=== PATIENT | male | born 1955 | race American Indian/Alaskan Native ===

== ENCOUNTER 2021-11-03 18:47 | Inpatient (IN) | payer SELFPAY ==
--- NOTE | 2021-11-03 19:20 | Emergency Department Report ---
HPI - General Chief Complaint: Dyspnea/Respdistress Time Seen by Provider: 11/03/21 18:51 - HPI HPI: Room 3 The patient is a 66-year-old male present with a chief complaint of shortness of breath. The patient states he has had shortness of breath and a cough for the past 2 days. Patient also complains of nasal congestion. EMS was called and found the patient hypoxic to 83% on room air. Patient was placed on CPAP and administered dexamethasone 10 mg IV and magnesium sulfate 2 g. The patient states he has not been vaccinated against COVID. Patient denies known sick contacts. Upon arrival to the ED the patient was switched from CPAP to BiPAP ED Past Medical Hx - Past Medical History Hx Congestive Heart Failure: Yes Hx COPD: Yes (No home O2) - Surgical History Past Surgical History?: No - Family History Family history: no significant - Social History Smoking Status: Unknown if ever smoked Substance Use Type: None ED Review of Systems ROS: Stated complaint: Other details as noted in HPI Constitutional: denies: fever Eyes: denies: eye pain ENT: denies: throat pain Respiratory: cough, shortness of breath Cardiovascular: denies: chest pain Endocrine: no symptoms reported Gastrointestinal: denies: abdominal pain Genitourinary: denies: dysuria Musculoskeletal: denies: back pain Neurological: denies: headache Physical Exam - Physical Exam Vital Signs: Vital Signs 11/03/21 18:58 Pulse Rate 114 H Respiratory 23 Rate Blood Pressure 140/116 [Left] O2 Sat by Pulse 99 Oximetry Physical Exam: GENERAL: The patient is well-developed well-nourished male lying on stretcher receiving BiPAP exhibiting slightly increased work of breathing. [] HEENT: Normocephalic. Atraumatic. Extraocular motions are intact. Patient has moist mucous membranes. NECK: Supple. Trachea midline CHEST/LUNGS: Diminished throughout. Faint occasional expiratory wheezing auscultated. Accessory muscle use HEART/CARDIOVASCULAR: Regular. There is no tachycardia. There is no gallop rub or murmur. ABDOMEN: Abdomen is soft, nontender. Patient has normal bowel sounds. There is no abdominal distention. SKIN: There is no rash. There is no edema. There is no diaphoresis. NEURO: The patient is awake, alert, and oriented. The patient is cooperative. The patient has no focal neurologic deficits. The patient has normal speech. GCS 15 MUSCULOSKELETAL: There is no evidence of acute injury. ED Course Vital Signs 11/03/21 18:58 Pulse Rate 114 H Respiratory 23 Rate Blood Pressure 140/116 [Left] O2 Sat by Pulse 99 Oximetry ED Medical Decision Making - Lab Data Result diagrams: 11/04/21 05:05 11/06/21 05:19 Laboratory Tests 11/03/21 11/03/21 11/03/21 19:13 19:13 19:13 WBC 8.2 RBC 5.11 H Hgb 13.5 Hct 43.7 MCV 85 MCH 26 L MCHC 31 L RDW 17.3 H Seg Neutrophils % Desktop Technician PT 14.9 INR 1.05 Sodium 140 Potassium 3.7 Chloride 100.4 Carbon Dioxide 25 Anion Gap 18 BUN 23 H Creatinine 1.3 Estimated GFR 56 BUN/Creatinine Ratio 18 Glucose 104 H Lactic Acid Calcium 8.2 L Total Creatine Kinase 65 CK-MB (CK-2) 1.2 CK-MB (CK-2) Rel Index 1.8 Troponin T < 0.010 NT-Pro-B Natriuret Pep 3110 H 11/03/21 19:13 WBC RBC Hgb Hct MCV MCH MCHC RDW Seg Neutrophils % PT INR Sodium Potassium Chloride Carbon Dioxide Anion Gap BUN Creatinine Estimated GFR BUN/Creatinine Ratio Glucose Lactic Acid 1.10 Calcium Total Creatine Kinase CK-MB (CK-2) CK-MB (CK-2) Rel Index Troponin T NT-Pro-B Natriuret Pep - Radiology Data Radiology results: report reviewed (Chest x-ray), image reviewed (Chest x-ray) interpreted by me: Chest [id number] infiltrates bilaterally. No pneumothorax [facility] [address] [place] [address] XRay Report Signed Patient: LIYA PIERCE MR#: [id number] : 1955 Acct:[id number] Age/Sex: 66 / M ADM Date: 11/03/21 Loc: ED Attending Dr: Ordering Physician: RAMYA REDDY MD Date of Service: 11/03/21 Procedure(s): XR chest 1V ap Accession Number(s): [id number] cc: RAMYA REDDY MD Fluoro Time In Minutes: CHEST 1 VIEW 11/03/2021 6:56 PM INDICATION / CLINICAL INFORMATION: Shortness of breath, hypoxia. COMPARISON: None available. FINDINGS: SUPPORT DEVICES: None. HEART / MEDIASTINUM: Stable mild cardiac enlargement. LUNGS / PLEURA: Increased opacity at the mid/lower zones. No pneumothorax. ADDITIONAL FINDINGS: No significant additional findings. IMPRESSION: Bilateral pneumonia. Signer Name: Thom Alfaro MD Signed: 11/03/2021 7:29 PM Workstation Name: [id number] Transcribed By: ES Dictated By: Thom Alfaro MD Electronically Authenticated By: Thom Alfaro MD Signed Date/Time: 11/03/211928 DD/ 27 TD/TT: Print Cancel - Differential Diagnosis COPD exacerbation, CHF exacerbation, COVID pneumonia Critical care attestation.: If time is entered above; I have spent that time in minutes in the direct care of this critically ill patient, excluding procedure time. ED Disposition Clinical Impression: Suspected COVID-19 virus infection, Bilateral pneumonia, Hypoxia Disposition: ADMITTED INPATIENT Is pt being admited?: Yes Does the pt Need Aspirin: No Condition: Fair Time of Disposition: 21:15 (Hospitalist called (Dr. Duncan))
--- NOTE | 2021-11-03 19:34 | XRay Report ---
CHEST 1 VIEW 11/03/2021 6:56 PM INDICATION / CLINICAL INFORMATION: Shortness of breath, hypoxia. COMPARISON: None available. FINDINGS: SUPPORT DEVICES: None. HEART / MEDIASTINUM: Stable mild cardiac enlargement. LUNGS / PLEURA: Increased opacity at the mid/lower zones. No pneumothorax. ADDITIONAL FINDINGS: No significant additional findings. IMPRESSION: Bilateral pneumonia. Signer Name: Thom Alfaro MD Signed: 11/03/2021 7:29 PM Workstation Name: [id number]
[2021-11-03 19:39] LABS: Mean Corpuscular HGB Conc 31 % (32-34); Mean Corpuscular Volume 85 fl (84-94); Red Blood Count 5.11 M/mm3 (3.65-5.03); Red Cell Distribution Width 17.3 % (13.2-15.2)
[2021-11-03 19:48] LABS: Hematocrit 43.7 % (35.5-45.6); Hemoglobin 13.5 gm/dl (11.8-15.2)
[2021-11-03 19:50] LABS: INR 1.05 (0.87-1.13)
[2021-11-03] MEDS ORDERED: IPRATROPIUM 0.02% NEBU 2.5 ML IH ONE (19:52)
[2021-11-03] MEDS ORDERED: LEVALBUTEROL 0.63 MG/3 ML NEBU IH ONE (19:52)
[2021-11-03 20:05] LABS: Creatine Kinase MB 1.2 ng/mL (0.0-4.0)
[2021-11-03 20:08] LABS: BUN/Creatinine Ratio 18; Blood Urea Nitrogen 23 mg/dL (9-20); Calcium 8.2 mg/dL (8.4-10.2); Hemolysis Index 0
[2021-11-03 20:36] LABS: Band Neutrophils # (Manual) 0.5 K/mm3; Basophils % (Manual) 0 % (0.0-1.8); Eosinophils % (Manual) 0 % (0.0-4.3); Total Cells Counted 100
[2021-11-03 20:38] LABS: Platelet Clumps Few
[2021-11-03 20:39] LABS: Large Platelets 1+
[2021-11-03 20:59] LABS: Platelet Count 140 K/mm3 (140-440)
[2021-11-03] MEDS ORDERED: dexAMETHasone 20 MG/5 ML VIAL IV ONE (21:05)
[2021-11-03] MEDS ORDERED: ACETAMINOPHEN 325 MG TAB PO PRN (22:44)
[2021-11-03] MEDS ORDERED: ONDANSETRON 4 MG/2 ML INJ IV PRN (22:44)
[2021-11-03] MEDS ORDERED: MAGNESIUM HYDROXIDE (MOM) ORAL LIQD UDC PO PRN (22:44)
[2021-11-03] MEDS ORDERED: MORPHINE 4 MG/1 ML INJ IV PRN (22:44)
--- NOTE | 2021-11-03 22:58 | History and Physical Report ---
History of Present Illness Date of examination: 11/03/21 Date of admission: 11/03/2021 Chief complaint: 11/03/2021 History of present illness: 36-year-old male with known history of CHF and COPD presenting to the emergency room today via EMS complaining of cough and shortness of breath which has been ongoing for about 2 days. Patient also indicates that he has been having some nasal congestion. He denies any fever or chills, denies any chest pain, denies any headache or dizziness and no diaphoresis. Upon arrival of EMS patient was found to be hypoxic with oxygen saturation of about 83% on room air he was subsequently placed on CPAP. He was given IV dexamethasone 10 mg and magnesium sulfate 2 g prior to arrival. Patient admits that he has not been vaccinated against COVID-19. He denies any sick contacts and no recent travel. Upon arrival in the emergency room patient was switched from CPAP to BiPAP. Work-up in the emergency room today, labs were significant for elevated BNP of 3110. Chest x-ray shows bilateral pneumonia. Past History Past Medical History: COPD, heart failure Past Surgical History: No surgical history Social history: no significant social history Family history: no significant family history Medications and Allergies Allergies Allergy/AdvReac Type Severity Reaction Status Date / Time No Known Allergies Allergy Verified 11/03/21 18:59 Active Meds: Active Medications Acetaminophen (Acetaminophen 325 Mg Tab) 650 mg PO Q4H PRN PRN Reason: Pain MILD(1-3)/Fever >100.5/SMYTH Dexamethasone (Dexamethasone 4 Mg/Ml Vial) 6 mg IV Q24H JENNY Heparin Sodium (Porcine) (Heparin 5,000 Unit/1 Ml Vial) 5,000 unit SUB-Q Q8HR JENNY Ceftriaxone Sodium (Rocephin/Ns 2 Gm/100 Ml) 2 gm in 100 mls @ 200 mls/hr IV Q24H JENNY; Protocol Azithromycin (Zithromax/Ns) 500 mg in 250 mls @ 250 mls/hr IV Q24H JENNY; Protocol Magnesium Hydroxide (Magnesium Hydroxide (Mom) Oral Liqd Udc) 30 ml PO Q4H PRN PRN Reason: Constipation Morphine Sulfate (Morphine 2 Mg/1 Ml Inj) 2 mg IV Q4H PRN PRN Reason: Pain, Moderate (4-6) Morphine Sulfate (Morphine 4 Mg/1 Ml Inj) 4 mg IV Q4H PRN PRN Reason: Pain , Severe (7-10) Ondansetron HCl (Ondansetron 4 Mg/2 Ml Inj) 4 mg IV Q8H PRN PRN Reason: Nausea And Vomiting Sodium Chloride (Sodium Chloride 0.9% 10 Ml Flush Syringe) 10 ml IV BID JENNY Sodium Chloride (Sodium Chloride 0.9% 10 Ml Flush Syringe) 10 ml IV PRN PRN PRN Reason: LINE FLUSH Review of Systems Constitutional: no fever, no chills Ears, nose, mouth and throat: no nasal congestion, no sore throat Cardiovascular: no chest pain, no palpitations Respiratory: cough, shortness of breath Gastrointestinal: no abdominal pain, no nausea, no vomiting, no diarrhea Genitourinary Male: no dysuria, no hematuria, no flank pain, no nocturia Musculoskeletal: no neck pain, no low back pain Integumentary: no rash, no pruritis Neurological: no headaches, no confusion Psychiatric: no anxiety, no depression Endocrine: no polyphagia, no polydipsia, no polyuria, no nocturia Exam - Constitutional Vitals: Temp Pulse Resp BP Pulse Ox 104 H 22 140/116 98 11/03/21 20:44 11/03/21 20:44 11/03/21 19:12 11/03/21 20:29 General appearance: Present: no acute distress, well-nourished - EENT Eyes: Present: PERRL, EOM intact. Absent: scleral icterus ENT: hearing intact, clear oral mucosa, dentition normal - Neck Neck: Present: supple, normal ROM - Respiratory Respiratory effort: normal Respiratory: bilateral: diminished, wheezing (Few scattered wheezes) - Cardiovascular Rhythm: regular Heart Sounds: Present: S1 & S2. Absent: gallop, systolic murmur, diastolic murmur, rub, click - Extremities Extremities: no ischemia, pulses intact, pulses symmetrical, No edema, normal temperature, normal color, Full ROM Peripheral Pulses: within normal limits - Abdominal General gastrointestinal: Present: soft, non-tender, non-distended, normal bowel sounds. Absent: mass - Integumentary Integumentary: Present: clear, warm, dry. Absent: rash - Musculoskeletal Musculoskeletal: strength equal bilaterally - Psychiatric Psychiatric: appropriate mood/affect, intact judgment & insight, memory intact, cooperative - Neurologic Neurologic: CNII-XII intact, no focal deficits, moves all extremities HEART Score - HEART Score Troponin: Troponin T < 0.010 ng/mL (0.00-0.029) 11/03/21 19:13 Results - Labs CBC & Chem 7: 11/03/21 19:13 11/03/21 19:13 Labs: Abnormal lab results 11/03/21 11/03/21 Range/Units 19:13 19:13 RBC 5.11 H (3.65-5.03) M/mm3 MCH 26 L (28-32) pg MCHC 31 L (32-34) % RDW 17.3 H (13.2-15.2) % Seg Neuts % (Manual) 92.0 H (40.0-70.0) % Lymphocytes % (Manual) 1.0 L (13.4-35.0) % Lymphocytes # (Manual) 0.1 L (1.2-5.4) K/mm3 BUN 23 H (9-20) mg/dL Glucose 104 H (75-100) mg/dL Calcium 8.2 L (8.4-10.2) mg/dL NT-Pro-B Natriuret Pep 3110 H (0-900) pg/mL Assessment and Plan - Patient Problems (1) Bilateral pneumonia Current Visit: No Status: Inactive Plan to address problem: Patient placed on empiric IV antibiotics. Will await culture results. We will also test patient for COVID-19. (2) History of COPD Current Visit: No Status: Acute Plan to address problem: Patient will be placed on inhalers as needed. (3) Hypoxia Current Visit: No Status: Inactive Plan to address problem: Possibly secondary to the underlying pneumonia versus COPD. Will keep oxygen saturation greater equal to 92%. Consult placed to pulmonology for evaluation. (4) Suspected COVID-19 virus infection Current Visit: No Status: Inactive Plan to address problem: Will await COVID-19 testing. [address] we will place on isolation precautions. Consult will be placed to infectious disease for evaluation. (5) DVT prophylaxis Current Visit: No Status: Acute Plan to address problem: Patient placed on subcutaneous heparin. (6) Full code status Current Visit: No Status: Acute Plan to address problem: Patient is full code.
[2021-11-03] MEDS: cefTRIAXone/NS 2 GM/100 ML 2 GM/100 ML BAG IV SCH (23:00)
[2021-11-03] MEDS: AZITHROMYCIN/NS 500 MG/250 ML 500 MG/250 ML BAG IV SCH (23:00)
[2021-11-04 05:59] LABS: BUN/Creatinine Ratio 20; Blood Urea Nitrogen 26 mg/dL (9-20); Calcium 8.6 mg/dL (8.4-10.2); Hemolysis Index 6
[2021-11-04] MEDS: HEPARIN 5,000 UNIT/1 ML VIAL SUB-Q SCH ×3 (06:00→22:07)
[2021-11-04 07:43] LABS: Mean Corpuscular HGB Conc 31 % (32-34); Mean Corpuscular Volume 86 fl (84-94); Red Blood Count 5.42 M/mm3 (3.65-5.03); Red Cell Distribution Width 17.3 % (13.2-15.2)
[2021-11-04 07:45] LABS: Hematocrit 46.6 % (35.5-45.6); Hemoglobin 14.5 gm/dl (11.8-15.2); Platelet Count 138 K/mm3 (140-440)
[2021-11-04 08:53] LABS: Band Neutrophils # (Manual) 0.1 K/mm3; Basophils % (Manual) 0 % (0.0-1.8); Eosinophils % (Manual) 0 % (0.0-4.3); Large Platelets Few; Monocytes % (Manual) 0 % (0.0-7.3); Myelocytes # (Manual) 0.1 K/mm3; Platelet Estimate Consistent w Auto; Total Cells Counted 100
[2021-11-04] MEDS ORDERED: dexAMETHasone 4 MG/ML VIAL IV SCH (10:00)
[2021-11-04] MEDS: cefTRIAXone/NS 2 GM/100 ML 2 GM/100 ML BAG IV SCH (10:42)
[2021-11-04] MEDS: AZITHROMYCIN/NS 500 MG/250 ML 500 MG/250 ML BAG IV SCH (11:00)
--- NOTE | 2021-11-04 14:13 | Progress Note ---
Subjective Date of service: 11/04/21 Interval history: 36-year-old male with known history of CHF and COPD presenting to the emergency room today via EMS complaining of cough and shortness of breath which has been ongoing for about 2 days. Patient also indicates that he has been having some nasal congestion. He denies any fever or chills, denies any chest pain, denies any headache or dizziness and no diaphoresis. Upon arrival of EMS patient was found to be hypoxic with oxygen saturation of about 83% on room air he was subsequently placed on CPAP. He was given IV dexamethasone 10 mg and magnesium sulfate 2 g prior to arrival. Patient admits that he has not been vaccinated against COVID-19. He denies any sick contacts and no recent travel. Upon arrival in the emergency room patient was switched from CPAP to BiPAP. Work-up in the emergency room today, labs were significant for elevated BNP of 3110. Chest x-ray shows bilateral pneumonia. 11/04 patient is awake and alert, complains of dry mouth and wants to eat. He is on BiPAP at 60% FiO2. Lab results reviewed. Covid test is pending Patient complains of shortness of breath but denies any chest pain. Denies fever or chills. Denies nausea or abdominal pain Assessment and plan Acute hypoxic respiratory failure Patient is on BiPAP with 65% FiO2 We will order ABG Pulmonary consulted/evaluation pending Bilateral pneumonia Chest x-ray reviewed Covid test ordered-pending Patient is unvaccinated Inflammatory markers reviewed ID consulted evaluation pending/ Continue IV antibiotics History of COPD Pulmonary consulted Continue neb treatments for now Objective - Constitutional Vitals: Vital Signs - 12hr 11/04/21 11/04/21 11/04/21 03:58 04:04 05:00 Temperature 98 F Pulse Rate 101 H 115 H 96 H Respiratory 28 H 38 H 26 H Rate Blood Pressure Blood Pressure 124/88 122/86 [Left] O2 Sat by Pulse 100 96 100 Oximetry 11/04/21 11/04/21 11/04/21 06:30 07:56 08:28 Temperature Pulse Rate 94 H 113 H 93 H Respiratory 26 H 29 H 29 H Rate Blood Pressure 124/100 Blood Pressure 120/84 [Left] O2 Sat by Pulse 100 100 100 Oximetry 11/04/21 11/04/21 09:01 10:55 Temperature Pulse Rate 101 H Respiratory 23 17 Rate Blood Pressure 109/89 Blood Pressure [Left] O2 Sat by Pulse 100 97 Oximetry General appearance: Present: no acute distress - EENT Eyes: PERRL ENT: hearing intact - Neck Neck: supple, normal ROM - Respiratory Respiratory: bilateral: diminished - Cardiovascular Rhythm: regular Heart Sounds: Present: S1 & S2 Extremities: No edema - Gastrointestinal General gastrointestinal: Present: soft, non-tender Rectal Exam: deferred - Genitourinary Male genitourinary: deferred - Integumentary Integumentary: clear - Neurologic Neurologic: no focal deficits, moves all extremities - Psychiatric Psychiatric: appropriate mood/affect - Labs CBC & Chem 7: 11/04/21 05:05 11/04/21 05:05 Labs: Abnormal lab results 11/03/21 11/03/21 11/04/21 Range/Units 19:13 19:13 05:05 RBC 5.11 H 5.42 H (3.65-5.03) M/mm3 Hct 46.6 H (35.5-45.6) % MCH 26 L 27 L (28-32) pg MCHC 31 L 31 L (32-34) % RDW 17.3 H 17.3 H (13.2-15.2) % Plt Count 138 L (140-440) K/mm3 Seg Neuts % (Manual) 92.0 H 86.0 H (40.0-70.0) % Lymphocytes % (Manual) 1.0 L 12.0 L (13.4-35.0) % Lymphocytes # (Manual) 0.1 L 1.0 L (1.2-5.4) K/mm3 D-Dimer (0-234) ng/mlDDU Sodium (137-145) mmol/L Chloride (98-107) mmol/L BUN 23 H (9-20) mg/dL Glucose 104 H (75-100) mg/dL Calcium 8.2 L (8.4-10.2) mg/dL Ferritin (30.0-300.0) ng/mL Lactate Dehydrogenase (91-180) units/L C-Reactive Protein (0.00-1.30) mg/dL NT-Pro-B Natriuret Pep 3110 H (0-900) pg/mL 11/04/21 11/04/21 11/04/21 Range/Units 05:05 08:22 08:22 RBC (3.65-5.03) M/mm3 Hct (35.5-45.6) % MCH (28-32) pg MCHC (32-34) % RDW (13.2-15.2) % Plt Count (140-440) K/mm3 Seg Neuts % (Manual) (40.0-70.0) % Lymphocytes % (Manual) (13.4-35.0) % Lymphocytes # (Manual) (1.2-5.4) K/mm3 D-Dimer 411.43 H (0-234) ng/mlDDU Sodium 136 L (137-145) mmol/L Chloride 96.3 L (98-107) mmol/L BUN 26 H (9-20) mg/dL Glucose 248 H (75-100) mg/dL Calcium (8.4-10.2) mg/dL Ferritin 348.1 H (30.0-300.0) ng/mL Lactate Dehydrogenase (91-180) units/L C-Reactive Protein (0.00-1.30) mg/dL NT-Pro-B Natriuret Pep (0-900) pg/mL 11/04/21 Range/Units 08:22 RBC (3.65-5.03) M/mm3 Hct (35.5-45.6) % MCH (28-32) pg MCHC (32-34) % RDW (13.2-15.2) % Plt Count (140-440) K/mm3 Seg Neuts % (Manual) (40.0-70.0) % Lymphocytes % (Manual) (13.4-35.0) % Lymphocytes # (Manual) (1.2-5.4) K/mm3 D-Dimer (0-234) ng/mlDDU Sodium (137-145) mmol/L Chloride (98-107) mmol/L BUN (9-20) mg/dL Glucose (75-100) mg/dL Calcium (8.4-10.2) mg/dL Ferritin (30.0-300.0) ng/mL Lactate Dehydrogenase 364 H (91-180) units/L C-Reactive Protein 10.00 H (0.00-1.30) mg/dL NT-Pro-B Natriuret Pep (0-900) pg/mL HEART Score - HEART Score Troponin: Troponin T < 0.010 ng/mL (0.00-0.029) 11/03/21 19:13
[2021-11-04] MEDS ORDERED: FUROSEMIDE 20 MG/2 ML INJ IV ONE (15:06)
[2021-11-04] MEDS ORDERED: ALBUTEROL 8.5 GM MDI INHALATION IH PRN (15:07)
--- NOTE | 2021-11-04 15:12 | Consultation ---
History of Present Illness Consult date: 11/04/21 Requesting physician: BASSAM REHMAN Reason for consult: COPD, hypoxemia History of present illness: 66 y/o male per chart with prior history of CHF and COPD admitted with acute hypoxic respiratory failure, concern for COVID and likely CHF exacerbation with combined COPD exacerbation. Past History Past Medical History: COPD, heart failure Past Surgical History: No surgical history Social history: no significant social history Family history: no significant family history Medications and Allergies Allergies Allergy/AdvReac Type Severity Reaction Status Date / Time No Known Allergies Allergy Verified 11/03/21 18:59 Active Meds: Active Medications Acetaminophen (Acetaminophen 325 Mg Tab) 650 mg PO Q4H PRN PRN Reason: Pain MILD(1-3)/Fever >100.5/SMYTH Albuterol (Albuterol 8.5 Gm Mdi Inhalation) 2 puff IH Q4HRT PRN PRN Reason: Shortness Of Breath Azithromycin (Azithromycin 250 Mg Tab) 500 mg PO QDAY JENNY; Protocol Furosemide (Furosemide 20 Mg/2 Ml Inj) 20 mg IV ONCE ONE Stop: 11/04/21 15:07 Heparin Sodium (Porcine) (Heparin 5,000 Unit/1 Ml Vial) 5,000 unit SUB-Q Q8HR JENNY Last Admin: 11/04/21 06:00 Dose: 5,000 unit Ceftriaxone Sodium (Rocephin/Ns 2 Gm/100 Ml) 2 gm in 100 mls @ 200 mls/hr IV Q24HR JENNY; Protocol Last Admin: 11/04/21 10:42 Dose: 200 mls/hr Magnesium Hydroxide (Magnesium Hydroxide (Mom) Oral Liqd Udc) 30 ml PO Q4H PRN PRN Reason: Constipation Methylprednisolone Sodium Succinate (Methylprednisolone Sod Succinate 40 Mg/1 Ml Inj) 40 mg IV Q8HR JENNY Morphine Sulfate (Morphine 2 Mg/1 Ml Inj) 2 mg IV Q4H PRN PRN Reason: Pain, Moderate (4-6) Morphine Sulfate (Morphine 4 Mg/1 Ml Inj) 4 mg IV Q4H PRN PRN Reason: Pain , Severe (7-10) Last Admin: 11/04/21 03:00 Dose: 4 mg Ondansetron HCl (Ondansetron 4 Mg/2 Ml Inj) 4 mg IV Q8H PRN PRN Reason: Nausea And Vomiting Last Admin: 11/04/21 03:00 Dose: 4 mg Sodium Chloride (Sodium Chloride 0.9% 10 Ml Flush Syringe) 10 ml IV BID JENNY Last Admin: 11/04/21 10:43 Dose: 10 ml Sodium Chloride (Sodium Chloride 0.9% 10 Ml Flush Syringe) 10 ml IV PRN PRN PRN Reason: LINE FLUSH Review of Systems All systems: negative Physical Examination Vital signs: Vital Signs Pulse Resp BP Pulse Ox 114 H 23 140/116 99 11/03/21 18:58 11/03/21 18:58 11/03/21 18:58 11/03/21 18:58 Results - Laboratory Findings CBC and BMP: 11/04/21 05:05 11/04/21 05:05 PT/INR, D-dimer PT 14.9 Sec. (12.2-14.9) 11/03/21 19:13 INR 1.05 (0.87-1.13) 11/03/21 19:13 D-Dimer 411.43 ng/mlDDU (0-234) H 11/04/21 08:22 Abnormal lab findings: Abnormal Labs 11/03/21 11/03/21 11/04/21 19:13 19:13 05:05 RBC 5.11 H 5.42 H Hct 46.6 H MCH 26 L 27 L MCHC 31 L 31 L RDW 17.3 H 17.3 H Plt Count 138 L Seg Neuts % (Manual) 92.0 H 86.0 H Lymphocytes % (Manual) 1.0 L 12.0 L Lymphocytes # (Manual) 0.1 L 1.0 L D-Dimer Sodium Chloride BUN 23 H Glucose 104 H Calcium 8.2 L Ferritin Lactate Dehydrogenase C-Reactive Protein NT-Pro-B Natriuret Pep 3110 H 11/04/21 11/04/21 11/04/21 05:05 08:22 08:22 RBC Hct MCH MCHC RDW Plt Count Seg Neuts % (Manual) Lymphocytes % (Manual) Lymphocytes # (Manual) D-Dimer 411.43 H Sodium 136 L Chloride 96.3 L BUN 26 H Glucose 248 H Calcium Ferritin 348.1 H Lactate Dehydrogenase C-Reactive Protein NT-Pro-B Natriuret Pep 11/04/21 08:22 RBC Hct MCH MCHC RDW Plt Count Seg Neuts % (Manual) Lymphocytes % (Manual) Lymphocytes # (Manual) D-Dimer Sodium Chloride BUN Glucose Calcium Ferritin Lactate Dehydrogenase 364 H C-Reactive Protein 10.00 H NT-Pro-B Natriuret Pep - Diagnostic Findings Chest x-ray: image reviewed (Cardiomegaly) Assessment and Plan 66 y/o male with acute respiratory failure with elevated BNP and known CHF with COPD, also concern for COVID given current pandemic and patient is not vaccinated against the virus 1. Lasix 20mg IV x1 2. Suggest obtaining 2D echo 3. Changed dex to solumedro 40q8 4. Added albuterol MDI 2puffs every 4-6 hours as needed 5. Hold on nebulizer therapy until COVID test results 6. Agree with COVID screening 7. Guarded prognosis. WEan Bipap for sats >88% and or patient comfort
--- NOTE | 2021-11-04 15:36 | Consultation ---
History of Present Illness - Reason for Consult Consult date: 11/04/21 COVID PUI Requesting physician: BASSAM REHMAN - History of Present Illness The patient is a 66-year-old male with COPD, CHF admitted with cough and shortness of breath. Hypoxic on admission was placed on BiPAP. Unvaccinated against COVID-19. Review of Systems: reviewed in the chart, unable to obtain, minimize risk of transmission Past History Past Medical History: COPD, heart failure Past Surgical History: No surgical history Social history: no significant social history Family history: no significant family history Medications and Allergies Allergies Allergy/AdvReac Type Severity Reaction Status Date / Time No Known Allergies Allergy Verified 11/03/21 18:59 Active Meds: Active Medications Acetaminophen (Acetaminophen 325 Mg Tab) 650 mg PO Q4H PRN PRN Reason: Pain MILD(1-3)/Fever >100.5/SMYTH Albuterol (Albuterol 8.5 Gm Mdi Inhalation) 2 puff IH Q4HRT PRN PRN Reason: Shortness Of Breath Azithromycin (Azithromycin 250 Mg Tab) 500 mg PO QDAY JENNY; Protocol Heparin Sodium (Porcine) (Heparin 5,000 Unit/1 Ml Vial) 5,000 unit SUB-Q Q8HR JENNY Last Admin: 11/04/21 06:00 Dose: 5,000 unit Ceftriaxone Sodium (Rocephin/Ns 2 Gm/100 Ml) 2 gm in 100 mls @ 200 mls/hr IV Q24HR JENNY; Protocol Last Admin: 11/04/21 10:42 Dose: 200 mls/hr Magnesium Hydroxide (Magnesium Hydroxide (Mom) Oral Liqd Udc) 30 ml PO Q4H PRN PRN Reason: Constipation Methylprednisolone Sodium Succinate (Methylprednisolone Sod Succinate 40 Mg/1 Ml Inj) 40 mg IV Q8HR JENNY Morphine Sulfate (Morphine 2 Mg/1 Ml Inj) 2 mg IV Q4H PRN PRN Reason: Pain, Moderate (4-6) Morphine Sulfate (Morphine 4 Mg/1 Ml Inj) 4 mg IV Q4H PRN PRN Reason: Pain , Severe (7-10) Last Admin: 11/04/21 03:00 Dose: 4 mg Ondansetron HCl (Ondansetron 4 Mg/2 Ml Inj) 4 mg IV Q8H PRN PRN Reason: Nausea And Vomiting Last Admin: 11/04/21 03:00 Dose: 4 mg Sodium Chloride (Sodium Chloride 0.9% 10 Ml Flush Syringe) 10 ml IV BID JENNY Last Admin: 11/04/21 10:43 Dose: 10 ml Sodium Chloride (Sodium Chloride 0.9% 10 Ml Flush Syringe) 10 ml IV PRN PRN PRN Reason: LINE FLUSH Physical Examination - Physical Exam Narrative exam: Physical Exam (reviewed in chart to minimize risk of transmission) Constitutional: deferred Head, Ears, Nose: deferred Eyes: deferred Neck: deferred Oral: deferred Cardiovascular: deferred Respiratory: deferred GI: deferred Musculoskeletal: deferred Skin: deferred Hem/Lymphatic: deferred Psych: deferred Neurological: deferred - Constitutional Vitals: Vital Signs Temp Pulse Resp BP Pulse Ox 98 F 110 H 12 118/79 95 11/04/21 05:00 11/04/21 11:01 11/04/21 13:01 11/04/21 14:00 11/04/21 15:30 Temperature -Last 24 Hours Temperature 98 F Results - Labs CBC & Chem 7: 11/04/21 05:05 11/04/21 05:05 Labs: Abnormal lab results 11/03/21 11/03/21 11/04/21 Range/Units 19:13 19:13 05:05 RBC 5.11 H 5.42 H (3.65-5.03) M/mm3 Hct 46.6 H (35.5-45.6) % MCH 26 L 27 L (28-32) pg MCHC 31 L 31 L (32-34) % RDW 17.3 H 17.3 H (13.2-15.2) % Plt Count 138 L (140-440) K/mm3 Seg Neuts % (Manual) 92.0 H 86.0 H (40.0-70.0) % Lymphocytes % (Manual) 1.0 L 12.0 L (13.4-35.0) % Lymphocytes # (Manual) 0.1 L 1.0 L (1.2-5.4) K/mm3 D-Dimer (0-234) ng/mlDDU Sodium (137-145) mmol/L Chloride (98-107) mmol/L BUN 23 H (9-20) mg/dL Glucose 104 H (75-100) mg/dL Calcium 8.2 L (8.4-10.2) mg/dL Ferritin (30.0-300.0) ng/mL Lactate Dehydrogenase (91-180) units/L C-Reactive Protein (0.00-1.30) mg/dL NT-Pro-B Natriuret Pep 3110 H (0-900) pg/mL 11/04/21 11/04/21 11/04/21 Range/Units 05:05 08:22 08:22 RBC (3.65-5.03) M/mm3 Hct (35.5-45.6) % MCH (28-32) pg MCHC (32-34) % RDW (13.2-15.2) % Plt Count (140-440) K/mm3 Seg Neuts % (Manual) (40.0-70.0) % Lymphocytes % (Manual) (13.4-35.0) % Lymphocytes # (Manual) (1.2-5.4) K/mm3 D-Dimer 411.43 H (0-234) ng/mlDDU Sodium 136 L (137-145) mmol/L Chloride 96.3 L (98-107) mmol/L BUN 26 H (9-20) mg/dL Glucose 248 H (75-100) mg/dL Calcium (8.4-10.2) mg/dL Ferritin 348.1 H (30.0-300.0) ng/mL Lactate Dehydrogenase (91-180) units/L C-Reactive Protein (0.00-1.30) mg/dL NT-Pro-B Natriuret Pep (0-900) pg/mL 11/04/21 Range/Units 08:22 RBC (3.65-5.03) M/mm3 Hct (35.5-45.6) % MCH (28-32) pg MCHC (32-34) % RDW (13.2-15.2) % Plt Count (140-440) K/mm3 Seg Neuts % (Manual) (40.0-70.0) % Lymphocytes % (Manual) (13.4-35.0) % Lymphocytes # (Manual) (1.2-5.4) K/mm3 D-Dimer (0-234) ng/mlDDU Sodium (137-145) mmol/L Chloride (98-107) mmol/L BUN (9-20) mg/dL Glucose (75-100) mg/dL Calcium (8.4-10.2) mg/dL Ferritin (30.0-300.0) ng/mL Lactate Dehydrogenase 364 H (91-180) units/L C-Reactive Protein 10.00 H (0.00-1.30) mg/dL NT-Pro-B Natriuret Pep (0-900) pg/mL - Imaging and Cardiology Chest x-ray: report reviewed Assessment and Plan Cultures: SARS CoV2 PCR: Pending 11/03/2021 blood culture: In process A/P: 66/M with: #Bilateral pneumonia: COVID-19 PUI. CRP 10, procalcitonin 0.44, LDH 364, ferritin 348, D-dimer 411. Chest x-ray showed bilateral pneumonia. #Acute hypoxic respiratory failure: Required BiPAP, now on 4 L nasal cannula. #CHF #COPD #Mild thrombocytopenia Recs: -already on steroids -f/u COVID PCR, IV remdesivir x 5 days added for now, if COVID is negative, discontinue -if requiring HFNC >30 L/min, CRP >7.5, candidate for Actemra (depending on availability) -prophylactic anticoagulation based on d-dimer per hospital protocol -Procalcitonin mildly elevated, complete 5 days of empiric antibiotics Daniela Ventura MD, FACPSTANLEY [facility] O: [phone] F: [phone]
[2021-11-04 16:38] LABS: ABG Base Excess 2.4 mmol/L (-2.0-3.0); ABG HCO3 28.5 mmol/L (20.0-26.0); ABG Methemoglobin 0.5 % (0.0-1.5); ABG Oxygen Saturation 95.1 % (95.0-99.0); ABG PCO2 50.4 mm Hg; ABG PH 7.371 pH Units (7.350-7.450); ABG PO2 76.5 mm Hg (80.0-90.0)
[2021-11-04] MEDS: methylPREDNISolone Sod Succinate 40 MG/1 ML INJ IV SCH (22:07)
[2021-11-05] MEDS: methylPREDNISolone Sod Succinate 40 MG/1 ML INJ IV SCH ×2 (05:39→14:30)
[2021-11-05] MEDS: HEPARIN 5,000 UNIT/1 ML VIAL SUB-Q SCH ×2 (05:39→14:00)
[2021-11-05 08:25] LABS: Alanine Aminotransferase 18 units/L (7-56); Albumin 3.3 g/dL (3.9-5); BUN/Creatinine Ratio 32; Blood Urea Nitrogen 38 mg/dL (9-20); Calcium 8.8 mg/dL (8.4-10.2); Hemolysis Index 20
--- NOTE | 2021-11-05 09:08 | Progress Note ---
Assessment and Plan 66 y/o male with acute respiratory failure with elevated BNP and known CHF with COPD, also concern for COVID given current pandemic and patient is not vaccinated against the virus 11/05/21: Suggest another dose of IV lasix today. Would change to oral steroids and taper as follows: Prednisone 60 daily for 4 days, 40 daily for 4 days, 20 daily for 4 days then stop. Resume home COPD regimen at discharge. Consider ambulatory pulse ox today, and if patient does not require oxygen, consider discharge. Patient needs to quarantine. 1. Lasix 20mg IV x1 2. Suggest obtaining 2D echo 3. Changed dex to solumedro 40q8 4. Added albuterol MDI 2puffs every 4-6 hours as needed 5. Hold on nebulizer therapy until COVID test results 6. Agree with COVID screening 7. Guarded prognosis. WEan Bipap for sats >88% and or patient comfort Subjective Date of service: 11/05/21 Interval history: Weaned to room air. Patient is COVID positive. got lasix yesterday but I/O not accurate. Per charting patient refusing steroids. Objective Vital Signs - 12hr 11/04/21 11/04/21 11/04/21 21:38 22:01 22:29 Pulse Rate 94 H 111 H Respiratory 15 18 Rate Blood Pressure 132/92 132/92 Blood Pressure [Left] O2 Sat by Pulse 95 96 96 Oximetry 11/05/21 11/05/21 11/05/21 00:00 00:01 01:01 Pulse Rate 98 H Respiratory 16 Rate Blood Pressure 127/89 Blood Pressure 127/89 [Left] O2 Sat by Pulse 98 100 95 Oximetry 11/05/21 11/05/21 11/05/21 02:01 03:01 04:01 Pulse Rate Respiratory Rate Blood Pressure 114/71 114/71 120/100 Blood Pressure [Left] O2 Sat by Pulse 90 96 93 Oximetry 11/05/21 11/05/21 05:01 06:01 Pulse Rate 99 H Respiratory 24 Rate Blood Pressure 120/100 122/101 Blood Pressure [Left] O2 Sat by Pulse 98 92 Oximetry CBC and BMP: 11/04/21 05:05 11/05/21 07:24 ABG, PT/INR, D-dimer: ABG ABG pH 7.371 pH Units (7.350-7.450) 11/04/21 16:24 ABG pCO2 50.4 mm Hg 11/04/21 16:24 ABG pO2 76.5 mm Hg (80.0-90.0) L 11/04/21 16:24 ABG O2 Saturation 95.1 % (95.0-99.0) 11/04/21 16:24 PT/INR, D-dimer PT 14.9 Sec. (12.2-14.9) 11/03/21 19:13 INR 1.05 (0.87-1.13) 11/03/21 19:13 D-Dimer 496.67 ng/mlDDU (0-234) H 11/05/21 07:24 Abnormal lab findings: Abnormal Labs 11/03/21 11/03/21 11/04/21 19:13 19:13 05:05 RBC 5.11 H 5.42 H Hct 46.6 H MCH 26 L 27 L MCHC 31 L 31 L RDW 17.3 H 17.3 H Plt Count 138 L Seg Neuts % (Manual) 92.0 H 86.0 H Lymphocytes % (Manual) 1.0 L 12.0 L Lymphocytes # (Manual) 0.1 L 1.0 L D-Dimer ABG pO2 ABG HCO3 ABG Hemoglobin Oxyhemoglobin Sodium Chloride BUN 23 H Glucose 104 H Calcium 8.2 L Ferritin Lactate Dehydrogenase C-Reactive Protein NT-Pro-B Natriuret Pep 3110 H Albumin Coronavirus (PCR) 11/04/21 11/04/21 11/04/21 05:05 08:22 08:22 RBC Hct MCH MCHC RDW Plt Count Seg Neuts % (Manual) Lymphocytes % (Manual) Lymphocytes # (Manual) D-Dimer 411.43 H ABG pO2 ABG HCO3 ABG Hemoglobin Oxyhemoglobin Sodium 136 L Chloride 96.3 L BUN 26 H Glucose 248 H Calcium Ferritin 348.1 H Lactate Dehydrogenase C-Reactive Protein NT-Pro-B Natriuret Pep Albumin Coronavirus (PCR) 11/04/21 11/04/21 11/04/21 08:22 10:00 16:24 RBC Hct MCH MCHC RDW Plt Count Seg Neuts % (Manual) Lymphocytes % (Manual) Lymphocytes # (Manual) D-Dimer ABG pO2 76.5 L ABG HCO3 28.5 H ABG Hemoglobin 13.6 L Oxyhemoglobin 93.5 L Sodium Chloride BUN Glucose Calcium Ferritin Lactate Dehydrogenase 364 H C-Reactive Protein 10.00 H NT-Pro-B Natriuret Pep Albumin Coronavirus (PCR) Positive A 11/05/21 11/05/21 07:24 07:24 RBC Hct MCH MCHC RDW Plt Count Seg Neuts % (Manual) Lymphocytes % (Manual) Lymphocytes # (Manual) D-Dimer 496.67 H ABG pO2 ABG HCO3 ABG Hemoglobin Oxyhemoglobin Sodium Chloride 97.9 L BUN 38 H Glucose 141 H Calcium Ferritin Lactate Dehydrogenase 380 H C-Reactive Protein 5.40 H NT-Pro-B Natriuret Pep Albumin 3.3 L Coronavirus (PCR)
[2021-11-05] MEDS ORDERED: AZITHROMYCIN 250 MG TAB PO SCH (10:00)
--- NOTE | 2021-11-05 10:06 | Electrocardiograph Report ---
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
[2021-11-05] MEDS: cefTRIAXone/NS 2 GM/100 ML 2 GM/100 ML BAG IV SCH (10:15)
--- NOTE | 2021-11-05 15:15 | Progress Note ---
Assessment and Plan Cultures: SARS CoV2 PCR: positive 11/03/2021 blood culture: no growth A/P: 66/M with: #Bilateral pneumonia secondary to COVID-19: CRP 10, procalcitonin 0.44, LDH 364, ferritin 348, D-dimer 411. Chest x-ray showed bilateral pneumonia. #Acute hypoxic respiratory failure: Required BiPAP, now on 2 L nasal cannula. #CHF #COPD #Mild thrombocytopenia Recs: -already on steroids, per pulmonary -IV remdesivir x 5 days -prophylactic anticoagulation based on d-dimer per hospital protocol -Procalcitonin mildly elevated, complete 5 days of empiric antibiotics, if discharged, do Ceftin 500 mg BID + PO Azithromycin 500 mg daily to complete the course Daniela Ventura MD, FACP, [facility] O: [phone] F: [phone] Subjective Date of service: 11/05/21 Interval history: No fever. Weaned to 2 L nasal cannula. Procalcitonin 0.44 Objective - Exam Narrative Exam: Physical Exam (reviewed in chart to minimize risk of transmission) Constitutional: deferred Head, Ears, Nose: deferred Eyes: deferred Neck: deferred Oral: deferred Cardiovascular: deferred Respiratory: deferred GI: deferred Musculoskeletal: deferred Skin: deferred Hem/Lymphatic: deferred Psych: deferred Neurological: deferred - Constitutional Vitals: Vital Signs Temp Pulse Resp BP Pulse Ox 97.4 F L 99 H 24 122/101 92 11/04/21 19:45 11/05/21 05:01 11/05/21 05:01 11/05/21 06:01 11/05/21 06:01 Temperature -Last 24 Hours Temperature 97.4 F - Labs CBC & Chem 7: 11/04/21 05:05 11/05/21 07:24 Labs: Abnormal lab results 11/04/21 11/04/21 11/05/21 Range/Units 10:00 16:24 07:24 D-Dimer 496.67 H (0-234) ng/mlDDU ABG pO2 76.5 L (80.0-90.0) mm Hg ABG HCO3 28.5 H (20.0-26.0) mmol/L ABG Hemoglobin 13.6 L (14.0-18.0) gm/dl Oxyhemoglobin 93.5 L (95.0-99.0) % Chloride (98-107) mmol/L BUN (9-20) mg/dL Glucose (75-100) mg/dL Lactate Dehydrogenase (91-180) units/L C-Reactive Protein (0.00-1.30) mg/dL Albumin (3.9-5) g/dL Coronavirus (PCR) Positive A (Negative) 11/05/21 Range/Units 07:24 D-Dimer (0-234) ng/mlDDU ABG pO2 (80.0-90.0) mm Hg ABG HCO3 (20.0-26.0) mmol/L ABG Hemoglobin (14.0-18.0) gm/dl Oxyhemoglobin (95.0-99.0) % Chloride 97.9 L (98-107) mmol/L BUN 38 H (9-20) mg/dL Glucose 141 H (75-100) mg/dL Lactate Dehydrogenase 380 H (91-180) units/L C-Reactive Protein 5.40 H (0.00-1.30) mg/dL Albumin 3.3 L (3.9-5) g/dL Coronavirus (PCR) (Negative)
[2021-11-05] MEDS ORDERED: REMDESIVIR 200 MG in SODIUM CHLORIDE 0.9% 250ML 250 ML IV ONE (17:00)
[2021-11-05 17:21] LABS: Alanine Aminotransferase 17 units/L (7-56); Albumin 3.2 g/dL (3.9-5); BUN/Creatinine Ratio 34; Blood Urea Nitrogen 41 mg/dL (9-20); Calcium 8.4 mg/dL (8.4-10.2); Hemolysis Index 3
[2021-11-05] MEDS ORDERED: SODIUM CHLORIDE 0.9% 50 ML IVPB IV ONE (17:30)
--- NOTE | 2021-11-05 18:35 | Progress Note ---
Assessment and Plan Assessment and plan: #Acute hypoxic respiratory failure #COVID-19 pneumonia Patient was transitioned off of BiPAP to 4 L nasal cannula. Continue to wean as tolerated. Pulmonology consulted; appreciate recs Infectious disease consulted; appreciate recs Continue steroids x10 days and remdesivir x5. Continue contact and droplet precautions. Encourage patient to prone at night. Continue to monitor #History of COPD Pulmonology consulted; appreciate recs Continue DuoNebs and albuterol nebs #Advanced care planning -Disease education conducted, care plan discussed, diagnoses discussed, prognosis discussed, and patient acknowledges understanding with care plan -Time: +30 min Disposition Plan: Continue medical management Total Time Spent with Patient (Minutes): 45 minutes History Interval history: No acute events overnight. Hospitalist Physical - Constitutional Vitals: Temp Pulse Resp BP Pulse Ox 97.4 F L 99 H 24 122/101 97 11/04/21 19:45 11/05/21 05:01 11/05/21 05:01 11/05/21 06:01 11/05/21 10:00 General appearance: Present: no acute distress, well-nourished - EENT Eyes: Present: PERRL, EOM intact ENT: hearing intact, clear oral mucosa - Neck Neck: Present: supple, normal ROM - Respiratory Respiratory effort: normal Respiratory: bilateral: diminished (On 4 L nasal cannula) - Cardiovascular Rhythm: regular Heart Sounds: Present: S1 & S2 - Extremities Extremities: no ischemia, pulses intact, pulses symmetrical, No edema, normal temperature, normal color, Full ROM Peripheral Pulses: within normal limits - Abdominal General gastrointestinal: soft, non-tender, non-distended, normal bowel sounds - Integumentary Integumentary: Present: clear, warm, dry - Psychiatric Psychiatric: appropriate mood/affect, cooperative - Neurologic Neurologic: CNII-XII intact - Allied Health Allied health notes reviewed: nursing HEART Score - HEART Score Troponin: Troponin T < 0.010 ng/mL (0.00-0.029) 11/03/21 19:13 Results - Labs CBC & Chem 7: 11/04/21 05:05 11/05/21 16:51 Labs: Laboratory Last Values WBC 8.5 K/mm3 (4.5-11.0) 11/04/21 05:05 RBC 5.42 M/mm3 (3.65-5.03) H 11/04/21 05:05 Hgb 14.5 gm/dl (11.8-15.2) 11/04/21 05:05 Hct 46.6 % (35.5-45.6) H 11/04/21 05:05 MCV 86 fl (84-94) 11/04/21 05:05 MCH 27 pg (28-32) L 11/04/21 05:05 MCHC 31 % (32-34) L 11/04/21 05:05 RDW 17.3 % (13.2-15.2) H 11/04/21 05:05 Plt Count 138 K/mm3 (140-440) L 11/04/21 05:05 Add Manual Diff Complete 11/04/21 05:05 Total Counted 100 11/04/21 05:05 Seg Neutrophils % Axle Bearing Polisher 11/04/21 05:05 Seg Neuts % (Manual) 86.0 % (40.0-70.0) H 11/04/21 05:05 Band Neutrophils % 1.0 % 11/04/21 05:05 Lymphocytes % (Manual) 12.0 % (13.4-35.0) L 11/04/21 05:05 Reactive Lymphs % (Man) 0 % 11/04/21 05:05 Monocytes % (Manual) 0 % (0.0-7.3) 11/04/21 05:05 Eosinophils % (Manual) 0 % (0.0-4.3) 11/04/21 05:05 Basophils % (Manual) 0 % (0.0-1.8) 11/04/21 05:05 Metamyelocytes % 0 % 11/04/21 05:05 Myelocytes % 1.0 % 11/04/21 05:05 Promyelocytes % 0 % 11/04/21 05:05 Blast Cells % 0 % 11/04/21 05:05 Nucleated RBC % Not Reportable 11/04/21 05:05 Seg Neutrophils # Man 7.3 K/mm3 (1.8-7.7) 11/04/21 05:05 Band Neutrophils # 0.1 K/mm3 11/04/21 05:05 Lymphocytes # (Manual) 1.0 K/mm3 (1.2-5.4) L 11/04/21 05:05 Abs React Lymphs (Man) 0.0 K/mm3 11/04/21 05:05 Monocytes # (Manual) 0.0 K/mm3 (0.0-0.8) 11/04/21 05:05 Eosinophils # (Manual) 0.0 K/mm3 (0.0-0.4) 11/04/21 05:05 Basophils # (Manual) 0.0 K/mm3 (0.0-0.1) 11/04/21 05:05 Metamyelocytes # 0.0 K/mm3 11/04/21 05:05 Myelocytes # 0.1 K/mm3 11/04/21 05:05 Promyelocytes # 0.0 K/mm3 11/04/21 05:05 Blast Cells # 0.0 K/mm3 11/04/21 05:05 WBC Morphology Not Reportable 11/04/21 05:05 Hypersegmented Neuts Not Reportable 11/04/21 05:05 Hyposegmented Neuts Not Reportable 11/04/21 05:05 Hypogranular Neuts Not Reportable 11/04/21 05:05 Smudge Cells Not Reportable 11/04/21 05:05 Toxic Granulation Not Reportable 11/04/21 05:05 Toxic Vacuolation Not Reportable 11/04/21 05:05 Dohle Bodies Not Reportable 11/04/21 05:05 Pelger-Huet Anomaly Not Reportable 11/04/21 05:05 Kristina Rods Not Reportable 11/04/21 05:05 Platelet Estimate Consistent w auto 11/04/21 05:05 Clumped Platelets Not Reportable 11/04/21 05:05 Plt Clumps, EDTA Not Reportable 11/04/21 05:05 Large Platelets Few 11/04/21 05:05 Giant Platelets Not Reportable 11/04/21 05:05 Platelet Satelliting Not Reportable 11/04/21 05:05 Plt Morphology Comment Not Reportable 11/04/21 05:05 RBC Morphology Not Reportable 11/04/21 05:05 Dimorphic RBCs Not Reportable 11/04/21 05:05 Polychromasia Not Reportable 11/04/21 05:05 Hypochromasia Not Reportable 11/04/21 05:05 Poikilocytosis Not Reportable 11/04/21 05:05 Anisocytosis Not Reportable 11/04/21 05:05 Microcytosis Not Reportable 11/04/21 05:05 Macrocytosis Not Reportable 11/04/21 05:05 Spherocytes Not Reportable 11/04/21 05:05 Pappenheimer Bodies Not Reportable 11/04/21 05:05 Sickle Cells Not Reportable 11/04/21 05:05 Target Cells Not Reportable 11/04/21 05:05 Tear Drop Cells Not Reportable 11/04/21 05:05 Ovalocytes Not Reportable 11/04/21 05:05 Helmet Cells Not Reportable 11/04/21 05:05 Erickson-Freeman Bodies Not Reportable 11/04/21 05:05 [place] Rings Not Reportable 11/04/21 05:05 [place] Cells Not Reportable 11/04/21 05:05 Bite Cells Not Reportable 11/04/21 05:05 Crenated Cell Not Reportable 11/04/21 05:05 Elliptocytes Not Reportable 11/04/21 05:05 Acanthocytes (Spur) Not Reportable 11/04/21 05:05 Rouleaux Not Reportable 11/04/21 05:05 Hemoglobin C Crystals Not Reportable 11/04/21 05:05 Schistocytes Not Reportable 11/04/21 05:05 Malaria parasites Not Reportable 11/04/21 05:05 Fili Bodies Not Reportable 11/04/21 05:05 Hem Pathologist Commnt No 11/04/21 05:05 PT 14.9 Sec. (12.2-14.9) 11/03/21 19:13 INR 1.05 (0.87-1.13) 11/03/21 19:13 D-Dimer 496.67 ng/mlDDU (0-234) H 11/05/21 07:24 ABG pH 7.371 pH Units (7.350-7.450) 11/04/21 16:24 ABG pCO2 50.4 mm Hg 11/04/21 16:24 ABG pO2 76.5 mm Hg (80.0-90.0) L 11/04/21 16:24 ABG HCO3 28.5 mmol/L (20.0-26.0) H 11/04/21 16:24 ABG O2 Saturation 95.1 % (95.0-99.0) 11/04/21 16:24 ABG O2 Content 17.9 (0.0-44) 11/04/21 16:24 ABG Base Excess 2.4 mmol/L (-2.0-3.0) 11/04/21 16:24 ABG Hemoglobin 13.6 gm/dl (14.0-18.0) L 11/04/21 16:24 ABG Carboxyhemoglobin 1.1 % (0.0-5.0) 11/04/21 16:24 ABG Methemoglobin 0.5 % (0.0-1.5) 11/04/21 16:24 Oxyhemoglobin 93.5 % (95.0-99.0) L 11/04/21 16:24 FiO2 36 % 11/04/21 16:24 Sodium 136 mmol/L (137-145) L 11/05/21 16:51 Potassium 3.9 mmol/L (3.6-5.0) 11/05/21 16:51 Chloride 97.2 mmol/L (98-107) L 11/05/21 16:51 Carbon Dioxide 25 mmol/L (22-30) 11/05/21 16:51 Anion Gap 18 mmol/L 11/05/21 16:51 BUN 41 mg/dL (9-20) H 11/05/21 16:51 Creatinine 1.2 mg/dL (0.8-1.3) 11/05/21 16:51 Estimated GFR > 60 ml/min 11/05/21 16:51 BUN/Creatinine Ratio 34 % 11/05/21 16:51 Glucose 157 mg/dL (75-100) H 11/05/21 16:51 Lactic Acid 1.10 mmol/L (0.7-2.0) 11/03/21 19:13 Calcium 8.4 mg/dL (8.4-10.2) 11/05/21 16:51 Ferritin 348.1 ng/mL (30.0-300.0) H 11/04/21 08:22 Total Bilirubin 0.30 mg/dL (0.1-1.2) 11/05/21 16:51 AST 26 units/L (5-40) 11/05/21 16:51 ALT 17 units/L (7-56) 11/05/21 16:51 Alkaline Phosphatase 98 units/L (35-129) 11/05/21 16:51 Lactate Dehydrogenase 380 units/L (91-180) H 11/05/21 07:24 Total Creatine Kinase 65 units/L (55-170) 11/03/21 19:13 CK-MB (CK-2) 1.2 ng/mL (0.0-4.0) 11/03/21 19:13 CK-MB (CK-2) Rel Index 1.8 (0-4) 11/03/21 19:13 Troponin T < 0.010 ng/mL (0.00-0.029) 11/03/21 19:13 C-Reactive Protein 5.40 mg/dL (0.00-1.30) H 11/05/21 07:24 NT-Pro-B Natriuret Pep 3110 pg/mL (0-900) H 11/03/21 19:13 Total Protein 7.8 g/dL (6.3-8.2) 11/05/21 16:51 Albumin 3.2 g/dL (3.9-5) L 11/05/21 16:51 Albumin/Globulin Ratio 0.7 % 11/05/21 16:51 Procalcitonin 0.44 ng/mL (<0.15) 11/04/21 08:22 Coronavirus (PCR) Positive (Negative) A 11/04/21 10:00 Microbiology: Microbiology 11/03/21 19:13 Peripheral/Venous Blood Culture - Preliminary NO GROWTH AFTER 24 HOURS 11/03/21 19:19 Peripheral/Venous Blood Culture - Preliminary NO GROWTH AFTER 24 HOURS Active Medications - Current Medications Current Medications: Generic Name Dose Route Start Last Admin Trade Name Rohanq PRN Reason Stop Dose Admin Acetaminophen 650 mg 11/03/21 22:44 Acetaminophen 325 Mg Tab PO Q4H PRN Pain MILD(1-3)/Fever >100.5/SMYHT Albuterol 2 puff 11/04/21 15:07 Albuterol 8.5 Gm Mdi Inhalation IH Q4HRT PRN Shortness Of Breath Azithromycin 500 mg 11/05/21 10:00 11/05/21 10:15 Azithromycin 250 Mg Tab PO 11/07/21 10:01 500 mg QDAY JENNY Administration Protocol Heparin Sodium (Porcine) 5,000 unit 11/04/21 06:00 11/05/21 14:00 Heparin 5,000 Unit/1 Ml Vial SUB-Q Not Given Q8HR [facility] Ceftriaxone Sodium 2 gm in 100 mls @ 200 mls/hr 11/03/21 23:00 11/05/21 10:15 Rocephin/Ns 2 Gm/100 Ml IV 11/07/21 10:29 200 mls/hr Q24HR JENNY Administration Protocol REMDESIVIR 100 mg/ Sodium 250 mls @ 500 mls/hr 11/06/21 21:00 Chloride IV 11/09/21 21:29 Q24HR@2100 [facility] Magnesium Hydroxide 30 ml 11/03/21 22:44 11/05/21 04:44 Magnesium Hydroxide (Mom) Oral Liqd Udc PO 30 ml Q4H PRN Administration Constipation Methylprednisolone Sodium Succinate 40 mg 11/04/21 22:00 11/05/21 14:30 Methylprednisolone Sod Succinate 40 Mg/1 Ml Inj IV 40 mg Q8HR JENNY Administration Morphine Sulfate 2 mg 11/03/21 22:44 Morphine 2 Mg/1 Ml Inj IV Q4H PRN Pain, Moderate (4-6) Morphine Sulfate 4 mg 11/03/21 22:44 11/04/21 03:00 Morphine 4 Mg/1 Ml Inj IV 4 mg Q4H PRN Administration Pain , Severe (7-10) Ondansetron HCl 4 mg 11/03/21 22:44 11/04/21 03:00 Ondansetron 4 Mg/2 Ml Inj IV 4 mg Q8H PRN Administration Nausea And Vomiting Sodium Chloride 10 ml 11/04/21 10:00 11/05/21 10:00 Sodium Chloride 0.9% 10 Ml Flush Syringe IV 10 ml BID JENNY Administration Sodium Chloride 10 ml 11/03/21 22:44 Sodium Chloride 0.9% 10 Ml Flush Syringe IV PRN PRN LINE FLUSH Sodium Chloride 50 ml 11/06/21 21:30 Sodium Chloride 0.9% 50 Ml Ivpb IV 11/09/21 21:31 [id number]@2130 [facility]
[2021-11-06 06:35] LABS: Alanine Aminotransferase 21 units/L (7-56); Albumin 3.5 g/dL (3.9-5); BUN/Creatinine Ratio 31; Blood Urea Nitrogen 40 mg/dL (9-20); Calcium 9.1 mg/dL (8.4-10.2); Hemolysis Index 6
[2021-11-06] MEDS: HEPARIN 5,000 UNIT/1 ML VIAL SUB-Q SCH ×4 (09:10→22:28)
[2021-11-06] MEDS: methylPREDNISolone Sod Succinate 40 MG/1 ML INJ IV SCH ×4 (09:11→22:28)
--- NOTE | 2021-11-06 14:36 | Progress Note ---
Assessment and Plan Cultures: SARS CoV2 PCR: positive 11/03/2021 blood culture: no growth A/P: 66/M with: #Bilateral pneumonia secondary to COVID-19: CRP 10, procalcitonin 0.44, LDH 364, ferritin 348, D-dimer 411. Chest x-ray showed bilateral pneumonia. #Acute hypoxic respiratory failure: Required BiPAP, now on 2-3 L nasal cannula. #CHF #COPD #Mild thrombocytopenia Recs: -continue on steroids, per pulmonary -continue IV remdesivir x 5 days if he remains inpatient -prophylactic anticoagulation based on d-dimer per hospital protocol -completed 3 days of ceftriaxone Daniela Ventura MD, FACP, [facility] ([facility]) O: [phone] F: [phone] Subjective Date of service: 11/06/21 Interval history: Afebrile. Remains on oxygen by nasal cannula. Objective - Exam Narrative Exam: Physical Exam (reviewed in chart to minimize risk of transmission) Constitutional: deferred Head, Ears, Nose: deferred Eyes: deferred Neck: deferred Oral: deferred Cardiovascular: deferred Respiratory: deferred GI: deferred Musculoskeletal: deferred Skin: deferred Hem/Lymphatic: deferred Psych: deferred Neurological: deferred - Constitutional Vitals: Vital Signs Temp Pulse Resp BP Pulse Ox 97.4 F L 110 H 41 H 123/96 100 11/04/21 19:45 11/06/21 09:09 11/06/21 09:09 11/06/21 09:09 11/06/21 09:09 - Labs CBC & Chem 7: 11/04/21 05:05 11/06/21 05:19 Labs: Abnormal lab results 11/05/21 11/06/21 Range/Units 16:51 05:19 Sodium 136 L (137-145) mmol/L Chloride 97.2 L (98-107) mmol/L BUN 41 H 40 H (9-20) mg/dL Glucose 157 H 101 H (75-100) mg/dL Total Protein 8.3 H (6.3-8.2) g/dL Albumin 3.2 L 3.5 L (3.9-5) g/dL
--- NOTE | 2021-11-06 15:35 | Progress Note ---
Assessment and Plan Assessment and plan: #Acute hypoxic respiratory failureresolved #COVID-19 pneumonia Patient was weaned to room air. Continue to wean as tolerated. Pulmonology consulted; appreciate recs Infectious disease consulted; appreciate recs Continue steroids x10 days and remdesivir x5. Continue contact and droplet precautions. Encourage patient to prone at night. Continue to monitor #History of COPD Pulmonology consulted; appreciate recs Continue DuoNebs and albuterol nebs #Advanced care planning -Disease education conducted, care plan discussed, diagnoses discussed, prognosis discussed, and patient acknowledges understanding with care plan -Time: +30 min Disposition Plan: Continue medical management Total Time Spent with Patient (Minutes): 45 minutes History Interval history: No acute events over night. The patient denies fevers, chills, nausea, vomiting, abdominal pain, chest pain/pressure, shortness of breath, urinary symptoms, wea kness, or confusion. Hospitalist Physical - Constitutional Vitals: Temp Pulse Resp BP Pulse Ox 97.4 F L 110 H 41 H 123/96 100 11/04/21 19:45 11/06/21 09:09 11/06/21 09:09 11/06/21 09:09 11/06/21 09:09 General appearance: Present: no acute distress, well-nourished - EENT Eyes: Present: PERRL, EOM intact ENT: hearing intact, clear oral mucosa, poor dentition - Neck Neck: Present: supple, normal ROM - Respiratory Respiratory effort: normal Respiratory: bilateral: diminished - Cardiovascular Rhythm: regular Heart Sounds: Present: S1 & S2 - Extremities Extremities: no ischemia, pulses intact, pulses symmetrical, No edema, normal temperature, normal color, Full ROM Peripheral Pulses: within normal limits - Abdominal General gastrointestinal: soft, non-tender, non-distended, normal bowel sounds - Integumentary Integumentary: Present: clear, warm, dry - Psychiatric Psychiatric: appropriate mood/affect, cooperative - Neurologic Neurologic: CNII-XII intact, moves all extremities - Allied Health Allied health notes reviewed: nursing HEART Score - HEART Score Troponin: Troponin T < 0.010 ng/mL (0.00-0.029) 11/03/21 19:13 Results - Labs CBC & Chem 7: 11/04/21 05:05 11/06/21 05:19 Labs: Laboratory Last Values WBC 8.5 K/mm3 (4.5-11.0) 11/04/21 05:05 RBC 5.42 M/mm3 (3.65-5.03) H 11/04/21 05:05 Hgb 14.5 gm/dl (11.8-15.2) 11/04/21 05:05 Hct 46.6 % (35.5-45.6) H 11/04/21 05:05 MCV 86 fl (84-94) 11/04/21 05:05 MCH 27 pg (28-32) L 11/04/21 05:05 MCHC 31 % (32-34) L 11/04/21 05:05 RDW 17.3 % (13.2-15.2) H 11/04/21 05:05 Plt Count 138 K/mm3 (140-440) L 11/04/21 05:05 Add Manual Diff Complete 11/04/21 05:05 Total Counted 100 11/04/21 05:05 Seg Neutrophils % Scrum Coach 11/04/21 05:05 Seg Neuts % (Manual) 86.0 % (40.0-70.0) H 11/04/21 05:05 Band Neutrophils % 1.0 % 11/04/21 05:05 Lymphocytes % (Manual) 12.0 % (13.4-35.0) L 11/04/21 05:05 Reactive Lymphs % (Man) 0 % 11/04/21 05:05 Monocytes % (Manual) 0 % (0.0-7.3) 11/04/21 05:05 Eosinophils % (Manual) 0 % (0.0-4.3) 11/04/21 05:05 Basophils % (Manual) 0 % (0.0-1.8) 11/04/21 05:05 Metamyelocytes % 0 % 11/04/21 05:05 Myelocytes % 1.0 % 11/04/21 05:05 Promyelocytes % 0 % 11/04/21 05:05 Blast Cells % 0 % 11/04/21 05:05 Nucleated RBC % Not Reportable 11/04/21 05:05 Seg Neutrophils # Man 7.3 K/mm3 (1.8-7.7) 11/04/21 05:05 Band Neutrophils # 0.1 K/mm3 11/04/21 05:05 Lymphocytes # (Manual) 1.0 K/mm3 (1.2-5.4) L 11/04/21 05:05 Abs React Lymphs (Man) 0.0 K/mm3 11/04/21 05:05 Monocytes # (Manual) 0.0 K/mm3 (0.0-0.8) 11/04/21 05:05 Eosinophils # (Manual) 0.0 K/mm3 (0.0-0.4) 11/04/21 05:05 Basophils # (Manual) 0.0 K/mm3 (0.0-0.1) 11/04/21 05:05 Metamyelocytes # 0.0 K/mm3 11/04/21 05:05 Myelocytes # 0.1 K/mm3 11/04/21 05:05 Promyelocytes # 0.0 K/mm3 11/04/21 05:05 Blast Cells # 0.0 K/mm3 11/04/21 05:05 WBC Morphology Not Reportable 11/04/21 05:05 Hypersegmented Neuts Not Reportable 11/04/21 05:05 Hyposegmented Neuts Not Reportable 11/04/21 05:05 Hypogranular Neuts Not Reportable 11/04/21 05:05 Smudge Cells Not Reportable 11/04/21 05:05 Toxic Granulation Not Reportable 11/04/21 05:05 Toxic Vacuolation Not Reportable 11/04/21 05:05 Dohle Bodies Not Reportable 11/04/21 05:05 Pelger-Huet Anomaly Not Reportable 11/04/21 05:05 Kristina Rods Not Reportable 11/04/21 05:05 Platelet Estimate Consistent w auto 11/04/21 05:05 Clumped Platelets Not Reportable 11/04/21 05:05 Plt Clumps, EDTA Not Reportable 11/04/21 05:05 Large Platelets Few 11/04/21 05:05 Giant Platelets Not Reportable 11/04/21 05:05 Platelet Satelliting Not Reportable 11/04/21 05:05 Plt Morphology Comment Not Reportable 11/04/21 05:05 RBC Morphology Not Reportable 11/04/21 05:05 Dimorphic RBCs Not Reportable 11/04/21 05:05 Polychromasia Not Reportable 11/04/21 05:05 Hypochromasia Not Reportable 11/04/21 05:05 Poikilocytosis Not Reportable 11/04/21 05:05 Anisocytosis Not Reportable 11/04/21 05:05 Microcytosis Not Reportable 11/04/21 05:05 Macrocytosis Not Reportable 11/04/21 05:05 Spherocytes Not Reportable 11/04/21 05:05 Pappenheimer Bodies Not Reportable 11/04/21 05:05 Sickle Cells Not Reportable 11/04/21 05:05 Target Cells Not Reportable 11/04/21 05:05 Tear Drop Cells Not Reportable 11/04/21 05:05 Ovalocytes Not Reportable 11/04/21 05:05 Helmet Cells Not Reportable 11/04/21 05:05 Erickson-Brashear Bodies Not Reportable 11/04/21 05:05 [place] Rings Not Reportable 11/04/21 05:05 [place] Cells Not Reportable 11/04/21 05:05 Bite Cells Not Reportable 11/04/21 05:05 Crenated Cell Not Reportable 11/04/21 05:05 Elliptocytes Not Reportable 11/04/21 05:05 Acanthocytes (Spur) Not Reportable 11/04/21 05:05 Rouleaux Not Reportable 11/04/21 05:05 Hemoglobin C Crystals Not Reportable 11/04/21 05:05 Schistocytes Not Reportable 11/04/21 05:05 Malaria parasites Not Reportable 11/04/21 05:05 Fili Bodies Not Reportable 11/04/21 05:05 Hem Pathologist Commnt No 11/04/21 05:05 PT 14.9 Sec. (12.2-14.9) 11/03/21 19:13 INR 1.05 (0.87-1.13) 11/03/21 19:13 D-Dimer 496.67 ng/mlDDU (0-234) H 11/05/21 07:24 ABG pH 7.371 pH Units (7.350-7.450) 11/04/21 16:24 ABG pCO2 50.4 mm Hg 11/04/21 16:24 ABG pO2 76.5 mm Hg (80.0-90.0) L 11/04/21 16:24 ABG HCO3 28.5 mmol/L (20.0-26.0) H 11/04/21 16:24 ABG O2 Saturation 95.1 % (95.0-99.0) 11/04/21 16:24 ABG O2 Content 17.9 (0.0-44) 11/04/21 16:24 ABG Base Excess 2.4 mmol/L (-2.0-3.0) 11/04/21 16:24 ABG Hemoglobin 13.6 gm/dl (14.0-18.0) L 11/04/21 16:24 ABG Carboxyhemoglobin 1.1 % (0.0-5.0) 11/04/21 16:24 ABG Methemoglobin 0.5 % (0.0-1.5) 11/04/21 16:24 Oxyhemoglobin 93.5 % (95.0-99.0) L 11/04/21 16:24 FiO2 36 % 11/04/21 16:24 Sodium 141 mmol/L (137-145) 11/06/21 05:19 Potassium 4.3 mmol/L (3.6-5.0) 11/06/21 05:19 Chloride 99.9 mmol/L (98-107) 11/06/21 05:19 Carbon Dioxide 27 mmol/L (22-30) 11/06/21 05:19 Anion Gap 18 mmol/L 11/06/21 05:19 BUN 40 mg/dL (9-20) H 11/06/21 05:19 Creatinine 1.3 mg/dL (0.8-1.3) 11/06/21 05:19 Estimated GFR > 60 ml/min 11/06/21 05:19 BUN/Creatinine Ratio 31 % 11/06/21 05:19 Glucose 101 mg/dL (75-100) H 11/06/21 05:19 Lactic Acid 1.10 mmol/L (0.7-2.0) 11/03/21 19:13 Calcium 9.1 mg/dL (8.4-10.2) 11/06/21 05:19 Ferritin 348.1 ng/mL (30.0-300.0) H 11/04/21 08:22 Total Bilirubin 0.50 mg/dL (0.1-1.2) 11/06/21 05:19 AST 28 units/L (5-40) 11/06/21 05:19 ALT 21 units/L (7-56) 11/06/21 05:19 Alkaline Phosphatase 104 units/L (35-129) 11/06/21 05:19 Lactate Dehydrogenase 380 units/L (91-180) H 11/05/21 07:24 Total Creatine Kinase 65 units/L (55-170) 11/03/21 19:13 CK-MB (CK-2) 1.2 ng/mL (0.0-4.0) 11/03/21 19:13 CK-MB (CK-2) Rel Index 1.8 (0-4) 11/03/21 19:13 Troponin T < 0.010 ng/mL (0.00-0.029) 11/03/21 19:13 C-Reactive Protein 5.40 mg/dL (0.00-1.30) H 11/05/21 07:24 NT-Pro-B Natriuret Pep 3110 pg/mL (0-900) H 11/03/21 19:13 Total Protein 8.3 g/dL (6.3-8.2) H 11/06/21 05:19 Albumin 3.5 g/dL (3.9-5) L 11/06/21 05:19 Albumin/Globulin Ratio 0.7 % 11/06/21 05:19 Procalcitonin 0.44 ng/mL (<0.15) 11/04/21 08:22 Coronavirus (PCR) Positive (Negative) A 11/04/21 10:00 Microbiology: Microbiology 11/03/21 19:13 Peripheral/Venous Blood Culture - Preliminary NO GROWTH AFTER 48 HOURS 11/03/21 19:19 Peripheral/Venous Blood Culture - Preliminary NO GROWTH AFTER 48 HOURS Active Medications - Current Medications Current Medications: Generic Name Dose Route Start Last Admin Trade Name Freq PRN Reason Stop Dose Admin Acetaminophen 650 mg 11/03/21 22:44 Acetaminophen 325 Mg Tab PO Q4H PRN Pain MILD(1-3)/Fever >100.5/SMYTH Albuterol 2 puff 11/04/21 15:07 Albuterol 8.5 Gm Mdi Inhalation IH Q4HRT PRN Shortness Of Breath Heparin Sodium (Porcine) 5,000 unit 11/04/21 06:00 11/06/21 09:10 Heparin 5,000 Unit/1 Ml Vial SUB-Q 5,000 unit Q8HR JENNY Administration REMDESIVIR 100 mg/ Sodium 250 mls @ 500 mls/hr 11/06/21 21:00 Chloride IV 11/09/21 21:29 Q24HR@2100 JENNY Magnesium Hydroxide 30 ml 11/03/21 22:44 11/05/21 04:44 Magnesium Hydroxide (Mom) Oral Liqd Udc PO 30 ml Q4H PRN Administration Constipation Methylprednisolone Sodium Succinate 40 mg 11/04/21 22:00 11/06/21 09:11 Methylprednisolone Sod Succinate 40 Mg/1 Ml Inj IV 40 mg Q8HR JENNY Administration Morphine Sulfate 2 mg 11/03/21 22:44 Morphine 2 Mg/1 Ml Inj IV Q4H PRN Pain, Moderate (4-6) Morphine Sulfate 4 mg 11/03/21 22:44 11/04/21 03:00 Morphine 4 Mg/1 Ml Inj IV 4 mg Q4H PRN Administration Pain , Severe (7-10) Ondansetron HCl 4 mg 11/03/21 22:44 11/04/21 03:00 Ondansetron 4 Mg/2 Ml Inj IV 4 mg Q8H PRN Administration Nausea And Vomiting Sodium Chloride 10 ml 11/04/21 10:00 11/05/21 10:00 Sodium Chloride 0.9% 10 Ml Flush Syringe IV 10 ml BID JENNY Administration Sodium Chloride 10 ml 11/03/21 22:44 Sodium Chloride 0.9% 10 Ml Flush Syringe IV PRN PRN LINE FLUSH Sodium Chloride 50 ml 11/06/21 21:30 Sodium Chloride 0.9% 50 Ml Ivpb IV 11/09/21 21:31 Q24HR@2130 [facility]
[2021-11-06] MEDS: REMDESIVIR 100 MG in SODIUM CHLORIDE 0.9% 250ML 250 ML IV SCH (22:27)
[2021-11-06] MEDS: SODIUM CHLORIDE 0.9% 50 ML IVPB IV SCH (22:28)
[2021-11-06] MEDS: MORPHINE 2 MG/1 ML INJ IV PRN (22:35)
[2021-11-07] MEDS: MORPHINE 2 MG/1 ML INJ IV PRN (04:49)
[2021-11-07] MEDS: HEPARIN 5,000 UNIT/1 ML VIAL SUB-Q SCH ×3 (05:10→22:59)
[2021-11-07] MEDS: methylPREDNISolone Sod Succinate 40 MG/1 ML INJ IV SCH ×3 (05:10→23:00)
[2021-11-07 06:35] LABS: Alanine Aminotransferase 19 units/L (7-56); Albumin 3.2 g/dL (3.9-5); BUN/Creatinine Ratio 35; Blood Urea Nitrogen 38 mg/dL (9-20); Calcium 8.9 mg/dL (8.4-10.2); Hemolysis Index 0
[2021-11-07] MEDS: NIFEdipine XL 30 MG TAB PO SCH (11:27)
--- NOTE | 2021-11-07 12:26 | Discharge Summary ---
Providers - Providers Date of Admission: 11/03/21 22:46 Date of discharge: 11/07/21 Attending physician: MIRA METZGER MD 11/03/21 22:44 Consult to Physician [CONS] Routine Comment: Consulting Provider: KARIR RAHMAN Physician Instructions: Reason For Exam: Covid -19 pneumonia,Hypoxia 11/03/21 22:51 Consult to Physician [CONS] Routine Comment: Consulting Provider: SANAZ CLARK Physician Instructions: Reason For Exam: Covid-19 pneumonia, hypoxia Primary care physician: PREPARATION OPERATOR Hospitalization Reason for admission: Acute hypoxic respiratory failure Condition: Fair Pertinent studies: Reviewed. Procedures: None. Hospital course: The patient is a 66-year-old male with past medical history of congestive heart failure, COPD, homelessness, and elevated blood pressure who presented with complaints of cough and worsening shortness of breath for approximately 2 days that was found to be secondary to COVID-19 pneumonia complicated by acute hypoxic respiratory failure. The patient was initiated on steroids and remd esivir per COVID-19 protocol. The patient was successfully weaned off of supplemental oxygen onto room air. The patient maintains oxygen saturations greater than 95% on ambulation. The patient will be discharged with continued steroid treatment per COVID-19 protocol to complete a total 10-day course. The patient will also be discharged on nifedipine 30 mg daily in the setting of presumed chronic untreated hypertension. The patient expresses understanding. The patient will require continued isolation/quarantine until 11/13/2021. Patient is medically cleared for discharge. Disposition: 01 HOME / SELF CARE / HOMELESS Final Discharge Diagnosis (Prints w/discharge instructions): Acute hypoxic respiratory failure, COVID-19 pneumonia, COPD, homelessness, elevated blood pressure Time spent for discharge: 45 min Core Measure Documentation - Palliative Care Palliative Care/ Comfort Measures: Not Applicable - Core Measures Any of the following diagnoses?: none Exam - Constitutional Vitals: Temp Pulse Resp BP Pulse Ox 98.1 F 52 L 18 132/103 97 11/07/21 04:24 11/07/21 04:24 11/07/21 04:24 11/07/21 04:24 11/07/21 10:00 General appearance: Present: no acute distress, disheveled - EENT Eyes: Present: PERRL, EOM intact ENT: hearing intact, clear oral mucosa, edentulous - Neck Neck: Present: supple, normal ROM - Respiratory Respiratory effort: normal Respiratory: bilateral: diminished - Cardiovascular Rhythm: regular Heart Sounds: Present: S1 & S2 - Extremities Extremities: no ischemia, pulses intact, pulses symmetrical, No edema, normal temperature, normal color, Full ROM Peripheral Pulses: within normal limits - Abdominal General gastrointestinal: Present: soft, non-tender, non-distended, normal bowel sounds Male genitourinary: Present: deferred - Rectal Rectal Exam: deferred - Integumentary Integumentary: Present: clear, warm, dry - Musculoskeletal Musculoskeletal: strength equal bilaterally - Psychiatric Psychiatric: appropriate mood/affect, cooperative - Neurologic Neurologic: CNII-XII intact, moves all extremities - Allied Health Allied health notes reviewed: nursing Plan Activity: advance as tolerated Diet: low salt Additional Instructions: The patient is a 66-year-old male with past medical history of congestive heart failure, COPD, homelessness, and elevated blood pressure who presented with complaints of cough and worsening shortness of breath for approximately 2 days that was found to be secondary to COVID-19 pneumonia complicated by acute hypoxic respiratory failure. The patient was initiated on steroids and remdesivir per COVID-19 protocol. The patient was successfully weaned off of supplemental oxygen onto room air. The patient maintains oxygen saturations greater than 95% on ambulation. The patient will be discharged with continued steroid treatment per COVID-19 protocol to complete a total 10-day course. The patient will also be discharged on nifedipine 30 mg daily in the setting of presumed chronic untreated hypertension. The patient expresses understanding. The patient will require continued isolation/quarantine until 11/13/2021. Patient is medically cleared for discharge. Care Plan Goals: Patient is medically cleared for discharge. Assessment: The patient is a 66-year-old male with past medical history of congestive heart failure, COPD, homelessness, and elevated blood pressure who presented with complaints of cough and worsening shortness of breath for approximately 2 days that was found to be secondary to COVID-19 pneumonia complicated by acute hypoxic respiratory failure. The patient was initiated on steroids and remdesivir per COVID-19 protocol. The patient was successfully weaned off of supplemental oxygen onto room air. The patient maintains oxygen saturations greater than 95% on ambulation. The patient will be discharged with continued steroid treatment per COVID-19 protocol to complete a total 10-day course. The patient will also be discharged on nifedipine 30 mg daily in the setting of pr esumed chronic untreated hypertension. The patient expresses understanding. The patient will require continued isolation/quarantine until 11/13/2021. Patient is medically cleared for discharge. Follow up with: PRIMARY CARE, [Primary Care Provider] - 7 Days Prescriptions: NIFEdipine XL [Procardia Xl] 30 mg PO QDAY #30 tablet
--- NOTE | 2021-11-07 13:41 | Progress Note ---
Assessment and Plan Cultures: SARS CoV2 PCR: positive 11/03/2021 blood culture: no growth A/P: 66/M with: #Bilateral pneumonia secondary to COVID-19: CRP 10, procalcitonin 0.44, LDH 364, ferritin 348, D-dimer 411. Chest x-ray showed bilateral pneumonia. #Acute hypoxic respiratory failure: improved. #CHF #COPD #Mild thrombocytopenia Recs: -Cleared 6-minute walk test, weaned off oxygen. Complete remainder of steroids. Okay for discharge from ID standpoint. Will sign off. Daniela Ventura MD, FACP, [facility] O: [phone] F: [phone] Subjective Date of service: 11/07/21 Interval history: No fever. Clear 6-minute walk test, weaned off oxygen. Objective - Exam Narrative Exam: Physical Exam (reviewed in chart to minimize risk of transmission) Constitutional: deferred Head, Ears, Nose: deferred Eyes: deferred Neck: deferred Oral: deferred Cardiovascular: deferred Respiratory: deferred GI: deferred Musculoskeletal: deferred Skin: deferred Hem/Lymphatic: deferred Psych: deferred Neurological: deferred - Constitutional Vitals: Vital Signs Temp Pulse Resp BP Pulse Ox 98.1 F 52 L 18 132/103 98 11/07/21 04:24 11/07/21 04:24 11/07/21 04:24 11/07/21 04:24 11/07/21 13:13 Temperature -Last 24 Hours Temperature 98.1 F Temperature 98.2 F - Labs CBC & Chem 7: 11/04/21 05:05 11/07/21 05:35 Labs: Abnormal lab results 11/07/21 Range/Units 05:35 Sodium 136 L (137-145) mmol/L BUN 38 H (9-20) mg/dL Glucose 206 H (75-100) mg/dL Albumin 3.2 L (3.9-5) g/dL
[2021-11-07] MEDS: SODIUM CHLORIDE 0.9% 50 ML IVPB IV SCH (22:59)
[2021-11-07] MEDS: REMDESIVIR 100 MG in SODIUM CHLORIDE 0.9% 250ML 250 ML IV SCH (22:59)
[2021-11-08] MEDS: HEPARIN 5,000 UNIT/1 ML VIAL SUB-Q SCH (05:24)
[2021-11-08] MEDS: methylPREDNISolone Sod Succinate 40 MG/1 ML INJ IV SCH (05:25)
[2021-11-08 07:04] LABS: Alanine Aminotransferase 18 units/L (7-56); Albumin 3.2 g/dL (3.9-5); BUN/Creatinine Ratio 35; Blood Urea Nitrogen 35 mg/dL (9-20); Calcium 8.9 mg/dL (8.4-10.2); Hemolysis Index 4
[2021-11-08] MEDS: NIFEdipine XL 30 MG TAB PO SCH (11:50)
[2021-11-08 14:19] VITALS: BP 129/102
== END 2021-11-08 13:40 | disposition home or self-care (01) | DRG 177 ==
LOC: ED 18:47 → 3A 22:46
PROVIDERS: ADMIT Internal Medicine Geriatric Medicine; ATTEND Student in an Organized Health Care Education/Training Program
PROC: 5A09357 Assistance with Respiratory Ventilation, Less than 24 Consecutive Hours, Continuous Positive Airway Pressure (ICD-10-PCS; 2021-11-03)
PROC: 4A033R1 Measurement of Arterial Saturation, Peripheral, Percutaneous Approach (ICD-10-PCS; principal; 2021-11-04)
PROC: XW033E5 Introduction of Remdesivir Anti-infective into Peripheral Vein, Percutaneous Approach, New Technology Group 5 (ICD-10-PCS; 2021-11-05)
DX: U07.1 COVID-19 (principal); J12.82 Pneumonia due to coronavirus disease 2019; J96.01 Acute respiratory failure with hypoxia; J44.0 Chronic obstructive pulmonary disease with (acute) lower respiratory infection; I50.9 Heart failure, unspecified; D69.6 Thrombocytopenia, unspecified; Z59.00 Homelessness unspecified
CPT/HCPCS: 36415; 36600; 71045; 80048; 80053; 82140; 82550; 82553; 82728; 82803; 83615; 83880; 84145; 84484; 85007; 85025; 85379; 85610; 86140; 87040; 93005; 94644; 94660; 94760; G0378; J0456; J0696; J1100; J1644; J1940; J2270; J2405; J2920; J7050; U0003

== ENCOUNTER 2021-11-11 08:09 | Inpatient (IN) | payer SELFPAY ==
[2021-11-11] MEDS ORDERED: dilTIAZem 25 MG/5 ML INJ IV ONE ×3 (08:30→12:45)
[2021-11-11] MEDS ORDERED: SODIUM CHLORIDE 0.9% 500 ML 500 ML IV ONE (08:30)
--- NOTE | 2021-11-11 08:36 | Emergency Department Report ---
ED General Adult HPI - General Chief complaint: Altered Mental Status Stated complaint: I do not know why I am here Time Seen by Provider: 11/11/21 08:29 Source: patient, EMS ( EMS documentation not available at time of chart dictation ), RN notes reviewed, old records reviewed Mode of arrival: Stretcher Limitations: Altered Mental Status - History of Present Illness Initial comments: The patient was evaluated in the emergency department for symptoms described in the history of present illness. He/she was evaluated in the context of the global COVID-19 pandemic, which necessitated consideration that the patient might be at risk for infection with the virus that causes COVID-19. Institutional protocols and algorithms that pertain to the evaluation of patients at risk for COVID-19 are in a state of rapid change based on information released by regulatory bodies including the CDC and federal and state organizations. These policies and algorithms were followed during the patient's care in the emergency department. Please note that these policies, procedures and recommendations changed on a rapid basis. The patient is a 66-year-old gentleman. His past medical history includes congestive heart failure, unknown ejection fraction, COPD, homelessness, and elevated blood pressure. Patient recently admitted to this hospital for COVID-19, and discharged to [facility]. Patient brought to the hospital today by EMS. History obtained from nurse, who obtained collateral information from EMS, as some information from the patient. The patient states "I do not know where I am, I do not know how I got to [place]." The patient states he had chest pain 4 days ago. He states he is not having pain now. The patient does not know where he is. 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 He is not homicidal or suicidal. He reports that he was walking on the street, and elected to call 911. Nursing team informs me that the patient was in a [facility] hotel and then left. Apparently, this patient was in A. fib with RVR. The patient does not believe he hit his head. The patient denies headache, neck pain, abdominal pain, homicidality and suicidality. Patient is confused and a poor historian. He has difficulty describing the qualitative nature of his symptoms, exacerbating factors relieving factors or aggravating factors. He does deny hematemesis and bright red blood per rectum. It is unknown for how long he has been in A. fib with RVR -: unknown Location: chest - Related Data Previous Rx's Medication Instructions Recorded Last Taken Type NIFEdipine XL [Procardia Xl] 30 mg PO QDAY #30 tablet 11/07/21 Unknown Rx dexAMETHasone [Dexamethasone] 4 mg PO DAILY #10 tab 11/07/21 Unknown Rx Allergies Allergy/AdvReac Type Severity Reaction Status Date / Time No Known Allergies Allergy Verified 11/03/21 18:59 ED Review of Systems ROS: Stated complaint: afib/rvr Other details as noted in HPI Comment: Unobtainable due to pts medical conditions Constitutional: malaise, weakness Respiratory: denies: cough Cardiovascular: chest pain, palpitations Gastrointestinal: denies: abdominal pain, hematemesis, melena, hematochezia Neurological: confusion Psychiatric: denies: homicidal thoughts, suicidal thoughts ED Past Medical Hx - Past Medical History Hx Congestive Heart Failure: Yes Hx COPD: Yes (No home O2) - Social History Smoking Status: Unknown if ever smoked Substance Use Type: None - Medications Home Medications: Home Medications Medication Instructions Recorded Confirmed Last Taken Type NIFEdipine XL [Procardia Xl] 30 mg PO QDAY #30 tablet 11/07/21 Unknown Rx dexAMETHasone [Dexamethasone] 4 mg PO DAILY #10 tab 11/07/21 Unknown Rx ED Physical Exam - General Limitations: Altered Mental Status General appearance: anxious - Head Head exam: Present: atraumatic, normocephalic - Eye Eye exam: Present: normal appearance, EOMI. Absent: nystagmus - ENT ENT exam: Present: normal exam, normal orophraynx, mucous membranes moist, normal external ear exam - Neck Neck exam: Present: normal inspection, full ROM. Absent: tenderness, meningismus - Respiratory Respiratory exam: Present: decreased breath sounds. Absent: respiratory distress, wheezes, rales, rhonchi, stridor - Cardiovascular Cardiovascular Exam: Present: tachycardia, irregular rhythm, normal heart sounds, JVD. Absent: systolic murmur, diastolic murmur, rubs, gallop - GI/Abdominal GI/Abdominal exam: Present: soft. Absent: distended, tenderness, guarding, rebound, rigid, pulsatile mass - Rectal Rectal exam: Present: deferred - Extremities Exam Extremities exam: Present: full ROM, pedal edema (1+ edema noted in the bilateral lower extremity), other (2+ pulses noted in the bilateral upper and lower extremities. There is no palpable cord. negative Homans sign. Muscular compartments are soft. The pelvis is stable.). Absent: normal inspection (Chronic venous stasis changes noted in the bilateral lower extremities), calf tenderness - Back Exam Back exam: Present: normal inspection. Absent: tenderness, CVA tenderness (R), CVA tenderness (L), paraspinal tenderness, vertebral tenderness - Neurological Exam Neurological exam: Present: altered, other (No facial droop. Tongue midline. Extraocular movements intact bilaterally. Facial sensation intact to light touch in V1, V2, V3 distribution bilaterally. 5 and a 5 strength in 4 extremities. Sensation intact to light touch in 4 extremities.) - Psychiatric Psychiatric exam: Absent: homicidal ideation, suicidal ideation - Skin Skin exam: Present: warm ED Course Vital Signs 11/11/21 11/11/21 11/11/21 08:31 08:46 09:14 Temperature Pulse Rate 149 H 144 H 140 H Respiratory 29 H 25 H Rate Blood Pressure 150/91 150/91 O2 Sat by Pulse 93 Oximetry 11/11/21 11/11/21 11/11/21 09:16 09:30 09:46 Temperature Pulse Rate 152 H 136 H 126 H Respiratory 26 H 25 H 19 Rate Blood Pressure 150/91 91/72 125/101 O2 Sat by Pulse 83 L 93 Oximetry 11/11/21 11/11/21 11/11/21 10:00 10:16 10:30 Temperature Pulse Rate 116 H 131 H 133 H Respiratory 21 29 H 27 H Rate Blood Pressure 125/101 125/101 130/79 O2 Sat by Pulse 95 Oximetry 11/11/21 10:43 Temperature 98.7 F Pulse Rate Respiratory Rate Blood Pressure O2 Sat by Pulse Oximetry - Reevaluation(s) Reevaluation #1: 11/11/21 08:47 Differential diagnosis, including but not limited to: Atrial fibrillation with rapid ventricular response, thyroid derangement, electrolyte derangement, pneumonia, urinary tract infection, intracranial lesion, toxic encephalopathy, metabolic encephalopathy, homelessness, chronic disorganization Assessment and plan: 66-year-old gentleman, who is pleasant, and alert to name, but does not know the year, or location, or the president, presenting with encephalopathy, chest pain and A. fib with RVR. Patient recently tested positive for COVID at this hospital. Place patient on isolation. Obtain CT scan of the brain, x-ray the chest, and appropriate laboratory studies. Initiate diltiazem therapy. Reassess after initial data points. Admit this patient to the medical service once initial diagnostics have resulted. 11/11/21 10:39 Patient still tachycardic. Additional diltiazem ordered. Urinalysis pending. Elevated lactic acid is likely a type II lactic acidosis. Patient has no nuchal rigidity and no meningeal signs. Admitted to the medical service under the care of Dr. Rebecca Grullon If additional diltiazem does not improve patient's rate, he will be started on a drip, and he will be up triaged to the ICU, we will obtain appropriate critical care consultation 11/11/21 10:44 Heart rate improved, 104 to 110 bpm. Patient resting comfortably. Oral diltiazem is ordered - EJ/Peripheral Line Arm L Time Out Performed: Yes Indications: multiple IV sites needed Skin Cleansed in Sterile Fashion: Yes Size: 20 Dressing Placed: Tegaderm Patient Tolerated Procedure: well ED Medical Decision Making - Lab Data Result diagrams: 11/11/21 09:13 11/11/21 09:13 Lab Results 11/11/21 Range/Units 09:13 WBC 12.5 H (4.5-11.0) K/mm3 RBC 5.11 H (3.65-5.03) M/mm3 Hgb 13.5 (11.8-15.2) gm/dl Hct 43.7 (35.5-45.6) % MCV 86 (84-94) fl MCH 26 L (28-32) pg MCHC 31 L (32-34) % RDW 18.0 H (13.2-15.2) % Plt Count 262 (140-440) K/mm3 Lymph % (Auto) 7.4 L (13.4-35.0) % [place] % (Auto) 6.1 (0.0-7.3) % Eos % (Auto) 0.1 (0.0-4.3) % Baso % (Auto) 0.1 (0.0-1.8) % Lymph # (Auto) 0.9 L (1.2-5.4) K/mm3 [place] # (Auto) 0.8 (0.0-0.8) K/mm3 Eos # (Auto) 0.0 (0.0-0.4) K/mm3 Baso # (Auto) 0.0 (0.0-0.1) K/mm3 Seg Neutrophils % 86.3 H (40.0-70.0) % Seg Neutrophils # 10.8 H (1.8-7.7) K/mm3 Lab Results 11/11/21 11/11/21 11/11/21 Range/Units 09:13 09:13 09:13 WBC 12.5 H (4.5-11.0) K/mm3 RBC 5.11 H (3.65-5.03) M/mm3 Hgb 13.5 (11.8-15.2) gm/dl Hct 43.7 (35.5-45.6) % MCV 86 (84-94) fl MCH 26 L (28-32) pg MCHC 31 L (32-34) % RDW 18.0 H (13.2-15.2) % Plt Count 262 (140-440) K/mm3 Lymph % (Auto) 7.4 L (13.4-35.0) % [place] % (Auto) 6.1 (0.0-7.3) % Eos % (Auto) 0.1 (0.0-4.3) % Baso % (Auto) 0.1 (0.0-1.8) % Lymph # (Auto) 0.9 L (1.2-5.4) K/mm3 [place] # (Auto) 0.8 (0.0-0.8) K/mm3 Eos # (Auto) 0.0 (0.0-0.4) K/mm3 Baso # (Auto) 0.0 (0.0-0.1) K/mm3 Seg Neutrophils % 86.3 H (40.0-70.0) % Seg Neutrophils # 10.8 H (1.8-7.7) K/mm3 PT 17.3 H (12.2-14.9) Sec. INR 1.28 H (0.87-1.13) APTT 32.6 (24.2-36.6) Sec. Sodium 139 (137-145) mmol/L Potassium 4.8 D (3.6-5.0) mmol/L Chloride 104.1 (98-107) mmol/L Carbon Dioxide 20 L (22-30) mmol/L Anion Gap 20 mmol/L BUN 46 H (9-20) mg/dL Creatinine 1.5 H (0.8-1.3) mg/dL Estimated GFR 57 ml/min BUN/Creatinine Ratio 31 % Glucose 116 H (75-100) mg/dL Lactic Acid (0.7-2.0) mmol/L Calcium 9.8 (8.4-10.2) mg/dL Magnesium (1.7-2.3) mg/dL Total Bilirubin 2.30 H (0.1-1.2) mg/dL AST 31 (5-40) units/L ALT 47 (7-56) units/L Alkaline Phosphatase 129 (35-129) units/L Ammonia (25-60) umol/L Total Creatine Kinase 85 (55-170) units/L Troponin T 0.013 (0.00-0.029) ng/mL Total Protein 8.4 H (6.3-8.2) g/dL Albumin 3.6 L (3.9-5) g/dL Albumin/Globulin Ratio 0.8 % Salicylates (2.8-20.0) mg/dL Plasma/Serum Alcohol (0-0.07) % 11/11/21 11/11/21 11/11/21 Range/Units 09:13 09:13 09:13 WBC (4.5-11.0) K/mm3 RBC (3.65-5.03) M/mm3 Hgb (11.8-15.2) gm/dl Hct (35.5-45.6) % MCV (84-94) fl MCH (28-32) pg MCHC (32-34) % RDW (13.2-15.2) % Plt Count (140-440) K/mm3 Lymph % (Auto) (13.4-35.0) % [place] % (Auto) (0.0-7.3) % Eos % (Auto) (0.0-4.3) % Baso % (Auto) (0.0-1.8) % Lymph # (Auto) (1.2-5.4) K/mm3 [place] # (Auto) (0.0-0.8) K/mm3 Eos # (Auto) (0.0-0.4) K/mm3 Baso # (Auto) (0.0-0.1) K/mm3 Seg Neutrophils % (40.0-70.0) % Seg Neutrophils # (1.8-7.7) K/mm3 PT (12.2-14.9) Sec. INR (0.87-1.13) APTT (24.2-36.6) Sec. Sodium (137-145) mmol/L Potassium (3.6-5.0) mmol/L Chloride (98-107) mmol/L Carbon Dioxide (22-30) mmol/L Anion Gap mmol/L BUN (9-20) mg/dL Creatinine (0.8-1.3) mg/dL Estimated GFR ml/min BUN/Creatinine Ratio % Glucose (75-100) mg/dL Lactic Acid 2.70 H* (0.7-2.0) mmol/L Calcium (8.4-10.2) mg/dL Magnesium (1.7-2.3) mg/dL Total Bilirubin (0.1-1.2) mg/dL AST (5-40) units/L ALT (7-56) units/L Alkaline Phosphatase (35-129) units/L Ammonia 14.0 L (25-60) umol/L Total Creatine Kinase (55-170) units/L Troponin T (0.00-0.029) ng/mL Total Protein (6.3-8.2) g/dL Albumin (3.9-5) g/dL Albumin/Globulin Ratio % Salicylates < 0.3 L (2.8-20.0) mg/dL Plasma/Serum Alcohol (0-0.07) % 11/11/21 11/11/21 Range/Units 09:13 09:13 WBC (4.5-11.0) K/mm3 RBC (3.65-5.03) M/mm3 Hgb (11.8-15.2) gm/dl Hct (35.5-45.6) % MCV (84-94) fl MCH (28-32) pg MCHC (32-34) % RDW (13.2-15.2) % Plt Count (140-440) K/mm3 Lymph % (Auto) (13.4-35.0) % [place] % (Auto) (0.0-7.3) % Eos % (Auto) (0.0-4.3) % Baso % (Auto) (0.0-1.8) % Lymph # (Auto) (1.2-5.4) K/mm3 [place] # (Auto) (0.0-0.8) K/mm3 Eos # (Auto) (0.0-0.4) K/mm3 Baso # (Auto) (0.0-0.1) K/mm3 Seg Neutrophils % (40.0-70.0) % Seg Neutrophils # (1.8-7.7) K/mm3 PT (12.2-14.9) Sec. INR (0.87-1.13) APTT (24.2-36.6) Sec. Sodium (137-145) mmol/L Potassium (3.6-5.0) mmol/L Chloride (98-107) mmol/L Carbon Dioxide (22-30) mmol/L Anion Gap mmol/L BUN (9-20) mg/dL Creatinine (0.8-1.3) mg/dL Estimated GFR ml/min BUN/Creatinine Ratio % Glucose (75-100) mg/dL Lactic Acid (0.7-2.0) mmol/L Calcium (8.4-10.2) mg/dL Magnesium 2.50 H (1.7-2.3) mg/dL Total Bilirubin (0.1-1.2) mg/dL AST (5-40) units/L ALT (7-56) units/L Alkaline Phosphatase (35-129) units/L Ammonia (25-60) umol/L Total Creatine Kinase (55-170) units/L Troponin T (0.00-0.029) ng/mL Total Protein (6.3-8.2) g/dL Albumin (3.9-5) g/dL Albumin/Globulin Ratio % Salicylates (2.8-20.0) mg/dL Plasma/Serum Alcohol < 0.01 (0-0.07) % Vital Signs 11/11/21 11/11/21 11/11/21 08:31 08:46 09:14 Temperature Pulse Rate 149 H 144 H 140 H Respiratory 29 H 25 H Rate Blood Pressure 150/91 150/91 O2 Sat by Pulse 93 Oximetry 11/11/21 11/11/21 11/11/21 09:16 09:30 09:46 Temperature Pulse Rate 152 H 136 H 126 H Respiratory 26 H 25 H 19 Rate Blood Pressure 150/91 91/72 125/101 O2 Sat by Pulse 83 L 93 Oximetry 11/11/21 11/11/21 11/11/21 10:00 10:16 10:30 Temperature Pulse Rate 116 H 131 H 133 H Respiratory 21 29 H 27 H Rate Blood Pressure 125/101 125/101 130/79 O2 Sat by Pulse 95 Oximetry 11/11/21 10:43 Temperature 98.7 F Pulse Rate Respiratory Rate Blood Pressure O2 Sat by Pulse Oximetry - EKG Data -: EKG Interpreted by Ca Rate: tachycardia - EKG Data 11/11/21 08:46 The EKG is interpreted at 08: 27 Atrial fibrillation, rate 139 bpm. Rightward axis deviation, QTC 505 ms. High left ventricular voltage. Abnormal EKG, poor R wave progression. This is an abnormal EKG. This is not a STEMI - Radiology Data Radiology results: pending, report reviewed, image reviewed NONENHANCED CT SCAN OF THE HEAD: INDICATION / CLINICAL INFORMATION: 66 years Male; Altered Mental Status. TECHNIQUE: Routine CT head without contrast. All CT scans at this location are performed using CT dose reduction for ALARA by means of automated exposure control. COMPARISON: None. FINDINGS: BRAIN / INTRACRANIAL CONTENTS: No acute hemorrhage, mass effect, midline shift, hydrocephalus, or acute, large territorial infarct. No chronic infarct or focal atrophy. Normal brain volume and ventricular/sulcal size for age. Low- attenuation periventricular and deep hemispheric white matter due to chronic small vessel disease CRANIOCERVICAL JUNCTION: No significant abnormality. ORBITS: No significant abnormality of visualized orbits. SINUSES / MASTOIDS: No significant abnormality of the visualized paranasal sinuses or mastoid air cells. ADDITIONAL FINDINGS: Bony remodeling of left zygomatic arch from old trauma IMPRESSION: No focal parenchymal lesion Signer Name: Vera Miramontes MD Signed: 11/11/2021 8:32 AM Workstation Name: [id number] CHEST 1 VIEW 11/11/2021 8:21 AM INDICATION / CLINICAL INFORMATION: Altered Mental Status. COMPARISON: 11/03/2021 FINDINGS: SUPPORT DEVICES: None. HEART / MEDIASTINUM: Cardiomegaly LUNGS / PLEURA: Increased interstitial prominence w ithin the lungs persist. No significant interval change. Pulmonary vascularity may be slightly improved No pneumothorax. ADDITIONAL FINDINGS: No significant additional findings. IMPRESSION: Mild increased interstitial prominence within the lungs, left slightly greater than right. Signer Name: Rex Duvall MD Signed: 11/11/2021 8:33 AM Workstation Name: [id number] Critical Care Time: Yes Critical care time in (mins) excluding proc time.: 35 Critical care attestation.: If time is entered above; I have spent that time in minutes in the direct care of this critically ill patient, excluding procedure time. ED Disposition Clinical Impression: Acute encephalopathy, Atrial fibrillation with RVR, History of COVID-19 Disposition: 09 ADMITTED INPATIENT Is pt being admited?: Yes Does the pt Need Aspirin: No Condition: Fair Referrals: PRIMARY CARE, [Primary Care Provider] - 3-5 Days
--- NOTE | 2021-11-11 09:37 | Cat Scan Report ---
NONENHANCED CT SCAN OF THE HEAD: INDICATION / CLINICAL INFORMATION: 66 years Male; Altered Mental Status. TECHNIQUE: Routine CT head without contrast. All CT scans at this location are performed using CT dos e reduction for ALARA by means of automated exposure control. COMPARISON: None. FINDINGS: BRAIN / INTRACRANIAL CONTENTS: No acute hemorrhage, mass effect, midline shift, hydrocephalus, or acu te, large territorial infarct. No chronic infarct or focal atrophy. Normal brain volume and ventricul ar/sulcal size for age. Low-attenuation periventricular and deep hemispheric white matter due to disc pad knockout worker cris small vessel disease CRANIOCERVICAL JUNCTION: No significant abnormality. ORBITS: No significant abnormality of visualized orbits. SINUSES / MASTOIDS: No significant abnormality of the visualized paranasal sinuses or mastoid air jefe ls. ADDITIONAL FINDINGS: Bony remodeling of left zygomatic arch from old trauma IMPRESSION: No focal parenchymal lesion Signer Name: Vera Miramontes MD Signed: 11/11/2021 9:32 AM Workstation Name: [id number]
--- NOTE | 2021-11-11 09:38 | XRay Report ---
CHEST 1 VIEW 11/11/2021 8:21 AM INDICATION / CLINICAL INFORMATION: Altered Mental Status. COMPARISON: 11/03/2021 FINDINGS: SUPPORT DEVICES: None. HEART / MEDIASTINUM: Cardiomegaly LUNGS / PLEURA: Increased interstitial prominence within the lungs persist. No significant interval c hange. Pulmonary vascularity may be slightly improved No pneumothorax. ADDITIONAL FINDINGS: No significant additional findings. IMPRESSION: Mild increased interstitial prominence within the lungs, left slightly greater than right. Signer Name: Rex Duvall MD Signed: 11/11/2021 9:33 AM Workstation Name: [id number]
[2021-11-11 10:04] LABS: Basophils % (Auto) 0.1 % (0.0-1.8); Eosinophils % (Auto) 0.1 % (0.0-4.3); Lymphocytes # (Auto) 0.9 K/mm3 (1.2-5.4); Lymphocytes % (Auto) 7.4 % (13.4-35.0); Mean Corpuscular HGB Conc 31 % (32-34); Mean Corpuscular Volume 86 fl (84-94); Monocytes # (Auto) 0.8 K/mm3 (0.0-0.8); Monocytes % (Auto) 6.1 % (0.0-7.3); Platelet Count 262 K/mm3 (140-440); Red Blood Count 5.11 M/mm3 (3.65-5.03)
[2021-11-11 10:05] LABS: Hematocrit 43.7 % (35.5-45.6); Hemoglobin 13.5 gm/dl (11.8-15.2)
[2021-11-11 10:15] LABS: INR 1.28 (0.87-1.13); Partial Thromboplastin Time 32.6 Sec. (24.2-36.6)
[2021-11-11 10:31] LABS: Albumin 3.6 g/dL (3.9-5); Calcium 9.8 mg/dL (8.4-10.2)
[2021-11-11] MEDS ORDERED: ENOXAPARIN 100 MG/1 ML INJ SUB-Q STA (10:39)
[2021-11-11] MEDS ORDERED: dilTIAZem 60 MG TAB PO NR (11:00)
[2021-11-11] MEDS ORDERED: FUROSEMIDE 40 MG/4 ML INJ IV ONE (12:39)
--- NOTE | 2021-11-11 13:10 | History and Physical Report ---
History of Present Illness Date of examination: 11/11/21 Date of admission: 11/11/2021 Chief complaint: Altered level of consciousness/A. fib with rapid ventricular rate History of present illness: 66-year-old -Citizen Of [place] male patient with significant past medical history of congestive heart failure, COPD, hypertension recent,PositiveCOVID-19 status was brought to the emergency room by EMS with altered level of consciousness. Initial evaluation is consistent with A. fib with rapid ventricular rate. Lactic acidosis, leukocytosis probably secondary to recent steroid use Patient denies any chest pain or shortness of breath Denies nausea vomiting or abdominal pain Chest x-ray mild increased interstitial prominence within the lung, left slightly greater than right CT head , no acute abnormality noted Past History Past Medical History: hypertension, other (Recent COVID infection) Past Surgical History: No surgical history Social history: denies: smoking, alcohol abuse, prescription drug abuse Family history: no significant family history Medications and Allergies Allergies Allergy/AdvReac Type Severity Reaction Status Date / Time No Known Allergies Allergy Verified 11/03/21 18:59 Home Medications Medication Instructions Recorded Confirmed Last Taken Type NIFEdipine XL [Procardia Xl] 30 mg PO QDAY #30 tablet 11/07/21 Unknown Rx dexAMETHasone [Dexamethasone] 4 mg PO DAILY #10 tab 11/07/21 Unknown Rx Review of Systems Constitutional: no weight loss, no weight gain Ears, nose, mouth and throat: no nasal congestion, no nasal discharge Cardiovascular: palpitations, no chest pain, no orthopnea Respiratory: no cough, no shortness of breath Gastrointestinal: no abdominal pain, no nausea, no vomiting Genitourinary Male: no dysuria Musculoskeletal: no myalgias, no arthritis Integumentary: no rash, no lesions Neurological: weakness Psychiatric: no anxiety, no depression Endocrine: no cold intolerance, no heat intolerance Hematologic/Lymphatic: no easy bruising, no easy bleeding Allergic/Immunologic: no urticaria, no allergic rhinitis Exam - Constitutional Vitals: Temp Pulse Resp BP Pulse Ox 98.7 F 120 H 16 120/93 100 11/11/21 10:43 11/11/21 13:10 11/11/21 13:00 11/11/21 13:10 11/11/21 13:00 General appearance: Present: no acute distress, well-nourished - EENT Eyes: Present: PERRL, EOM intact - Neck Neck: Present: supple, normal ROM - Respiratory Respiratory effort: normal Respiratory: bilateral: diminished, negative: rales, rhonchi, wheezing - Cardiovascular Rhythm: regular Heart Sounds: Present: S1 & S2 - Extremities Extremities: no ischemia, No edema - Abdominal General gastrointestinal: Present: soft, non-tender, non-distended, normal bowel sounds - Integumentary Integumentary: Present: clear, warm - Musculoskeletal Musculoskeletal: strength equal bilaterally, generalized weakness - Psychiatric Psychiatric: other - Neurologic Neurologic: moves all extremities HEART Score - HEART Score Troponin: Troponin T 0.013 ng/mL (0.00-0.029) 11/11/21 09:13 Results - Labs CBC & Chem 7: 11/11/21 09:13 11/11/21 09:13 Labs: Abnormal lab results 11/11/21 11/11/21 11/11/21 Range/Units 09:13 09:13 09:13 WBC 12.5 H (4.5-11.0) K/mm3 RBC 5.11 H (3.65-5.03) M/mm3 MCH 26 L (28-32) pg MCHC 31 L (32-34) % RDW 18.0 H (13.2-15.2) % Lymph % (Auto) 7.4 L (13.4-35.0) % Lymph # (Auto) 0.9 L (1.2-5.4) K/mm3 Seg Neutrophils % 86.3 H (40.0-70.0) % Seg Neutrophils # 10.8 H (1.8-7.7) K/mm3 PT 17.3 H (12.2-14.9) Sec. INR 1.28 H (0.87-1.13) Carbon Dioxide 20 L (22-30) mmol/L BUN 46 H (9-20) mg/dL Creatinine 1.5 H (0.8-1.3) mg/dL Glucose 116 H (75-100) mg/dL Lactic Acid (0.7-2.0) mmol/L Magnesium (1.7-2.3) mg/dL Total Bilirubin 2.30 H (0.1-1.2) mg/dL Ammonia (25-60) umol/L Total Protein 8.4 H (6.3-8.2) g/dL Albumin 3.6 L (3.9-5) g/dL Salicylates (2.8-20.0) mg/dL Acetaminophen (10.0-30.0) ug/mL 11/11/21 11/11/21 11/11/21 Range/Units 09:13 09:13 09:13 WBC (4.5-11.0) K/mm3 RBC (3.65-5.03) M/mm3 MCH (28-32) pg MCHC (32-34) % RDW (13.2-15.2) % Lymph % (Auto) (13.4-35.0) % Lymph # (Auto) (1.2-5.4) K/mm3 Seg Neutrophils % (40.0-70.0) % Seg Neutrophils # (1.8-7.7) K/mm3 PT (12.2-14.9) Sec. INR (0.87-1.13) Carbon Dioxide (22-30) mmol/L BUN (9-20) mg/dL Creatinine (0.8-1.3) mg/dL Glucose (75-100) mg/dL Lactic Acid 2.70 H* (0.7-2.0) mmol/L Magnesium (1.7-2.3) mg/dL Total Bilirubin (0.1-1.2) mg/dL Ammonia 14.0 L (25-60) umol/L Total Protein (6.3-8.2) g/dL Albumin (3.9-5) g/dL Salicylates < 0.3 L (2.8-20.0) mg/dL Acetaminophen (10.0-30.0) ug/mL 11/11/21 11/11/21 11/11/21 Range/Units 09:13 09:13 10:34 WBC (4.5-11.0) K/mm3 RBC (3.65-5.03) M/mm3 MCH (28-32) pg MCHC (32-34) % RDW (13.2-15.2) % Lymph % (Auto) (13.4-35.0) % Lymph # (Auto) (1.2-5.4) K/mm3 Seg Neutrophils % (40.0-70.0) % Seg Neutrophils # (1.8-7.7) K/mm3 PT (12.2-14.9) Sec. INR (0.87-1.13) Carbon Dioxide (22-30) mmol/L BUN (9-20) mg/dL Creatinine (0.8-1.3) mg/dL Glucose (75-100) mg/dL Lactic Acid 2.80 H* (0.7-2.0) mmol/L Magnesium 2.50 H (1.7-2.3) mg/dL Total Bilirubin (0.1-1.2) mg/dL Ammonia (25-60) umol/L Total Protein (6.3-8.2) g/dL Albumin (3.9-5) g/dL Salicylates (2.8-20.0) mg/dL Acetaminophen 5.0 L (10.0-30.0) ug/mL Assessment and Plan -- Altered level of consciousness / acute metabolic encephalopathy; present on admission Intermittent confusion Recent COVID-19, possible psych disorder Haldol for agitation CT head negative for acute abnormality --A. fib with rapid ventricular rate; Patient received IV Cardizem no response Start Cardizem drip per protocol Lovenox full dose, transition to Eliquis when stable --Leukocytosis; Probably secondary to steroids, recent COVID-19 infection Evaluate for sepsis --Lactic acidosis; trend lactic acid Leukocytosis, empiric Rocephin Cultures --Acute kidney injury; Vasomotor nephropathy, gentle hydration monitor renal function, avoid nephrotoxins Renal dosing of medications --Dehydration; gentle hydration --Recent COVID-19 infection; Continue low-dose dexamethasone for total 10 days -- DVT prophylaxis; Patient is on full dose anticoagulation with Lovenox -- Full CODE STATUS Psych consult Restrain patient for safety We will closely monitor the patient and adjust management as needed Plan of care reviewed with the patient and her nurse
[2021-11-11] MEDS ORDERED: ACETAMINOPHEN 325 MG TAB PO PRN (16:00)
[2021-11-11] MEDS ORDERED: MORPHINE 2 MG/1 ML INJ IV PRN (16:00)
[2021-11-11 16:09] LABS: Bacteria,Urine 1+ /HPF (Negative); Bilirubin,Urine NEG (Negative); Blood,Urine NEG (Negative); Color,Urine Amber (Yellow); Hyaline Casts,Urine 2 /LPF; Mucus,Urine FEW /HPF; RBC,Urine < 1.0 /HPF (0.0-6.0)
[2021-11-11] MEDS ORDERED: dilTIAZem 30 MG TAB PO SCH (18:00)
[2021-11-11] MEDS: HALOPERIDOL LACTATE 5 MG/1 ML INJ IM PRN (18:48)
[2021-11-11] MEDS: dilTIAZem/D5W 100 MG/100 ML BAG IV SCH (20:00)
--- NOTE | 2021-11-11 21:13 | Emergency Department Report ---
HPI - General Chief Complaint: Chest Pain Time Seen by Provider: 11/11/21 08:29 - HPI HPI: Brief Cardiology Note (11/11/21 at 7pm) Patient admitted with COVID-19 infection and noted to have AF on RVR on presentation (rates 140s). Telemetry was reviewed, and heart rates are currently reasonably controlled on IV diltiazem (rates in 100s). Would continue IV diltiazem and titrate as needed. Full consult note to follow tomorrow. Please call answering service to speak to on-call doctor if any issues arise. ED Past Medical Hx - Medications Home Medications: Home Medications Medication Instructions Recorded Confirmed Last Taken Type NIFEdipine XL [Procardia Xl] 30 mg PO QDAY #30 tablet 11/07/21 Unknown Rx dexAMETHasone [Dexamethasone] 4 mg PO DAILY #10 tab 11/07/21 Unknown Rx Physical Exam - Physical Exam Vital Signs: Vital Signs 11/11/21 11/11/21 11/11/21 08:31 08:46 09:14 Temperature Pulse Rate 149 H 144 H 140 H Respiratory 29 H 25 H Rate Blood Pressure 150/91 150/91 Blood Pressure [Left] O2 Sat by Pulse 93 Oximetry 11/11/21 11/11/21 11/11/21 09:16 09:30 09:46 Temperature Pulse Rate 152 H 136 H 126 H Respiratory 26 H 25 H 19 Rate Blood Pressure 150/91 91/72 125/101 Blood Pressure [Left] O2 Sat by Pulse 83 L 93 Oximetry 11/11/21 11/11/21 11/11/21 10:00 10:16 10:30 Temperature Pulse Rate 116 H 131 H 133 H Respiratory 21 29 H 27 H Rate Blood Pressure 125/101 125/101 130/79 Blood Pressure [Left] O2 Sat by Pulse 95 Oximetry 11/11/21 11/11/21 11/11/21 10:43 10:46 11:00 Temperature 98.7 F Pulse Rate 111 H 89 Respiratory 21 13 Rate Blood Pressure 130/79 124/75 Blood Pressure [Left] O2 Sat by Pulse 82 L Oximetry 11/11/21 11/11/21 11/11/21 11:16 11:30 11:46 Temperature Pulse Rate 115 H 108 H 119 H Respiratory 21 20 16 Rate Blood Pressure 124/75 126/80 126/80 Blood Pressure [Left] O2 Sat by Pulse 95 93 Oximetry 11/11/21 11/11/21 11/11/21 11:55 12:00 12:16 Temperature Pulse Rate 66 125 H 125 H Respiratory 22 28 H 14 Rate Blood Pressure 138/119 138/119 Blood Pressure 126/80 [Left] O2 Sat by Pulse 100 97 Oximetry 11/11/21 11/11/21 11/11/21 12:30 12:46 13:00 Temperature Pulse Rate 120 H 105 H 121 H Respiratory 27 H 21 21 Rate Blood Pressure 138/115 138/115 120/93 Blood Pressure 113/73 [Left] O2 Sat by Pulse 93 95 Oximetry 11/11/21 11/11/21 11/11/21 13:10 13:16 13:42 Temperature Pulse Rate 120 H 128 H 118 H Respiratory 29 H 31 H Rate Blood Pressure 120/93 120/93 120/93 Blood Pressure [Left] O2 Sat by Pulse 65 L Oximetry 11/11/21 11/11/21 11/11/21 13:46 14:00 14:16 Temperature Pulse Rate 113 H 118 H 104 H Respiratory 20 33 H 16 Rate Blood Pressure 142/90 90/71 90/71 Blood Pressure [Left] O2 Sat by Pulse 100 92 Oximetry 11/11/21 11/11/21 11/11/21 14:30 14:45 15:00 Temperature Pulse Rate 114 H Respiratory 18 Rate Blood Pressure 125/94 125/94 114/93 Blood Pressure [Left] O2 Sat by Pulse 87 93 95 Oximetry 11/11/21 11/11/21 15:22 15:30 Temperature Pulse Rate 121 H Respiratory 29 H Rate Blood Pressure 114/93 110/94 Blood Pressure [Left] O2 Sat by Pulse 96 Oximetry ED Course Vital Signs 11/11/21 11/11/21 11/11/21 08:31 08:46 09:14 Temperature Pulse Rate 149 H 144 H 140 H Respiratory 29 H 25 H Rate Blood Pressure 150/91 150/91 Blood Pressure [Left] O2 Sat by Pulse 93 Oximetry 11/11/21 11/11/21 11/11/21 09:16 09:30 09:46 Temperature Pulse Rate 152 H 136 H 126 H Respiratory 26 H 25 H 19 Rate Blood Pressure 150/91 91/72 125/101 Blood Pressure [Left] O2 Sat by Pulse 83 L 93 Oximetry 11/11/21 11/11/21 11/11/21 10:00 10:16 10:30 Temperature Pulse Rate 116 H 131 H 133 H Respiratory 21 29 H 27 H Rate Blood Pressure 125/101 125/101 130/79 Blood Pressure [Left] O2 Sat by Pulse 95 Oximetry 11/11/21 11/11/21 11/11/21 10:43 10:46 11:00 Temperature 98.7 F Pulse Rate 111 H 89 Respiratory 21 13 Rate Blood Pressure 130/79 124/75 Blood Pressure [Left] O2 Sat by Pulse 82 L Oximetry 11/11/21 11/11/21 11/11/21 11:16 11:30 11:46 Temperature Pulse Rate 115 H 108 H 119 H Respiratory 21 20 16 Rate Blood Pressure 124/75 126/80 126/80 Blood Pressure [Left] O2 Sat by Pulse 95 93 Oximetry 11/11/21 11/11/21 11/11/21 11:55 12:00 12:16 Temperature Pulse Rate 66 125 H 125 H Respiratory 22 28 H 14 Rate Blood Pressure 138/119 138/119 Blood Pressure 126/80 [Left] O2 Sat by Pulse 100 97 Oximetry 11/11/21 11/11/21 11/11/21 12:30 12:46 13:00 Temperature Pulse Rate 120 H 105 H 121 H Respiratory 27 H 21 21 Rate Blood Pressure 138/115 138/115 120/93 Blood Pressure 113/73 [Left] O2 Sat by Pulse 93 95 Oximetry 11/11/21 11/11/21 11/11/21 13:10 13:16 13:42 Temperature Pulse Rate 120 H 128 H 118 H Respiratory 29 H 31 H Rate Blood Pressure 120/93 120/93 120/93 Blood Pressure [Left] O2 Sat by Pulse 65 L Oximetry 11/11/21 11/11/21 11/11/21 13:46 14:00 14:16 Temperature Pulse Rate 113 H 118 H 104 H Respiratory 20 33 H 16 Rate Blood Pressure 142/90 90/71 90/71 Blood Pressure [Left] O2 Sat by Pulse 100 92 Oximetry 11/11/21 11/11/21 11/11/21 14:30 14:45 15:00 Temperature Pulse Rate 114 H Respiratory 18 Rate Blood Pressure 125/94 125/94 114/93 Blood Pressure [Left] O2 Sat by Pulse 87 93 95 Oximetry 11/11/21 11/11/21 15:22 15:30 Temperature Pulse Rate 121 H Respiratory 29 H Rate Blood Pressure 114/93 110/94 Blood Pressure [Left] O2 Sat by Pulse 96 Oximetry ED Medical Decision Making - Lab Data Result diagrams: 11/11/21 09:13 11/11/21 09:13 ED Disposition Disposition: 30 STILL A PATIENT
[2021-11-11] MEDS ORDERED: LORazepam 2 MG/ML VIAL IV ONE (21:15)
[2021-11-11] MEDS ORDERED: LORazepam 2 MG/ML VIAL ONE (21:16)
[2021-11-11] MEDS: ENOXAPARIN 100 MG/1 ML INJ SUB-Q SCH (22:03)
[2021-11-12] MEDS ORDERED: MORPHINE 2 MG/1 ML INJ IV PRN (01:58)
[2021-11-12] MEDS ORDERED: ACETAMINOPHEN 325 MG TAB PO PRN (01:58)
[2021-11-12] MEDS: HALOPERIDOL LACTATE 5 MG/1 ML INJ IM PRN ×2 (02:57→08:57)
[2021-11-12] MEDS: dilTIAZem/D5W 100 MG/100 ML BAG IV SCH (08:39)
--- NOTE | 2021-11-12 08:53 | Progress Note ---
Assessment and Plan Assessment and plan: History of present illness: 66-year-old -Citizen Of [place] male patient with significant past medical history of congestive heart failure, COPD, hypertension recent,PositiveCOVID-19 status was brought to the emergency room by EMS with altered level of consciousness. Initial evaluation is consistent with A. fib with rapid ventricular rate. Lactic acidosis, leukocytosis probably secondary to recent steroid use Patient denies any chest pain or shortness of breath Denies nausea vomiting or abdominal pain Chest x-ray mild increased interstitial prominence within the lung, left slightly greater than right CT head , no acute abnormality noted Hospital Course: 11/12/2021: Placed on amiodorone and Lovenox by cardiology. Agree with cardiology that patient will likely not be amenable to anticoagulation if he is not in a supervised facility. Psychiatry recommendations noted. Once patient is off diltiazem drip can be downgraded to medical floor. Assessment and Plan: #Altered level of consciousness /acute metabolic encephalopathy; - present on admission - Intermittent confusion - Recent COVID-19, possible psych disorder - Haldol prn for agitation - CT head negative for acute abnormality Psychiatry consulted #A. fib with rapid ventricular rate; - Patient received IV Cardizem no response - Start Cardizem drip per protocol, wean as HR tolerates - amiodorone started - Lovenox full dose, transition to Eliquis when stable Cardiology following #Leukocytosis; - Probably secondary to steroids, recent COVID-19 infection - Evaluate for sepsis #Lactic acidosis; trend lactic acid - Leukocytosis, empiric Rocephin - Cultures #Acute kidney injury; - Vasomotor nephropathy, gentle hydration - monitor renal function, avoid nephrotoxins - Renal dosing of medications #Dehydration; gentle hydration #Recent COVID-19 infection; Continue low-dose dexamethasone for total 10 days #DVT prophylaxis; Patient is on full dose anticoagulation with Lovenox #Advance care planning Disease education conducted, care plan discussed, diagnoses discussed, prognosis discussed, patient is full code, patient acknowledges understanding and agree with care plan, +30 minutes. -- Full CODE STATUS Psych consult Restrain patient for safety We will closely monitor the patient and adjust management as needed Plan of care reviewed with the patient and her nurse The high probability of a clinically significant, sudden or life threatening deterioration of the [multi] system(s) required my full and direct attention, intervention and personal management. The aggregate critical care time was [60] minutes. This time is in addition to time spent performing reported procedures but includes the following: [x] Data Review and interpretation [x] Patient assessment and monitoring of vital signs [x] Documentation [x] Medication orders and management History Interval history: Confused on my encounter. in restraints, still remains aggitated. Hospitalist Physical - Physical exam Narrative exam: General appearance: Present: no acute distress, well-nourished - EENT Eyes: Present: PERRL, EOM intact - Neck Neck: Present: supple, normal ROM - Respiratory Respiratory effort: normal Respiratory: bilateral: diminished, negative: rales, rhonchi, wheezing - Cardiovascular Rhythm: regular Heart Sounds: Present: S1 & S2 - Extremities Extremities: no ischemia, No edema - Abdominal General gastrointestinal: Present: soft, non-tender, non-distended, normal bowel sounds - Integumentary Integumentary: Present: clear, warm - Musculoskeletal Musculoskeletal: strength equal bilaterally, generalized weakness - Psychiatric Psychiatric: other - Neurologic Neurologic: moves all extremities - Constitutional Vitals: Temp Pulse Resp BP Pulse Ox 98.7 F 102 H 28 H 89/66 71 L 11/11/21 10:43 11/12/21 00:16 11/12/21 00:16 11/12/21 01:24 11/12/21 01:24 General appearance: Present: no acute distress, well-nourished HEART Score - HEART Score Troponin: Troponin T 0.013 ng/mL (0.00-0.029) 11/11/21 09:13 Results - Labs CBC & Chem 7: 11/11/21 09:13 11/11/21 09:13 Labs: Laboratory Last Values WBC 12.5 K/mm3 (4.5-11.0) H 11/11/21 09:13 RBC 5.11 M/mm3 (3.65-5.03) H 11/11/21 09:13 Hgb 13.5 gm/dl (11.8-15.2) 11/11/21 09:13 Hct 43.7 % (35.5-45.6) 11/11/21 09:13 MCV 86 fl (84-94) 11/11/21 09:13 MCH 26 pg (28-32) L 11/11/21 09:13 MCHC 31 % (32-34) L 11/11/21 09:13 RDW 18.0 % (13.2-15.2) H 11/11/21 09:13 Plt Count 262 K/mm3 (140-440) 11/11/21 09:13 Lymph % (Auto) 7.4 % (13.4-35.0) L 11/11/21 09:13 Wise % (Auto) 6.1 % (0.0-7.3) 11/11/21 09:13 Eos % (Auto) 0.1 % (0.0-4.3) 11/11/21 09:13 Baso % (Auto) 0.1 % (0.0-1.8) 11/11/21 09:13 Lymph # (Auto) 0.9 K/mm3 (1.2-5.4) L 11/11/21 09:13 Wise # (Auto) 0.8 K/mm3 (0.0-0.8) 11/11/21 09:13 Eos # (Auto) 0.0 K/mm3 (0.0-0.4) 11/11/21 09:13 Baso # (Auto) 0.0 K/mm3 (0.0-0.1) 11/11/21 09:13 Seg Neutrophils % 86.3 % (40.0-70.0) H 11/11/21 09:13 Seg Neutrophils # 10.8 K/mm3 (1.8-7.7) H 11/11/21 09:13 PT 17.3 Sec. (12.2-14.9) H 11/11/21 09:13 INR 1.28 (0.87-1.13) H 11/11/21 09:13 APTT 32.6 Sec. (24.2-36.6) 11/11/21 09:13 Sodium 139 mmol/L (137-145) 11/11/21 09:13 Potassium 4.8 mmol/L (3.6-5.0) D 11/11/21 09:13 Chloride 104.1 mmol/L (98-107) 11/11/21 09:13 Carbon Dioxide 20 mmol/L (22-30) L 11/11/21 09:13 Anion Gap 20 mmol/L 11/11/21 09:13 BUN 46 mg/dL (9-20) H 11/11/21 09:13 Creatinine 1.5 mg/dL (0.8-1.3) H 11/11/21 09:13 Estimated GFR 57 ml/min 11/11/21 09:13 BUN/Creatinine Ratio 31 % 11/11/21 09:13 Glucose 116 mg/dL (75-100) H 11/11/21 09:13 POC Glucose 125 mg/dL (70-105) H 11/11/21 22:24 Lactic Acid 4.20 mmol/L (0.7-2.0) H* 11/12/21 02:18 Calcium 9.8 mg/dL (8.4-10.2) 11/11/21 09:13 Magnesium 2.50 mg/dL (1.7-2.3) H 11/11/21 09:13 Total Bilirubin 2.30 mg/dL (0.1-1.2) H 11/11/21 09:13 AST 31 units/L (5-40) 11/11/21 09:13 ALT 47 units/L (7-56) 11/11/21 09:13 Alkaline Phosphatase 129 units/L (35-129) 11/11/21 09:13 Ammonia 14.0 umol/L (25-60) L 11/11/21 09:13 Total Creatine Kinase 85 units/L (55-170) 11/11/21 09:13 Troponin T 0.013 ng/mL (0.00-0.029) 11/11/21 09:13 Total Protein 8.4 g/dL (6.3-8.2) H 11/11/21 09:13 Albumin 3.6 g/dL (3.9-5) L 11/11/21 09:13 Albumin/Globulin Ratio 0.8 % 11/11/21 09:13 TSH 2.120 mlU/mL (0.270-4.200) 11/11/21 09:13 Urine Color Giulia (Yellow) 11/11/21 Unknown Urine Turbidity Cloudy (Clear) 11/11/21 Unknown Urine pH 5.0 (5.0-7.0) 11/11/21 Unknown Ur Specific [place] 1.018 (1.003-1.030) 11/11/21 Unknown Urine Protein 100 mg/dl mg/dL (Negative) 11/11/21 Unknown Urine Glucose (UA) Neg mg/dL (Negative) 11/11/21 Unknown Urine Ketones Neg mg/dL (Negative) 11/11/21 Unknown Urine Blood Neg (Negative) 11/11/21 Unknown Urine Nitrite Neg (Negative) 11/11/21 Unknown Urine Bilirubin Neg (Negative) 11/11/21 Unknown Urine Urobilinogen 2.0 mg/dL (<2.0) 11/11/21 Unknown Ur Leukocyte Esterase Neg (Negative) 11/11/21 Unknown Urine WBC (Auto) 2.0 /HPF (0.0-6.0) 11/11/21 Unknown Urine RBC (Auto) < 1.0 /HPF (0.0-6.0) 11/11/21 Unknown U Epithel Cells (Auto) < 1.0 /HPF (0-13.0) 11/11/21 Unknown Urine Bacteria (Auto) 1+ /HPF (Negative) 11/11/21 Unknown Hyaline Casts 2 /LPF 11/11/21 Unknown Urine Mucus Few /HPF 11/11/21 Unknown Salicylates < 0.3 mg/dL (2.8-20.0) L 11/11/21 09:13 Acetaminophen 5.0 ug/mL (10.0-30.0) L 11/11/21 09:13 Plasma/Serum Alcohol < 0.01 % (0-0.07) 11/11/21 09:13 Microbiology: Microbiology 11/11/21 09:13 Peripheral/Venous Blood Culture - Preliminary Culture in Progress 11/11/21 09:13 Peripheral/Venous Blood Culture - Preliminary Culture in Progress Active Medications - Current Medications Current Medications: Generic Name Dose Route Start Last Admin Trade Name Freq PRN Reason Stop Dose Admin Acetaminophen 650 mg 11/12/21 01:58 Acetaminophen 325 Mg Tab PO Q6H PRN Pain MILD(1-3)/Fever >100.5/SMYTH Enoxaparin Sodium 90 mg 11/11/21 22:00 11/11/21 22:03 Enoxaparin 100 Mg/1 Ml Inj 1 mg/kg (90 mg) 90 mg SUB-Q Administration Q12HR JENNY Protocol Haloperidol Lactate 2 mg 11/11/21 18:41 11/12/21 02:57 Haloperidol Lactate 5 Mg/1 Ml Inj IM 2 mg Q6H PRN Administration Agitation Diltiazem HCl 100 mg in 100 mls @ 5 mls/hr 11/11/21 16:00 11/12/21 08:39 Cardizem/D5w 100mg/100ml IV 15 mg/hr TITR JENNY 15 mls/hr Administration Protocol 5 MG/HR Morphine Sulfate 2 mg 11/12/21 01:58 Morphine 2 Mg/1 Ml Inj IV Q4H PRN Pain, Moderate (4-6) Morphine Sulfate 4 mg 11/12/21 01:58 Morphine 4 Mg/1 Ml Inj IV Q4H PRN Pain , Severe (7-10) Pantoprazole Sodium 40 mg 11/12/21 07:30 Pantoprazole 40 Mg Tab PO QDAC JENNY
[2021-11-12] MEDS: PANTOPRAZOLE 40 MG TAB PO SCH (09:37)
[2021-11-12] MEDS: ENOXAPARIN 100 MG/1 ML INJ SUB-Q SCH ×2 (10:45→22:56)
--- NOTE | 2021-11-12 11:37 | Consultation ---
History of Present Illness Consult date: 11/12/21 Consult reason: atrial fibrillation History of present illness: The patient is a 66-year-old man with a history of COPD, was hospitalized here a week ago with acute COVID-pneumonia. Following that he was discharged to a "[facility] hotel", on the premise of his current social status of homelessness. He returns to the hospital now with complaints of shortness of breath and palpitations. In the emergency room, he was found with rapid atrial fibrillation, started on intravenous diltiazem. He currently is seen in the emergency room awaiting bed placement, remains in atrial fibrillation on Cardizem drip at 15 mg/h. The patient has no chest pain, and unable to provide any pertinent prior cardiac history. He currently appears confused and is on four-point restraint. His toxicology screen appears negative, but the nurse attending to him informs me that he has an unspecified psychiatric history. His atrial fibrillation appears to be new. A week ago while hospitalized here, his EKG was sinus rhythm with occasional ectopy and evidence of left ventricle hypertrophy with repositioning abnormalities of LVH. With regards to any prior cardiac history, his previous records state that he has "CHF", which is not clearly documented with specific details of any prior cardiac work-up. However, his current chest x-ray does show a moderate severity cardiomegaly, with clear lungs and no evidence of decompensated heart failure. On comparison, the cardiomegaly is not new, was present on his ECG from a week ago. Past History Past Medical History: COPD, heart failure, hypertension, other (Recent COVID infection) Past Surgical History: No surgical history Social history: denies: smoking, alcohol abuse, prescription drug abuse Family history: no significant family history Medications and Allergies Allergies Allergy/AdvReac Type Severity Reaction Status Date / Time No Known Allergies Allergy Verified 11/03/21 18:59 Home Medications Medication Instructions Recorded Confirmed Last Taken Type NIFEdipine XL [Procardia Xl] 30 mg PO QDAY #30 tablet 11/07/21 Unknown Rx dexAMETHasone [Dexamethasone] 4 mg PO DAILY #10 tab 11/07/21 Unknown Rx Active Meds: Active Medications Acetaminophen (Acetaminophen 325 Mg Tab) 650 mg PO Q6H PRN PRN Reason: Pain MILD(1-3)/Fever >100.5/SMYTH Enoxaparin Sodium (Enoxaparin 100 Mg/1 Ml Inj) 90 mg 1 mg/kg (90 mg) SUB-Q Q12HR [facility]; Protocol Last Admin: 11/11/21 22:03 Dose: 90 mg Haloperidol Lactate (Haloperidol Lactate 5 Mg/1 Ml Inj) 2 mg IM Q6H PRN PRN Reason: Agitation Last Admin: 11/12/21 08:57 Dose: 2 mg Diltiazem HCl (Cardizem/D5w 100mg/100ml) 100 mg in 100 mls @ 5 mls/hr IV TITR [facility]; Protocol Last Titration: 11/12/21 09:37 Dose: 15 mg/hr, 15 mls/hr Morphine Sulfate (Morphine 2 Mg/1 Ml Inj) 2 mg IV Q4H PRN PRN Reason: Pain, Moderate (4-6) Morphine Sulfate (Morphine 4 Mg/1 Ml Inj) 4 mg IV Q4H PRN PRN Reason: Pain , Severe (7-10) Pantoprazole Sodium (Pantoprazole 40 Mg Tab) 40 mg PO QDAC [facility] Last Admin: 11/12/21 09:37 Dose: Not Given Review of Systems ROS unobtainable: due to mental status Physical Examination Vital Signs Pulse 149 H 11/11/21 08:31 General appearance: no acute distress, other (Patient is confused, on four-point restraints) HEENT: Positive: PERRL Neck: Positive: neck supple Cardiac: Positive: irregularly irregular Lungs: Positive: Decreased Breath Sounds Neuro: Positive: Grossly Intact Abdomen: Positive: Soft Male genitourinary: Positive: deferred Skin: Positive: Clear Extremities: Absent: edema Results 11/11/21 09:13 11/11/21 09:13 EKG interpretations - Telemetry EKG Rhythm: Atrial Fibrillation (With rapid ventricular rate, left ventricle hypertrophy and repolarization abnormalities of LVH) Assessment and Plan - Patient Problems (1) Atrial fibrillation with RVR Current Visit: Yes Status: Acute Plan to address problem: Patient with COPD and recent COVID infection, presents with palpitations and new onset rapid atrial fibrillation. An ECG from a week ago was sinus rhythm. No well-documented prior cardiac history, but his chest x-ray shows a moderate severity cardiomegaly, which was also present on his prior chest x-ray a few week ago. In addition to rate control strategy of atrial fibrillation using diltiazem and possibly amiodarone, we will place the patient on subcutaneous heparin, and order an echocardiogram for left ventricular function assessment. Further evaluation and management will depend on clinical course. Due to his mental status issues and his homelessness, he will not likely be a candidate for optimal atrial fibrillation therapy including long-term oral anticoagulation unless he is eventually placed in a supervised clinical setting.
[2021-11-12] MEDS ORDERED: AMIODARONE 150 MG in DEXTROSE 5% IN WATER 97 ML IV SCH (12:00)
--- NOTE | 2021-11-12 12:50 | Event Note ---
Date: 11/12/21 Attempted to evaluate the patient today. He is lying in bed. He appears sedated. He responds when I call his eyes but immediately drifts back to sleep. He is in 4 point restraints. According to documentation the patient has been agitated and pulling things out. Will treat and continue to follow this patient. Agree with Haldol q6h Start Lorazepam 1mg q4h prn agitation Disposition: Do not recommend acute psychiatric inpatient treatment at this time Will follow for med management Case staffed with Dr. Melgar
[2021-11-12] MEDS ORDERED: LORazepam 2 MG/ML VIAL IM PRN (13:30)
[2021-11-12] MEDS: METOPROLOL TARTRATE 50 MG TAB PO SCH ×2 (13:45→22:57)
--- NOTE | 2021-11-12 15:44 | Event Note ---
Date: 11/11/21 Brief Cardiology Note (11/11/21 at 7pm) Patient admitted with COVID-19 infection and noted to have AF on RVR on presentation (rates 140s). Telemetry was reviewed, and heart rates are currently reasonably controlled on IV diltiazem (rates in 100s). Would continue IV diltiazem and titrate as needed. Full consult note to follow tomorrow. Please call answering service to speak to on-call doctor if any issues arise.
[2021-11-12] MEDS: AMIODARONE 360 MG in DEXTROSE 5% IN WATER 192.8 ML IV SCH ×2 (16:12→22:20)
[2021-11-13 06:11] LABS: Hematocrit 42.9 % (35.5-45.6); Hemoglobin 13.4 gm/dl (11.8-15.2); Mean Corpuscular HGB Conc 31 % (32-34); Mean Corpuscular Volume 85 fl (84-94); Platelet Count 237 K/mm3 (140-440); Red Blood Count 5.06 M/mm3 (3.65-5.03); Red Cell Distribution Width 17.8 % (13.2-15.2)
[2021-11-13 06:33] LABS: Albumin 3.5 g/dL (3.9-5); Calcium 8.9 mg/dL (8.4-10.2)
[2021-11-13 06:55] LABS: Basophils % (Manual) 0 % (0.0-1.8); Eosinophils % (Manual) 0 % (0.0-4.3); Total Cells Counted 100
[2021-11-13 06:56] LABS: Anisocytosis 1+; Macrocytosis Few
[2021-11-13 06:57] LABS: Platelet Estimate Consistent w Auto; Poikilocytosis Few
[2021-11-13] MEDS: PANTOPRAZOLE 40 MG TAB PO SCH (07:35)
--- NOTE | 2021-11-13 08:58 | Progress Note ---
Subjective - Reason for Consult Consult date: 11/13/21 Reason for consult: med management - Chief Complaint Chief complaint: The patient was seen today. He is intubated and in 4 point restraints. He arouses minimally but drifts back to sleep. Nursing staff documents that the patient has been restless, getting out of bed with no regard to safety. Will adjust med. REVIEW OF SYSTEMS Intubated MENTAL STATUS EXAMINATION Unable to assess Assessment (1) Delirium Current Visit: Yes Status: Acute Treatment Plan Adjust lorazepam 2mg IM q6h prn agitation Medical: Per primary Disposition: Do not recommend acute psychiatric inpatient treatment at this time. It appears that the patient's agitation was due to underlying acute medical conditions. Will follow for med management. Thanks Case staffed with Dr. Melgar Mental Status Exam - Vital signs Last Vital Signs Temp 97.2 F L 11/13/21 08:24 Pulse 84 11/13/21 06:46 Resp 24 11/13/21 06:46 BP 121/95 11/13/21 06:46 Pulse Ox 99 11/13/21 06:46
[2021-11-13] MEDS ORDERED: LORazepam 2 MG/ML VIAL IV PRN (09:17)
--- NOTE | 2021-11-13 10:16 | Progress Note ---
Assessment and Plan - Patient Problems (1) Atrial fibrillation with RVR Current Visit: Yes Plan to address problem: Patient with COPD and recent COVID infection, presented with palpitations and new onset rapid atrial fibrillation. An ECG from a week ago was sinus rhythm. No well-documented prior cardiac history, but his chest x-ray showed a moderate severity cardiomegaly, which was also present on his prior chest x-ray a few week ago. He has reverted to a stable sinus rhythm after intravenous amiodarone. We will continue atrial fibrillation suppression therapy with amiodarone and metoprolol. Due to his mental status issues and his homelessness, he will not likely be a candidate for optimal atrial fibrillation therapy including long-term oral anticoagulation unless he is eventually placed in a supervised clinical setting. Currently on subcutaneous enoxaparin while hospitalized. Subjective Date of service: 11/13/21 Interval history: The patient is still in the emergency room, awaiting bed placement. He remains mildly confused. On gas well pumper, he has returned to a stable sinus rhythm after we gave him intravenous amiodarone. Objective Vital Signs Temp Pulse Resp BP BP Pulse Ox 11/13/21 08:24 97.2 F L 11/13/21 06:46 84 24 121/95 99 11/13/21 06:30 79 22 121/95 95 11/13/21 06:16 76 26 H 115/88 94 11/13/21 06:00 74 14 115/88 94 11/13/21 05:46 69 25 H 120/92 95 11/13/21 05:30 74 23 120/92 96 11/13/21 05:16 65 20 113/87 94 11/13/21 05:00 94.2 F L 65 16 113/87 94 11/13/21 04:46 67 14 113/85 94 11/13/21 04:30 68 15 113/85 92 11/13/21 04:16 70 15 123/96 92 11/13/21 03:46 124/93 91 11/13/21 03:30 133/88 11/13/21 03:16 133/88 91 11/13/21 03:00 133/88 93 11/13/21 02:46 73 13 124/96 93 11/13/21 02:30 76 35 H 124/96 93 11/13/21 02:16 72 24 115/89 93 11/13/21 02:00 71 24 115/89 93 11/13/21 01:30 70 19 116/94 92 11/13/21 01:00 92.7 F L 68 21 119/93 92 11/13/21 00:46 68 22 122/96 92 11/13/21 00:32 71 12 122/96 11/12/21 23:15 125/101 94 11/12/21 23:00 72 21 125/101 97 11/12/21 22:57 71 120/92 11/12/21 22:46 128/97 92 11/12/21 22:30 128/97 90 11/12/21 22:00 75 20 128/97 93 11/12/21 21:46 75 25 H 140/101 93 11/12/21 21:30 21 140/101 91 11/12/21 21:16 37 H 136/86 90 11/12/21 21:00 23 136/86 93 11/12/21 20:46 77 15 141/97 93 11/12/21 20:30 72 22 141/97 92 11/12/21 20:16 80 18 131/92 92 11/12/21 20:00 73 14 131/92 92 11/12/21 19:46 74 19 132/94 91 11/12/21 19:30 94.4 F L 75 24 132/94 131/99 90 11/12/21 19:20 131/99 94 11/12/21 18:08 83 19 103/85 11/12/21 18:00 77 19 110/83 11/12/21 17:00 91 H 21 119/82 11/12/21 15:14 127/88 11/12/21 14:00 112 H 22 120/95 11/12/21 13:00 103 H 17 146/79 11/12/21 12:46 107 H 18 146/79 11/12/21 12:30 117 H 28 H 141/96 11/12/21 12:16 107 H 16 128/92 11/12/21 12:00 100 H 14 149/98 11/12/21 11:46 114 H 21 128/85 11/12/21 11:30 100 H 22 128/85 11/12/21 11:16 102 H 30 H 119/86 11/12/21 11:00 110 H 25 H 118/88 01/18/22 10:46 104 H 12 103/78 11/12/21 10:30 110 H 45 H 124/85 97 - Physical Examination General: No Apparent Distress, Cachectic, Other (Confused, with rambling speech) HEENT: Positive: PERRL Neck: Positive: neck supple Cardiac: Positive: Reg Rate and Rhythm Lungs: Positive: Decreased Breath Sounds Neuro: Positive: Grossly Intact Abdomen: Positive: Soft Skin: Positive: Clear Extremities: Absent: edema - Labs and Meds Cardiac Enzymes 11/13/21 Range/Units 05:36 AST 42 H (5-40) units/L CBC 11/13/21 Range/Units 05:36 WBC 11.5 H (4.5-11.0) K/mm3 RBC 5.06 H (3.65-5.03) M/mm3 Hgb 13.4 (11.8-15.2) gm/dl Hct 42.9 (35.5-45.6) % Plt Count 237 (140-440) K/mm3 Comprehensive Metabolic Panel 11/13/21 Range/Units 05:36 Sodium 140 (137-145) mmol/L Potassium 5.2 H (3.6-5.0) mmol/L Chloride 104.8 (98-107) mmol/L Carbon Dioxide 16 L (22-30) mmol/L BUN 83 H (9-20) mg/dL Creatinine 2.6 H D (0.8-1.3) mg/dL Glucose 97 (75-100) mg/dL Calcium 8.9 (8.4-10.2) mg/dL AST 42 H (5-40) units/L ALT 55 (7-56) units/L Alkaline Phosphatase 126 (35-129) units/L Total Protein 7.6 (6.3-8.2) g/dL Albumin 3.5 L (3.9-5) g/dL
[2021-11-13] MEDS: AMIODARONE 360 MG in DEXTROSE 5% IN WATER 192.8 ML IV SCH (10:22)
[2021-11-13] MEDS: ENOXAPARIN 100 MG/1 ML INJ SUB-Q SCH (11:03)
[2021-11-13] MEDS: METOPROLOL TARTRATE 50 MG TAB PO SCH (11:05)
[2021-11-13] MEDS ORDERED: AMIODARONE 200 MG TAB PO SCH (15:00)
[2021-11-13] MEDS ORDERED: ISOSORB DINIT/HYDRALAZINE 20-37.5MG TAB PO SCH (15:00)
--- NOTE | 2021-11-13 15:32 | Progress Note ---
Assessment and Plan Assessment and plan: History of present illness: 66-year-old -[place]ong[place] male patient with significant past medical history of congestive heart failure, COPD, hypertension recent,PositiveCOVID-19 status was brought to the emergency room by EMS with altered level of consciousness. Initial evaluation is consistent with A. fib with rapid ventricular rate. Lactic acidosis, leukocytosis probably secondary to recent steroid use Patient denies any chest pain or shortness of breath Denies nausea vomiting or abdominal pain Chest x-ray mild increased interstitial prominence within the lung, left slightly greater than right CT head , no acute abnormality noted Hospital Course: 11/12/2021: Placed on amiodorone and Lovenox by cardiology. Agree with cardiology that patient will likely not be amenable to anticoagulation if he is not in a supervised facility. Psychiatry recommendations noted. Once patient is off diltiazem drip can be downgraded to medical floor. 11/13/2021: Patient remains altered on my exam. Barely opening eyes upon sternal rub however he is protecting his airway. Consulted neurology for evaluation Worsening renal function, nephrology consulted. Cardiology noted DCMP on echo, will initiated guideline directed therapy. Off of amiodorone gtt, now on po amiodorone and metoprolol however doubt his ability to swallow given mental status. Sedative d/c and ST consulted. If patient able to tolerate po, will downgrade to tele bed. Assessment and Plan: #Altered level of consciousness /acute metabolic encephalopathy; - present on admission - Intermittent confusion now worsening. Possibly metabolic in a patient with u nderlying dementia. - Recent COVID-19, possible psych disorder - dc sedative (haldol, ativan) would like patient to wake up to properly assess mental status. - CT head negative for acute abnormality - MR brain ordered Psychiatry consulted Neurology consulted #A. fib with rapid ventricular rate; - Patient received IV Cardizem no response - Start Cardizem drip per protocol, wean as HR tolerates - amiodorone started - Lovenox full dose, transition to Eliquis when stable Cardiology following #Dilated cardiomyopathy -Noted by echocardiogram obtained by cardiology Guideline directed medical therapy #Leukocytosis; - Probably secondary to steroids, recent COVID-19 infection - Evaluate for sepsis #Lactic acidosis; trend lactic acid - Leukocytosis, empiric Rocephin - Cultures #Acute kidney injury; - Vasomotor nephropathy, gentle hydration - monitor renal function, avoid nephrotoxins - Renal dosing of medications - consult placed to nephrology due to worsening renal fx. #Dehydration; gentle hydration IV fluids #Recent COVID-19 infection; Continue low-dose dexamethasone for total 10 days #DVT prophylaxis; Patient is on full dose anticoagulation with Lovenox #Advance care planning Disease education conducted, care plan discussed, diagnoses discussed, prognosis discussed, patient is full code, patient acknowledges understanding and agree with care plan, +30 minutes. -- Full CODE STATUS Psych consult Restrain patient for safety We will closely monitor the patient and adjust management as needed Plan of care reviewed with the patient and her nurse The high probability of a clinically significant, sudden or life threatening deterioration of the [multi] system(s) required my full and direct attention, intervention and personal management. The aggregate critical care time was [60] minutes. This time is in addition to time spent performing reported procedures but includes the following: [x] Data Review and interpretation [x] Patient assessment and monitoring of vital signs [x] Documentation [x] Medication orders and management History Interval history: Altered on exam, HR better controlled on amiodorone. Hospitalist Physical - Physical exam Narrative exam: General appearance: Present: no acute distress, well-nourished - EENT Eyes: Present: PERRL, EOM intact - Neck Neck: Present: supple, normal ROM - Respiratory Respiratory effort: normal Respiratory: bilateral: diminished, negative: rales, rhonchi, wheezing - Cardiovascular Rhythm: regular Heart Sounds: Present: S1 & S2 - Extremities Extremities: no ischemia, No edema - Abdominal General gastrointestinal: Present: soft, non-tender, non-distended, normal bowel sounds - Integumentary Integumentary: Present: clear, warm - Musculoskeletal Musculoskeletal: strength equal bilaterally, generalized weakness - Psychiatric Psychiatric: other - Neurologic Neurologic: moves all extremities - Constitutional Vitals: Temp Pulse Resp BP Pulse Ox 97.2 F L 94 H 33 H 116/96 96 11/13/21 08:24 11/13/21 14:46 11/13/21 14:46 11/13/21 14:46 11/13/21 14:46 General appearance: Present: no acute distress, well-nourished HEART Score - HEART Score Troponin: Troponin T 0.013 ng/mL (0.00-0.029) 11/11/21 09:13 Results - Labs CBC & Chem 7: 11/13/21 05:36 11/13/21 05:36 Labs: Laboratory Last Values WBC 11.5 K/mm3 (4.5-11.0) H 11/13/21 05:36 RBC 5.06 M/mm3 (3.65-5.03) H 11/13/21 05:36 Hgb 13.4 gm/dl (11.8-15.2) 11/13/21 05:36 Hct 42.9 % (35.5-45.6) 11/13/21 05:36 MCV 85 fl (84-94) 11/13/21 05:36 MCH 26 pg (28-32) L 11/13/21 05:36 MCHC 31 % (32-34) L 11/13/21 05:36 RDW 17.8 % (13.2-15.2) H 11/13/21 05:36 Plt Count 237 K/mm3 (140-440) 11/13/21 05:36 Lymph % (Auto) 7.4 % (13.4-35.0) L 11/11/21 09:13 [place] % (Auto) 6.1 % (0.0-7.3) 11/11/21 09:13 Eos % (Auto) 0.1 % (0.0-4.3) 11/11/21 09:13 Baso % (Auto) 0.1 % (0.0-1.8) 11/11/21 09:13 Lymph # (Auto) 0.9 K/mm3 (1.2-5.4) L 11/11/21 09:13 [place] # (Auto) 0.8 K/mm3 (0.0-0.8) 11/11/21 09:13 Eos # (Auto) 0.0 K/mm3 (0.0-0.4) 11/11/21 09:13 Baso # (Auto) 0.0 K/mm3 (0.0-0.1) 11/11/21 09:13 Add Manual Diff Complete 11/13/21 05:36 Total Counted 100 11/13/21 05:36 Seg Neutrophils % 86.3 % (40.0-70.0) H 11/11/21 09:13 Seg Neuts % (Manual) 88.0 % (40.0-70.0) H 11/13/21 05:36 Band Neutrophils % 0 % 11/13/21 05:36 Lymphocytes % (Manual) 9.0 % (13.4-35.0) L 11/13/21 05:36 Reactive Lymphs % (Man) 0 % 11/13/21 05:36 Monocytes % (Manual) 3.0 % (0.0-7.3) 11/13/21 05:36 Eosinophils % (Manual) 0 % (0.0-4.3) 11/13/21 05:36 Basophils % (Manual) 0 % (0.0-1.8) 11/13/21 05:36 Metamyelocytes % 0 % 11/13/21 05:36 Myelocytes % 0 % 11/13/21 05:36 Promyelocytes % 0 % 11/13/21 05:36 Blast Cells % 0 % 11/13/21 05:36 Nucleated RBC % Not Reportable 11/13/21 05:36 Seg Neutrophils # 10.8 K/mm3 (1.8-7.7) H 11/11/21 09:13 Seg Neutrophils # Man 10.1 K/mm3 (1.8-7.7) H 11/13/21 05:36 Band Neutrophils # 0.0 K/mm3 11/13/21 05:36 Lymphocytes # (Manual) 1.0 K/mm3 (1.2-5.4) L 11/13/21 05:36 Abs React Lymphs (Man) 0.0 K/mm3 11/13/21 05:36 Monocytes # (Manual) 0.3 K/mm3 (0.0-0.8) 11/13/21 05:36 Eosinophils # (Manual) 0.0 K/mm3 (0.0-0.4) 11/13/21 05:36 Basophils # (Manual) 0.0 K/mm3 (0.0-0.1) 11/13/21 05:36 Metamyelocytes # 0.0 K/mm3 11/13/21 05:36 Myelocytes # 0.0 K/mm3 11/13/21 05:36 Promyelocytes # 0.0 K/mm3 11/13/21 05:36 Blast Cells # 0.0 K/mm3 11/13/21 05:36 WBC Morphology Not Reportable 11/13/21 05:36 Hypersegmented Neuts Not Reportable 11/13/21 05:36 Hyposegmented Neuts Not Reportable 11/13/21 05:36 Hypogranular Neuts Not Reportable 11/13/21 05:36 Smudge Cells Not Reportable 11/13/21 05:36 Toxic Granulation Not Reportable 11/13/21 05:36 Toxic Vacuolation Not Reportable 11/13/21 05:36 Dohle Bodies Not Reportable 11/13/21 05:36 Pelger-Huet Anomaly Not Reportable 11/13/21 05:36 Kristina Rods Not Reportable 11/13/21 05:36 Platelet Estimate Consistent w auto 11/13/21 05:36 Clumped Platelets Not Reportable 11/13/21 05:36 Plt Clumps, EDTA Not Reportable 11/13/21 05:36 Large Platelets Not Reportable 11/13/21 05:36 Giant Platelets Not Reportable 11/13/21 05:36 Platelet Satelliting Not Reportable 11/13/21 05:36 Plt Morphology Comment Not Reportable 11/13/21 05:36 RBC Morphology Not Reportable 11/13/21 05:36 Dimorphic RBCs Not Reportable 11/13/21 05:36 Polychromasia Not Reportable 11/13/21 05:36 Hypochromasia Not Reportable 11/13/21 05:36 Poikilocytosis Few 11/13/21 05:36 Anisocytosis 1+ 11/13/21 05:36 Microcytosis Not Reportable 11/13/21 05:36 Macrocytosis Few 11/13/21 05:36 Spherocytes Not Reportable 11/13/21 05:36 Pappenheimer Bodies Not Reportable 11/13/21 05:36 Sickle Cells Not Reportable 11/13/21 05:36 Target Cells Not Reportable 11/13/21 05:36 Tear Drop Cells Not Reportable 11/13/21 05:36 Ovalocytes Not Reportable 11/13/21 05:36 Helmet Cells Not Reportable 11/13/21 05:36 [place] Bodies Not Reportable 11/13/21 05:36 [place] Rings Not Reportable 11/13/21 05:36 Mohan Cells Not Reportable 11/13/21 05:36 Bite Cells Not Reportable 11/13/21 05:36 Crenated Cell Not Reportable 11/13/21 05:36 Elliptocytes Not Reportable 11/13/21 05:36 Acanthocytes (Spur) Not Reportable 11/13/21 05:36 Rouleaux Not Reportable 11/13/21 05:36 Hemoglobin C Crystals Not Reportable 11/13/21 05:36 Schistocytes Not Reportable 11/13/21 05:36 Malaria parasites Not Reportable 11/13/21 05:36 Fili Bodies Not Reportable 11/13/21 05:36 Hem Pathologist Commnt No 11/13/21 05:36 PT 17.3 Sec. (12.2-14.9) H 11/11/21 09:13 INR 1.28 (0.87-1.13) H 11/11/21 09:13 APTT 32.6 Sec. (24.2-36.6) 11/11/21 09:13 Sodium 140 mmol/L (137-145) 11/13/21 05:36 Potassium 5.2 mmol/L (3.6-5.0) H 11/13/21 05:36 Chloride 104.8 mmol/L (98-107) 11/13/21 05:36 Carbon Dioxide 16 mmol/L (22-30) L 11/13/21 05:36 Anion Gap 24 mmol/L 11/13/21 05:36 BUN 83 mg/dL (9-20) H 11/13/21 05:36 Creatinine 2.6 mg/dL (0.8-1.3) H D 11/13/21 05:36 Estimated GFR 30 ml/min 11/13/21 05:36 BUN/Creatinine Ratio 32 % 11/13/21 05:36 Glucose 97 mg/dL (75-100) 11/13/21 05:36 POC Glucose 93 mg/dL (70-105) 11/13/21 07:56 Lactic Acid 4.20 mmol/L (0.7-2.0) H* 11/12/21 02:18 Calcium 8.9 mg/dL (8.4-10.2) 11/13/21 05:36 Magnesium 2.50 mg/dL (1.7-2.3) H 11/11/21 09:13 Total Bilirubin 2.30 mg/dL (0.1-1.2) H 11/13/21 05:36 AST 42 units/L (5-40) H 11/13/21 05:36 ALT 55 units/L (7-56) 11/13/21 05:36 Alkaline Phosphatase 126 units/L (35-129) 11/13/21 05:36 Ammonia 14.0 umol/L (25-60) L 11/11/21 09:13 Total Creatine Kinase 85 units/L (55-170) 11/11/21 09:13 Troponin T 0.013 ng/mL (0.00-0.029) 11/11/21 09:13 Total Protein 7.6 g/dL (6.3-8.2) 11/13/21 05:36 Albumin 3.5 g/dL (3.9-5) L 11/13/21 05:36 Albumin/Globulin Ratio 0.9 % 11/13/21 05:36 TSH 3.100 mlU/mL (0.270-4.200) 11/12/21 13:56 Urine Color Giulia (Yellow) 11/11/21 Unknown Urine Turbidity Cloudy (Clear) 11/11/21 Unknown Urine pH 5.0 (5.0-7.0) 11/11/21 Unknown Ur Specific [place] 1.018 (1.003-1.030) 11/11/21 Unknown Urine Protein 100 mg/dl mg/dL (Negative) 11/11/21 Unknown Urine Glucose (UA) Neg mg/dL (Negative) 11/11/21 Unknown Urine Ketones Neg mg/dL (Negative) 11/11/21 Unknown Urine Blood Neg (Negative) 11/11/21 Unknown Urine Nitrite Neg (Negative) 11/11/21 Unknown Urine Bilirubin Neg (Negative) 11/11/21 Unknown Urine Urobilinogen 2.0 mg/dL (<2.0) 11/11/21 Unknown Ur Leukocyte Esterase Neg (Negative) 11/11/21 Unknown Urine WBC (Auto) 2.0 /HPF (0.0-6.0) 11/11/21 Unknown Urine RBC (Auto) < 1.0 /HPF (0.0-6.0) 11/11/21 Unknown U Epithel Cells (Auto) < 1.0 /HPF (0-13.0) 11/11/21 Unknown Urine Bacteria (Auto) 1+ /HPF (Negative) 11/11/21 Unknown Hyaline Casts 2 /LPF 11/11/21 Unknown Urine Mucus Few /HPF 11/11/21 Unknown Salicylates < 0.3 mg/dL (2.8-20.0) L 11/11/21 09:13 Acetaminophen 5.0 ug/mL (10.0-30.0) L 11/11/21 09:13 Plasma/Serum Alcohol < 0.01 % (0-0.07) 11/11/21 09:13 Microbiology: Microbiology 11/11/21 Unknown Urine,Clean Catch Urine Culture - Final NO GROWTH AFTER 48 HOURS 11/11/21 09:13 Peripheral/Venous Blood Culture - Preliminary NO GROWTH AFTER 48 HOURS 11/11/21 09:13 Peripheral/Venous Blood Culture - Preliminary NO GROWTH AFTER 48 HOURS Active Medications - Current Medications Current Medications: Generic Name Dose Route Start Last Admin Trade Name Freq PRN Reason Stop Dose Admin Acetaminophen 650 mg 11/12/21 01:58 Acetaminophen 325 Mg Tab PO Q6H PRN Pain MILD(1-3)/Fever >100.5/SMYTH Amiodarone HCl 200 mg 11/13/21 15:00 Amiodarone 200 Mg Tab PO QDAY [facility] Enoxaparin Sodium 90 mg 11/14/21 10:00 Enoxaparin 100 Mg/1 Ml Inj 1 mg/kg (90 mg) SUB-Q Q24HR [facility] Protocol Haloperidol Lactate 2 mg 11/11/21 18:41 11/12/21 08:57 Haloperidol Lactate 5 Mg/1 Ml Inj IM 2 mg Q6H PRN Administration Agitation Sodium Chloride 1,000 mls @ 75 mls/hr 11/13/21 09:00 Nacl 0.9% 1000 Ml IV DIRECT [facility] Isosorbide Dinitrate/Hydralazine 1 each 11/13/21 15:00 Isosorb Dinit/Hydralazine 20-37.5mg Tab PO Q8HR JENNY Lorazepam 2 mg 11/13/21 09:17 11/13/21 11:06 Lorazepam 2 Mg/Ml Vial IV 2 mg Q6H PRN Administration Agitation Metoprolol Tartrate 50 mg 11/12/21 12:00 11/13/21 11:05 Metoprolol Tartrate 50 Mg Tab PO 50 mg BID JENNY Administration Morphine Sulfate 2 mg 11/12/21 01:58 Morphine 2 Mg/1 Ml Inj IV Q4H PRN Pain, Moderate (4-6) Morphine Sulfate 4 mg 11/12/21 01:58 Morphine 4 Mg/1 Ml Inj IV Q4H PRN Pain , Severe (7-10) Pantoprazole Sodium 40 mg 11/12/21 07:30 11/13/21 07:35 Pantoprazole 40 Mg Tab PO Not Given QDAC JENNY
[2021-11-13] MEDS ORDERED: LORazepam 2 MG/ML VIAL ONE (17:13)
--- NOTE | 2021-11-13 18:20 | Consultation ---
History of Present Illness - Reason for Consult Consult date: 11/13/21 acute renal failure - History of Present Illness History obtained from medical records due to mental status 66-year-old -English male patient with significant past medical history of congestive heart failure, COPD, hypertension recent,PositiveCOVID-19 status was brought to the emergency room by EMS with altered level of consciousness. Initial evaluation is consistent with A. fib with rapid ventricular rate. La ctic acidosis, leukocytosis probably secondary to recent steroid use Patient denies any chest pain or shortness of breath Denies nausea vomiting or abdominal pain Chest x-ray mild increased interstitial prominence within the lung, left slightly greater than right CT head , no acute abnormality noted Past History Past Medical History: COPD, heart failure, hypertension, other (Recent COVID infection) Past Surgical History: No surgical history Social history: denies: smoking, alcohol abuse, prescription drug abuse Family history: no significant family history Medications and Allergies Allergies Allergy/AdvReac Type Severity Reaction Status Date / Time No Known Allergies Allergy Verified 11/03/21 18:59 Home Medications Medication Instructions Recorded Confirmed Last Taken Type NIFEdipine XL [Procardia Xl] 30 mg PO QDAY #30 tablet 11/07/21 Unknown Rx dexAMETHasone [Dexamethasone] 4 mg PO DAILY #10 tab 11/07/21 Unknown Rx Active Meds: Active Medications Acetaminophen (Acetaminophen 325 Mg Tab) 650 mg PO Q6H PRN PRN Reason: Pain MILD(1-3)/Fever >100.5/SMYTH Enoxaparin Sodium (Enoxaparin 100 Mg/1 Ml Inj) 90 mg 1 mg/kg (90 mg) SUB-Q Q24HR JENNY; Protocol Sodium Chloride (Nacl 0.9% 1000 Ml) 1,000 mls @ 75 mls/hr IV DIRECT JENNY Metoprolol Tartrate (Metoprolol Tartrate 5 Mg/5 Ml Inj) 5 mg IV Q6HR JENNY Morphine Sulfate (Morphine 2 Mg/1 Ml Inj) 2 mg IV Q4H PRN PRN Reason: Pain, Moderate (4-6) Morphine Sulfate (Morphine 4 Mg/1 Ml Inj) 4 mg IV Q4H PRN PRN Reason: Pain , Severe (7-10) Pantoprazole Sodium (Pantoprazole 40 Mg Tab) 40 mg PO QDAC JENNY Last Admin: 11/13/21 07:35 Dose: Not Given Review of Systems ROS unobtainable: due to mental status Exam - Vital Signs Vital signs: Vital Signs Pulse 149 H 11/11/21 08:31 - General Appearance General appearance: well-developed, well-nourished EENT: ATNC Respiratory: Clear to Ascultation Heart: regular, S1S2 Gastrointestinal: Present: normal. Absent: tenderness, distended Psychiatric: other (somnolent) Results - Lab Results 11/13/21 05:36 11/13/21 05:36 Most recent lab results Calcium 8.9 mg/dL (8.4-10.2) 11/13/21 05:36 Magnesium 2.50 mg/dL (1.7-2.3) H 11/11/21 09:13 Assessment and Plan Impression: * Acute kidney injury secondary to prerenal azotemia due to hypoperfusion due to afib w/ RVR, hypotension * Atrial fibrillation with RVR * Acute encephalopathy * Cardiomyopathy - LVEF 10% * Recent COVID 19 infection * Anemia * Metabolic acidosis Plan: * No acute need for renal replacement therapy * Rate control per cardiology * Will obtain urine studies and serologic work up * Obtain renal ultrasound * Dose medications for renal function * Avoid potential nephrotoxins * AM labs
[2021-11-13] MEDS: METOPROLOL TARTRATE 5 MG/5 ML INJ IV SCH (18:56)
[2021-11-13] MEDS: LORazepam 2 MG/ML VIAL IV PRN (23:07)
[2021-11-14] MEDS: METOPROLOL TARTRATE 5 MG/5 ML INJ IV SCH ×4 (01:41→17:26)
[2021-11-14] MEDS: SODIUM CHLORIDE 0.9% 1000 ML 1,000 ML IV SCH ×2 (01:41→12:31)
[2021-11-14 06:02] LABS: Bilirubin,Urine NEG (Negative); Blood,Urine NEG (Negative); Color,Urine Yellow (Yellow); Mucus,Urine FEW /HPF
[2021-11-14 06:20] LABS: Creatinine,Urine < 4.2 mg/dL (0.1-20.0)
--- NOTE | 2021-11-14 08:12 | Progress Note ---
Assessment and Plan Impression: * Acute kidney injury secondary to prerenal azotemia due to hypoperfusion due to afib w/ RVR, hypotension * Atrial fibrillation with RVR * Acute encephalopathy * Cardiomyopathy - LVEF 10% * Recent COVID 19 infection * Anemia * Metabolic acidosis Plan: * AM labs are pending * Urine studies noted - UA w/ ketones and Quynh 10 - suggestive of volume depletion * Will await AM labs - cautious IVF in light of LVEF 10% * No acute need for renal replacement therapy * Rate control per cardiology * Await serologic work up * Await results of renal ultrasound * Dose medications for renal function * Avoid potential nephrotoxins * AM labs Subjective Date of service: 11/14/21 Interval history: No acute events overnight. Objective - Vital Signs Vital signs: Vital Signs - 12hr 11/13/21 11/13/21 11/13/21 20:15 20:31 20:45 Temperature Pulse Rate 90 84 90 Respiratory 26 H 19 22 Rate Blood Pressure 136/100 125/99 125/99 Blood Pressure [Left] O2 Sat by Pulse 98 Oximetry 11/13/21 11/13/21 11/13/21 21:01 22:00 23:01 Temperature Pulse Rate 96 H 96 H 83 Respiratory 39 H 26 H 18 Rate Blood Pressure 128/101 135/105 123/98 Blood Pressure [Left] O2 Sat by Pulse 98 100 98 Oximetry 11/13/21 11/13/21 11/14/21 23:25 23:30 00:01 Temperature 98.0 F Pulse Rate 86 94 H 93 H Respiratory 20 18 19 Rate Blood Pressure 123/98 130/96 Blood Pressure 123/98 [Left] O2 Sat by Pulse 98 97 98 Oximetry 11/14/21 11/14/21 11/14/21 00:31 00:41 00:51 Temperature Pulse Rate 88 88 93 H Respiratory 28 H 18 23 Rate Blood Pressure 127/106 127/106 127/106 Blood Pressure [Left] O2 Sat by Pulse 98 98 96 Oximetry 11/14/21 11/14/21 11/14/21 01:01 01:29 02:05 Temperature 97.7 F Pulse Rate 94 H 82 82 Respiratory 23 20 Rate Blood Pressure 136/112 135/94 Blood Pressure [Left] O2 Sat by Pulse 96 98 Oximetry 11/14/21 11/14/21 11/14/21 02:09 06:04 06:27 Temperature 97.6 F Pulse Rate 60 88 Respiratory 22 20 Rate Blood Pressure 140/68 Blood Pressure [Left] O2 Sat by Pulse 98 100 Oximetry - General Appearance General appearance: well-developed, well-nourished EENT: ATNC Respiratory: Present: Decreased Breath Sounds Cardiology: irregular Gastrointestinal: normal, no tenderness, no distended Integumentary: warm and dry Psychiatric: agitated - Lab 11/13/21 05:36 11/14/21 06:34 Most recent lab results Calcium 8.9 mg/dL (8.4-10.2) 11/13/21 05:36 Magnesium 2.50 mg/dL (1.7-2.3) H 11/11/21 09:13 Urine Creatinine < 4.2 mg/dL (0.1-20.0) 11/14/21 05:15 Urine Sodium 10 mmol/L 11/14/21 05:15 Medications & Allergies - Medications Allergies/Adverse Reactions: Allergies No Known Allergies Allergy (Verified 11/03/21 18:59) Home Medications: Home Medications Medication Instructions Recorded Confirmed Last Taken Type NIFEdipine XL [Procardia Xl] 30 mg PO QDAY #30 tablet 11/07/21 11/14/21 Unknown Rx dexAMETHasone [Dexamethasone] 4 mg PO DAILY #10 tab 11/07/21 11/14/21 Unknown Rx Active Medications: Generic Name Dose Route Start Last Admin Trade Name Freq PRN Reason Stop Dose Admin Acetaminophen 650 mg 11/12/21 01:58 Acetaminophen 325 Mg Tab PO Q6H PRN Pain MILD(1-3)/Fever >100.5/SMYTH Enoxaparin Sodium 90 mg 11/14/21 10:00 Enoxaparin 100 Mg/1 Ml Inj 1 mg/kg (90 mg) SUB-Q Q24HR [facility] Protocol Sodium Chloride 1,000 mls @ 75 mls/hr 11/13/21 09:00 11/14/21 01:41 Nacl 0.9% 1000 Ml IV 75 mls/hr DIRECT [facility]ENNY Administration Lorazepam 2 mg 11/13/21 20:23 11/13/21 23:07 Lorazepam 2 Mg/Ml Vial IV 2 mg Q4H PRN Administration Agitation Metoprolol Tartrate 5 mg 11/13/21 18:00 11/14/21 06:27 Metoprolol Tartrate 5 Mg/5 Ml Inj IV Not Given Q6HR JENNY Morphine Sulfate 2 mg 11/12/21 01:58 Morphine 2 Mg/1 Ml Inj IV Q4H PRN Pain, Moderate (4-6) Morphine Sulfate 4 mg 11/12/21 01:58 Morphine 4 Mg/1 Ml Inj IV Q4H PRN Pain , Severe (7-10) Pantoprazole Sodium 40 mg 11/12/21 07:30 11/13/21 07:35 Pantoprazole 40 Mg Tab PO Not Given QDAC JENNY
[2021-11-14 08:37] LABS: Calcium 9.1 mg/dL (8.4-10.2)
--- NOTE | 2021-11-14 08:55 | Consultation ---
History of Present Illness Consult date: 11/14/21 Reason for Consult: Altered mentation,COVID-19 History of present illness: Altered level of consciousness/A. fib with rapid ventricular rate History of present illness: 66-year-old -[place] male patient with significant past medical history of congestive heart failure, COPD, hypertension recent Positive COVID-19 status was brought to the emergency room by EMS with altered level of consciousness. Initial evaluation is consistent with A. fib with rapid ventricular rate New onset Lactic acidosis, leukocytosis probably secondary to recent steroid use Patient denies any chest pain or shortness of breath Denies nausea vomiting or abdominal pain Chest x-ray mild increased interstitial prominence within the lung, left slightly greater than right CT head , no acute abnormality noted pt. is today stars not follow command is on SQ heparine MRI brain is pending as well as EEG -Echo showed EF#10% lactic acid #4.2 BUN/Cr#83/2.6 Past History Past Medical History: hypertension, other (Recent COVID infection) new onset AF, cardiomyopathy Past Surgical History: No surgical history Social history: denies: smoking, alcohol abuse, prescription drug abuse Family history: no significant family history Medications and Allergies Allergies Allergy/AdvReac Type Severity Reaction Status Date / Time No Known Allergies Allergy Verified 11/03/21 18:59 Home Medications Medication Instructions Recorded Confirmed Last Taken Type NIFEdipine XL [Procardia Xl] 30 mg PO QDAY #30 tablet 11/07/21 Unknown Rx dexAMETHasone [Dexamethasone] 4 mg PO DAILY #10 tab 11/07/21 Unknown Rx Review of Systems Constitutional: no weight loss, no weight gain Ears, nose, mouth and throat: no nasal congestion, no nasal discharge Cardiovascular: palpitations, no chest pain, no orthopnea Respiratory: no cough, no shortness of breath Gastrointestinal: no abdominal pain, no nausea, no vomiting Genitourinary Male: no dysuria Musculoskeletal: no myalgias, no arthritis Integumentary: no rash, no lesions Neurological: weakness Psychiatric: no anxiety, no depression Endocrine: no cold intolerance, no heat intolerance Hematologic/Lymphatic: no easy bruising, no easy bleeding Allergic/Immunologic: no urticaria, no allergic rhinitis Past History Past Medical History: COPD, heart failure, hypertension, other (Recent COVID infection) Past Surgical History: No surgical history Social history: denies: smoking, alcohol abuse, prescription drug abuse Family history: no significant family history Medications and Allergies Allergies Allergy/AdvReac Type Severity Reaction Status Date / Time No Known Allergies Allergy Verified 11/03/21 18:59 Home Medications Medication Instructions Recorded Confirmed Last Taken Type NIFEdipine XL [Procardia Xl] 30 mg PO QDAY #30 tablet 11/07/21 11/14/21 Unknown Rx dexAMETHasone [Dexamethasone] 4 mg PO DAILY #10 tab 11/07/21 11/14/21 Unknown Rx Active Meds: Active Medications Acetaminophen (Acetaminophen 325 Mg Tab) 650 mg PO Q6H PRN PRN Reason: Pain MILD(1-3)/Fever >100.5/SMYTH Enoxaparin Sodium (Enoxaparin 100 Mg/1 Ml Inj) 90 mg 1 mg/kg (90 mg) SUB-Q Q24HR JENNY; Protocol Sodium Chloride (Nacl 0.9% 1000 Ml) 1,000 mls @ 75 mls/hr IV DIRECT JENNY Last Admin: 11/14/21 01:41 Dose: 75 mls/hr Lorazepam (Lorazepam 2 Mg/Ml Vial) 2 mg IV Q4H PRN PRN Reason: Agitation Last Admin: 11/13/21 23:07 Dose: 2 mg Metoprolol Tartrate (Metoprolol Tartrate 5 Mg/5 Ml Inj) 5 mg IV Q6HR JENNY Last Admin: 11/14/21 06:27 Dose: Not Given Morphine Sulfate (Morphine 2 Mg/1 Ml Inj) 2 mg IV Q4H PRN PRN Reason: Pain, Moderate (4-6) Morphine Sulfate (Morphine 4 Mg/1 Ml Inj) 4 mg IV Q4H PRN PRN Reason: Pain , Severe (7-10) Pantoprazole Sodium (Pantoprazole 40 Mg Tab) 40 mg PO QDAC JENNY Last Admin: 11/13/21 07:35 Dose: Not Given Physical Examination - Vital Signs Vital Signs: Vital Signs Pulse 149 H 11/11/21 08:31 - Constitutional General appearance: comfortable - EENT EENT: Present: PERRL, mucous membranes moist - Respiratory Respiratory: Present: lungs clear, rhonchi - Cardiovascular Cardiovascular: Present: other (AF) Extremities: Present: no peripheral edema bilatateraly, no clubbing, cyanosis - Gastrointestinal Gastrointestinal: Present: normoactive bowel sounds - Integumentary Integumentary: Present: normal - Neurologic Cranial nerve examination: PERRL, EOMI, intact Speech examination: other (not follow command , stars) Detailed motor examination: other (no movment to stimuli ,planter is down going ) Results - Laboratory Findings CBC and BMP: 11/13/21 05:36 11/14/21 06:34 Abnormal Lab Findings: Abnormal Labs 11/11/21 11/11/21 11/11/21 09:13 09:13 09:13 WBC 12.5 H RBC 5.11 H MCH 26 L MCHC 31 L RDW 18.0 H Lymph % (Auto) 7.4 L Lymph # (Auto) 0.9 L Seg Neutrophils % 86.3 H Seg Neuts % (Manual) Lymphocytes % (Manual) Seg Neutrophils # 10.8 H Seg Neutrophils # Man Lymphocytes # (Manual) PT 17.3 H INR 1.28 H Sodium Potassium Chloride Carbon Dioxide 20 L BUN 46 H Creatinine 1.5 H Glucose 116 H POC Glucose Lactic Acid Magnesium Total Bilirubin 2.30 H AST Ammonia Total Protein 8.4 H Albumin 3.6 L Salicylates Acetaminophen 11/11/21 11/11/21 11/11/21 09:13 09:13 09:13 WBC RBC MCH MCHC RDW Lymph % (Auto) Lymph # (Auto) Seg Neutrophils % Seg Neuts % (Manual) Lymphocytes % (Manual) Seg Neutrophils # Seg Neutrophils # Man Lymphocytes # (Manual) PT INR Sodium Potassium Chloride Carbon Dioxide BUN Creatinine Glucose POC Glucose Lactic Acid 2.70 H* Magnesium Total Bilirubin AST Ammonia 14.0 L Total Protein Albumin Salicylates < 0.3 L Acetaminophen 11/11/21 11/11/21 11/11/21 09:13 09:13 10:34 WBC RBC MCH MCHC RDW Lymph % (Auto) Lymph # (Auto) Seg Neutrophils % Seg Neuts % (Manual) Lymphocytes % (Manual) Seg Neutrophils # Seg Neutrophils # Man Lymphocytes # (Manual) PT INR Sodium Potassium Chloride Carbon Dioxide BUN Creatinine Glucose POC Glucose Lactic Acid 2.80 H* Magnesium 2.50 H Total Bilirubin AST Ammonia Total Protein Albumin Salicylates Acetaminophen 5.0 L 11/11/21 11/11/21 11/12/21 16:21 22:24 02:18 WBC RBC MCH MCHC RDW Lymph % (Auto) Lymph # (Auto) Seg Neutrophils % Seg Neuts % (Manual) Lymphocytes % (Manual) Seg Neutrophils # Seg Neutrophils # Man Lymphocytes # (Manual) PT INR Sodium Potassium Chloride Carbon Dioxide BUN Creatinine Glucose POC Glucose 125 H Lactic Acid 3.10 H* 4.20 H* Magnesium Total Bilirubin AST Ammonia Total Protein Albumin Salicylates Acetaminophen 11/13/21 11/13/21 11/14/21 05:36 05:36 06:34 WBC 11.5 H RBC 5.06 H MCH 26 L MCHC 31 L RDW 17.8 H Lymph % (Auto) Lymph # (Auto) Seg Neutrophils % Seg Neuts % (Manual) 88.0 H Lymphocytes % (Manual) 9.0 L Seg Neutrophils # Seg Neutrophils # Man 10.1 H Lymphocytes # (Manual) 1.0 L PT INR Sodium 148 H D Potassium 5.2 H Chloride 113.5 H Carbon Dioxide 16 L 17 L BUN 83 H 73 H Creatinine 2.6 H D 2.0 H Glucose 71 L POC Glucose Lactic Acid Magnesium Total Bilirubin 2.30 H AST 42 H Ammonia Total Protein Albumin 3.5 L Salicylates Acetaminophen Assessment and Plan Assessment and Plan: #Acute encephalopathy -hx of recent COVID-19 -New onset AF with Echo showed EF#10% -Ct brain is unremarkable -Pt. is staring with no response to stimuli -Suggest MRI brain r/o embolic events -EEG -Neuro check Q 4 hours #New onset AF with rapid ventricular rate - Patient received IV Cardizem no response - Start Cardizem drip per protocol, wean as HR tolerates - amiodorone started - Lovenox full dose, transition to Eliquis when stable Cardiology following #Dilated cardiomyopathy -Noted by echocardiogram obtained by cardiology 11-11 -EF#10% no thrombus is noted Guideline directed medical therapy #Leukocytosis; - Probably secondary to steroids, recent COVID-19 infection - Evaluate for sepsis #Lactic acidosis; trend lactic acid - Leukocytosis, empiric Rocephin - Cultures #Acute kidney injury; - Vasomotor nephropathy, gentle hydration - monitor renal function, avoid nephrotoxins - Renal dosing of medications - consult placed to nephrology due to worsening renal fx. #Dehydration; gentle hydration IV fluids #Recent COVID-19 infection; Continue low-dose dexamethasone for total 10 days #DVT prophylaxis; Patient is on full dose anticoagulation with Lovenox #Advance care planning Disease education conducted, care plan discussed, diagnoses discussed, prognosis discussed, patient is full code Plan 1- MRI brain 2- EEG 3- Neuro check q 4 hours X 24 hours 4- Psychiatry evaluation 5- Seizure precaution will follow
[2021-11-14] MEDS ORDERED: ENOXAPARIN 100 MG/1 ML INJ SUB-Q SCH (10:00)
--- NOTE | 2021-11-14 10:02 | Progress Note ---
Assessment and Plan - Patient Problems (1) Atrial fibrillation with RVR Current Visit: Yes Plan to address problem: Patient with COPD and recent COVID infection, presented with palpitations and new onset rapid atrial fibrillation. An ECG from a week ago was sinus rhythm. He has reverted to a stable sinus rhythm after intravenous amiodarone. We will continue atrial fibrillation suppression therapy with amiodarone and metoprolol. Due to difficulty with optimal p.o. intake, the patient is currently on intravenous metoprolol for paroxysmal atrial fibrillation. Due to his mental status issues and his homelessness, he may not be a candidate for optimal atrial fibrillation therapy including long-term oral anticoagulation unless he is eventually placed in a supervised clinical setting. Currently on subcutaneous enoxaparin while hospitalized. (2) Dilated cardiomyopathy Current Visit: Yes Status: Acute Plan to address problem: The patient's echocardiogram shows a severe, four-chamber dilated ca rdiomyopathy, left ventricular ejection fraction less than 15 to 20%. There moderate to severe regurgitant lesions of both mitral and tricuspid valves. The chronicity of his cardiomyopathy is unknown at this time, I have previously reported that on his most recent admission prior to this there was a similar cardiomegaly that was present on his chest x-ray. Patient is currently unable to take pills due to his mental confusion, once his confusion clears or he has an oral route for medications and feeding, we will switch to oral guideline directed medical therapy as tolerated. Subjective Date of service: 11/14/21 Interval history: Patient is comfortable, no acute distress, on site monitor there is a sinus rhythm with occasional PACs. Objective Vital Signs Temp Pulse Resp BP BP Pulse Ox 11/14/21 06:27 88 11/14/21 06:04 97.6 F 60 20 140/68 100 11/14/21 02:09 22 98 11/14/21 02:05 82 11/14/21 01:29 97.7 F 82 20 135/94 98 11/14/21 01:01 94 H 23 136/112 96 11/14/21 00:51 93 H 23 127/106 96 11/14/21 00:41 88 18 127/106 98 11/14/21 00:31 88 28 H 127/106 98 11/14/21 00:01 93 H 19 130/96 98 11/13/21 23:30 98.0 F 94 H 18 123/98 97 11/13/21 23:25 86 20 123/98 98 11/13/21 23:01 83 18 123/98 98 11/13/21 22:00 96 H 26 H 135/105 100 11/13/21 21:01 96 H 39 H 128/101 98 11/13/21 20:45 90 22 125/99 11/13/21 20:31 84 19 125/99 98 11/13/21 20:15 90 26 H 136/100 11/13/21 20:07 80 11/13/21 20:01 94 H 24 136/100 88 11/13/21 19:45 97 H 39 H 128/98 95 11/13/21 19:31 82 32 H 128/98 95 11/13/21 19:15 97 H 26 H 123/94 92 11/13/21 19:01 82 27 H 123/94 99 11/13/21 18:45 93 H 22 121/98 100 11/13/21 18:31 83 22 121/98 99 11/13/21 18:15 95 H 18 123/96 97 11/13/21 18:01 87 25 H 123/96 98 11/13/21 17:45 86 25 H 121/100 11/13/21 17:31 84 37 H 121/100 94 11/13/21 17:15 104 H 46 H 115/94 95 11/13/21 17:01 91 H 21 115/94 90 11/13/21 16:45 90 23 116/97 11/13/21 16:30 85 20 122/94 11/13/21 16:16 83 22 127/95 11/13/21 16:00 88 25 H 127/95 100 11/13/21 15:46 106 H 41 H 116/97 94 11/13/21 15:30 87 17 116/97 11/13/21 15:16 96 H 35 H 124/100 11/13/21 15:00 96 H 36 H 124/100 11/13/21 14:46 94 H 33 H 116/96 96 11/13/21 14:30 96 H 28 H 116/96 96 11/13/21 14:16 96 H 25 H 115/93 98 11/13/21 13:16 92 H 28 H 109/87 99 11/13/21 13:00 89 25 H 109/87 99 11/13/21 12:46 90 30 H 115/91 99 11/13/21 12:30 82 23 115/91 98 11/13/21 12:16 77 22 118/91 11/13/21 12:00 92 H 45 H 118/91 95 11/13/21 11:46 83 16 110/91 94 11/13/21 11:30 91 H 29 H 110/91 96 11/13/21 11:16 81 16 122/98 95 11/13/21 11:00 89 37 H 122/98 94 11/13/21 10:46 133/106 92 11/13/21 10:30 95 H 23 133/106 95 11/13/21 10:16 92 H 22 117/93 87 11/13/21 10:00 88 38 H 117/93 94 - Physical Examination General: No Apparent Distress, Cachectic, Other (Confused, with rambling speech) HEENT: Positive: PERRL Neck: Positive: neck supple Cardiac: Positive: Reg Rate and Rhythm Lungs: Positive: Decreased Breath Sounds Neuro: Positive: Grossly Intact Abdomen: Positive: Soft Skin: Positive: Clear Extremities: Absent: edema - Labs and Meds Comprehensive Metabolic Panel 11/14/21 Range/Units 06:34 Sodium 148 H D (137-145) mmol/L Potassium 4.6 (3.6-5.0) mmol/L Chloride 113.5 H (98-107) mmol/L Carbon Dioxide 17 L (22-30) mmol/L BUN 73 H (9-20) mg/dL Creatinine 2.0 H (0.8-1.3) mg/dL Glucose 71 L (75-100) mg/dL Calcium 9.1 (8.4-10.2) mg/dL
[2021-11-14] MEDS: PANTOPRAZOLE 40 MG TAB PO SCH (12:12)
--- NOTE | 2021-11-14 12:16 | Progress Note ---
Subjective - Reason for Consult Consult date: 11/14/21 Reason for consult: delirium - Chief Complaint Chief complaint: The patient was seen today. He is in restraints. He is confused. The patient is awake, but does not respond to engage in evaluation REVIEW OF SYSTEMS Intubated MENTAL STATUS EXAMINATION Unable to assess Assessment (1) Delirium Current Visit: Yes Status: Acute Treatment Plan Adjust lorazepam 2mg IM q6h prn agitation Medical: Per primary Disposition: Do not recommend acute psychiatric inpatient treatment at this time. It appears that the patient's agitation was due to underlying acute medical conditions. Will follow for med management. Thanks Case staffed with Dr. Melgar Mental Status Exam - Vital signs Last Vital Signs Temp 98.2 F 11/14/21 12:11 Pulse 68 11/14/21 12:12 Resp 20 11/14/21 06:04 BP 125/100 11/14/21 12:11 Pulse Ox 100 11/14/21 12:11
[2021-11-14] MEDS: LORazepam 2 MG/ML VIAL IV PRN ×2 (12:30→21:34)
--- NOTE | 2021-11-14 15:01 | Progress Note ---
Assessment and Plan 66-year-old -I[place] male patient with significant past medical history of CHFrEF 15%, COPD, hypertension recent, Positive COVID-19 who is recently discharged after being treated for COVID19 was brought to the emergency room by EMS with altered level of consciousness. Initial evaluation is consistent with A. fib with rapid ventricular rate, Lactic acidosis, leukocytosis probably secondary to recent steroid use. Chest x-ray mild increased interstitial prominence within the lung, left slightly greater than right, CT head , no acute abnormality noted. Assessment and Plan: #Altered level of consciousness /acute metabolic encephalopathy/acute delirium - present on admission - Intermittent confusion now worsening. Possibly metabolic in a patient with underlying dementia. - Recent COVID-19, possible psych disorder - CT head negative for acute abnormality - MR brain ordered Psychiatry consulted Neurology consulted #A. fib with rapid ventricular rate; - Patient received IV Cardizem no response - S/p Cardizem drip per protocol, now on po meds - Lovenox full dose, transition to Eliquis when stable Cardiology following #Dilated cardiomyopathy -Noted by echocardiogram obtained by cardiology Guideline directed medical therapy #Leukocytosis; - Probably secondary to steroids, recent COVID-19 infection - Evaluate for sepsis #Lactic acidosis; trend lactic acid - Leukocytosis, empiric Rocephin - Cultures #Acute kidney injury; - Vasomotor nephropathy, gentle hydration - monitor renal function, avoid nephrotoxins - Renal dosing of medications - consult placed to nephrology due to worsening renal fx. #Dehydration; gentle hydration IV fluids #Recent COVID-19 infection; Continue low-dose dexamethasone for total 10 days #DVT prophylaxis; Patient is on full dose anticoagulation with Lovenox #Advance care planning Disease education conducted, care plan discussed, diagnoses discussed, prognosis discussed, patient is full code, patient acknowledges understanding and agree with care plan, +30 minutes. -- Full CODE STATUS We will closely monitor the patient and adjust management as needed Plan of care reviewed with the patient and her nurse Hospital Course: 11/12/2021: Placed on amiodorone and Lovenox by cardiology. Agree with cardiology that patient will likely not be amenable to anticoagulation if he is not in a supervised facility. Psychiatry recommendations noted. Once patient is off diltiazem drip can be downgraded to medical floor. 11/13/2021: Patient remains altered on my exam. Barely opening eyes upon sternal rub however he is protecting his airway. Consulted neurology for evaluation Worsening renal function, nephrology consulted. Cardiology noted DCMP on echo, will initiated guideline directed therapy. Off of amiodorone gtt, now on po amiodorone and metoprolol however doubt his ability to swallow given mental status. Sedative d/c and ST consulted. If patient able to tolerate po, will downgrade to tele bed. 11/14/20: Resumed care, patient restrained, very confused, follow renal function, p on 2-4 n/c O2. Subjective Date of service: 11/14/21 Interval history: Patient seen and examined. Medical records and medication list reviewed. No acute event overnight noted by the RN. Patient remains in restraints, very agitated and confused. Patient is tolerating diet. Discussed plan of care at bedside with patient,s RN. Objective - Exam Narrative Exam: General appearance: Present: no acute distress, well-nourished, restrained - EENT Eyes: Present: PERRL, EOM intact - Neck Neck: Present: supple, normal ROM - Respiratory Respiratory effort: normal Respiratory: bilateral: diminished, negative: rales, rhonchi, wheezing - Cardiovascular Rhythm: regular Heart Sounds: Present: S1 & S2 - Extremities Extremities: no ischemia, No edema - Abdominal General gastrointestinal: Present: soft, non-tender, non-distended, normal bowel sounds - Integumentary Integumentary: Present: clear, warm - Musculoskeletal Musculoskeletal: strength equal bilaterally, generalized weakness - Psychiatric Psychiatric:agitated and confused - Neurologic Neurologic: moves all extremities - Constitutional Vitals: Vital Signs - 12hr 11/14/21 11/14/21 11/14/21 06:04 06:27 12:11 Temperature 97.6 F 98.2 F Pulse Rate 60 88 68 Respiratory 20 Rate Blood Pressure 140/68 Blood Pressure 125/100 [Left] O2 Sat by Pulse 100 100 Oximetry 11/14/21 12:12 Temperature Pulse Rate 68 Respiratory Rate Blood Pressure Blood Pressure [Left] O2 Sat by Pulse Oximetry - Labs CBC & Chem 7: 11/13/21 05:36 11/18/21 07:03 Labs: Abnormal lab results 11/14/21 Range/Units 06:34 Sodium 148 H D (137-145) mmol/L Chloride 113.5 H (98-107) mmol/L Carbon Dioxide 17 L (22-30) mmol/L BUN 73 H (9-20) mg/dL Creatinine 2.0 H (0.8-1.3) mg/dL Glucose 71 L (75-100) mg/dL HEART Score - HEART Score Troponin: Troponin T 0.013 ng/mL (0.00-0.029) 11/11/21 09:13
--- NOTE | 2021-11-14 16:46 | Ultrasound Report ---
ULTRASOUND RENAL INDICATION / CLINICAL INFORMATION: CHRISTIANO. COMPARISON: None available. FINDINGS: RIGHT KIDNEY: Length = 11.4 cm. - Echogenicity: Normal. - Cortical Thickness: Normal. - Hydronephrosis: None. - Cyst / Mass: None. - Stones: None seen. LEFT KIDNEY: Length = 12.3 cm. - Echogenicity: Normal. - Cortical Thickness: Normal. - Hydronephrosis: None. - Cyst / Mass: None. - Stones: None seen. URINARY BLADDER: Distended. No significant abnormality. FREE FLUID: None. ADDITIONAL FINDINGS: None. IMPRESSION: 1. No significant sonographic abnormality. Scribed by: Lillian Velazco RDMS, RVT Scribed: 11/14/2021 3:24 PM I have reviewed the images, agree with this report, and edited this report as needed. Signer Name: Thom Alfaro MD Signed: 11/14/2021 4:42 PM Workstation Name: [id number]
[2021-11-15] MEDS: METOPROLOL TARTRATE 5 MG/5 ML INJ IV SCH ×4 (00:32→18:00)
[2021-11-15] MEDS: SODIUM CHLORIDE 0.9% 1000 ML 1,000 ML IV SCH (01:13)
--- NOTE | 2021-11-15 07:31 | Progress Note ---
Assessment and Plan Impression: * Acute kidney injury secondary to prerenal azotemia due to hypoperfusion due to afib w/ RVR, hypotension --UA w/ ketones and Quynh 10 - suggestive of volume depletion --Renal ultrasound: right 11.4cm, left 12.3cm; no hydro * Atrial fibrillation with RVR * Acute encephalopathy * Cardiomyopathy - LVEF 10% * Recent COVID 19 infection * Anemia * Metabolic acidosis Plan: * AM labs are peniding at time of visit. * Change IVF to D5W; reduce rate to 60ml/hour * No acute need for renal replacement therapy * Rate control per cardiology * Await pending serologic work up * Dose medications for renal function * Avoid potential nephrotoxins Subjective Date of service: 11/15/21 Interval history: No acute events overnight. Objective - Vital Signs Vital signs: Vital Signs - 12hr 11/14/21 11/14/21 11/15/21 22:00 22:27 00:28 Temperature 97.8 F Pulse Rate 51 L 52 L Respiratory 18 Rate Blood Pressure 128/96 Blood Pressure [Left] O2 Sat by Pulse 98 100 100 Oximetry 11/15/21 11/15/21 11/15/21 00:31 00:32 04:27 Temperature 97.8 F Pulse Rate 64 64 42 L Respiratory 18 Rate Blood Pressure 125/93 133/100 Blood Pressure 125/93 [Left] O2 Sat by Pulse 89 Oximetry - General Appearance General appearance: well-developed, well-nourished EENT: ATNC Respiratory: Present: Clear to Ascultation Cardiology: regular, S1S2 Gastrointestinal: normal, no tenderness, no distended Integumentary: warm and dry - Lab 11/13/21 05:36 11/15/21 06:37 Most recent lab results Calcium 9.1 mg/dL (8.4-10.2) 11/14/21 06:34 Magnesium 2.50 mg/dL (1.7-2.3) H 11/11/21 09:13 Urine Creatinine < 4.2 mg/dL (0.1-20.0) 11/14/21 05:15 Urine Sodium 10 mmol/L 11/14/21 05:15 Medications & Allergies - Medications Allergies/Adverse Reactions: Allergies No Known Allergies Allergy (Verified 11/03/21 18:59) Home Medications: Home Medications Medication Instructions Recorded Confirmed Last Taken Type NIFEdipine XL [Procardia Xl] 30 mg PO QDAY #30 tablet 11/07/21 11/14/21 Unknown Rx dexAMETHasone [Dexamethasone] 4 mg PO DAILY #10 tab 11/07/21 11/14/21 Unknown Rx Active Medications: Generic Name Dose Route Start Last Admin Trade Name Freq PRN Reason Stop Dose Admin Acetaminophen 650 mg 11/12/21 01:58 Acetaminophen 325 Mg Tab PO Q6H PRN Pain MILD(1-3)/Fever >100.5/SMYTH Enoxaparin Sodium 90 mg 11/14/21 10:00 11/14/21 12:13 Enoxaparin 100 Mg/1 Ml Inj 1 mg/kg (90 mg) 90 mg SUB-Q Administration Q24HR JENNY Protocol Sodium Chloride 1,000 mls @ 75 mls/hr 11/13/21 09:00 11/15/21 01:13 Nacl 0.9% 1000 Ml IV 75 mls/hr DIRECT JENNY Administration Lorazepam 2 mg 11/13/21 20:23 11/14/21 21:34 Lorazepam 2 Mg/Ml Vial IV 2 mg Q4H PRN Administration Agitation Metoprolol Tartrate 5 mg 11/13/21 18:00 11/15/21 07:11 Metoprolol Tartrate 5 Mg/5 Ml Inj IV Not Given Q6HR JENNY Morphine Sulfate 2 mg 11/12/21 01:58 Morphine 2 Mg/1 Ml Inj IV Q4H PRN Pain, Moderate (4-6) Morphine Sulfate 4 mg 11/12/21 01:58 Morphine 4 Mg/1 Ml Inj IV Q4H PRN Pain , Severe (7-10) Pantoprazole Sodium 40 mg 11/12/21 07:30 11/14/21 12:12 Pantoprazole 40 Mg Tab PO Not Given QDAC JENNY
[2021-11-15] MEDS ORDERED: DEXTROSE 5% IN WATER 1,000 ML IV SCH (08:00)
[2021-11-15] MEDS: PANTOPRAZOLE 40 MG TAB PO SCH (09:45)
[2021-11-15] MEDS: ENOXAPARIN 100 MG/1 ML INJ SUB-Q SCH ×2 (09:45→22:00)
--- NOTE | 2021-11-15 11:22 | Progress Note ---
Assessment and Plan Assessment and Plan: #Acute encephalopathy -hx of recent COVID-19 -New onset AF with Echo showed EF#10% -Ct brain is unremarkable -Pt. is more interactive today , agitated move all limbs -Suggest MRI brain r/o embolic events--pending -EEG-- pending -Neuro check Q 4 hours #New onset AF with rapid ventricular rate - Patient received IV Cardizem no response - Start Cardizem drip per protocol, wean as HR tolerates - amiodorone started - Lovenox full dose, transition to Eliquis when stable Cardiology following #Dilated cardiomyopathy -Noted by echocardiogram obtained by cardiology 11-11 -EF#10% no thrombus is noted Guideline directed medical therapy #Leukocytosis; - Probably secondary to steroids, recent COVID-19 infection - Evaluate for sepsis #Lactic acidosis; trend lactic acid - Leukocytosis, empiric Rocephin - Cultures #Acute kidney injury; - Vasomotor nephropathy, gentle hydration - monitor renal function, avoid nephrotoxins - Renal dosing of medications - consult placed to nephrology due to worsening renal fx. #Dehydration; gentle hydration IV fluids #Recent COVID-19 infection; Continue low-dose dexamethasone for total 10 days #DVT prophylaxis; Patient is on full dose anticoagulation with Lovenox #Advance care planning Disease education conducted, care plan discussed, diagnoses discussed, prognosis discussed, patient is full code Plan 1- MRI brain 2- EEG 3- Neuro check 4- Psychiatry evaluation 5- Seizure precaution will follow as needed when study are done Subjective Date of service: 11/15/21 Principal diagnosis: encephalopathy,AF,COVID-19 Interval history: he is more alert today no clear weakness but slightly agitated move all limbs he is restraint MRI brain is pending as well as EEG Objective - Vital Sign Vital Signs - 12hr 11/15/21 11/15/21 11/15/21 00:28 00:31 00:32 Temperature Pulse Rate 52 L 64 64 Respiratory Rate Blood Pressure 125/93 Blood Pressure 125/93 [Left] O2 Sat by Pulse 100 Oximetry 11/15/21 04:27 Temperature 97.8 F Pulse Rate 42 L Respiratory 18 Rate Blood Pressure 133/100 Blood Pressure [Left] O2 Sat by Pulse 89 Oximetry - General Apperance Constitutional: uncomfortable, other (agitated restrained.) - EENT EENT: PERRL, mucous membranes moist - Respiratory Respiratory: lungs clear, rhonchi - Cardiovascular Cardiovascular: other (irregular ) Extremities: no peripheral edema bilat, no clubbing, cyanosis - Gastrointestinal Gastrointestinal: normoactive bowel sounds - Integumentary Integumentary: normal - Neurologic Cranial nerve examination: PERRL, EOMI, intact Speech examination: other (intreact when wants to , no clear aphasia, difficult to asssess mental status ) Detailed motor examination: grossly full strength in - Laboratory Findings CBC and BMP: 11/13/21 05:36 11/15/21 06:37 Abnormal Lab Findings: Abnormal Labs 11/11/21 11/11/21 11/11/21 09:13 09:13 09:13 WBC 12.5 H RBC 5.11 H MCH 26 L MCHC 31 L RDW 18.0 H Lymph % (Auto) 7.4 L Lymph # (Auto) 0.9 L Seg Neutrophils % 86.3 H Seg Neuts % (Manual) Lymphocytes % (Manual) Seg Neutrophils # 10.8 H Seg Neutrophils # Man Lymphocytes # (Manual) PT 17.3 H INR 1.28 H Sodium Potassium Chloride Carbon Dioxide 20 L BUN 46 H Creatinine 1.5 H Glucose 116 H POC Glucose Lactic Acid Magnesium Total Bilirubin 2.30 H AST Ammonia Total Protein 8.4 H Albumin 3.6 L Salicylates Acetaminophen Coronavirus (PCR) 11/11/21 11/11/21 11/11/21 09:13 09:13 09:13 WBC RBC MCH MCHC RDW Lymph % (Auto) Lymph # (Auto) Seg Neutrophils % Seg Neuts % (Manual) Lymphocytes % (Manual) Seg Neutrophils # Seg Neutrophils # Man Lymphocytes # (Manual) PT INR Sodium Potassium Chloride Carbon Dioxide BUN Creatinine Glucose POC Glucose Lactic Acid 2.70 H* Magnesium Total Bilirubin AST Ammonia 14.0 L Total Protein Albumin Salicylates < 0.3 L Acetaminophen Coronavirus (PCR) 11/11/21 11/11/21 11/11/21 09:13 09:13 10:34 WBC RBC MCH MCHC RDW Lymph % (Auto) Lymph # (Auto) Seg Neutrophils % Seg Neuts % (Manual) Lymphocytes % (Manual) Seg Neutrophils # Seg Neutrophils # Man Lymphocytes # (Manual) PT INR Sodium Potassium Chloride Carbon Dioxide BUN Creatinine Glucose POC Glucose Lactic Acid 2.80 H* Magnesium 2.50 H Total Bilirubin AST Ammonia Total Protein Albumin Salicylates Acetaminophen 5.0 L Coronavirus (PCR) 11/11/21 11/11/21 11/12/21 16:21 22:24 02:18 WBC RBC MCH MCHC RDW Lymph % (Auto) Lymph # (Auto) Seg Neutrophils % Seg Neuts % (Manual) Lymphocytes % (Manual) Seg Neutrophils # Seg Neutrophils # Man Lymphocytes # (Manual) PT INR Sodium Potassium Chloride Carbon Dioxide BUN Creatinine Glucose POC Glucose 125 H Lactic Acid 3.10 H* 4.20 H* Magnesium Total Bilirubin AST Ammonia Total Protein Albumin Salicylates Acetaminophen Coronavirus (PCR) 11/13/21 11/13/21 11/14/21 05:36 05:36 06:34 WBC 11.5 H RBC 5.06 H MCH 26 L MCHC 31 L RDW 17.8 H Lymph % (Auto) Lymph # (Auto) Seg Neutrophils % Seg Neuts % (Manual) 88.0 H Lymphocytes % (Manual) 9.0 L Seg Neutrophils # Seg Neutrophils # Man 10.1 H Lymphocytes # (Manual) 1.0 L PT INR Sodium 148 H D Potassium 5.2 H Chloride 113.5 H Carbon Dioxide 16 L 17 L BUN 83 H 73 H Creatinine 2.6 H D 2.0 H Glucose 71 L POC Glucose Lactic Acid Magnesium Total Bilirubin 2.30 H AST 42 H Ammonia Total Protein Albumin 3.5 L Salicylates Acetaminophen Coronavirus (PCR) 11/14/21 11/15/21 08:40 06:37 WBC RBC MCH MCHC RDW Lymph % (Auto) Lymph # (Auto) Seg Neutrophils % Seg Neuts % (Manual) Lymphocytes % (Manual) Seg Neutrophils # Seg Neutrophils # Man Lymphocytes # (Manual) PT INR Sodium 148 H Potassium Chloride 116.0 H Carbon Dioxide 21 L BUN 51 H Creatinine 1.7 H Glucose 64 L POC Glucose Lactic Acid Magnesium Total Bilirubin AST Ammonia Total Protein Albumin Salicylates Acetaminophen Coronavirus (PCR) Positive A
--- NOTE | 2021-11-15 12:22 | Progress Note ---
Assessment and Plan - Patient Problems (1) Atrial fibrillation with RVR Current Visit: Yes Plan to address problem: Patient with COPD and recent COVID infection, presented with palpitations and new onset rapid atrial fibrillation. An ECG from a week ago was sinus rhythm. He has reverted to a stable sinus rhythm after intravenous amiodarone. We will continue atrial fibrillation suppression therapy with amiodarone and metoprolol. Due to difficulty with optimal p.o. intake, the patient is currently on intravenous metoprolol for paroxysmal atrial fibrillation. Due to his mental status issues and his homelessness, he may not be a candidate for optimal atrial fibrillation therapy including long-term oral anticoagulation unless he is eventually placed in a supervised clinical setting. Currently on subcutaneous enoxaparin while hospitalized. (2) Dilated cardiomyopathy Current Visit: Yes Status: Acute Plan to address problem: The patient's echocardiogram shows a severe, four-chamber dilated ca rdiomyopathy, left ventricular ejection fraction less than 15 to 20%. There moderate to severe regurgitant lesions of both mitral and tricuspid valves. The chronicity of his cardiomyopathy is unknown at this time, I have previously reported that on his most recent admission prior to this there was a similar cardiomegaly that was present on his chest x-ray. Patient is currently unable to take pills due to his mental confusion, once his confusion clears or he has an oral route for medications and feeding, we will switch to oral guideline directed medical therapy as tolerated. Subjective Principal diagnosis: encephalopathy,AF,COVID-19 Interval history: Patient is comfortable, no acute distress, on csr retail there is a sinus rhythm with occasional PACs. Objective Vital Signs Temp Pulse Resp BP BP Pulse Ox 11/15/21 04:27 97.8 F 42 L 18 133/100 89 11/15/21 00:32 64 125/93 11/15/21 00:31 64 125/93 11/15/21 00:28 52 L 100 11/14/21 22:27 97.8 F 51 L 18 128/96 100 11/14/21 22:00 98 11/14/21 17:37 16 131/93 11/14/21 17:26 106 H - Physical Examination General: No Apparent Distress, Cachectic, Other (Confused, with rambling speech) HEENT: Positive: PERRL Neck: Positive: neck supple Cardiac: Positive: Reg Rate and Rhythm Lungs: Positive: Decreased Breath Sounds Neuro: Positive: Grossly Intact Abdomen: Positive: Soft Skin: Positive: Clear Extremities: Absent: edema - Labs and Meds Comprehensive Metabolic Panel 11/15/21 Range/Units 06:37 Sodium 148 H (137-145) mmol/L Potassium 4.7 (3.6-5.0) mmol/L Chloride 116.0 H (98-107) mmol/L Carbon Dioxide 21 L (22-30) mmol/L BUN 51 H (9-20) mg/dL Creatinine 1.7 H (0.8-1.3) mg/dL Glucose 64 L (75-100) mg/dL Calcium 9.0 (8.4-10.2) mg/dL
--- NOTE | 2021-11-15 15:59 | Progress Note ---
Assessment and Plan 66-year-old -[place] male patient with significant past medical history of CHFrEF 15%, COPD, hypertension recent, Positive COVID-19 who is recently discharged after being treated for COVID19 was brought to the emergency room by EMS with altered level of consciousness. Initial evaluation is consistent with A. fib with rapid ventricular rate, Lactic acidosis, leukocytosis probably secondary to recent steroid use. Chest x-ray mild increased interstitial prominence within the lung, left slightly greater than right, CT head , no acute abnormality noted. Assessment and Plan: #Altered level of consciousness /acute metabolic encephalopathy/acute delirium - present on admission - Intermittent confusion now worsening. Possibly metabolic in a patient with underlying dementia. - Recent COVID-19, possible psych disorder - CT head negative for acute abnormality - MR brain ordered Psychiatry consulted Neurology consulted #A. fib with rapid ventricular rate; - Patient received IV Cardizem no response - S/p Cardizem drip per protocol, now on po meds - Lovenox full dose, transition to Eliquis when stable Cardiology following #Dilated cardiomyopathy -Noted by echocardiogram obtained by cardiology Guideline directed medical therapy # Acute hypoxic respiratory failure, likely from underlying h/o COVID pna and CHF -Patient on 2-4L n/c O2 #Leukocytosis; - Probably secondary to steroids, recent COVID-19 infection - Evaluate for sepsis #Lactic acidosis; trend lactic acid - Leukocytosis, empiric Rocephin - Cultures #Acute kidney injury; - Vasomotor nephropathy, gentle hydration - monitor renal function, avoid nephrotoxins - Renal dosing of medications - consult placed to nephrology due to worsening renal fx. #Dehydration with hypernatremia; gentle hydration IV fluids #Recent COVID-19 infection; Continue low-dose dexamethasone for total 10 days #DVT prophylaxis; Patient is on full dose anticoagulation with Lovenox #Advance care planning Disease education conducted, care plan discussed, diagnoses discussed, prognosis discussed, patient is full code, patient acknowledges understanding and agree with care plan, +30 minutes. -- Full CODE STATUS We will closely monitor the patient and adjust management as needed Plan of care reviewed with the patient and her nurse Hospital Course: 11/12/2021: Placed on amiodorone and Lovenox by cardiology. Agree with cardiology that patient will likely not be amenable to anticoagulation if he is not in a supervised facility. Psychiatry recommendations noted. Once patient is off diltiazem drip can be downgraded to medical floor. 11/13/2021: Patient remains altered on my exam. Barely opening eyes upon sternal rub however he is protecting his airway. Consulted neurology for evaluation Worsening renal function, nephrology consulted. Cardiology noted DCMP on echo, will initiated guideline directed therapy. Off of amiodorone gtt, now on po amiodorone and metoprolol however doubt his ability to swallow given mental status. Sedative d/c and ST consulted. If patient able to tolerate po, will downgrade to tele bed. 11/14/21: Resumed care, patient restrained, very confused, follow renal function, p on 2-4 n/c O2. 11/15/21: remains agitated, confused. monitor Na and Cr level. patient recorded as homeless, cont iv fluid, wean off o2. cont supportive care, psych following. MRI/EEG pending Subjective Date of service: 11/15/21 Principal diagnosis: encephalopathy,AF,COVID-19 Interval history: Patient seen and examined. Medical records and medication list reviewed. No acute event overnight noted by the RN. Patient remains in restraints, very agitated and confused. Patient is tolerating diet. Discussed plan of care at bedside with patient,s RN. Objective - Exam Narrative Exam: General appearance: Present: no acute distress, well-nourished, restrained - EENT Eyes: Present: PERRL, EOM intact - Neck Neck: Present: supple, normal ROM - Respiratory Respiratory effort: normal Respiratory: bilateral: diminished, negative: rales, rhonchi, wheezing - Cardiovascular Rhythm: regular Heart Sounds: Present: S1 & S2 - Extremities Extremities: no ischemia, No edema - Abdominal General gastrointestinal: Present: soft, non-tender, non-distended, normal bowel sounds - Integumentary Integumentary: Present: clear, warm - Musculoskeletal Musculoskeletal: strength equal bilaterally, generalized weakness - Psychiatric Psychiatric:agitated and confused - Neurologic Neurologic: moves all extremities - Constitutional Vitals: Vital Signs - 12hr 11/15/21 04:27 Temperature 97.8 F Pulse Rate 42 L Respiratory 18 Rate Blood Pressure 133/100 O2 Sat by Pulse 89 Oximetry - Labs CBC & Chem 7: 11/13/21 05:36 11/18/21 07:03 Labs: Abnormal lab results 11/14/21 11/15/21 Range/Units 08:40 06:37 Sodium 148 H (137-145) mmol/L Chloride 116.0 H (98-107) mmol/L Carbon Dioxide 21 L (22-30) mmol/L BUN 51 H (9-20) mg/dL Creatinine 1.7 H (0.8-1.3) mg/dL Glucose 64 L (75-100) mg/dL Coronavirus (PCR) Positive A (Negative) HEART Score - HEART Score Troponin: Troponin T 0.013 ng/mL (0.00-0.029) 11/11/21 09:13
[2021-11-15] MEDS: LORazepam 2 MG/ML VIAL IV PRN (21:35)
[2021-11-16] MEDS: METOPROLOL TARTRATE 5 MG/5 ML INJ IV SCH ×4 (01:32→18:00)
[2021-11-16 07:44] LABS: Calcium 8.9 mg/dL (8.4-10.2)
[2021-11-16] MEDS: LORazepam 2 MG/ML VIAL IV PRN ×2 (09:50→13:48)
[2021-11-16] MEDS: PANTOPRAZOLE 40 MG TAB PO SCH (09:54)
[2021-11-16] MEDS: ENOXAPARIN 100 MG/1 ML INJ SUB-Q SCH ×2 (09:54→22:20)
--- NOTE | 2021-11-16 10:57 | Progress Note ---
Assessment and Plan - Patient Problems (1) Dilated cardiomyopathy Current Visit: Yes Status: Acute (2) History of COPD Current Visit: No Status: Acute Subjective Date of service: 11/16/21 Principal diagnosis: encephalopathy,AF,COVID-19 Interval history: SLEEPING Objective Vital Signs Temp Pulse Resp BP BP Pulse Ox 11/16/21 01:31 52 L 135/104 100 11/15/21 22:00 95 11/15/21 21:55 97.6 F 52 L 20 146/103 96 11/15/21 16:14 97.7 F 46 L 19 84/66 91 - Physical Examination General: No Apparent Distress, Cachectic, Other (Confused, with rambling speech) HEENT: Positive: PERRL Neck: Positive: neck supple Cardiac: Positive: Reg Rate and Rhythm Lungs: Positive: clear to auscultation Neuro: Positive: Grossly Intact Abdomen: Positive: Soft Skin: Positive: Clear Extremities: Absent: edema - Labs and Meds Comprehensive Metabolic Panel 11/16/21 Range/Units 06:16 Sodium 154 H (137-145) mmol/L Potassium 5.0 (3.6-5.0) mmol/L Chloride 119.7 H (98-107) mmol/L Carbon Dioxide 21 L (22-30) mmol/L BUN 44 H (9-20) mg/dL Creatinine 1.7 H (0.8-1.3) mg/dL Glucose 75 (75-100) mg/dL Calcium 8.9 (8.4-10.2) mg/dL
--- NOTE | 2021-11-16 12:06 | Progress Note ---
Assessment and Plan Impression: * Acute kidney injury secondary to prerenal azotemia due to hypoperfusion due to afib w/ RVR, hypotension --UA w/ ketones and Quynh 10 - suggestive of volume depletion --Renal ultrasound: right 11.4cm, left 12.3cm; no hydro * Atrial fibrillation with RVR * Acute encephalopathy * Cardiomyopathy - LVEF 10% * Recent COVID 19 infection * Anemia * Metabolic acidosis Plan: * Patient with worsening hypernatremia; slight increase in SCr * Continue D5W - increase rate to 100ml/hour * No acute need for renal replacement therapy * Rate control per cardiology * Await pending serologic work up * Dose medications for renal function * Avoid potential nephrotoxins Subjective Date of service: 11/16/21 Principal diagnosis: encephalopathy,AF,COVID-19 Interval history: No acute events overnight. Chart,vitals,labs reviewed Objective - Vital Signs Vital signs: Vital Signs - 12hr 11/16/21 01:31 Pulse Rate 52 L Blood Pressure 135/104 [Left] O2 Sat by Pulse 100 Oximetry - General Appearance General appearance: well-developed, well-nourished EENT: ATNC Respiratory: Present: Decreased Breath Sounds Cardiology: irregular Gastrointestinal: normal, no tenderness, no distended Musculoskeletal: other (no edema) - Lab 11/13/21 05:36 11/16/21 06:16 Most recent lab results Calcium 8.9 mg/dL (8.4-10.2) 11/16/21 06:16 Magnesium 2.50 mg/dL (1.7-2.3) H 11/11/21 09:13 Urine Creatinine < 4.2 mg/dL (0.1-20.0) 11/14/21 05:15 Urine Sodium 10 mmol/L 11/14/21 05:15 Medications & Allergies - Medications Allergies/Adverse Reactions: Allergies No Known Allergies Allergy (Verified 11/03/21 18:59) Home Medications: Home Medications Medication Instructions Recorded Confirmed Last Taken Type NIFEdipine XL [Procardia Xl] 30 mg PO QDAY #30 tablet 11/07/21 11/14/21 Unknown Rx dexAMETHasone [Dexamethasone] 4 mg PO DAILY #10 tab 11/07/21 11/14/21 Unknown Rx Active Medications: Generic Name Dose Route Start Last Admin Trade Name Freq PRN Reason Stop Dose Admin Acetaminophen 650 mg 11/12/21 01:58 Acetaminophen 325 Mg Tab PO Q6H PRN Pain MILD(1-3)/Fever >100.5/SMYTH Enoxaparin Sodium 90 mg 11/15/21 10:00 11/16/21 09:54 Enoxaparin 100 Mg/1 Ml Inj 1 mg/kg (90 mg) 90 mg SUB-Q Administration Q12HR JENNY Protocol Dextrose 1,000 mls @ 60 mls/hr 11/15/21 08:00 11/16/21 06:12 D5w IV 60 mls/hr DIRECT JENNY Administration Lorazepam 2 mg 11/13/21 20:23 11/16/21 09:50 Lorazepam 2 Mg/Ml Vial IV 2 mg Q4H PRN Administration Agitation Metoprolol Tartrate 5 mg 11/13/21 18:00 11/16/21 07:27 Metoprolol Tartrate 5 Mg/5 Ml Inj IV Not Given Q6HR JENNY Morphine Sulfate 2 mg 11/12/21 01:58 Morphine 2 Mg/1 Ml Inj IV Q4H PRN Pain, Moderate (4-6) Morphine Sulfate 4 mg 11/12/21 01:58 Morphine 4 Mg/1 Ml Inj IV Q4H PRN Pain , Severe (7-10) Pantoprazole Sodium 40 mg 11/12/21 07:30 11/16/21 09:54 Pantoprazole 40 Mg Tab PO 40 mg QDAC JENNY Administration
--- NOTE | 2021-11-16 13:09 | Progress Note ---
Subjective - Reason for Consult Consult date: 11/16/21 Reason for consult: mental health evaluation - Chief Complaint Chief complaint: The patient was seen today. He is confused and not engaging in evaluation REVIEW OF SYSTEMS MENTAL STATUS EXAMINATION Unable to assess Assessment (1) Delirium Current Visit: Yes Status: Acute Treatment Plan Adjust lorazepam 2mg IM q6h prn agitation Medical: Per primary Disposition: Do not recommend acute psychiatric inpatient treatment at this time. It appears that the patient's agitation was due to underlying acute medical conditions. Will follow for med management. Thanks Case staffed with Dr. Melgar Mental Status Exam - Vital signs Last Vital Signs Temp 97.6 F 11/15/21 21:55 Pulse 52 L 11/16/21 01:31 Resp 20 11/15/21 21:55 BP 135/104 11/16/21 01:31 Pulse Ox 100 11/16/21 01:31
--- NOTE | 2021-11-16 13:24 | Progress Note ---
Assessment and Plan 66-year-old -[place]ian male patient with significant past medical history of CHFrEF 15%, COPD, hypertension recent, Positive COVID-19 who is recently discharged after being treated for COVID19 was brought to the emergency room by EMS with altered level of consciousness. Initial evaluation is consistent with A. fib with rapid ventricular rate, Lactic acidosis, leukocytosis probably secondary to recent steroid use. Chest x-ray mild increased interstitial prominence within the lung, left slightly greater than right, CT head , no acute abnormality noted. Assessment and Plan: #Altered level of consciousness /acute metabolic encephalopathy/acute delirium - present on admission - Intermittent confusion now worsening. Possibly metabolic in a patient with underlying dementia. - Recent COVID-19, possible psych disorder - CT head negative for acute abnormality - MR brain ordered Psychiatry consulted Neurology consulted #A. fib with rapid ventricular rate; - Patient received IV Cardizem no response - S/p Cardizem drip per protocol, now on po meds - Lovenox full dose, transition to Eliquis when stable Cardiology following #Dilated cardiomyopathy -Noted by echocardiogram obtained by cardiology Guideline directed medical therapy # Acute hypoxic respiratory failure, likely from underlying h/o COVID pna and CHF -Patient on 2-4L n/c O2 #Leukocytosis; - Probably secondary to steroids, recent COVID-19 infection - Evaluate for sepsis #Lactic acidosis; trend lactic acid - Leukocytosis, empiric Rocephin - Cultures #Acute kidney injury; - Vasomotor nephropathy, gentle hydration - monitor renal function, avoid nephrotoxins - Renal dosing of medications - consult placed to nephrology due to worsening renal fx. #Dehydration with hypernatremia; gentle hydration IV fluids #Recent COVID-19 infection; Continue low-dose dexamethasone for total 10 days #DVT prophylaxis; Patient is on full dose anticoagulation with Lovenox #Advance care planning Disease education conducted, care plan discussed, diagnoses discussed, prognosis discussed, patient is full code, patient acknowledges understanding and agree with care plan, +30 minutes. -- Full CODE STATUS We will closely monitor the patient and adjust management as needed Plan of care reviewed with the patient and her nurse Hospital Course: 11/12/2021: Placed on amiodorone and Lovenox by cardiology. Agree with cardiology that patient will likely not be amenable to anticoagulation if he is not in a supervised facility. Psychiatry recommendations noted. Once patient is off diltiazem drip can be downgraded to medical floor. 11/13/2021: Patient remains altered on my exam. Barely opening eyes upon sternal rub however he is protecting his airway. Consulted neurology for evaluation Worsening renal function, nephrology consulted. Cardiology noted DCMP on echo, will initiated guideline directed therapy. Off of amiodorone gtt, now on po amiodorone and metoprolol however doubt his ability to swallow given mental status. Sedative d/c and ST consulted. If patient able to tolerate po, will downgrade to tele bed. 11/14/21: Resumed care, patient restrained, very confused, follow renal function, p on 2-4 n/c O2. 11/15/21: remains agitated, confused. monitor Na and Cr level. patient recorded as homeless, cont iv fluid, wean off o2. cont supportive care, psych following. MRI/EEG pending 11/16/21: cont to follow BMP -Na Cr remains elevated, pt confused, MRI/EEG pending. supportive care Subjective Date of service: 11/16/21 Principal diagnosis: encephalopathy,AF,COVID-19 Interval history: Patient seen and examined. Medical records and medication list reviewed. No acute event overnight noted by the RN. Patient remains in restraints, very agitated and confused. Patient is tolerating diet. Discussed plan of care at bedside with patient,s RN. Objective - Exam Narrative Exam: General appearance: Present: no acute distress, well-nourished, restrained - EENT Eyes: Present: PERRL, EOM intact - Neck Neck: Present: supple, normal ROM - Respiratory Respiratory effort: normal Respiratory: bilateral: diminished, negative: rales, rhonchi, wheezing - Cardiovascular Rhythm: regular Heart Sounds: Present: S1 & S2 - Extremities Extremities: no ischemia, No edema - Abdominal General gastrointestinal: Present: soft, non-tender, non-distended, normal bowel sounds - Integumentary Integumentary: Present: clear, warm - Musculoskeletal Musculoskeletal: strength equal bilaterally, generalized weakness - Psychiatric Psychiatric:agitated and confused - Neurologic Neurologic: moves all extremities - Constitutional Vitals: Vital Signs - 12hr 11/16/21 01:31 Pulse Rate 52 L Blood Pressure 135/104 [Left] O2 Sat by Pulse 100 Oximetry - Labs CBC & Chem 7: 11/13/21 05:36 11/18/21 07:03 Labs: Abnormal lab results 11/16/21 Range/Units 06:16 Sodium 154 H (137-145) mmol/L Chloride 119.7 H (98-107) mmol/L Carbon Dioxide 21 L (22-30) mmol/L BUN 44 H (9-20) mg/dL Creatinine 1.7 H (0.8-1.3) mg/dL HEART Score - HEART Score Troponin: Troponin T 0.013 ng/mL (0.00-0.029) 11/11/21 09:13
[2021-11-16] MEDS: QUEtiapine 25 MG TAB PO SCH ×2 (17:17→22:20)
[2021-11-17] MEDS: METOPROLOL TARTRATE 5 MG/5 ML INJ IV SCH ×4 (00:36→22:07)
[2021-11-17 08:41] LABS: Calcium 9.6 mg/dL (8.4-10.2)
[2021-11-17] MEDS: ENOXAPARIN 100 MG/1 ML INJ SUB-Q SCH ×2 (10:11→22:09)
[2021-11-17] MEDS: LORazepam 2 MG/ML VIAL IV PRN ×2 (10:12→15:51)
[2021-11-17] MEDS: PANTOPRAZOLE 40 MG TAB PO SCH (10:12)
[2021-11-17] MEDS: QUEtiapine 25 MG TAB PO SCH ×2 (10:12→22:09)
--- NOTE | 2021-11-17 14:32 | Progress Note ---
Assessment and Plan 66-year-old -[place] male patient with significant past medical history of CHFrEF 15%, COPD, hypertension recent, Positive COVID-19 who is recently discharged after being treated for COVID19 was brought to the emergency room by EMS with altered level of consciousness. Initial evaluation is consistent with A. fib with rapid ventricular rate, Lactic acidosis, leukocytosis probably secondary to recent steroid use. Chest x-ray mild increased interstitial prominence within the lung, left slightly greater than right, CT head , no acute abnormality noted. Assessment and Plan: #Altered level of consciousness /acute metabolic encephalopathy/acute delirium - present on admission - Intermittent confusion now worsening. Possibly metabolic in a patient with underlying dementia. - Recent COVID-19, possible psych disorder - CT head negative for acute abnormality - MR brain ordered Psychiatry consulted Neurology consulted #A. fib with rapid ventricular rate; - Patient received IV Cardizem no response - S/p Cardizem drip per protocol, now on iv metoprolol - Lovenox full dose, transition to Eliquis when stable Cardiology following #Dilated cardiomyopathy -Noted by echocardiogram obtained by cardiology Guideline directed medical therapy # Acute hypoxic respiratory failure, likely from underlying h/o COVID pna and CHF -Patient on 2-4L n/c O2 #Leukocytosis; - Probably secondary to steroids, recent COVID-19 infection - Evaluate for sepsis #Lactic acidosis; trend lactic acid - Leukocytosis, empiric Rocephin - Cultures #Acute kidney injury; - Vasomotor nephropathy, gentle hydration - monitor renal function, avoid nephrotoxins - Renal dosing of medications - consult placed to nephrology due to worsening renal fx. #Dehydration with hypernatremia; gentle hydration IV fluids #Recent COVID-19 infection; Continue low-dose dexamethasone for total 10 days #DVT prophylaxis; Patient is on full dose anticoagulation with Lovenox #Advance care planning Disease education conducted, care plan discussed, diagnoses discussed, prognosis discussed, patient is full code, patient acknowledges understanding and agree with care plan, +30 minutes. -- Full CODE STATUS We will closely monitor the patient and adjust management as needed Plan of care reviewed with the patient and her nurse Hospital Course: 11/12/2021: Placed on amiodorone and Lovenox by cardiology. Agree with cardiology that patient will likely not be amenable to anticoagulation if he is not in a supervised facility. Psychiatry recommendations noted. Once patient is off diltiazem drip can be downgraded to medical floor. 11/13/2021: Patient remains altered on my exam. Barely opening eyes upon sternal rub however he is protecting his airway. Consulted neurology for evaluation Worsening renal function, nephrology consulted. Cardiology noted DCMP on echo, will initiated guideline directed therapy. Off of amiodorone gtt, now on po amiodorone and metoprolol however doubt his ability to swallow given mental status. Sedative d/c and ST consulted. If patient able to tolerate po, will downgrade to tele bed. 11/14/21: Resumed care, patient restrained, very confused, follow renal function, p on 2-4 n/c O2. 11/15/21: remains agitated, confused. monitor Na and Cr level. patient recorded as homeless, cont iv fluid, wean off o2. cont supportive care, psych following. MRI/EEG pending 11/16/21: cont to follow BMP -Na Cr remains elevated, pt confused, MRI/EEG pending. supportive care , clinically unchanged, Cr, Na still elevated, cont iv fluid, follow psych and renal recommendation. cont supportive care Subjective Date of service: 11/17/21 Principal diagnosis: encephalopathy,AF,COVID-19 Interval history: Patient seen and examined. Medical records and medication list reviewed. No acute event overnight noted by the RN. Patient remains in restraints, very agitated and confused. Patient is tolerating diet. Discussed plan of care at bedside with patient,s RN. Objective - Exam Narrative Exam: General appearance: Present: no acute distress, well-nourished, restrained - EENT Eyes: Present: PERRL, EOM intact - Neck Neck: Present: supple, normal ROM - Respiratory Respiratory effort: normal Respiratory: bilateral: diminished, negative: rales, rhonchi, wheezing - Cardiovascular Rhythm: regular Heart Sounds: Present: S1 & S2 - Extremities Extremities: no ischemia, No edema - Abdominal General gastrointestinal: Present: soft, non-tender, non-distended, normal bowel sounds - Integumentary Integumentary: Present: clear, warm - Musculoskeletal Musculoskeletal: strength equal bilaterally, generalized weakness - Psychiatric Psychiatric:agitated and confused - Neurologic Neurologic: moves all extremities - Constitutional Vitals: Vital Signs - 12hr 11/17/21 11/17/21 11/17/21 06:33 11:24 12:47 Temperature 98.2 F 97.8 F Pulse Rate 42 L 69 69 Respiratory 22 18 Rate Blood Pressure 150/107 131/111 131/111 O2 Sat by Pulse 86 90 Oximetry - Labs CBC & Chem 7: 11/13/21 05:36 11/18/21 07:03 Labs: Abnormal lab results 11/17/21 Range/Units 07:27 Sodium 147 H (137-145) mmol/L Chloride 115.4 H (98-107) mmol/L Carbon Dioxide 20 L (22-30) mmol/L BUN 41 H (9-20) mg/dL Creatinine 1.7 H (0.8-1.3) mg/dL HEART Score - HEART Score Troponin: Troponin T 0.013 ng/mL (0.00-0.029) 11/11/21 09:13
--- NOTE | 2021-11-17 14:47 | Progress Note ---
Assessment and Plan Impression: * Acute kidney injury secondary to prerenal azotemia due to hypoperfusion due to afib w/ RVR, hypotension --UA w/ ketones and Quynh 10 - suggestive of volume depletion --Renal ultrasound: right 11.4cm, left 12.3cm; no hydro * Atrial fibrillation with RVR * Acute encephalopathy * Cardiomyopathy - LVEF 10% * Recent COVID 19 infection * Anemia * Metabolic acidosis Plan: * Hypernatremia improved 154->147, SCr is stable * Continue IVF - D5W 100ml/hour * No acute need for renal replacement therapy * Rate control per cardiology * Await pending serologic work up * Dose medications for renal function * Avoid potential nephrotoxins Subjective Date of service: 11/17/21 Principal diagnosis: encephalopathy,AF,COVID-19 Interval history: Chart,vitals,labs reviewed Objective - Exam Narrative Exam: In effort to reduce transmission of COVID 19 in setting of pandemic, physical exam deferred. - Vital Signs Vital signs: Vital Signs - 12hr 11/17/21 11/17/21 11/17/21 06:33 11:24 12:47 Temperature 98.2 F 97.8 F Pulse Rate 42 L 69 69 Respiratory 22 18 Rate Blood Pressure 150/107 131/111 131/111 O2 Sat by Pulse 86 90 Oximetry - Lab 11/13/21 05:36 11/17/21 07:27 Most recent lab results Calcium 9.6 mg/dL (8.4-10.2) 11/17/21 07:27 Magnesium 2.50 mg/dL (1.7-2.3) H 11/11/21 09:13 Urine Creatinine < 4.2 mg/dL (0.1-20.0) 11/14/21 05:15 Urine Sodium 10 mmol/L 11/14/21 05:15 Medications & Allergies - Medications Allergies/Adverse Reactions: Allergies No Known Allergies Allergy (Verified 11/03/21 18:59) Home Medications: Home Medications Medication Instructions Recorded Confirmed Last Taken Type NIFEdipine XL [Procardia Xl] 30 mg PO QDAY #30 tablet 11/07/21 11/14/21 Unknown Rx dexAMETHasone [Dexamethasone] 4 mg PO DAILY #10 tab 11/07/21 11/14/21 Unknown Rx Active Medications: Generic Name Dose Route Start Last Admin Trade Name Freq PRN Reason Stop Dose Admin Acetaminophen 650 mg 11/12/21 01:58 Acetaminophen 325 Mg Tab PO Q6H PRN Pain MILD(1-3)/Fever >100.5/SMYTH Enoxaparin Sodium 90 mg 11/15/21 10:00 11/17/21 10:11 Enoxaparin 100 Mg/1 Ml Inj 1 mg/kg (90 mg) 90 mg SUB-Q Administration Q12HR JENNY Protocol Dextrose 1,000 mls @ 100 mls/hr 11/16/21 13:00 D5w IV DIRECT JENNY Lorazepam 2 mg 11/13/21 20:23 11/17/21 10:12 Lorazepam 2 Mg/Ml Vial IV 2 mg Q4H PRN Administration Agitation Metoprolol Tartrate 5 mg 11/13/21 18:00 11/17/21 12:47 Metoprolol Tartrate 5 Mg/5 Ml Inj IV Not Given Q6HR JENNY Morphine Sulfate 2 mg 11/12/21 01:58 Morphine 2 Mg/1 Ml Inj IV Q4H PRN Pain, Moderate (4-6) Morphine Sulfate 4 mg 11/12/21 01:58 Morphine 4 Mg/1 Ml Inj IV Q4H PRN Pain , Severe (7-10) Pantoprazole Sodium 40 mg 11/12/21 07:30 11/17/21 10:12 Pantoprazole 40 Mg Tab PO 40 mg QDAC JENNY Administration Quetiapine Fumarate 25 mg 11/16/21 15:00 11/17/21 10:12 Quetiapine 25 Mg Tab PO 25 mg BID JENNY Administration
[2021-11-17] MEDS: DEXTROSE 5% IN WATER 1,000 ML IV SCH (15:51)
--- NOTE | 2021-11-17 16:01 | Progress Note ---
Assessment and Plan - Patient Problems (1) Dilated cardiomyopathy Current Visit: Yes Status: Acute (2) History of COPD Current Visit: No Status: Acute Subjective Date of service: 11/17/21 Principal diagnosis: encephalopathy,AF,COVID-19 Interval history: SLEEPING Objective Vital Signs Temp Pulse Resp BP BP Pulse Ox 11/17/21 12:47 69 131/111 11/17/21 11:24 97.8 F 69 18 131/111 90 11/17/21 06:33 98.2 F 42 L 22 150/107 86 11/16/21 23:08 97.9 F 47 L 20 136/111 94 11/16/21 22:00 96 11/16/21 18:00 66 11/16/21 17:25 115 H 16 115/83 - Physical Examination General: No Apparent Distress, Cachectic, Other (AGITATED,,CONFUSED) HEENT: Positive: PERRL Neck: Positive: neck supple Cardiac: Positive: Irregularly Regular Lungs: Positive: clear to auscultation Neuro: Positive: Grossly Intact Abdomen: Positive: Soft Skin: Positive: Clear Extremities: Absent: edema - Labs and Meds Comprehensive Metabolic Panel 11/17/21 Range/Units 07:27 Sodium 147 H (137-145) mmol/L Potassium 4.8 (3.6-5.0) mmol/L Chloride 115.4 H (98-107) mmol/L Carbon Dioxide 20 L (22-30) mmol/L BUN 41 H (9-20) mg/dL Creatinine 1.7 H (0.8-1.3) mg/dL Glucose 75 (75-100) mg/dL Calcium 9.6 (8.4-10.2) mg/dL
--- NOTE | 2021-11-17 20:28 | Electrocardiograph Report ---
[facility] Test Date: 2021-11-11 Test Time: 08:27:28 Pat Name: LIYA PIERCE Department: Room: A368 Gender: M [employer]: HILDA : 1955 Requested By: LIYA CHURCHILL Order Number: [id number] Reading MD: Vijay Newman Measurements Intervals [place] Rate: 139 P: AL: QRS: 120 QRSD: 89 T: -64 QT: 330 QTc: 505 Interpretive Statements Atrial fibrillation Anterolateral infarct, age indeterminate Prolonged QT interval LEFT VENTRICULAR HYPERTROPHY WITH REPOLARIZARTION ABNORMALITY Compared to ECG 11/04/2021 21:25:00 Sinus rhythm no longer present Left ventricular hypertrophy no longer present Early repolarization no longer present Myocardial infarct finding still present Electronically Signed On 11-17-2021 20:27:59 EST by Vijay Newman
[2021-11-17 20:49] LABS: Albumin 3.1 g/dL (3.8-4.8); Gamma Globulin 2.1 g/dL (0.8-1.7)
[2021-11-17 21:59] LABS: Myeloperoxidase Antibody <1.0 AI (<1.0)
[2021-11-18] MEDS: METOPROLOL TARTRATE 5 MG/5 ML INJ IV SCH ×4 (00:17→18:17)
[2021-11-18] MEDS: LORazepam 2 MG/ML VIAL IV PRN ×4 (02:18→20:25)
[2021-11-18] MEDS: DEXTROSE 5% IN WATER 1,000 ML IV SCH ×2 (04:27→13:35)
[2021-11-18] MEDS: PANTOPRAZOLE 40 MG TAB PO SCH (07:30)
[2021-11-18 07:52] LABS: Calcium 9.1 mg/dL (8.4-10.2)
[2021-11-18] MEDS: QUEtiapine 25 MG TAB PO SCH (09:39)
[2021-11-18] MEDS: ENOXAPARIN 100 MG/1 ML INJ SUB-Q SCH ×2 (09:50→21:59)
--- NOTE | 2021-11-18 12:40 | Progress Note ---
Assessment and Plan - Patient Problems (1) Atrial fibrillation with RVR Current Visit: Yes Plan to address problem: Patient with COPD and recent COVID infection, presented with palpitations and new onset rapid atrial fibrillation. An ECG from a week ago was sinus rhythm. He has reverted to a stable sinus rhythm after intravenous amiodarone. We will continue atrial fibrillation suppression therapy with amiodarone and metoprolol. Due to difficulty with optimal p.o. intake, the patient is currently on intravenous metoprolol for paroxysmal atrial fibrillation. Due to his mental status issues and his homelessness, he may not be a candidate for optimal atrial fibrillation therapy including long-term oral anticoagulation unless he is eventually placed in a supervised clinical setting. Currently on subcutaneous enoxaparin while hospitalized. (2) Dilated cardiomyopathy Current Visit: Yes Status: Acute Plan to address problem: The patient's echocardiogram shows a severe, four-chamber dilated ca rdiomyopathy, left ventricular ejection fraction less than 15 to 20%. There moderate to severe regurgitant lesions of both mitral and tricuspid valves. The chronicity of his cardiomyopathy is unknown at this time, I have previously reported that on his most recent admission prior to this there was a similar cardiomegaly that was present on his chest x-ray. Patient is currently unable to take pills due to his mental confusion, once his confusion clears or he has an oral route for medications and feeding, we will switch to oral guideline directed medical therapy as tolerated. Subjective Date of service: 11/18/21 Principal diagnosis: encephalopathy,AF,COVID-19 Interval history: Patient is comfortable, no acute distress. On telemetry monitoring he has a stable sinus rhythm 88. Objective Vital Signs Temp Pulse Pulse Resp BP Pulse Ox 11/18/21 06:31 108 H 132/105 11/18/21 00:17 65 11/17/21 22:07 60 11/17/21 22:00 60 95 11/17/21 21:57 97.5 F L 60 20 148/106 52 L 11/17/21 16:34 97.6 F 35 L 18 143/100 100 11/17/21 12:47 69 131/111 - Physical Examination General: No Apparent Distress, Cachectic, Other (AGITATED,,CONFUSED) HEENT: Positive: PERRL Neck: Positive: neck supple Cardiac: Positive: Reg Rate and Rhythm Lungs: Positive: Decreased Breath Sounds Neuro: Positive: Grossly Intact Abdomen: Positive: Soft Skin: Positive: Clear Extremities: Absent: edema - Labs and Meds Comprehensive Metabolic Panel 11/14/21 11/18/21 Range/Units 06:34 07:03 Sodium 148 H (137-145) mmol/L Potassium 4.5 (3.6-5.0) mmol/L Chloride 115.6 H (98-107) mmol/L Carbon Dioxide 19 L (22-30) mmol/L BUN 39 H (9-20) mg/dL Creatinine 1.7 H (0.8-1.3) mg/dL Glucose 168 H (75-100) mg/dL Calcium 9.1 (8.4-10.2) mg/dL Albumin 3.1 L (3.8-4.8) g/dL
--- NOTE | 2021-11-18 13:43 | Progress Note ---
Assessment and Plan Impression: * Acute kidney injury secondary to prerenal azotemia due to hypoperfusion due to afib w/ RVR, hypotension --UA w/ ketones and Quynh 10 - suggestive of volume depletion --Renal ultrasound: right 11.4cm, left 12.3cm; no hydro * Atrial fibrillation with RVR * Acute encephalopathy * Cardiomyopathy - LVEF 10% * Recent COVID 19 infection * Anemia * Metabolic acidosis Plan: * Hypernatremia improved 154->147->148, SCr is stable at 1.7 * Continue IVF - D5W 100ml/hour for now * No acute need for renal replacement therapy * Rate control per cardiology * Await pending serologic work up- ANCA negative * Dose medications for renal function * Avoid potential nephrotoxins Subjective Date of service: 11/18/21 Principal diagnosis: encephalopathy,AF,COVID-19 Interval history: Chart,vitals,labs reviewed Objective - Exam Narrative Exam: In effort to reduce transmission of COVID 19 in setting of pandemic, physical exam deferred. - Vital Signs Vital signs: Vital Signs - 12hr 11/18/21 11/18/21 11/18/21 06:31 13:22 13:24 Temperature 97.7 F 98 F Pulse Rate 108 H 66 95 H Respiratory 20 22 Rate Blood Pressure 132/105 Blood Pressure 142/101 [Left] O2 Sat by Pulse 97 Oximetry 11/18/21 13:29 Temperature 98 F Pulse Rate 95 H Respiratory 22 Rate Blood Pressure Blood Pressure 142/101 [Left] O2 Sat by Pulse Oximetry - Lab 11/13/21 05:36 11/18/21 07:03 Most recent lab results Calcium 9.1 mg/dL (8.4-10.2) 11/18/21 07:03 Magnesium 2.50 mg/dL (1.7-2.3) H 11/11/21 09:13 Urine Creatinine < 4.2 mg/dL (0.1-20.0) 11/14/21 05:15 Urine Sodium 10 mmol/L 11/14/21 05:15 Medications & Allergies - Medications Allergies/Adverse Reactions: Allergies No Known Allergies Allergy (Verified 11/03/21 18:59) Home Medications: Home Medications Medication Instructions Recorded Confirmed Last Taken Type NIFEdipine XL [Procardia Xl] 30 mg PO QDAY #30 tablet 11/07/21 11/14/21 Unknown Rx dexAMETHasone [Dexamethasone] 4 mg PO DAILY #10 tab 11/07/21 11/14/21 Unknown Rx Active Medications: Generic Name Dose Route Start Last Admin Trade Name Freq PRN Reason Stop Dose Admin Acetaminophen 650 mg 11/12/21 01:58 Acetaminophen 325 Mg Tab PO Q6H PRN Pain MILD(1-3)/Fever >100.5/SMYTH Enoxaparin Sodium 90 mg 11/15/21 10:00 11/18/21 09:50 Enoxaparin 100 Mg/1 Ml Inj 1 mg/kg (90 mg) 90 mg SUB-Q Administration Q12HR JENNY Protocol Dextrose 1,000 mls @ 100 mls/hr 11/16/21 13:00 11/18/21 13:35 D5w IV 100 mls/hr DIRECT JENNY Administration Lorazepam 2 mg 11/13/21 20:23 11/18/21 09:52 Lorazepam 2 Mg/Ml Vial IV 2 mg Q4H PRN Administration Agitation Metoprolol Tartrate 5 mg 11/13/21 18:00 11/18/21 12:00 Metoprolol Tartrate 5 Mg/5 Ml Inj IV 5 mg Q6HR JENNY Administration Morphine Sulfate 2 mg 11/12/21 01:58 Morphine 2 Mg/1 Ml Inj IV Q4H PRN Pain, Moderate (4-6) Morphine Sulfate 4 mg 11/12/21 01:58 Morphine 4 Mg/1 Ml Inj IV Q4H PRN Pain , Severe (7-10) Pantoprazole Sodium 40 mg 11/12/21 07:30 11/18/21 07:30 Pantoprazole 40 Mg Tab PO 40 mg QDAC JENNY Administration Quetiapine Fumarate 25 mg 11/16/21 15:00 11/18/21 09:39 Quetiapine 25 Mg Tab PO 25 mg BID JENNY Administration
--- NOTE | 2021-11-18 14:07 | Progress Note ---
Assessment and Plan Assessment and Plan: #Acute encephalopathy -hx of recent COVID-19 -New onset AF with Echo showed EF#10% -Ct brain is unremarkable -Pt. is more lathergic today , agitated move all limbs -Suggest MRI brain r/o embolic events--pending -EEG-- pending -Neuro check -stop seroquel -On SQ heparine #New onset AF with rapid ventricular rate - Lovenox full dose, not candidate for Eliquis now Cardiology following #Dilated cardiomyopathy -Noted by echocardiogram obtained by cardiology 11-11 -EF#10% no thrombus is noted Guideline directed medical therapy #Leukocytosis; - Probably secondary to steroids, recent COVID-19 infection - Evaluate for sepsis #Lactic acidosis; trend lactic acid - Leukocytosis, empiric Rocephin - Cultures #Acute kidney injury; - Vasomotor nephropathy, gentle hydration - monitor renal function, avoid nephrotoxins - Renal dosing of medications - consult placed to nephrology due to worsening renal fx. #Dehydration; gentle hydration IV fluids #Recent COVID-19 infection; Continue low-dose dexamethasone for total 10 days #DVT prophylaxis; Patient is on full dose anticoagulation with Lovenox #Advance care planning Disease education conducted, care plan discussed, diagnoses discussed, prognosis discussed, patient is full code Plan 1- MRI brain 2- EEG 3- Neuro check 4- hold seroquel 5- Seizure precaution prognosis is quarded to poor. Subjective Date of service: 11/18/21 Principal diagnosis: encephalopathy,AF,COVID-19 Interval history: he is more lathergic not open eyes not follow command no movment to sternal rub EEG is not done MRI not done Not on sq heparine ? on seroquel 25 mg bid Objective - Vital Sign Vital Signs - 12hr 11/18/21 11/18/21 11/18/21 06:31 13:22 13:24 Temperature 97.7 F 98 F Pulse Rate 108 H 66 95 H Respiratory 20 22 Rate Blood Pressure 132/105 Blood Pressure 142/101 [Left] O2 Sat by Pulse 97 Oximetry 11/18/21 13:29 Temperature 98 F Pulse Rate 95 H Respiratory 22 Rate Blood Pressure Blood Pressure 142/101 [Left] O2 Sat by Pulse Oximetry - General Apperance Constitutional: comfortable - EENT EENT: PERRL, mucous membranes moist - Respiratory Respiratory: lungs clear, rales, rhonchi - Cardiovascular Cardiovascular: regular rate, normal S1, normal S2 Extremities: no peripheral edema bilat, no clubbing, cyanosis - Gastrointestinal Gastrointestinal: normoactive bowel sounds - Integumentary Integumentary: normal - Neurologic Cranial nerve examination: PERRL, EOMI, intact Speech examination: other (mumble at time) Detailed motor examination: other (no focal weakness no movment is noted today due to lathergy) - Laboratory Findings CBC and BMP: 11/13/21 05:36 11/18/21 07:03 Abnormal Lab Findings: Abnormal Labs 11/11/21 11/11/21 11/11/21 09:13 09:13 09:13 WBC 12.5 H RBC 5.11 H MCH 26 L MCHC 31 L RDW 18.0 H Lymph % (Auto) 7.4 L Lymph # (Auto) 0.9 L Seg Neutrophils % 86.3 H Seg Neuts % (Manual) Lymphocytes % (Manual) Seg Neutrophils # 10.8 H Seg Neutrophils # Man Lymphocytes # (Manual) PT 17.3 H INR 1.28 H Sodium Potassium Chloride Carbon Dioxide 20 L BUN 46 H Creatinine 1.5 H Glucose 116 H POC Glucose Lactic Acid Magnesium Total Bilirubin 2.30 H AST Ammonia Total Protein 8.4 H Albumin 3.6 L Dvzli-7-Hjhwijutc Gamma Globulins PEP Interpretation Salicylates Acetaminophen Coronavirus (PCR) 11/11/21 11/11/21 11/11/21 09:13 09:13 09:13 WBC RBC MCH MCHC RDW Lymph % (Auto) Lymph # (Auto) Seg Neutrophils % Seg Neuts % (Manual) Lymphocytes % (Manual) Seg Neutrophils # Seg Neutrophils # Man Lymphocytes # (Manual) PT INR Sodium Potassium Chloride Carbon Dioxide BUN Creatinine Glucose POC Glucose Lactic Acid 2.70 H* Magnesium Total Bilirubin AST Ammonia 14.0 L Total Protein Albumin Rllzs-4-Ljcfgoiqm Gamma Globulins PEP Interpretation Salicylates < 0.3 L Acetaminophen Coronavirus (PCR) 11/11/21 11/11/21 11/11/21 09:13 09:13 10:34 WBC RBC MCH MCHC RDW Lymph % (Auto) Lymph # (Auto) Seg Neutrophils % Seg Neuts % (Manual) Lymphocytes % (Manual) Seg Neutrophils # Seg Neutrophils # Man Lymphocytes # (Manual) PT INR Sodium Potassium Chloride Carbon Dioxide BUN Creatinine Glucose POC Glucose Lactic Acid 2.80 H* Magnesium 2.50 H Total Bilirubin AST Ammonia Total Protein Albumin Cfryx-2-Bxklhjxlr Gamma Globulins PEP Interpretation Salicylates Acetaminophen 5.0 L Coronavirus (PCR) 11/11/21 11/11/21 11/12/21 16:21 22:24 02:18 WBC RBC MCH MCHC RDW Lymph % (Auto) Lymph # (Auto) Seg Neutrophils % Seg Neuts % (Manual) Lymphocytes % (Manual) Seg Neutrophils # Seg Neutrophils # Man Lymphocytes # (Manual) PT INR Sodium Potassium Chloride Carbon Dioxide BUN Creatinine Glucose POC Glucose 125 H Lactic Acid 3.10 H* 4.20 H* Magnesium Total Bilirubin AST Ammonia Total Protein Albumin Gpgff-9-Mrsjqatus Gamma Globulins PEP Interpretation Salicylates Acetaminophen Coronavirus (PCR) 11/13/21 11/13/21 11/14/21 05:36 05:36 06:34 WBC 11.5 H RBC 5.06 H MCH 26 L MCHC 31 L RDW 17.8 H Lymph % (Auto) Lymph # (Auto) Seg Neutrophils % Seg Neuts % (Manual) 88.0 H Lymphocytes % (Manual) 9.0 L Seg Neutrophils # Seg Neutrophils # Man 10.1 H Lymphocytes # (Manual) 1.0 L PT INR Sodium Potassium 5.2 H Chloride Carbon Dioxide 16 L BUN 83 H Creatinine 2.6 H D Glucose POC Glucose Lactic Acid Magnesium Total Bilirubin 2.30 H AST 42 H Ammonia Total Protein Albumin 3.5 L 3.1 L Dwvyy-3-Kritacomw 0.4 H Gamma Globulins 2.1 H PEP Interpretation see below H Salicylates Acetaminophen Coronavirus (PCR) 11/14/21 11/14/21 11/15/21 06:34 08:40 06:37 WBC RBC MCH MCHC RDW Lymph % (Auto) Lymph # (Auto) Seg Neutrophils % Seg Neuts % (Manual) Lymphocytes % (Manual) Seg Neutrophils # Seg Neutrophils # Man Lymphocytes # (Manual) PT INR Sodium 148 H D 148 H Potassium Chloride 113.5 H 116.0 H Carbon Dioxide 17 L 21 L BUN 73 H 51 H Creatinine 2.0 H 1.7 H Glucose 71 L 64 L POC Glucose Lactic Acid Magnesium Total Bilirubin AST Ammonia Total Protein Albumin Uxzzy-5-Ttxrvqssu Gamma Globulins PEP Interpretation Salicylates Acetaminophen Coronavirus (PCR) Positive A 11/16/21 11/17/21 11/18/21 06:16 07:27 07:03 WBC RBC MCH MCHC RDW Lymph % (Auto) Lymph # (Auto) Seg Neutrophils % Seg Neuts % (Manual) Lymphocytes % (Manual) Seg Neutrophils # Seg Neutrophils # Man Lymphocytes # (Manual) PT INR Sodium 154 H 147 H 148 H Potassium Chloride 119.7 H 115.4 H 115.6 H Carbon Dioxide 21 L 20 L 19 L BUN 44 H 41 H 39 H Creatinine 1.7 H 1.7 H 1.7 H Glucose 168 H POC Glucose Lactic Acid Magnesium Total Bilirubin AST Ammonia Total Protein Albumin Zxnrg-5-Altbpojwa Gamma Globulins PEP Interpretation Salicylates Acetaminophen Coronavirus (PCR)
--- NOTE | 2021-11-18 15:19 | Progress Note ---
Subjective - Reason for Consult Consult date: 11/18/21 Reason for consult: Psychosis/agitation - Chief Complaint Chief complaint: The patient was seen today. He is alert, with flat affect. The patient stares at the provider and renders no response to questions asked. REVIEW OF SYSTEMS MENTAL STATUS EXAMINATION Unable to assess Assessment (1) Delirium Current Visit: Yes Status: Acute Treatment Plan Continue lorazepam 2mg IM q6h prn agitation Medical: Per primary Disposition: Do not recommend acute psychiatric inpatient treatment at this time. It appears that the patient's agitation was due to underlying acute medical conditions. Will follow for med management. Thanks Case staffed with Dr. Melgar Mental Status Exam - Vital signs Last Vital Signs Temp 98 F 11/18/21 13:29 Pulse 95 H 11/18/21 13:29 Resp 22 11/18/21 13:29 BP 142/101 11/18/21 13:29 Pulse Ox 97 11/18/21 13:22
--- NOTE | 2021-11-18 15:53 | Progress Note ---
Assessment and Plan 66-year-old -[place] male patient with significant past medical history of CHFrEF 15%, COPD, hypertension recent, Positive COVID-19 who is recently discharged after being treated for COVID19 was brought to the emergency room by EMS with altered level of consciousness. Initial evaluation is consistent with A. fib with rapid ventricular rate, Lactic acidosis, leukocytosis probably secondary to recent steroid use. Chest x-ray mild increased interstitial prominence within the lung, left slightly greater than right, CT head , no acute abnormality noted. Assessment and Plan: #Altered level of consciousness /acute metabolic encephalopathy/acute delirium - present on admission - Intermittent confusion now worsening. Possibly metabolic in a patient with underlying dementia. - Recent COVID-19, possible psych disorder - CT head negative for acute abnormality - MR brain ordered Psychiatry consulted Neurology consulted #A. fib with rapid ventricular rate; - Patient received IV Cardizem no response - S/p Cardizem drip per protocol, now on iv metoprolol - Lovenox full dose, transition to Eliquis when stable Cardiology following #Dilated cardiomyopathy -Noted by echocardiogram obtained by cardiology Guideline directed medical therapy # Acute hypoxic respiratory failure, likely from underlying h/o COVID pna and CHF -Patient on 2-4L n/c O2 #Leukocytosis; - Probably secondary to steroids, recent COVID-19 infection - Evaluate for sepsis #Lactic acidosis; trend lactic acid - Leukocytosis, empiric Rocephin - Cultures #Acute kidney injury; - Vasomotor nephropathy, gentle hydration - monitor renal function, avoid nephrotoxins - Renal dosing of medications - consult placed to nephrology due to worsening renal fx. #Dehydration with hypernatremia; gentle hydration IV fluids #Recent COVID-19 infection; Continue low-dose dexamethasone for total 10 days #DVT prophylaxis; Patient is on full dose anticoagulation with Lovenox #Advance care planning Disease education conducted, care plan discussed, diagnoses discussed, prognosis discussed, patient is full code, patient acknowledges understanding and agree with care plan, +30 minutes. -- Full CODE STATUS We will closely monitor the patient and adjust management as needed Plan of care reviewed with the patient and her nurse Hospital Course: 11/12/2021: Placed on amiodorone and Lovenox by cardiology. Agree with cardiology that patient will likely not be amenable to anticoagulation if he is not in a supervised facility. Psychiatry recommendations noted. Once patient is off diltiazem drip can be downgraded to medical floor. 11/13/2021: Patient remains altered on my exam. Barely opening eyes upon sternal rub however he is protecting his airway. Consulted neurology for evaluation Worsening renal function, nephrology consulted. Cardiology noted DCMP on echo, will initiated guideline directed therapy. Off of amiodorone gtt, now on po amiodorone and metoprolol however doubt his ability to swallow given mental status. Sedative d/c and ST consulted. If patient able to tolerate po, will downgrade to tele bed. 11/14/21: Resumed care, patient restrained, very confused, follow renal function, p on 2-4 n/c O2. 11/15/21: remains agitated, confused. monitor Na and Cr level. patient recorded as homeless, cont iv fluid, wean off o2. cont supportive care, psych following. MRI/EEG pending 11/16/21: cont to follow BMP -Na Cr remains elevated, pt confused, MRI/EEG pending. supportive care , clinically unchanged, Cr, Na still elevated, cont iv fluid, follow psych and renal recommendation. cont supportive care 11/18/21: remains agitated and confused requiring restraint. cont iv meds and change to oral route when clinically improves. follow BMP, MRI brain /EEG pending Subjective Date of service: 11/18/21 Principal diagnosis: encephalopathy,AF,COVID-19 Interval history: Patient seen and examined. Medical records and medication list reviewed. No acute event overnight noted by the RN. Patient remains in restraints, very agitated and confused. Patient is tolerating diet. Discussed plan of care at bedside with patient,s RN. Objective - Exam Narrative Exam: General appearance: Present: no acute distress, well-nourished, restrained - EENT Eyes: Present: PERRL, EOM intact - Neck Neck: Present: supple, normal ROM - Respiratory Respiratory effort: normal Respiratory: bilateral: diminished, negative: rales, rhonchi, wheezing - Cardiovascular Rhythm: regular Heart Sounds: Present: S1 & S2 - Extremities Extremities: no ischemia, No edema - Abdominal General gastrointestinal: Present: soft, non-tender, non-distended, normal bowel sounds - Integumentary Integumentary: Present: clear, warm - Musculoskeletal Musculoskeletal: strength equal bilaterally, generalized weakness - Psychiatric Psychiatric:agitated and confused - Neurologic Neurologic: moves all extremities - Constitutional Vitals: Vital Signs - 12hr 11/18/21 11/18/21 11/18/21 06:31 13:22 13:24 Temperature 97.7 F 98 F Pulse Rate 108 H 66 95 H Respiratory 20 22 Rate Blood Pressure 132/105 Blood Pressure 142/101 [Left] O2 Sat by Pulse 97 Oximetry 11/18/21 13:29 Temperature 98 F Pulse Rate 95 H Respiratory 22 Rate Blood Pressure Blood Pressure 142/101 [Left] O2 Sat by Pulse Oximetry - Labs CBC & Chem 7: 11/13/21 05:36 11/18/21 07:03 Labs: Abnormal lab results 11/14/21 11/18/21 Range/Units 06:34 07:03 Sodium 148 H (137-145) mmol/L Chloride 115.6 H (98-107) mmol/L Carbon Dioxide 19 L (22-30) mmol/L BUN 39 H (9-20) mg/dL Creatinine 1.7 H (0.8-1.3) mg/dL Glucose 168 H (75-100) mg/dL Albumin 3.1 L (3.8-4.8) g/dL [id number] 0.4 H (0.2-0.3) g/dL Gamma Globulins 2.1 H (0.8-1.7) g/dL PEP Interpretation see below H HEART Score - HEART Score Troponin: Troponin T 0.013 ng/mL (0.00-0.029) 11/11/21 09:13
[2021-11-19] MEDS: DEXTROSE 5% IN WATER 1,000 ML IV SCH (01:20)
[2021-11-19] MEDS: METOPROLOL TARTRATE 5 MG/5 ML INJ IV SCH ×4 (01:21→20:27)
[2021-11-19 08:11] LABS: Calcium 9.5 mg/dL (8.4-10.2)
[2021-11-19] MEDS: ENOXAPARIN 100 MG/1 ML INJ SUB-Q SCH ×2 (11:31→23:56)
[2021-11-19] MEDS: PANTOPRAZOLE 40 MG TAB PO SCH (11:31)
--- NOTE | 2021-11-19 12:53 | Progress Note ---
Assessment and Plan Impression: * Acute kidney injury secondary to prerenal azotemia due to hypoperfusion due to afib w/ RVR, hypotension --UA w/ ketones and Quynh 10 - suggestive of volume depletion --Renal ultrasound: right 11.4cm, left 12.3cm; no hydro * Atrial fibrillation with RVR * Acute encephalopathy * Cardiomyopathy - LVEF 10% * Recent COVID 19 infection * Anemia * Metabolic acidosis Plan: * Hypernatremia worsening again 154->147->148->153, SCr is stable at 1.6 * Continue IVF - D5W 100ml/hour as tolerated, encourage free water intake as able * No acute need for renal replacement therapy * Rate control per cardiology * Await pending serologic work up- ANCA negative, Complements WNL * Dose medications for renal function * Avoid potential nephrotoxins Subjective Date of service: 11/19/21 Principal diagnosis: encephalopathy,AF,COVID-19 Interval history: Chart,vitals,labs reviewed Objective - Exam Narrative Exam: In effort to reduce transmission of COVID 19 in setting of pandemic, physical ex am deferred. - Vital Signs Vital signs: Vital Signs - 12hr 11/19/21 11/19/21 11/19/21 01:21 05:32 05:52 Temperature 97.2 F L Pulse Rate 66 43 L 65 Respiratory 18 Rate Blood Pressure 151/100 141/105 141/105 O2 Sat by Pulse 100 Oximetry 11/19/21 11:32 Temperature Pulse Rate 96 H Respiratory Rate Blood Pressure O2 Sat by Pulse Oximetry - Lab 11/13/21 05:36 11/19/21 07:04 Most recent lab results Calcium 9.5 mg/dL (8.4-10.2) 11/19/21 07:04 Magnesium 2.50 mg/dL (1.7-2.3) H 11/11/21 09:13 Urine Creatinine < 4.2 mg/dL (0.1-20.0) 11/14/21 05:15 Urine Sodium 10 mmol/L 11/14/21 05:15 Medications & Allergies - Medications Allergies/Adverse Reactions: Allergies No Known Allergies Allergy (Verified 11/03/21 18:59) Home Medications: Home Medications Medication Instructions Recorded Confirmed Last Taken Type NIFEdipine XL [Procardia Xl] 30 mg PO QDAY #30 tablet 11/07/21 11/14/21 Unknown Rx dexAMETHasone [Dexamethasone] 4 mg PO DAILY #10 tab 11/07/21 11/14/21 Unknown Rx Active Medications: Generic Name Dose Route Start Last Admin Trade Name Freq PRN Reason Stop Dose Admin Acetaminophen 650 mg 11/12/21 01:58 Acetaminophen 325 Mg Tab PO Q6H PRN Pain MILD(1-3)/Fever >100.5/SMYTH Enoxaparin Sodium 90 mg 11/15/21 10:00 11/19/21 11:31 Enoxaparin 100 Mg/1 Ml Inj 1 mg/kg (90 mg) 90 mg SUB-Q Administration Q12HR JENNY Protocol Dextrose 1,000 mls @ 100 mls/hr 11/16/21 13:00 11/19/21 01:20 D5w IV 100 mls/hr DIRECT JENNY Administration Lorazepam 2 mg 11/13/21 20:23 11/18/21 20:25 Lorazepam 2 Mg/Ml Vial IV 2 mg Q4H PRN Administration Agitation Metoprolol Tartrate 5 mg 11/13/21 18:00 11/19/21 11:32 Metoprolol Tartrate 5 Mg/5 Ml Inj IV 5 mg Q6HR JENNY Administration Morphine Sulfate 2 mg 11/12/21 01:58 Morphine 2 Mg/1 Ml Inj IV Q4H PRN Pain, Moderate (4-6) Morphine Sulfate 4 mg 11/12/21 01:58 Morphine 4 Mg/1 Ml Inj IV Q4H PRN Pain , Severe (7-10) Pantoprazole Sodium 40 mg 11/12/21 07:30 11/19/21 11:31 Pantoprazole 40 Mg Tab PO 40 mg QDAC JENNY Administration Sodium Chloride 10 ml 11/18/21 14:32 Sodium Chloride 0.9% 50 Ml Ivpb IV PRN PRN FLUSH
--- NOTE | 2021-11-19 13:12 | Progress Note ---
Assessment and Plan - Patient Problems (1) Paroxysmal atrial fibrillation Current Visit: Yes Status: Acute Plan to address problem: Patient with COPD and recent COVID infection, presented with palpitations and new onset rapid atrial fibrillation. An ECG from a week ago was sinus rhythm. He has reverted to a stable sinus rhythm after intravenous amiodarone. We will continue atrial fibrillation suppression therapy with amiodarone and metoprolol. Due to difficulty with optimal p.o. intake, the patient is currently on intravenous metoprolol for paroxysmal atrial fibrillation. Due to his mental status issues and his homelessness, he may not be a candidate for optimal atrial fibrillation therapy including long-term oral anticoagulation unless he is eventually placed in a supervised clinical setting. Currently on subcutaneous enoxaparin while hospitalized. (2) Dilated cardiomyopathy Current Visit: Yes Status: Acute Subjective Date of service: 11/19/21 Principal diagnosis: encephalopathy,AF,COVID-19 Interval history: Patient is comfortable, no acute distress. No new cardiac events reported. On telemetry monitoring he has a stable sinus rhythm 83. Objective Vital Signs Temp Pulse Resp BP BP Pulse Ox 11/19/21 11:32 96 H 11/19/21 05:52 65 141/105 11/19/21 05:32 97.2 F L 43 L 18 141/105 100 11/19/21 01:21 66 151/100 11/18/21 22:55 105 H 95 11/18/21 22:00 95 11/18/21 21:04 97.3 F L 30 L 18 132/106 81 L 11/18/21 13:29 98 F 95 H 22 142/101 11/18/21 13:24 98 F 95 H 22 142/101 11/18/21 13:22 97.7 F 66 20 97 - Physical Examination General: No Apparent Distress, Cachectic, Other (Mildly confused) HEENT: Positive: PERRL Neck: Positive: neck supple Cardiac: Positive: Reg Rate and Rhythm Lungs: Positive: Decreased Breath Sounds Neuro: Positive: Grossly Intact Abdomen: Positive: Soft Skin: Positive: Clear Extremities: Absent: edema - Labs and Meds Comprehensive Metabolic Panel 11/19/21 Range/Units 07:04 Sodium 153 H (137-145) mmol/L Potassium 4.8 (3.6-5.0) mmol/L Chloride 118.4 H (98-107) mmol/L Carbon Dioxide 17 L (22-30) mmol/L BUN 38 H (9-20) mg/dL Creatinine 1.6 H (0.8-1.3) mg/dL Glucose 80 (75-100) mg/dL Calcium 9.5 (8.4-10.2) mg/dL
--- NOTE | 2021-11-19 20:05 | Progress Note ---
Assessment and Plan Assessment and plan: 66-year-old -[place] male patient with significant past medical history of CHFrEF 15%, COPD, hypertension recent, Positive COVID-19 who is recently discharged after being treated for COVID19 was brought to the emergency room by EMS with altered level of consciousness. Initial evaluation is consistent with A. fib with rapid ventricular rate, Lactic acidosis, leukocytosis probably secondary to recent steroid use. Chest x-ray mild increased interstitial prominence within the lung, left slightly greater than right, CT head , no acute abnormality noted. Assessment and Plan: #Altered level of consciousness /acute metabolic encephalopathy/acute delirium - present on admission - Intermittent confusion now worsening. Possibly metabolic in a patient with underlying dementia. - Recent COVID-19, possible psych disorder - CT head negative for acute abnormality - MR brain ordered Psychiatry consulted Neurology consulted #A. fib with rapid ventricular rate; - Patient received IV Cardizem no response - S/p Cardizem drip per protocol, now on iv metoprolol - Lovenox full dose, transition to Eliquis when stable Cardiology following #Dilated cardiomyopathy -Noted by echocardiogram obtained by cardiology Guideline directed medical therapy # Acute hypoxic respiratory failure, likely from underlying h/o COVID pna and CHF -Patient on 2-4L n/c O2 #Leukocytosis; - Probably secondary to steroids, recent COVID-19 infection - Evaluate for sepsis #Lactic acidosis; trend lactic acid - Leukocytosis, empiric Rocephin - Cultures #Acute kidney injury; - Vasomotor nephropathy, gentle hydration - monitor renal function, avoid nephrotoxins - Renal dosing of medications - consult placed to nephrology due to worsening renal fx. #Dehydration with hypernatremia; gentle hydration IV fluids #Recent COVID-19 infection; Continue low-dose dexamethasone for total 10 days #DVT prophylaxis; Patient is on full dose anticoagulation with Lovenox #Advance care planning Disease education conducted, care plan discussed, diagnoses discussed, prognosis discussed, patient is full code, patient acknowledges understanding and agree with care plan, +30 minutes. -- Full CODE STATUS We will closely monitor the patient and adjust management as needed Plan of care reviewed with the patient and her nurse Hospital Course: 11/12/2021: Placed on amiodorone and Lovenox by cardiology. Agree with cardiology that patient will likely not be amenable to anticoagulation if he is not in a supervised facility. Psychiatry recommendations noted. Once patient is off diltiazem drip can be downgraded to medical floor. 11/13/2021: Patient remains altered on my exam. Barely opening eyes upon sternal rub however he is protecting his airway. Consulted neurology for evaluation Worsening renal function, nephrology consulted. Cardiology noted DCMP on echo, will initiated guideline directed therapy. Off of amiodorone gtt, now on po amiodorone and metoprolol however doubt his ability to swallow given mental status. Sedative d/c and ST consulted. If patient able to tolerate po, will downgrade to tele bed. 11/14/21: Resumed care, patient restrained, very confused, follow renal function, p on 2-4 n/c O2. 11/15/21: remains agitated, confused. monitor Na and Cr level. patient recorded as homeless, cont iv fluid, wean off o2. cont supportive care, psych following. MRI/EEG pending 11/16/21: cont to follow BMP -Na Cr remains elevated, pt confused, MRI/EEG pending. supportive care , clinically unchanged, Cr, Na still elevated, cont iv fluid, follow psych and renal recommendation. cont supportive care 11/18/21: remains agitated and confused requiring restraint. cont iv meds and change to oral route when clinically improves. follow BMP, MRI brain /EEG pending 11/19/2019; patient continues to be encephalopathic and restless requiring restr aints Unable to get MRI EEG done due to agitation History Interval history: I have seen and examined the patient at the bedside Patient's chart and medications reviewed Patient is confused agitated requiring restraints for safety No new events reported by the nursing Not in acute distress Hospitalist Physical - Constitutional Vitals: Temp Pulse Resp BP Pulse Ox 97.4 F L 72 20 151/98 100 11/19/21 17:16 11/19/21 17:16 11/19/21 17:16 11/19/21 17:16 11/19/21 17:16 General appearance: Present: no acute distress, well-nourished - EENT Eyes: Present: PERRL, EOM intact - Neck Neck: Present: supple, normal ROM - Respiratory Respiratory effort: normal Respiratory: bilateral: diminished, negative: rales, rhonchi, wheezing - Cardiovascular Rhythm: regular Heart Sounds: Present: S1 & S2 - Extremities Extremities: no ischemia, No edema (Also eating) - Abdominal General gastrointestinal: soft, non-tender, non-distended, normal bowel sounds ( and now) - Integumentary Integumentary: Present: clear, warm - Psychiatric Psychiatric: appropriate mood/affect, cooperative - Neurologic Neurologic: CNII-XII intact, moves all extremities HEART Score - HEART Score Troponin: Troponin T 0.013 ng/mL (0.00-0.029) 11/11/21 09:13 Results - Labs CBC & Chem 7: 11/13/21 05:36 11/19/21 07:04 Labs: Laboratory Last Values WBC 11.5 K/mm3 (4.5-11.0) H 11/13/21 05:36 RBC 5.06 M/mm3 (3.65-5.03) H 11/13/21 05:36 Hgb 13.4 gm/dl (11.8-15.2) 11/13/21 05:36 Hct 42.9 % (35.5-45.6) 11/13/21 05:36 MCV 85 fl (84-94) 11/13/21 05:36 MCH 26 pg (28-32) L 11/13/21 05:36 MCHC 31 % (32-34) L 11/13/21 05:36 RDW 17.8 % (13.2-15.2) H 11/13/21 05:36 Plt Count 237 K/mm3 (140-440) 11/13/21 05:36 Lymph % (Auto) 7.4 % (13.4-35.0) L 11/11/21 09:13 [place] % (Auto) 6.1 % (0.0-7.3) 11/11/21 09:13 Eos % (Auto) 0.1 % (0.0-4.3) 11/11/21 09:13 Baso % (Auto) 0.1 % (0.0-1.8) 11/11/21 09:13 Lymph # (Auto) 0.9 K/mm3 (1.2-5.4) L 11/11/21 09:13 [place] # (Auto) 0.8 K/mm3 (0.0-0.8) 11/11/21 09:13 Eos # (Auto) 0.0 K/mm3 (0.0-0.4) 11/11/21 09:13 Baso # (Auto) 0.0 K/mm3 (0.0-0.1) 11/11/21 09:13 Add Manual Diff Complete 11/13/21 05:36 Total Counted 100 11/13/21 05:36 Seg Neutrophils % 86.3 % (40.0-70.0) H 11/11/21 09:13 Seg Neuts % (Manual) 88.0 % (40.0-70.0) H 11/13/21 05:36 Band Neutrophils % 0 % 11/13/21 05:36 Lymphocytes % (Manual) 9.0 % (13.4-35.0) L 11/13/21 05:36 Reactive Lymphs % (Man) 0 % 11/13/21 05:36 Monocytes % (Manual) 3.0 % (0.0-7.3) 11/13/21 05:36 Eosinophils % (Manual) 0 % (0.0-4.3) 11/13/21 05:36 Basophils % (Manual) 0 % (0.0-1.8) 11/13/21 05:36 Metamyelocytes % 0 % 11/13/21 05:36 Myelocytes % 0 % 11/13/21 05:36 Promyelocytes % 0 % 11/13/21 05:36 Blast Cells % 0 % 11/13/21 05:36 Nucleated RBC % Not Reportable 11/13/21 05:36 Seg Neutrophils # 10.8 K/mm3 (1.8-7.7) H 11/11/21 09:13 Seg Neutrophils # Man 10.1 K/mm3 (1.8-7.7) H 11/13/21 05:36 Band Neutrophils # 0.0 K/mm3 11/13/21 05:36 Lymphocytes # (Manual) 1.0 K/mm3 (1.2-5.4) L 11/13/21 05:36 Abs React Lymphs (Man) 0.0 K/mm3 11/13/21 05:36 Monocytes # (Manual) 0.3 K/mm3 (0.0-0.8) 11/13/21 05:36 Eosinophils # (Manual) 0.0 K/mm3 (0.0-0.4) 11/13/21 05:36 Basophils # (Manual) 0.0 K/mm3 (0.0-0.1) 11/13/21 05:36 Metamyelocytes # 0.0 K/mm3 11/13/21 05:36 Myelocytes # 0.0 K/mm3 11/13/21 05:36 Promyelocytes # 0.0 K/mm3 11/13/21 05:36 Blast Cells # 0.0 K/mm3 11/13/21 05:36 WBC Morphology Not Reportable 11/13/21 05:36 Hypersegmented Neuts Not Reportable 11/13/21 05:36 Hyposegmented Neuts Not Reportable 11/13/21 05:36 Hypogranular Neuts Not Reportable 11/13/21 05:36 Smudge Cells Not Reportable 11/13/21 05:36 Toxic Granulation Not Reportable 11/13/21 05:36 Toxic Vacuolation Not Reportable 11/13/21 05:36 Dohle Bodies Not Reportable 11/13/21 05:36 Pelger-Huet Anomaly Not Reportable 11/13/21 05:36 Kristina Rods Not Reportable 11/13/21 05:36 Platelet Estimate Consistent w auto 11/13/21 05:36 Clumped Platelets Not Reportable 11/13/21 05:36 Plt Clumps, EDTA Not Reportable 11/13/21 05:36 Large Platelets Not Reportable 11/13/21 05:36 Giant Platelets Not Reportable 11/13/21 05:36 Platelet Satelliting Not Reportable 11/13/21 05:36 Plt Morphology Comment Not Reportable 11/13/21 05:36 RBC Morphology Not Reportable 11/13/21 05:36 Dimorphic RBCs Not Reportable 11/13/21 05:36 Polychromasia Not Reportable 11/13/21 05:36 Hypochromasia Not Reportable 11/13/21 05:36 Poikilocytosis Few 11/13/21 05:36 Anisocytosis 1+ 11/13/21 05:36 Microcytosis Not Reportable 11/13/21 05:36 Macrocytosis Few 11/13/21 05:36 Spherocytes Not Reportable 11/13/21 05:36 Pappenheimer Bodies Not Reportable 11/13/21 05:36 Sickle Cells Not Reportable 11/13/21 05:36 Target Cells Not Reportable 11/13/21 05:36 Tear Drop Cells Not Reportable 11/13/21 05:36 Ovalocytes Not Reportable 11/13/21 05:36 Helmet Cells Not Reportable 11/13/21 05:36 [place] Bodies Not Reportable 11/13/21 05:36 [place] Rings Not Reportable 11/13/21 05:36 Mohan Cells Not Reportable 11/13/21 05:36 Bite Cells Not Reportable 11/13/21 05:36 Crenated Cell Not Reportable 11/13/21 05:36 Elliptocytes Not Reportable 11/13/21 05:36 Acanthocytes (Spur) Not Reportable 11/13/21 05:36 Rouleaux Not Reportable 11/13/21 05:36 Hemoglobin C Crystals Not Reportable 11/13/21 05:36 Schistocytes Not Reportable 11/13/21 05:36 Malaria parasites Not Reportable 11/13/21 05:36 Fili Bodies Not Reportable 11/13/21 05:36 Hem Pathologist Commnt No 11/13/21 05:36 PT 17.3 Sec. (12.2-14.9) H 11/11/21 09:13 INR 1.28 (0.87-1.13) H 11/11/21 09:13 APTT 32.6 Sec. (24.2-36.6) 11/11/21 09:13 Sodium 153 mmol/L (137-145) H 11/19/21 07:04 Potassium 4.8 mmol/L (3.6-5.0) 11/19/21 07:04 Chloride 118.4 mmol/L (98-107) H 11/19/21 07:04 Carbon Dioxide 17 mmol/L (22-30) L 11/19/21 07:04 Anion Gap 22 mmol/L 11/19/21 07:04 BUN 38 mg/dL (9-20) H 11/19/21 07:04 Creatinine 1.6 mg/dL (0.8-1.3) H 11/19/21 07:04 Estimated GFR 53 ml/min 11/19/21 07:04 BUN/Creatinine Ratio 24 % 11/19/21 07:04 Glucose 80 mg/dL (75-100) 11/19/21 07:04 POC Glucose 93 mg/dL (70-105) 11/13/21 07:56 Lactic Acid 4.20 mmol/L (0.7-2.0) H* 11/12/21 02:18 Calcium 9.5 mg/dL (8.4-10.2) 11/19/21 07:04 Magnesium 2.50 mg/dL (1.7-2.3) H 11/11/21 09:13 Total Bilirubin 2.30 mg/dL (0.1-1.2) H 11/13/21 05:36 AST 42 units/L (5-40) H 11/13/21 05:36 ALT 55 units/L (7-56) 11/13/21 05:36 Alkaline Phosphatase 126 units/L (35-129) 11/13/21 05:36 Ammonia 14.0 umol/L (25-60) L 11/11/21 09:13 Total Creatine Kinase 85 units/L (55-170) 11/11/21 09:13 Troponin T 0.013 ng/mL (0.00-0.029) 11/11/21 09:13 Serum Total Protein 7.4 g/dL (6.1-8.1) 11/14/21 06:34 Total Protein 7.6 g/dL (6.3-8.2) 11/13/21 05:36 Albumin 3.1 g/dL (3.8-4.8) L 11/14/21 06:34 Albumin/Globulin Ratio 0.9 % 11/13/21 05:36 Pastz-3-Gslwjwgxa 0.4 g/dL (0.2-0.3) H 11/14/21 06:34 Fpplg-6-Ijllignax 0.9 g/dL (0.5-0.9) 11/14/21 06:34 Beta Globulins 0.5 g/dL (0.2-0.5) 11/14/21 06:34 Gamma Globulins 2.1 g/dL (0.8-1.7) H 11/14/21 06:34 Abnorm Protein Band 1 see below 11/14/21 06:34 PEP Interpretation see below H 11/14/21 06:34 TSH 3.100 mlU/mL (0.270-4.200) 11/12/21 13:56 Urine Color Yellow (Yellow) 11/14/21 05:15 Urine Turbidity Slightly-cloudy (Clear) 11/14/21 05:15 Urine pH 5.0 (5.0-7.0) 11/14/21 05:15 Ur Specific [place] 1.017 (1.003-1.030) 11/14/21 05:15 Urine Protein 30 mg/dl mg/dL (Negative) 11/14/21 05:15 Urine Glucose (UA) Neg mg/dL (Negative) 11/14/21 05:15 Urine Ketones Tr mg/dL (Negative) 11/14/21 05:15 Urine Blood Neg (Negative) 11/14/21 05:15 Urine Nitrite Neg (Negative) 11/14/21 05:15 Urine Bilirubin Neg (Negative) 11/14/21 05:15 Urine Urobilinogen 4.0 mg/dL (<2.0) 11/14/21 05:15 Ur Leukocyte Esterase Neg (Negative) 11/14/21 05:15 Urine WBC (Auto) 1.0 /HPF (0.0-6.0) 11/14/21 05:15 Urine RBC (Auto) 1.0 /HPF (0.0-6.0) 11/14/21 05:15 U Epithel Cells (Auto) < 1.0 /HPF (0-13.0) 11/14/21 05:15 Urine Bacteria (Auto) 1+ /HPF (Negative) 11/11/21 Unknown Hyaline Casts 2 /LPF 11/11/21 Unknown Urine Mucus Few /HPF 11/14/21 05:15 Urine Creatinine < 4.2 mg/dL (0.1-20.0) 11/14/21 05:15 Urine Sodium 10 mmol/L 11/14/21 05:15 Salicylates < 0.3 mg/dL (2.8-20.0) L 11/11/21 09:13 Acetaminophen 5.0 ug/mL (10.0-30.0) L 11/11/21 09:13 Plasma/Serum Alcohol < 0.01 % (0-0.07) 11/11/21 09:13 Proteinase 3 (PR3) Ab <1.0 AI (<1.0) 11/14/21 06:34 Myeloperoxidase Ab <1.0 AI (<1.0) 11/14/21 06:34 Complement C3 111 mg/dL (82-185) 11/14/21 06:34 Complement C4 21 mg/dL (15-53) 11/14/21 06:34 Coronavirus (PCR) Positive (Negative) A 11/14/21 08:40 Ibarra/IV: Voiding Method Incontinent Active Medications - Current Medications Current Medications: Generic Name Dose Route Start Last Admin Trade Name Freq PRN Reason Stop Dose Admin Acetaminophen 650 mg 11/12/21 01:58 Acetaminophen 325 Mg Tab PO Q6H PRN Pain MILD(1-3)/Fever >100.5/SMYTH Enoxaparin Sodium 90 mg 11/15/21 10:00 11/19/21 11:31 Enoxaparin 100 Mg/1 Ml Inj 1 mg/kg (90 mg) 90 mg SUB-Q Administration Q12HR JENNY Protocol Dextrose 1,000 mls @ 100 mls/hr 11/16/21 13:00 11/19/21 01:20 D5w IV 100 mls/hr DIRECT JENNY Administration Lorazepam 2 mg 11/13/21 20:23 11/18/21 20:25 Lorazepam 2 Mg/Ml Vial IV 2 mg Q4H PRN Administration Agitation Metoprolol Tartrate 5 mg 11/13/21 18:00 11/19/21 11:32 Metoprolol Tartrate 5 Mg/5 Ml Inj IV 5 mg Q6HR JENNY Administration Morphine Sulfate 2 mg 11/12/21 01:58 Morphine 2 Mg/1 Ml Inj IV Q4H PRN Pain, Moderate (4-6) Morphine Sulfate 4 mg 11/12/21 01:58 Morphine 4 Mg/1 Ml Inj IV Q4H PRN Pain , Severe (7-10) Pantoprazole Sodium 40 mg 11/12/21 07:30 11/19/21 11:31 Pantoprazole 40 Mg Tab PO 40 mg QDAC JENNY Administration Sodium Chloride 10 ml 11/18/21 14:32 Sodium Chloride 0.9% 50 Ml Ivpb IV PRN PRN FLUSH Nutrition/Malnutrition Assess - Dietary Evaluation Nutrition/Malnutrition Findings: Nutrition Notes Start: 11/19/21 16:27 Freq: Status: Active Protocol: Document 11/19/21 16:27 JOSE A (Rec: 11/19/21 16:38 JOSE A [id number]) Nutrition Notes Current Diagnosis Acute Kidney Injury Other Pertinent Diagnosis COVID-19, Cardiomyopathy, Encephalopathy, Atrial fibrilation. Current Diet Regular Diet (since D 11/11). Labs/Tests 11/19: Na 153, Cl 118.4, CO2 17, BUN 38, Crea 1.6. Pertinent Medications 11/19: Nutritionally unremarkable. Height 6 ft 2 in Weight 86.183 kg [place] Body Weight (kg) 86.36 BMI 24.3 Weight change and time frame None reported at admission. Weight Status Appropriate Subjective/Other Information RD consult for LOS assessment. No report available on Pt's PO intake of meals at the time. Percent of energy/protein needs met: Prescribed Regular Diet provides for energy/protein needs (2,289 Kcal/89 g) during LOS. Burn Absent Trauma Absent GI Symptoms None Food Allergy No Skin Integrity/Comment Clear, warm, dry. Minimum of two criteria No Is patient on ventilator? No Is Patient Ambulatory and/or Out of Bed No REE-([facility]-confined to bed) 2070.008 Calculation Used for Recommendations 70-80% of EEN Additional Notes 15-20 Kcal/Kg ABW (2739-6666 Kcal). Protein: 1.2-2 g/Kg; 83-138 g/ day. Fluids: 1 ml/Kcal, or as per MD. Nutrition Intervention Follow-Up By: 11/26/21 Additional Comments Continue monitoring food tolerance, %PO intake of meals , and BM.
[2021-11-19] MEDS: LORazepam 2 MG/ML VIAL IV PRN (20:48)
[2021-11-20] MEDS: METOPROLOL TARTRATE 5 MG/5 ML INJ IV SCH ×2 (00:55→05:34)
[2021-11-20] MEDS: LORazepam 2 MG/ML VIAL IV PRN ×3 (01:55→20:42)
[2021-11-20] MEDS: MORPHINE 4 MG/1 ML INJ IV PRN ×3 (05:28→22:18)
[2021-11-20] MEDS: DEXTROSE 5% IN WATER 1,000 ML IV SCH ×2 (05:34→17:06)
[2021-11-20] MEDS: ENOXAPARIN 100 MG/1 ML INJ SUB-Q SCH (10:25)
[2021-11-20 10:50] LABS: Calcium 9.2 mg/dL (8.4-10.2)
--- NOTE | 2021-11-20 11:24 | Progress Note ---
Assessment and Plan Impression: * Acute kidney injury secondary to prerenal azotemia due to hypoperfusion due to afib w/ RVR, hypotension --UA w/ ketones and Quynh 10 - suggestive of volume depletion --Renal ultrasound: right 11.4cm, left 12.3cm; no hydro * Atrial fibrillation with RVR * Acute encephalopathy * Cardiomyopathy - LVEF 10% * Recent COVID 19 infection * Anemia * Metabolic acidosis Plan: * Hypernatremia was worsening 154->147->148->153, did improve to 147 * SCr did increase from 1.6->1.9 * Continue IVF - D5W 100ml/hour as tolerated for now, encourage free water intake as able. If creatinine continues to trend up, may need to change IVF to include NS or 1/2NS, hold for now * No acute need for renal replacement therapy * Rate control per cardiology * Await pending serologic work up- ANCA negative, Complements WNL * Dose medications for renal function * Avoid potential nephrotoxins Subjective Date of service: 11/20/21 Principal diagnosis: encephalopathy,AF,COVID-19 Interval history: Chart,vitals,labs reviewed Objective - Exam Narrative Exam: In effort to reduce transmission of COVID 19 in setting of pandemic, physical exam deferred. - Vital Signs Vital signs: Vital Signs - 12hr 11/20/21 05:34 Temperature 98.7 F Pulse Rate 57 L Respiratory 24 Rate Blood Pressure 132/102 O2 Sat by Pulse 92 Oximetry - Lab 11/13/21 05:36 11/20/21 09:59 Most recent lab results Calcium 9.2 mg/dL (8.4-10.2) 11/20/21 09:59 Magnesium 2.50 mg/dL (1.7-2.3) H 11/11/21 09:13 Urine Creatinine < 4.2 mg/dL (0.1-20.0) 11/14/21 05:15 Urine Sodium 10 mmol/L 11/14/21 05:15 Medications & Allergies - Medications Allergies/Adverse Reactions: Allergies No Known Allergies Allergy (Verified 11/03/21 18:59) Home Medications: Home Medications Medication Instructions Recorded Confirmed Last Taken Type NIFEdipine XL [Procardia Xl] 30 mg PO QDAY #30 tablet 11/07/21 11/14/21 Unknown Rx dexAMETHasone [Dexamethasone] 4 mg PO DAILY #10 tab 11/07/21 11/14/21 Unknown Rx Active Medications: Generic Name Dose Route Start Last Admin Trade Name Freq PRN Reason Stop Dose Admin Acetaminophen 650 mg 11/12/21 01:58 Acetaminophen 325 Mg Tab PO Q6H PRN Pain MILD(1-3)/Fever >100.5/SMYTH Enoxaparin Sodium 90 mg 11/15/21 10:00 11/20/21 10:25 Enoxaparin 100 Mg/1 Ml Inj 1 mg/kg (90 mg) 90 mg SUB-Q Administration Q12HR JENNY Protocol Dextrose 1,000 mls @ 100 mls/hr 11/16/21 13:00 11/20/21 05:34 D5w IV 100 mls/hr DIRECT JENNY Administration Lorazepam 2 mg 11/13/21 20:23 11/20/21 07:28 Lorazepam 2 Mg/Ml Vial IV 2 mg Q4H PRN Administration Agitation Metoprolol Tartrate 5 mg 11/13/21 18:00 11/20/21 05:34 Metoprolol Tartrate 5 Mg/5 Ml Inj IV 5 mg Q6HR JENNY Administration Morphine Sulfate 2 mg 11/12/21 01:58 Morphine 2 Mg/1 Ml Inj IV Q4H PRN Pain, Moderate (4-6) Morphine Sulfate 4 mg 11/12/21 01:58 11/20/21 10:25 Morphine 4 Mg/1 Ml Inj IV 4 mg Q4H PRN Administration Pain , Severe (7-10) Pantoprazole Sodium 40 mg 11/12/21 07:30 11/19/21 11:31 Pantoprazole 40 Mg Tab PO 40 mg QDAC JENNY Administration Sodium Chloride 10 ml 11/18/21 14:32 Sodium Chloride 0.9% 50 Ml Ivpb IV PRN PRN FLUSH
--- NOTE | 2021-11-20 13:03 | Progress Note ---
Assessment and Plan - Patient Problems (1) Paroxysmal atrial fibrillation Current Visit: Yes Status: Acute Plan to address problem: Patient with COPD and recent COVID infection, presented with palpitations and new onset rapid atrial fibrillation. His atrial fibrillation has reverted to sinus rhythm on medical therapy and has been in stable sinus rhythm for the past 10 days of hospitalization. We will switch to oral metoprolol, and start Eliquis for anticoagulation. (2) Dilated cardiomyopathy Current Visit: Yes Status: Acute Plan to address problem: We found a severe four-chamber dilated cardiomyopathy, of uncertain chronicity. We will start guideline directed medical therapy with BiDil and continue metoprolol. His recent chemistry numbers show a prerenal azotemia, so I will hold off on diuretics, spironolactone, TREV or ARB at this time. Subjective Date of service: 11/20/21 Principal diagnosis: encephalopathy,AF,COVID-19 Interval history: Patient is comfortable, no acute distress. No new cardiac events reported. On telemetry monitoring he has a stable sinus rhythm 85. Patient still confused on four-point restraints, but is reported by the primary medicine service to be able to take oral medications. Objective Vital Signs Temp Pulse Resp BP Pulse Ox 11/20/21 08:33 97.8 F 66 21 134/101 95 11/20/21 05:34 98.7 F 57 L 24 132/102 92 11/19/21 22:16 93 11/19/21 22:04 98.2 F 20 130/105 11/19/21 22:00 95 11/19/21 17:16 97.4 F L 72 20 151/98 100 - Physical Examination General: No Apparent Distress, Cachectic, Other (Mildly confused) HEENT: Positive: PERRL Neck: Positive: neck supple Cardiac: Positive: Reg Rate and Rhythm Lungs: Positive: Decreased Breath Sounds Neuro: Positive: Grossly Intact Abdomen: Positive: Soft Skin: Positive: Clear Extremities: Absent: edema - Labs and Meds Comprehensive Metabolic Panel 11/20/21 Range/Units 09:59 Sodium 147 H (137-145) mmol/L Potassium 4.9 (3.6-5.0) mmol/L Chloride 114.2 H (98-107) mmol/L Carbon Dioxide 18 L (22-30) mmol/L BUN 41 H (9-20) mg/dL Creatinine 1.9 H (0.8-1.3) mg/dL Glucose 112 H (75-100) mg/dL Calcium 9.2 (8.4-10.2) mg/dL
--- NOTE | 2021-11-20 13:17 | Progress Note ---
Assessment and Plan Assessment and plan: 66-year-old -[place] male patient with significant past medical history of CHFrEF 15%, COPD, hypertension recent, Positive COVID-19 who is recently discharged after being treated for COVID19 was brought to the emergency room by EMS with altered level of consciousness. Initial evaluation is consistent with A. fib with rapid ventricular rate, Lactic acidosis, leukocytosis probably secondary to recent steroid use. Chest x-ray mild increased interstitial prominence within the lung, left slightly greater than right, CT head , no acute abnormality noted. Assessment and Plan: COVID-19 test is positive 11/04/2021 and 11/14/2021 --Acute metabolic encephalopathy/acute delirium - present on admission - Intermittent confusion now worsening. Possibly metabolic in a patient with underlying dementia. - Recent COVID-19, possible psych disorder - CT head negative for acute abnormality, EEG normal study - MR brain ordered pending Psychiatry evaluated , did not need inpatient psych management Psych feels that patient symptom due to medical condition Neurology following --A. fib with rapid ventricular rate; currently rate controlled s/p IV Cardizem, IV metoprolol Currently on oral metoprolol 25 mg twice a day. --Chronic anticoagulation/atrial fibrillation - Lovenox full dose, transition to Eliquis Cardiology following --Dilated cardiomyopathy; EF 10% Noted by echocardiogram obtained by cardiology Guideline directed medical therapy Echo: LV ejection fraction 10% Dilated left ventricle severe global hypokinesis severe diastolic dysfunction LVEF 10% -- Acute hypoxic respiratory failure: likely from underlying h/o COVID pna and CHF Continue supplemental oxygen likely from underlying h/o COVID pna and CHF Patient on 2-4L n/c O2 --Leukocytosis; Probably secondary to steroids, recent COVID-19 infection Closely monitor trend lactic acid --Acute kidney injury; - Vasomotor nephropathy, gentle hydration - monitor renal function, avoid nephrotoxins - Renal dosing of medications - consult placed to nephrology due to worsening renal fx. --Recent COVID-19 infection; Continue low-dose dexamethasone for total 10 days --DVT prophylaxis; Patient is on full dose anticoagulation with Lovenox --Advance care planning Disease education conducted, care plan discussed, diagnoses discussed, prognosis discussed, patient is full code, patient acknowledges understanding and agree with care plan, +30 minutes. -- Full CODE STATUS We will closely monitor the patient and adjust management as needed Plan of care reviewed with the patient and her nurse Hospital Course: 11/12/2021: Placed on amiodorone and Lovenox by cardiology. Agree with cardiology that patient will likely not be amenable to anticoagulation if he is not in a supervised facility. Psychiatry recommendations noted. Once patient is off diltiazem drip can be downgraded to medical floor. 11/13/2021: Patient remains altered on my exam. Barely opening eyes upon sternal rub however he is protecting his airway. Consulted neurology for evaluation Worsening renal function, nephrology consulted. Cardiology noted DCMP on echo, will initiated guideline directed therapy. Off of amiodorone gtt, now on po amiodorone and metoprolol however doubt his ability to swallow given mental status. Sedative d/c and ST consulted. If patient able to tolerate po, will downgrade to tele bed. 11/14/21: Resumed care, patient restrained, very confused, follow renal function, p on 2-4 n/c O2. 11/15/21: remains agitated, confused. monitor Na and Cr level. patient recorded as homeless, cont iv fluid, wean off o2. cont supportive care, psych following. MRI/EEG pending 11/16/21: cont to follow BMP -Na Cr remains elevated, pt confused, MRI/EEG pending. supportive care , clinically unchanged, Cr, Na still elevated, cont iv fluid, follow psych and renal recommendation. cont supportive care 11/18/21: remains agitated and confused requiring restraint. cont iv meds and change to oral route when clinically improves. follow BMP, MRI brain /EEG pending 11/19/21; patient continues to be encephalopathic and restless requiring restraints Unable to get MRI EEG done due to agitation 11/20/21; patient feels slightly better today, continues to be agitated requiring restraints Speech therapist cleared for regular diet, as patient is lethargic and agitated and confused need to be fed by the nurse or the tech, cardiology transition Subcu Lovenox to oral Eliquis History Interval history: I have seen and examined the patient at the bedside Patient's chart and medications reviewed Patient remains agitated intermittently requiring restraints Speech therapy evaluated the patient on 11/18/2021 advised to continue regular diet No new overnight events reported by the nursing Vital signs noted Hospitalist Physical - Constitutional Vitals: Temp Pulse Resp BP Pulse Ox 97.8 F 66 21 134/101 95 11/20/21 08:33 11/20/21 08:33 11/20/21 08:33 11/20/21 08:33 11/20/21 08:33 General appearance: Present: no acute distress, well-nourished - EENT Eyes: Present: PERRL, EOM intact - Neck Neck: Present: supple, normal ROM - Respiratory Respiratory effort: normal Respiratory: bilateral: diminished, negative: rales, rhonchi, wheezing - Cardiovascular Rhythm: regular Heart Sounds: Present: S1 & S2 - Extremities Extremities: no ischemia, No edema - Abdominal General gastrointestinal: soft, non-tender, non-distended, normal bowel sounds - Integumentary Integumentary: Present: clear, warm - Psychiatric Psychiatric: agitated, other - Neurologic Neurologic: moves all extremities, other (Confused and minimally communicative) HEART Score - HEART Score Troponin: Troponin T 0.013 ng/mL (0.00-0.029) 11/11/21 09:13 Results - Labs CBC & Chem 7: 11/20/21 14:06 11/20/21 14:06 Labs: Laboratory Last Values WBC 11.5 K/mm3 (4.5-11.0) H 11/13/21 05:36 RBC 5.06 M/mm3 (3.65-5.03) H 11/13/21 05:36 Hgb 13.4 gm/dl (11.8-15.2) 11/13/21 05:36 Hct 42.9 % (35.5-45.6) 11/13/21 05:36 MCV 85 fl (84-94) 11/13/21 05:36 MCH 26 pg (28-32) L 11/13/21 05:36 MCHC 31 % (32-34) L 11/13/21 05:36 RDW 17.8 % (13.2-15.2) H 11/13/21 05:36 Plt Count 237 K/mm3 (140-440) 11/13/21 05:36 Lymph % (Auto) 7.4 % (13.4-35.0) L 11/11/21 09:13 [place] % (Auto) 6.1 % (0.0-7.3) 11/11/21 09:13 Eos % (Auto) 0.1 % (0.0-4.3) 11/11/21 09:13 Baso % (Auto) 0.1 % (0.0-1.8) 11/11/21 09:13 Lymph # (Auto) 0.9 K/mm3 (1.2-5.4) L 11/11/21 09:13 [place] # (Auto) 0.8 K/mm3 (0.0-0.8) 11/11/21 09:13 Eos # (Auto) 0.0 K/mm3 (0.0-0.4) 11/11/21 09:13 Baso # (Auto) 0.0 K/mm3 (0.0-0.1) 11/11/21 09:13 Add Manual Diff Complete 11/13/21 05:36 Total Counted 100 11/13/21 05:36 Seg Neutrophils % 86.3 % (40.0-70.0) H 11/11/21 09:13 Seg Neuts % (Manual) 88.0 % (40.0-70.0) H 11/13/21 05:36 Band Neutrophils % 0 % 11/13/21 05:36 Lymphocytes % (Manual) 9.0 % (13.4-35.0) L 11/13/21 05:36 Reactive Lymphs % (Man) 0 % 11/13/21 05:36 Monocytes % (Manual) 3.0 % (0.0-7.3) 11/13/21 05:36 Eosinophils % (Manual) 0 % (0.0-4.3) 11/13/21 05:36 Basophils % (Manual) 0 % (0.0-1.8) 11/13/21 05:36 Metamyelocytes % 0 % 11/13/21 05:36 Myelocytes % 0 % 11/13/21 05:36 Promyelocytes % 0 % 11/13/21 05:36 Blast Cells % 0 % 11/13/21 05:36 Nucleated RBC % Not Reportable 11/13/21 05:36 Seg Neutrophils # 10.8 K/mm3 (1.8-7.7) H 11/11/21 09:13 Seg Neutrophils # Man 10.1 K/mm3 (1.8-7.7) H 11/13/21 05:36 Band Neutrophils # 0.0 K/mm3 11/13/21 05:36 Lymphocytes # (Manual) 1.0 K/mm3 (1.2-5.4) L 11/13/21 05:36 Abs React Lymphs (Man) 0.0 K/mm3 11/13/21 05:36 Monocytes # (Manual) 0.3 K/mm3 (0.0-0.8) 11/13/21 05:36 Eosinophils # (Manual) 0.0 K/mm3 (0.0-0.4) 11/13/21 05:36 Basophils # (Manual) 0.0 K/mm3 (0.0-0.1) 11/13/21 05:36 Metamyelocytes # 0.0 K/mm3 11/13/21 05:36 Myelocytes # 0.0 K/mm3 11/13/21 05:36 Promyelocytes # 0.0 K/mm3 11/13/21 05:36 Blast Cells # 0.0 K/mm3 11/13/21 05:36 WBC Morphology Not Reportable 11/13/21 05:36 Hypersegmented Neuts Not Reportable 11/13/21 05:36 Hyposegmented Neuts Not Reportable 11/13/21 05:36 Hypogranular Neuts Not Reportable 11/13/21 05:36 Smudge Cells Not Reportable 11/13/21 05:36 Toxic Granulation Not Reportable 11/13/21 05:36 Toxic Vacuolation Not Reportable 11/13/21 05:36 Dohle Bodies Not Reportable 11/13/21 05:36 Pelger-Huet Anomaly Not Reportable 11/13/21 05:36 Kristina Rods Not Reportable 11/13/21 05:36 Platelet Estimate Consistent w auto 11/13/21 05:36 Clumped Platelets Not Reportable 11/13/21 05:36 Plt Clumps, EDTA Not Reportable 11/13/21 05:36 Large Platelets Not Reportable 11/13/21 05:36 Giant Platelets Not Reportable 11/13/21 05:36 Platelet Satelliting Not Reportable 11/13/21 05:36 Plt Morphology Comment Not Reportable 11/13/21 05:36 RBC Morphology Not Reportable 11/13/21 05:36 Dimorphic RBCs Not Reportable 11/13/21 05:36 Polychromasia Not Reportable 11/13/21 05:36 Hypochromasia Not Reportable 11/13/21 05:36 Poikilocytosis Few 11/13/21 05:36 Anisocytosis 1+ 11/13/21 05:36 Microcytosis Not Reportable 11/13/21 05:36 Macrocytosis Few 11/13/21 05:36 Spherocytes Not Reportable 11/13/21 05:36 Pappenheimer Bodies Not Reportable 11/13/21 05:36 Sickle Cells Not Reportable 11/13/21 05:36 Target Cells Not Reportable 11/13/21 05:36 Tear Drop Cells Not Reportable 11/13/21 05:36 Ovalocytes Not Reportable 11/13/21 05:36 Helmet Cells Not Reportable 11/13/21 05:36 [place] Bodies Not Reportable 11/13/21 05:36 [place] Rings Not Reportable 11/13/21 05:36 Mohan Cells Not Reportable 11/13/21 05:36 Bite Cells Not Reportable 11/13/21 05:36 Crenated Cell Not Reportable 11/13/21 05:36 Elliptocytes Not Reportable 11/13/21 05:36 Acanthocytes (Spur) Not Reportable 11/13/21 05:36 Rouleaux Not Reportable 11/13/21 05:36 Hemoglobin C Crystals Not Reportable 11/13/21 05:36 Schistocytes Not Reportable 11/13/21 05:36 Malaria parasites Not Reportable 11/13/21 05:36 Fili Bodies Not Reportable 11/13/21 05:36 Hem Pathologist Commnt No 11/13/21 05:36 PT 17.3 Sec. (12.2-14.9) H 11/11/21 09:13 INR 1.28 (0.87-1.13) H 11/11/21 09:13 APTT 32.6 Sec. (24.2-36.6) 11/11/21 09:13 Sodium 147 mmol/L (137-145) H 11/20/21 09:59 Potassium 4.9 mmol/L (3.6-5.0) 11/20/21 09:59 Chloride 114.2 mmol/L (98-107) H 11/20/21 09:59 Carbon Dioxide 18 mmol/L (22-30) L 11/20/21 09:59 Anion Gap 20 mmol/L 11/20/21 09:59 BUN 41 mg/dL (9-20) H 11/20/21 09:59 Creatinine 1.9 mg/dL (0.8-1.3) H 11/20/21 09:59 Estimated GFR 43 ml/min 11/20/21 09:59 BUN/Creatinine Ratio 22 % 11/20/21 09:59 Glucose 112 mg/dL (75-100) H 11/20/21 09:59 POC Glucose 93 mg/dL (70-105) 11/13/21 07:56 Lactic Acid 4.20 mmol/L (0.7-2.0) H* 11/12/21 02:18 Calcium 9.2 mg/dL (8.4-10.2) 11/20/21 09:59 Magnesium 2.50 mg/dL (1.7-2.3) H 11/11/21 09:13 Total Bilirubin 2.30 mg/dL (0.1-1.2) H 11/13/21 05:36 AST 42 units/L (5-40) H 11/13/21 05:36 ALT 55 units/L (7-56) 11/13/21 05:36 Alkaline Phosphatase 126 units/L (35-129) 11/13/21 05:36 Ammonia 14.0 umol/L (25-60) L 11/11/21 09:13 Total Creatine Kinase 85 units/L (55-170) 11/11/21 09:13 Troponin T 0.013 ng/mL (0.00-0.029) 11/11/21 09:13 Serum Total Protein 7.4 g/dL (6.1-8.1) 11/14/21 06:34 Total Protein 7.6 g/dL (6.3-8.2) 11/13/21 05:36 Albumin 3.1 g/dL (3.8-4.8) L 11/14/21 06:34 Albumin/Globulin Ratio 0.9 % 11/13/21 05:36 Rgbdb-1-Ikwgzkwtd 0.4 g/dL (0.2-0.3) H 11/14/21 06:34 Qxydi-5-Cgxrgdoqt 0.9 g/dL (0.5-0.9) 11/14/21 06:34 Beta Globulins 0.5 g/dL (0.2-0.5) 11/14/21 06:34 Gamma Globulins 2.1 g/dL (0.8-1.7) H 11/14/21 06:34 Abnorm Protein Band 1 see below 11/14/21 06:34 PEP Interpretation see below H 11/14/21 06:34 TSH 3.100 mlU/mL (0.270-4.200) 11/12/21 13:56 Urine Color Yellow (Yellow) 11/14/21 05:15 Urine Turbidity Slightly-cloudy (Clear) 11/14/21 05:15 Urine pH 5.0 (5.0-7.0) 11/14/21 05:15 Ur Specific [place] 1.017 (1.003-1.030) 11/14/21 05:15 Urine Protein 30 mg/dl mg/dL (Negative) 11/14/21 05:15 Urine Glucose (UA) Neg mg/dL (Negative) 11/14/21 05:15 Urine Ketones Tr mg/dL (Negative) 11/14/21 05:15 Urine Blood Neg (Negative) 11/14/21 05:15 Urine Nitrite Neg (Negative) 11/14/21 05:15 Urine Bilirubin Neg (Negative) 11/14/21 05:15 Urine Urobilinogen 4.0 mg/dL (<2.0) 11/14/21 05:15 Ur Leukocyte Esterase Neg (Negative) 11/14/21 05:15 Urine WBC (Auto) 1.0 /HPF (0.0-6.0) 11/14/21 05:15 Urine RBC (Auto) 1.0 /HPF (0.0-6.0) 11/14/21 05:15 U Epithel Cells (Auto) < 1.0 /HPF (0-13.0) 11/14/21 05:15 Urine Bacteria (Auto) 1+ /HPF (Negative) 11/11/21 Unknown Hyaline Casts 2 /LPF 11/11/21 Unknown Urine Mucus Few /HPF 11/14/21 05:15 Urine Creatinine < 4.2 mg/dL (0.1-20.0) 11/14/21 05:15 Urine Sodium 10 mmol/L 11/14/21 05:15 Salicylates < 0.3 mg/dL (2.8-20.0) L 11/11/21 09:13 Acetaminophen 5.0 ug/mL (10.0-30.0) L 11/11/21 09:13 Plasma/Serum Alcohol < 0.01 % (0-0.07) 11/11/21 09:13 Proteinase 3 (PR3) Ab <1.0 AI (<1.0) 11/14/21 06:34 Myeloperoxidase Ab <1.0 AI (<1.0) 11/14/21 06:34 Complement C3 111 mg/dL (82-185) 11/14/21 06:34 Complement C4 21 mg/dL (15-53) 11/14/21 06:34 Coronavirus (PCR) Positive (Negative) A 11/14/21 08:40 Ibar[place]/IV: Voiding Method Incontinent Active Medications - Current Medications Current Medications: Generic Name Dose Route Start Last Admin Trade Name Freq PRN Reason Stop Dose Admin Acetaminophen 650 mg 11/12/21 01:58 Acetaminophen 325 Mg Tab PO Q6H PRN Pain MILD(1-3)/Fever >100.5/SMYTH Apixaban 5 mg 11/20/21 22:00 Apixaban 5 Mg Tab PO Q12HR [facility] Protocol Aspirin 81 mg 11/20/21 14:00 Aspirin Ec 81 Mg Tab PO QDAY [facility] Dextrose 1,000 mls @ 100 mls/hr 11/16/21 13:00 11/20/21 05:34 D5w IV 100 mls/hr DIRECT JENNY Administration Lisinopril 2.5 mg 11/20/21 14:00 Lisinopril 5 Mg Tab PO QDAY JENNY Lorazepam 2 mg 11/13/21 20:23 11/20/21 07:28 Lorazepam 2 Mg/Ml Vial IV 2 mg Q4H PRN Administration Agitation Metoprolol Tartrate 25 mg 11/20/21 14:00 Metoprolol Tartrate 25 Mg Tab PO BID [facility] Morphine Sulfate 2 mg 11/12/21 01:58 Morphine 2 Mg/1 Ml Inj IV Q4H PRN Pain, Moderate (4-6) Morphine Sulfate 4 mg 11/12/21 01:58 11/20/21 10:25 Morphine 4 Mg/1 Ml Inj IV 4 mg Q4H PRN Administration Pain , Severe (7-10) Pantoprazole Sodium 40 mg 11/12/21 07:30 11/19/21 11:31 Pantoprazole 40 Mg Tab PO 40 mg QDAC JENNY Administration Sodium Chloride 10 ml 11/18/21 14:32 Sodium Chloride 0.9% 50 Ml Ivpb IV PRN PRN FLUSH Nutrition/Malnutrition Assess - Dietary Evaluation Nutrition/Malnutrition Findings: Nutrition Notes Start: 11/19/21 16:27 Freq: Status: Active Protocol: Document 11/19/21 16:27 JOSE A (Rec: 11/19/21 16:38 JOSE A [id number]) Nutrition Notes Current Diagnosis Acute Kidney Injury Other Pertinent Diagnosis COVID-19, Cardiomyopathy, Encephalopathy, Atrial fibrilation. Current Diet Regular Diet (since D 11/11). Labs/Tests 11/19: Na 153, Cl 118.4, CO2 17, BUN 38, Crea 1.6. Pertinent Medications 11/19: Nutritionally unremarkable. Height 6 ft 2 in Weight 86.183 kg [place] Body Weight (kg) 86.36 BMI 24.3 Weight change and time frame None reported at admission. Weight Status Appropriate Subjective/Other Information RD consult for LOS assessment. No report available on Pt's PO intake of meals at the time. Percent of energy/protein needs met: Prescribed Regular Diet provides for energy/protein needs (2,289 Kcal/89 g) during LOS. Burn Absent Trauma Absent GI Symptoms None Food Allergy No Skin Integrity/Comment Clear, warm, dry. Minimum of two criteria No Is patient on ventilator? No Is Patient Ambulatory and/or Out of Bed No REE-([facility]-confined to bed) 1.008 Calculation Used for Recommendations 70-80% of EEN Additional Notes 15-20 Kcal/Kg ABW (8890-7860 Kcal). Protein: 1.2-2 g/Kg; 83-138 g/ day. Fluids: 1 ml/Kcal, or as per MD. Nutrition Intervention Follow-Up By: 11/26/21 Additional Comments Continue monitoring food tolerance, %PO intake of meals , and BM.
[2021-11-20] MEDS: METOPROLOL TARTRATE 25 MG TAB PO SCH ×2 (13:57→21:20)
[2021-11-20] MEDS: ISOSORB DINIT/HYDRALAZINE 20-37.5MG TAB PO SCH ×2 (13:57→21:19)
[2021-11-20] MEDS: ASPIRIN EC 81 MG TAB PO SCH (13:57)
[2021-11-20] MEDS ORDERED: LISINOPRIL 5 MG TAB PO SCH (14:00)
[2021-11-20 14:39] LABS: Mean Corpuscular HGB Conc 30 % (32-34); Mean Corpuscular Volume 87 fl (84-94); Platelet Count 159 K/mm3 (140-440); Red Cell Distribution Width 18.4 % (13.2-15.2)
[2021-11-20 14:50] LABS: Hematocrit 47.5 % (35.5-45.6); Hemoglobin 14.4 gm/dl (11.8-15.2); INR 1.29 (0.87-1.13)
[2021-11-20 14:51] LABS: Partial Thromboplastin Time 59.2 Sec. (24.2-36.6)
[2021-11-20] MEDS: PANTOPRAZOLE 40 MG TAB PO SCH (20:11)
[2021-11-20] MEDS: APIXABAN 5 MG TAB PO SCH (21:20)
[2021-11-21] MEDS: LORazepam 2 MG/ML VIAL IV PRN (03:48)
[2021-11-21] MEDS: ISOSORB DINIT/HYDRALAZINE 20-37.5MG TAB PO SCH ×3 (06:29→22:00)
[2021-11-21] MEDS: PANTOPRAZOLE 40 MG TAB PO SCH (06:32)
[2021-11-21] MEDS: SODIUM CHLORIDE 0.9% 50 ML IVPB IV PRN (06:36)
[2021-11-21 07:43] LABS: Calcium 8.4 mg/dL (8.4-10.2)
--- NOTE | 2021-11-21 09:22 | Progress Note ---
Assessment and Plan Assessment and plan: 66-year-old -[place] Citizen male patient with significant past medical history of CHFrEF 15%, COPD, hypertension recent, Positive COVID-19 who is recently discharged after being treated for COVID19 was brought to the emergency room by EMS with altered level of consciousness. Initial evaluation is consistent with A. fib with rapid ventricular rate, Lactic acidosis, leukocytosis probably secondary to recent steroid use. Chest x-ray mild increased interstitial prominence within the lung, left slightly greater than right, CT head , no acute abnormality noted. Assessment and Plan: COVID-19 test is positive 11/04/2021 and 11/14/2021 --Acute metabolic encephalopathy/acute delirium - present on admission - Intermittent confusion now worsening. Possibly metabolic in a patient with underlying dementia. - Recent COVID-19, possible psych disorder - CT head negative for acute abnormality, EEG normal study - MR brain ordered pending Psychiatry evaluated , did not need inpatient psych management Psych feels that patient symptom due to medical condition Neurology following --A. fib with rapid ventricular rate; currently rate controlled s/p IV Cardizem, IV metoprolol Currently on oral metoprolol 25 mg twice a day. --Chronic anticoagulation/atrial fibrillation - Lovenox full dose, transition to Eliquis Cardiology following --Dilated cardiomyopathy; EF 10% Noted by echocardiogram obtained by cardiology Guideline directed medical therapy Echo: LV ejection fraction 10% Dilated left ventricle severe global hypokinesis severe diastolic dysfunction LVEF 10% -- Acute hypoxic respiratory failure: likely from underlying h/o COVID pna and CHF Continue supplemental oxygen likely from underlying h/o COVID pna and CHF Patient on 2-4L n/c O2 --Leukocytosis; Probably secondary to steroids, recent COVID-19 infection Closely monitor trend lactic acid --Acute kidney injury; - Vasomotor nephropathy, gentle hydration - monitor renal function, avoid nephrotoxins - Renal dosing of medications - consult placed to nephrology due to worsening renal fx. --Recent COVID-19 infection; Continue low-dose dexamethasone for total 10 days --DVT prophylaxis; Patient is on full dose anticoagulation with Lovenox --Advance care planning Disease education conducted, care plan discussed, diagnoses discussed, prognosis discussed, patient is full code, patient acknowledges understanding and agree with care plan, +30 minutes. -- Full CODE STATUS We will closely monitor the patient and adjust management as needed Plan of care reviewed with the patient and her nurse Hospital Course: 11/12/2021: Placed on amiodorone and Lovenox by cardiology. Agree with cardiology that patient will likely not be amenable to anticoagulation if he is not in a supervised facility. Psychiatry recommendations noted. Once patient is off diltiazem drip can be downgraded to medical floor. 11/13/2021: Patient remains altered on my exam. Barely opening eyes upon sternal rub however he is protecting his airway. Consulted neurology for evaluation Worsening renal function, nephrology consulted. Cardiology noted DCMP on echo, will initiated guideline directed therapy. Off of amiodorone gtt, now on po amiodorone and metoprolol however doubt his ability to swallow given mental status. Sedative d/c and ST consulted. If patient able to tolerate po, will downgrade to tele bed. 11/14/21: Resumed care, patient restrained, very confused, follow renal function, p on 2-4 n/c O2. 11/15/21: remains agitated, confused. monitor Na and Cr level. patient recorded as homeless, cont iv fluid, wean off o2. cont supportive care, psych following. MRI/EEG pending 11/16/21: cont to follow BMP -Na Cr remains elevated, pt confused, MRI/EEG pending. supportive care , clinically unchanged, Cr, Na still elevated, cont iv fluid, follow psych and renal recommendation. cont supportive care 11/18/21: remains agitated and confused requiring restraint. cont iv meds and change to oral route when clinically improves. follow BMP, MRI brain /EEG pending 11/19/21; patient continues to be encephalopathic and restless requiring restraints Unable to get MRI EEG done due to agitation 11/20/21; patient feels slightly better today, continues to be agitated requiring restraints Speech therapist cleared for regular diet, as patient is lethargic and agitated and confused need to be fed by the nurse or the tech, cardiology transition Subcu Lovenox to oral Eliquis 11/21/21; patient continues to require restraints, continue current management History Interval history: I have seen and examined the patient at the bedside Patient's chart and medications reviewed Patient remains confused requiring restraints on room air saturating well No new overnight events reported by the nursing Hospitalist Physical - Constitutional Vitals: Temp Pulse Resp BP Pulse Ox 97.9 F 52 L 20 115/90 98 11/21/21 06:07 11/21/21 06:07 11/21/21 06:07 11/21/21 06:07 11/21/21 06:07 General appearance: Present: no acute distress, well-nourished - EENT Eyes: Present: PERRL, EOM intact - Neck Neck: Present: supple, normal ROM - Respiratory Respiratory effort: normal Respiratory: bilateral: diminished, negative: rales, rhonchi, wheezing - Cardiovascular Rhythm: regular Heart Sounds: Present: S1 & S2 - Extremities Extremities: no ischemia, No edema - Abdominal General gastrointestinal: soft, non-tender, non-distended, normal bowel sounds - Integumentary Integumentary: Present: clear, warm - Psychiatric Psychiatric: other (Confused) - Neurologic Neurologic: moves all extremities HEART Score - HEART Score Troponin: Troponin T 0.013 ng/mL (0.00-0.029) 11/11/21 09:13 Results - Labs CBC & Chem 7: 11/20/21 14:06 11/21/21 06:31 Labs: Laboratory Last Values WBC 8.6 K/mm3 (4.5-11.0) 11/20/21 14:06 RBC 5.50 M/mm3 (3.65-5.03) H 11/20/21 14:06 Hgb 14.4 gm/dl (11.8-15.2) 11/20/21 14:06 Hct 47.5 % (35.5-45.6) H 11/20/21 14:06 MCV 87 fl (84-94) 11/20/21 14:06 MCH 26 pg (28-32) L 11/20/21 14:06 MCHC 30 % (32-34) L 11/20/21 14:06 RDW 18.4 % (13.2-15.2) H 11/20/21 14:06 Plt Count 159 K/mm3 (140-440) 11/20/21 14:06 Lymph % (Auto) 7.4 % (13.4-35.0) L 11/11/21 09:13 Howell % (Auto) 6.1 % (0.0-7.3) 11/11/21 09:13 Eos % (Auto) 0.1 % (0.0-4.3) 11/11/21 09:13 Baso % (Auto) 0.1 % (0.0-1.8) 11/11/21 09:13 Lymph # (Auto) 0.9 K/mm3 (1.2-5.4) L 11/11/21 09:13 Howell # (Auto) 0.8 K/mm3 (0.0-0.8) 11/11/21 09:13 Eos # (Auto) 0.0 K/mm3 (0.0-0.4) 11/11/21 09:13 Baso # (Auto) 0.0 K/mm3 (0.0-0.1) 11/11/21 09:13 Add Manual Diff Complete 11/13/21 05:36 Total Counted 100 11/13/21 05:36 Seg Neutrophils % 86.3 % (40.0-70.0) H 11/11/21 09:13 Seg Neuts % (Manual) 88.0 % (40.0-70.0) H 11/13/21 05:36 Band Neutrophils % 0 % 11/13/21 05:36 Lymphocytes % (Manual) 9.0 % (13.4-35.0) L 11/13/21 05:36 Reactive Lymphs % (Man) 0 % 11/13/21 05:36 Monocytes % (Manual) 3.0 % (0.0-7.3) 11/13/21 05:36 Eosinophils % (Manual) 0 % (0.0-4.3) 11/13/21 05:36 Basophils % (Manual) 0 % (0.0-1.8) 11/13/21 05:36 Metamyelocytes % 0 % 11/13/21 05:36 Myelocytes % 0 % 11/13/21 05:36 Promyelocytes % 0 % 11/13/21 05:36 Blast Cells % 0 % 11/13/21 05:36 Nucleated RBC % Not Reportable 11/13/21 05:36 Seg Neutrophils # 10.8 K/mm3 (1.8-7.7) H 11/11/21 09:13 Seg Neutrophils # Man 10.1 K/mm3 (1.8-7.7) H 11/13/21 05:36 Band Neutrophils # 0.0 K/mm3 11/13/21 05:36 Lymphocytes # (Manual) 1.0 K/mm3 (1.2-5.4) L 11/13/21 05:36 Abs React Lymphs (Man) 0.0 K/mm3 11/13/21 05:36 Monocytes # (Manual) 0.3 K/mm3 (0.0-0.8) 11/13/21 05:36 Eosinophils # (Manual) 0.0 K/mm3 (0.0-0.4) 11/13/21 05:36 Basophils # (Manual) 0.0 K/mm3 (0.0-0.1) 11/13/21 05:36 Metamyelocytes # 0.0 K/mm3 11/13/21 05:36 Myelocytes # 0.0 K/mm3 11/13/21 05:36 Promyelocytes # 0.0 K/mm3 11/13/21 05:36 Blast Cells # 0.0 K/mm3 11/13/21 05:36 WBC Morphology Not Reportable 11/13/21 05:36 Hypersegmented Neuts Not Reportable 11/13/21 05:36 Hyposegmented Neuts Not Reportable 11/13/21 05:36 Hypogranular Neuts Not Reportable 11/13/21 05:36 Smudge Cells Not Reportable 11/13/21 05:36 Toxic Granulation Not Reportable 11/13/21 05:36 Toxic Vacuolation Not Reportable 11/13/21 05:36 Dohle Bodies Not Reportable 11/13/21 05:36 Pelger-Huet Anomaly Not Reportable 11/13/21 05:36 Kristina Rods Not Reportable 11/13/21 05:36 Platelet Estimate Consistent w auto 11/13/21 05:36 Clumped Platelets Not Reportable 11/13/21 05:36 Plt Clumps, EDTA Not Reportable 11/13/21 05:36 Large Platelets Not Reportable 11/13/21 05:36 Giant Platelets Not Reportable 11/13/21 05:36 Platelet Satelliting Not Reportable 11/13/21 05:36 Plt Morphology Comment Not Reportable 11/13/21 05:36 RBC Morphology Not Reportable 11/13/21 05:36 Dimorphic RBCs Not Reportable 11/13/21 05:36 Polychromasia Not Reportable 11/13/21 05:36 Hypochromasia Not Reportable 11/13/21 05:36 Poikilocytosis Few 11/13/21 05:36 Anisocytosis 1+ 11/13/21 05:36 Microcytosis Not Reportable 11/13/21 05:36 Macrocytosis Few 11/13/21 05:36 Spherocytes Not Reportable 11/13/21 05:36 Pappenheimer Bodies Not Reportable 11/13/21 05:36 Sickle Cells Not Reportable 11/13/21 05:36 Target Cells Not Reportable 11/13/21 05:36 Tear Drop Cells Not Reportable 11/13/21 05:36 Ovalocytes Not Reportable 11/13/21 05:36 Helmet Cells Not Reportable 11/13/21 05:36 Erickson-Wilmer Bodies Not Reportable 11/13/21 05:36 Quincy Rings Not Reportable 11/13/21 05:36 Mohan Cells Not Reportable 11/13/21 05:36 Bite Cells Not Reportable 11/13/21 05:36 Crenated Cell Not Reportable 11/13/21 05:36 Elliptocytes Not Reportable 11/13/21 05:36 Acanthocytes (Spur) Not Reportable 11/13/21 05:36 Rouleaux Not Reportable 11/13/21 05:36 Hemoglobin C Crystals Not Reportable 11/13/21 05:36 Schistocytes Not Reportable 11/13/21 05:36 Malaria parasites Not Reportable 11/13/21 05:36 Fili Bodies Not Reportable 11/13/21 05:36 Hem Pathologist Commnt No 11/13/21 05:36 PT 17.4 Sec. (12.2-14.9) H 11/20/21 14:06 INR 1.29 (0.87-1.13) H 11/20/21 14:06 APTT 59.2 Sec. (24.2-36.6) H 11/20/21 14:06 Sodium 143 mmol/L (137-145) 11/21/21 06:31 Potassium 4.3 mmol/L (3.6-5.0) 11/21/21 06:31 Chloride 112.6 mmol/L (98-107) H 11/21/21 06:31 Carbon Dioxide 18 mmol/L (22-30) L 11/21/21 06:31 Anion Gap 17 mmol/L 11/21/21 06:31 BUN 36 mg/dL (9-20) H 11/21/21 06:31 Creatinine 1.7 mg/dL (0.8-1.3) H 11/21/21 06:31 Estimated GFR 49 ml/min 11/21/21 06:31 BUN/Creatinine Ratio 21 % 11/21/21 06:31 Glucose 90 mg/dL (75-100) 11/21/21 06:31 POC Glucose 93 mg/dL (70-105) 11/13/21 07:56 Lactic Acid 4.20 mmol/L (0.7-2.0) H* 11/12/21 02:18 Calcium 8.4 mg/dL (8.4-10.2) 11/21/21 06:31 Magnesium 2.50 mg/dL (1.7-2.3) H 11/11/21 09:13 Total Bilirubin 2.30 mg/dL (0.1-1.2) H 11/13/21 05:36 AST 42 units/L (5-40) H 11/13/21 05:36 ALT 55 units/L (7-56) 11/13/21 05:36 Alkaline Phosphatase 126 units/L (35-129) 11/13/21 05:36 Ammonia 14.0 umol/L (25-60) L 11/11/21 09:13 Total Creatine Kinase 85 units/L (55-170) 11/11/21 09:13 Troponin T 0.013 ng/mL (0.00-0.029) 11/11/21 09:13 Serum Total Protein 7.4 g/dL (6.1-8.1) 11/14/21 06:34 Total Protein 7.6 g/dL (6.3-8.2) 11/13/21 05:36 Albumin 3.1 g/dL (3.8-4.8) L 11/14/21 06:34 Albumin/Globulin Ratio 0.9 % 11/13/21 05:36 Mlbpw-6-Tgjzjkucp 0.4 g/dL (0.2-0.3) H 11/14/21 06:34 Qbqak-0-Tfgscbzql 0.9 g/dL (0.5-0.9) 11/14/21 06:34 Beta Globulins 0.5 g/dL (0.2-0.5) 11/14/21 06:34 Gamma Globulins 2.1 g/dL (0.8-1.7) H 11/14/21 06:34 Abnorm Protein Band 1 see below 11/14/21 06:34 PEP Interpretation see below H 11/14/21 06:34 TSH 3.100 mlU/mL (0.270-4.200) 11/12/21 13:56 Urine Color Yellow (Yellow) 11/14/21 05:15 Urine Turbidity Slightly-cloudy (Clear) 11/14/21 05:15 Urine pH 5.0 (5.0-7.0) 11/14/21 05:15 Ur Specific Elsa 1.017 (1.003-1.030) 11/14/21 05:15 Urine Protein 30 mg/dl mg/dL (Negative) 11/14/21 05:15 Urine Glucose (UA) Neg mg/dL (Negative) 11/14/21 05:15 Urine Ketones Tr mg/dL (Negative) 11/14/21 05:15 Urine Blood Neg (Negative) 11/14/21 05:15 Urine Nitrite Neg (Negative) 11/14/21 05:15 Urine Bilirubin Neg (Negative) 11/14/21 05:15 Urine Urobilinogen 4.0 mg/dL (<2.0) 11/14/21 05:15 Ur Leukocyte Esterase Neg (Negative) 11/14/21 05:15 Urine WBC (Auto) 1.0 /HPF (0.0-6.0) 11/14/21 05:15 Urine RBC (Auto) 1.0 /HPF (0.0-6.0) 11/14/21 05:15 U Epithel Cells (Auto) < 1.0 /HPF (0-13.0) 11/14/21 05:15 Urine Bacteria (Auto) 1+ /HPF (Negative) 11/11/21 Unknown Hyaline Casts 2 /LPF 11/11/21 Unknown Urine Mucus Few /HPF 11/14/21 05:15 Urine Creatinine < 4.2 mg/dL (0.1-20.0) 11/14/21 05:15 Urine Sodium 10 mmol/L 11/14/21 05:15 Salicylates < 0.3 mg/dL (2.8-20.0) L 11/11/21 09:13 Acetaminophen 5.0 ug/mL (10.0-30.0) L 11/11/21 09:13 Plasma/Serum Alcohol < 0.01 % (0-0.07) 11/11/21 09:13 Proteinase 3 (PR3) Ab <1.0 AI (<1.0) 11/14/21 06:34 Myeloperoxidase Ab <1.0 AI (<1.0) 11/14/21 06:34 Complement C3 111 mg/dL (82-185) 11/14/21 06:34 Complement C4 21 mg/dL (15-53) 11/14/21 06:34 Coronavirus (PCR) Positive (Negative) A 11/14/21 08:40 Ibarra/IV: Voiding Method Condom Catheter Active Medications - Current Medications Current Medications: Generic Name Dose Route Start Last Admin Trade Name Freq PRN Reason Stop Dose Admin Acetaminophen 650 mg 11/12/21 01:58 Acetaminophen 325 Mg Tab PO Q6H PRN Pain MILD(1-3)/Fever >100.5/SMYTH Apixaban 5 mg 11/20/21 22:00 11/20/21 21:20 Apixaban 5 Mg Tab PO 5 mg Q12HR JENNY Administration Protocol Aspirin 81 mg 11/20/21 14:00 11/20/21 13:57 Aspirin Ec 81 Mg Tab PO 81 mg QDAY JENNY Administration Dextrose 1,000 mls @ 100 mls/hr 11/16/21 13:00 11/21/21 03:42 D5w IV Infused DIRECT JENNY Infusion Isosorbide Dinitrate/Hydralazine 1 each 11/20/21 14:00 11/21/21 06:29 Isosorb Dinit/Hydralazine 20-37.5mg Tab PO 1 each Q8HR JENNY Administration Lorazepam 2 mg 11/13/21 20:23 11/21/21 03:48 Lorazepam 2 Mg/Ml Vial IV 2 mg Q4H PRN Administration Agitation Metoprolol Tartrate 25 mg 11/20/21 14:00 11/20/21 21:20 Metoprolol Tartrate 25 Mg Tab PO 25 mg BID JENNY Administration Morphine Sulfate 2 mg 11/12/21 01:58 Morphine 2 Mg/1 Ml Inj IV Q4H PRN Pain, Moderate (4-6) Morphine Sulfate 4 mg 11/12/21 01:58 11/20/21 22:18 Morphine 4 Mg/1 Ml Inj IV 4 mg Q4H PRN Administration Pain , Severe (7-10) Pantoprazole Sodium 40 mg 11/12/21 07:30 11/21/21 06:32 Pantoprazole 40 Mg Tab PO 40 mg QDAC JENNY Administration Sodium Chloride 10 ml 11/18/21 14:32 11/21/21 06:36 Sodium Chloride 0.9% 50 Ml Ivpb IV 10 ml PRN PRN Administration FLUSH Nutrition/Malnutrition Assess - Dietary Evaluation Nutrition/Malnutrition Findings: Nutrition Notes Start: 11/19/21 16:27 Freq: Status: Active Protocol: Document 11/19/21 16:27 JOSE A (Rec: 11/19/21 16:38 JOSE A [email or web address]) Nutrition Notes Current Diagnosis Acute Kidney Injury Other Pertinent Diagnosis COVID-19, Cardiomyopathy, Encephalopathy, Atrial fibrilation. Current Diet Regular Diet (since D 11/11). Labs/Tests 11/19: Na 153, Cl 118.4, CO2 17, BUN 38, Crea 1.6. Pertinent Medications 11/19: Nutritionally unremarkable. Height 6 ft 2 in Weight 86.183 kg [place] Body Weight (kg) 86.36 BMI 24.3 Weight change and time frame None reported at admission. Weight Status Appropriate Subjective/Other Information RD consult for LOS assessment. No report available on Pt's PO intake of meals at the time. Percent of energy/protein needs met: Prescribed Regular Diet provides for energy/protein needs (2,289 Kcal/89 g) during LOS. Burn Absent Trauma Absent GI Symptoms None Food Allergy No Skin Integrity/Comment Clear, warm, dry. Minimum of two criteria No Is patient on ventilator? No Is Patient Ambulatory and/or Out of Bed No [facility] 1.008 Calculation Used for Recommendations 70-80% of EEN Additional Notes 15-20 Kcal/Kg ABW (7848-2415 Kcal). Protein: 1.2-2 g/Kg; 83-138 g/ day. Fluids: 1 ml/Kcal, or as per MD. Nutrition Intervention Follow-Up By: 11/26/21 Additional Comments Continue monitoring food tolerance, %PO intake of meals , and BM.
[2021-11-21] MEDS: METOPROLOL TARTRATE 25 MG TAB PO SCH (09:47)
[2021-11-21] MEDS: ASPIRIN EC 81 MG TAB PO SCH (09:47)
[2021-11-21] MEDS: APIXABAN 5 MG TAB PO SCH ×2 (09:49→22:00)
--- NOTE | 2021-11-21 11:43 | Progress Note ---
Assessment and Plan - Patient Problems (1) Paroxysmal atrial fibrillation Current Visit: Yes Status: Acute Plan to address problem: Patient with COPD and recent COVID infection, presented with palpitations and new onset rapid atrial fibrillation. His atrial fibrillation has reverted to sinus rhythm on medical therapy and has been in stable sinus rhythm for the past 10 days of hospitalization. We will switch to oral metoprolol, and start Eliquis for anticoagulation. (2) Dilated cardiomyopathy Current Visit: Yes Status: Acute Plan to address problem: We found a severe four-chamber dilated cardiomyopathy, of uncertain chronicity. We will start guideline directed medical therapy with BiDil and continue metoprolol. His recent chemistry numbers show a prerenal azotemia, so I will hold off on diuretics, spironolactone, TREV or ARB at this time. Subjective Date of service: 11/21/21 Principal diagnosis: encephalopathy,AF,COVID-19 Interval history: Patient is comfortable, no acute distress. No new cardiac events reported. Patient still confused on four-point restraints. Objective Vital Signs Temp Pulse Resp BP BP Pulse Ox 11/21/21 09:47 115 H 126/93 11/21/21 06:07 97.9 F 52 L 20 115/90 98 11/20/21 22:00 18 99 11/20/21 17:13 97.2 F L 79 19 124/95 100 11/20/21 13:30 98.4 F 83 15 124/96 100 - Physical Examination General: No Apparent Distress, Cachectic, Other (Mildly confused) HEENT: Positive: PERRL Neck: Positive: neck supple Cardiac: Positive: Reg Rate and Rhythm Lungs: Positive: Decreased Breath Sounds Neuro: Positive: Grossly Intact Abdomen: Positive: Soft Skin: Positive: Clear Extremities: Absent: edema - Labs and Meds Coagulation 11/20/21 Range/Units 14:06 PT 17.4 H (12.2-14.9) Sec. INR 1.29 H (0.87-1.13) APTT 59.2 H (24.2-36.6) Sec. CBC 11/20/21 Range/Units 14:06 WBC 8.6 (4.5-11.0) K/mm3 RBC 5.50 H (3.65-5.03) M/mm3 Hgb 14.4 (11.8-15.2) gm/dl Hct 47.5 H (35.5-45.6) % Plt Count 159 (140-440) K/mm3 Comprehensive Metabolic Panel 11/20/21 11/21/21 Range/Units 14:06 06:31 Sodium 143 (137-145) mmol/L Potassium 4.3 (3.6-5.0) mmol/L Chloride 112.6 H (98-107) mmol/L Carbon Dioxide 18 L (22-30) mmol/L BUN 36 H (9-20) mg/dL Creatinine 1.8 H 1.7 H (0.8-1.3) mg/dL Glucose 90 (75-100) mg/dL Calcium 8.4 (8.4-10.2) mg/dL
--- NOTE | 2021-11-21 12:56 | Progress Note ---
Assessment and Plan Impression: * Acute kidney injury secondary to prerenal azotemia due to hypoperfusion due to afib w/ RVR, hypotension --UA w/ ketones and Quynh 10 - suggestive of volume depletion --Renal ultrasound: right 11.4cm, left 12.3cm; no hydro * Atrial fibrillation with RVR * Acute encephalopathy * Cardiomyopathy - LVEF 10% * Recent COVID 19 infection * Anemia * Metabolic acidosis Plan: * Hypernatremia was worsening 154->147->148->153, did improve to 147->143 this AM * SCr stable from 1.6->1.9->1.7 * Continue IVF - can continue D5W as tolerated for now, encourage free water intake as able. If creatinine continues to trend up, may need to change IVF to include NS or 1/2NS, hold for now * No acute need for renal replacement therapy * Rate control per cardiology * Await pending serologic work up- ANCA negative, Complements WNL * Dose medications for renal function * Avoid potential nephrotoxins Subjective Date of service: 11/21/21 Principal diagnosis: encephalopathy,AF,COVID-19 Interval history: Chart,vitals,labs reviewed Objective - Exam Narrative Exam: In effort to reduce transmission of COVID 19 in setting of pandemic, physical exam deferred. - Vital Signs Vital signs: Vital Signs - 12hr 11/21/21 11/21/21 11/21/21 06:07 09:47 10:00 Temperature 97.9 F Pulse Rate 52 L 115 H Respiratory 20 18 Rate Blood Pressure 115/90 126/93 O2 Sat by Pulse 98 99 Oximetry - Lab 11/20/21 14:06 11/21/21 06:31 Most recent lab results Calcium 8.4 mg/dL (8.4-10.2) 11/21/21 06:31 Magnesium 2.50 mg/dL (1.7-2.3) H 11/11/21 09:13 Urine Creatinine < 4.2 mg/dL (0.1-20.0) 11/14/21 05:15 Urine Sodium 10 mmol/L 11/14/21 05:15 Medications & Allergies - Medications Allergies/Adverse Reactions: Allergies No Known Allergies Allergy (Verified 11/03/21 18:59) Home Medications: Home Medications Medication Instructions Recorded Confirmed Last Taken Type NIFEdipine XL [Procardia Xl] 30 mg PO QDAY #30 tablet 11/07/21 11/14/21 Unknown Rx dexAMETHasone [Dexamethasone] 4 mg PO DAILY #10 tab 11/07/21 11/14/21 Unknown Rx Active Medications: Generic Name Dose Route Start Last Admin Trade Name Freq PRN Reason Stop Dose Admin Acetaminophen 650 mg 11/12/21 01:58 Acetaminophen 325 Mg Tab PO Q6H PRN Pain MILD(1-3)/Fever >100.5/SMYTH Apixaban 5 mg 11/20/21 22:00 11/21/21 09:49 Apixaban 5 Mg Tab PO 5 mg Q12HR JENNY Administration Protocol Aspirin 81 mg 11/20/21 14:00 11/21/21 09:47 Aspirin Ec 81 Mg Tab PO 81 mg QDAY JENNY Administration Dextrose 1,000 mls @ 100 mls/hr 11/16/21 13:00 11/21/21 03:42 D5w IV Infused DIRECT JENNY Infusion Isosorbide Dinitrate/Hydralazine 1 each 11/20/21 14:00 11/21/21 06:29 Isosorb Dinit/Hydralazine 20-37.5mg Tab PO 1 each Q8HR JENNY Administration Lorazepam 2 mg 11/13/21 20:23 11/21/21 03:48 Lorazepam 2 Mg/Ml Vial IV 2 mg Q4H PRN Administration Agitation Metoprolol Tartrate 25 mg 11/20/21 14:00 11/21/21 09:47 Metoprolol Tartrate 25 Mg Tab PO 25 mg BID JENNY Administration Morphine Sulfate 2 mg 11/12/21 01:58 Morphine 2 Mg/1 Ml Inj IV Q4H PRN Pain, Moderate (4-6) Morphine Sulfate 4 mg 11/12/21 01:58 11/20/21 22:18 Morphine 4 Mg/1 Ml Inj IV 4 mg Q4H PRN Administration Pain , Severe (7-10) Pantoprazole Sodium 40 mg 11/12/21 07:30 11/21/21 06:32 Pantoprazole 40 Mg Tab PO 40 mg QDAC JENNY Administration Sodium Chloride 10 ml 11/18/21 14:32 11/21/21 06:36 Sodium Chloride 0.9% 50 Ml Ivpb IV 10 ml PRN PRN Administration FLUSH
--- NOTE | 2021-11-21 13:30 | Electrocardiograph Report ---
[facility] Test Date: 2021-11-17 Test Time: 11:47:28 Pat Name: LIYA PIERCE Department: Room: A368 1 Gender: M System Configuration Specialist: ALEX : 1955 Requested By: ANNETTE DALEY Order Number: [id number] Reading MD: Veronica Rae Measurements Intervals [place] Rate: 100 P: 26 MS: 167 QRS: -5 QRSD: 91 T: 135 QT: 382 QTc: 482 Interpretive Statements Sinus tachycardia Occasional PVCs and PACs Left ventricular hypertrophy with repolarization abnormalities of LVH Old inferior myocardial infarction Compared to ECG 11/11/2021 08:27:28 Sinus rhythm has replaced rapid atrial fibrillation Prior EKG shows likely limb lead malposition Electronically Signed On 11-21-2021 13:29:31 EST by Veronica Rae
[2021-11-22] MEDS: METOPROLOL TARTRATE 25 MG TAB PO SCH ×3 (01:29→22:50)
[2021-11-22] MEDS: LORazepam 2 MG/ML VIAL IV PRN ×3 (06:00→14:54)
[2021-11-22] MEDS: ISOSORB DINIT/HYDRALAZINE 20-37.5MG TAB PO SCH ×3 (06:00→22:50)
[2021-11-22 07:57] LABS: Hematocrit 41.2 % (35.5-45.6); Hemoglobin 12.9 gm/dl (11.8-15.2); Mean Corpuscular HGB Conc 31 % (32-34); Mean Corpuscular Volume 84 fl (84-94); Platelet Count 135 K/mm3 (140-440); Red Blood Count 4.91 M/mm3 (3.65-5.03); Red Cell Distribution Width 19.4 % (13.2-15.2)
[2021-11-22] MEDS: APIXABAN 5 MG TAB PO SCH ×2 (09:47→22:50)
[2021-11-22] MEDS: ASPIRIN EC 81 MG TAB PO SCH (09:47)
[2021-11-22] MEDS: MORPHINE 4 MG/1 ML INJ IV PRN ×2 (09:48→20:10)
[2021-11-22] MEDS: PANTOPRAZOLE 40 MG TAB PO SCH (09:48)
--- NOTE | 2021-11-22 11:24 | Progress Note ---
Subjective - Reason for Consult Consult date: 11/22/21 Reason for consult: AMS - Chief Complaint Chief complaint: The patient was seen today. He is mostly uncooperative. He does tell me he didn't sleep good when asked. He then just turns his head. REVIEW OF SYSTEMS MENTAL STATUS EXAMINATION Unable to assess Assessment (1) Delirium Current Visit: Yes Status: Acute Treatment Plan Continue lorazepam 2mg IM q6h prn agitation Medical: Per primary Disposition: Do not recommend acute psychiatric inpatient treatment at this time. It appears that the patient's agitation was due to underlying acute medical conditions. Will follow for med management. Thanks Case staffed with Dr. Melgar Mental Status Exam - Vital signs Last Vital Signs Temp 98 F 11/22/21 10:17 Pulse 79 11/22/21 10:17 Resp 21 11/22/21 10:17 BP 127/100 11/22/21 10:17 Pulse Ox 98 11/22/21 10:17
--- NOTE | 2021-11-22 12:39 | Progress Note ---
Assessment and Plan - Patient Problems (1) Paroxysmal atrial fibrillation Current Visit: Yes Status: Acute Plan to address problem: Patient with COPD and recent COVID infection, presented with palpitations and new onset rapid atrial fibrillation. His atrial fibrillation has reverted to sinus rhythm on medical therapy and has been in stable sinus rhythm for the past 10 days of hospitalization. We will switch to oral metoprolol, and start Eliquis for anticoagulation. (2) Dilated cardiomyopathy Current Visit: Yes Status: Acute Plan to address problem: We found a severe four-chamber dilated cardiomyopathy, of uncertain chronicity. We will start guideline directed medical therapy with BiDil and continue metoprolol. His recent chemistry numbers show a prerenal azotemia, so I will hold off on diuretics, spironolactone, TREV or ARB at this time. Subjective Date of service: 11/22/21 Principal diagnosis: encephalopathy,AF,COVID-19 Interval history: Patient is comfortable, no acute distress. No new cardiac events reported. Patient still confused on four-point restraints. Objective Vital Signs Temp Pulse Resp BP BP Pulse Ox 11/22/21 11:46 98.0 F 60 18 119/92 99 11/22/21 10:17 98 F 79 21 127/100 98 11/22/21 06:00 77 120/90 11/22/21 05:36 98.1 F 59 L 20 136/95 100 11/22/21 01:29 77 120/90 11/21/21 22:20 97.8 F 77 20 120/95 100 11/21/21 22:00 77 120/95 11/21/21 14:41 67 123/93 - Physical Examination General: No Apparent Distress, Cachectic, Other (Mildly confused) HEENT: Positive: PERRL Neck: Positive: neck supple Cardiac: Positive: Reg Rate and Rhythm Lungs: Positive: Decreased Breath Sounds Neuro: Positive: Grossly Intact Abdomen: Positive: Soft Skin: Positive: Clear Extremities: Absent: edema - Labs and Meds CBC 11/22/21 Range/Units 07:40 WBC 7.3 (4.5-11.0) K/mm3 RBC 4.91 (3.65-5.03) M/mm3 Hgb 12.9 (11.8-15.2) gm/dl Hct 41.2 D (35.5-45.6) % Plt Count 135 L (140-440) K/mm3
--- NOTE | 2021-11-22 18:44 | Progress Note ---
Assessment and Plan Assessment and plan: 66-year-old -[place] male patient with significant past medical history of CHFrEF 15%, COPD, hypertension recent, Positive COVID-19 who is recently discharged after being treated for COVID19 was brought to the emergency room by EMS with altered level of consciousness. Initial evaluation is consistent with A. fib with rapid ventricular rate, Lactic acidosis, leukocytosis probably secondary to recent steroid use. Chest x-ray mild increased interstitial prominence within the lung, left slightly greater than right, CT head , no acute abnormality noted. Assessment and Plan: COVID-19 test is positive 11/04/2021 and 11/14/2021 --Acute metabolic encephalopathy/acute delirium - present on admission - Intermittent confusion now worsening. Possibly metabolic in a patient with underlying dementia. - Recent COVID-19, possible psych disorder - CT head negative for acute abnormality, EEG normal study - MR brain ordered pending Psychiatry evaluated , did not need inpatient psych management Psych feels that patient symptom due to medical condition Neurology following --A. fib with rapid ventricular rate; currently rate controlled s/p IV Cardizem, IV metoprolol Currently on oral metoprolol 25 mg twice a day. --Chronic anticoagulation/atrial fibrillation - Lovenox full dose, transition to Eliquis Cardiology following --Dilated cardiomyopathy; EF 10% Noted by echocardiogram obtained by cardiology Guideline directed medical therapy Echo: LV ejection fraction 10% Dilated left ventricle severe global hypokinesis severe diastolic dysfunction LVEF 10% -- Acute hypoxic respiratory failure: likely from underlying h/o COVID pna and CHF Continue supplemental oxygen likely from underlying h/o COVID pna and CHF Patient on 2-4L n/c O2 --Leukocytosis; Probably secondary to steroids, recent COVID-19 infection Closely monitor trend lactic acid --Acute kidney injury; - Vasomotor nephropathy, gentle hydration - monitor renal function, avoid nephrotoxins - Renal dosing of medications - consult placed to nephrology due to worsening renal fx. --Recent COVID-19 infection; Continue low-dose dexamethasone for total 10 days --DVT prophylaxis; Patient is on full dose anticoagulation with Lovenox --Advance care planning Disease education conducted, care plan discussed, diagnoses discussed, prognosis discussed, patient is full code, patient acknowledges understanding and agree with care plan, +30 minutes. -- Full CODE STATUS We will closely monitor the patient and adjust management as needed Plan of care reviewed with the patient and her nurse Possible discharge home tomorrow with the daughter I discussed in detail with the daughter the discharge planning she verbalized understanding, Hospital Course: 11/12/2021: Placed on amiodorone and Lovenox by cardiology. Agree with cardiology that patient will likely not be amenable to anticoagulation if he is not in a supervised facility. Psychiatry recommendations noted. Once patient is off diltiazem drip can be downgraded to medical floor. 11/13/2021: Patient remains altered on my exam. Barely opening eyes upon sternal rub however he is protecting his airway. Consulted neurology for evaluation Worsening renal function, nephrology consulted. Cardiology noted DCMP on echo, will initiated guideline directed therapy. Off of amiodorone gtt, now on po amiodorone and metoprolol however doubt his ability to swallow given mental status. Sedative d/c and ST consulted. If patient able to tolerate po, will downgrade to tele bed. 11/14/21: Resumed care, patient restrained, very confused, follow renal function, p on 2-4 n/c O2. 11/15/21: remains agitated, confused. monitor Na and Cr level. patient recorded as homeless, cont iv fluid, wean off o2. cont supportive care, psych following. MRI/EEG pending 11/16/21: cont to follow BMP -Na Cr remains elevated, pt confused, MRI/EEG pending. supportive care , clinically unchanged, Cr, Na still elevated, cont iv fluid, follow psych and renal recommendation. cont supportive care 11/18/21: remains agitated and confused requiring restraint. cont iv meds and change to oral route when clinically improves. follow BMP, MRI brain /EEG pen ding 11/19/21; patient continues to be encephalopathic and restless requiring restraints Unable to get MRI EEG done due to agitation 11/20/21; patient feels slightly better today, continues to be agitated requiring restraints Speech therapist cleared for regular diet, as patient is lethargic and agitated and confused need to be fed by the nurse or the tech, cardiology transition Subcu Lovenox to oral Eliquis 11/21/21; patient continues to require restraints, continue current management 11/22/2021; patient is hemodynamically and clinically stable for dischargem however due to dementia And encephalopathy patient needs 24/7 supervision. Restraint for safety in the hospital I discussed in detail with patient's daughter Migdalia [phone] updated her the patient's condition And informed her that patient will be discharged tomorrow, she verbalized understanding, possible discharge tomorrow if stable History Interval history: I have seen and examined the patient at the bedside Patient's chart and medications reviewed Patient is confused not in acute distress, restraint for safety and agitation Vital signs reviewed Hospitalist Physical - Constitutional Vitals: Temp Pulse Resp BP Pulse Ox 98.0 F 60 18 119/92 99 11/22/21 11:46 11/22/21 11:46 11/22/21 11:46 11/22/21 11:46 11/22/21 11:46 General appearance: Present: no acute distress, well-nourished - EENT Eyes: Present: PERRL, EOM intact - Neck Neck: Present: supple, normal ROM - Respiratory Respiratory effort: normal Respiratory: bilateral: diminished, negative: rales, rhonchi, wheezing - Cardiovascular Rhythm: regular Heart Sounds: Present: S1 & S2 - Extremities Extremities: no ischemia, No edema - Abdominal General gastrointestinal: soft, non-tender, non-distended, normal bowel sounds - Integumentary Integumentary: Present: clear, warm - Psychiatric Psychiatric: appropriate mood/affect, cooperative - Neurologic Neurologic: CNII-XII intact, moves all extremities HEART Score - HEART Score Troponin: Troponin T 0.013 ng/mL (0.00-0.029) 11/11/21 09:13 Results - Labs CBC & Chem 7: 11/22/21 07:40 11/21/21 06:31 Labs: Laboratory Last Values WBC 7.3 K/mm3 (4.5-11.0) 11/22/21 07:40 RBC 4.91 M/mm3 (3.65-5.03) 11/22/21 07:40 Hgb 12.9 gm/dl (11.8-15.2) 11/22/21 07:40 Hct 41.2 % (35.5-45.6) D 11/22/21 07:40 MCV 84 fl (84-94) 11/22/21 07:40 MCH 26 pg (28-32) L 11/22/21 07:40 MCHC 31 % (32-34) L 11/22/21 07:40 RDW 19.4 % (13.2-15.2) H 11/22/21 07:40 Plt Count 135 K/mm3 (140-440) L 11/22/21 07:40 Lymph % (Auto) 7.4 % (13.4-35.0) L 11/11/21 09:13 [place] % (Auto) 6.1 % (0.0-7.3) 11/11/21 09:13 Eos % (Auto) 0.1 % (0.0-4.3) 11/11/21 09:13 Baso % (Auto) 0.1 % (0.0-1.8) 11/11/21 09:13 Lymph # (Auto) 0.9 K/mm3 (1.2-5.4) L 11/11/21 09:13 [place] # (Auto) 0.8 K/mm3 (0.0-0.8) 11/11/21 09:13 Eos # (Auto) 0.0 K/mm3 (0.0-0.4) 11/11/21 09:13 Baso # (Auto) 0.0 K/mm3 (0.0-0.1) 11/11/21 09:13 Add Manual Diff Complete 11/13/21 05:36 Total Counted 100 11/13/21 05:36 Seg Neutrophils % 86.3 % (40.0-70.0) H 11/11/21 09:13 Seg Neuts % (Manual) 88.0 % (40.0-70.0) H 11/13/21 05:36 Band Neutrophils % 0 % 11/13/21 05:36 Lymphocytes % (Manual) 9.0 % (13.4-35.0) L 11/13/21 05:36 Reactive Lymphs % (Man) 0 % 11/13/21 05:36 Monocytes % (Manual) 3.0 % (0.0-7.3) 11/13/21 05:36 Eosinophils % (Manual) 0 % (0.0-4.3) 11/13/21 05:36 Basophils % (Manual) 0 % (0.0-1.8) 11/13/21 05:36 Metamyelocytes % 0 % 11/13/21 05:36 Myelocytes % 0 % 11/13/21 05:36 Promyelocytes % 0 % 11/13/21 05:36 Blast Cells % 0 % 11/13/21 05:36 Nucleated RBC % Not Reportable 11/13/21 05:36 Seg Neutrophils # 10.8 K/mm3 (1.8-7.7) H 11/11/21 09:13 Seg Neutrophils # Man 10.1 K/mm3 (1.8-7.7) H 11/13/21 05:36 Band Neutrophils # 0.0 K/mm3 11/13/21 05:36 Lymphocytes # (Manual) 1.0 K/mm3 (1.2-5.4) L 11/13/21 05:36 Abs React Lymphs (Man) 0.0 K/mm3 11/13/21 05:36 Monocytes # (Manual) 0.3 K/mm3 (0.0-0.8) 11/13/21 05:36 Eosinophils # (Manual) 0.0 K/mm3 (0.0-0.4) 11/13/21 05:36 Basophils # (Manual) 0.0 K/mm3 (0.0-0.1) 11/13/21 05:36 Metamyelocytes # 0.0 K/mm3 11/13/21 05:36 Myelocytes # 0.0 K/mm3 11/13/21 05:36 Promyelocytes # 0.0 K/mm3 11/13/21 05:36 Blast Cells # 0.0 K/mm3 11/13/21 05:36 WBC Morphology Not Reportable 11/13/21 05:36 Hypersegmented Neuts Not Reportable 11/13/21 05:36 Hyposegmented Neuts Not Reportable 11/13/21 05:36 Hypogranular Neuts Not Reportable 11/13/21 05:36 Smudge Cells Not Reportable 11/13/21 05:36 Toxic Granulation Not Reportable 11/13/21 05:36 Toxic Vacuolation Not Reportable 11/13/21 05:36 Dohle Bodies Not Reportable 11/13/21 05:36 Pelger-Huet Anomaly Not Reportable 11/13/21 05:36 Kristina Rods Not Reportable 11/13/21 05:36 Platelet Estimate Consistent w auto 11/13/21 05:36 Clumped Platelets Not Reportable 11/13/21 05:36 Plt Clumps, EDTA Not Reportable 11/13/21 05:36 Large Platelets Not Reportable 11/13/21 05:36 Giant Platelets Not Reportable 11/13/21 05:36 Platelet Satelliting Not Reportable 11/13/21 05:36 Plt Morphology Comment Not Reportable 11/13/21 05:36 RBC Morphology Not Reportable 11/13/21 05:36 Dimorphic RBCs Not Reportable 11/13/21 05:36 Polychromasia Not Reportable 11/13/21 05:36 Hypochromasia Not Reportable 11/13/21 05:36 Poikilocytosis Few 11/13/21 05:36 Anisocytosis 1+ 11/13/21 05:36 Microcytosis Not Reportable 11/13/21 05:36 Macrocytosis Few 11/13/21 05:36 Spherocytes Not Reportable 11/13/21 05:36 Pappenheimer Bodies Not Reportable 11/13/21 05:36 Sickle Cells Not Reportable 11/13/21 05:36 Target Cells Not Reportable 11/13/21 05:36 Tear Drop Cells Not Reportable 11/13/21 05:36 Ovalocytes Not Reportable 11/13/21 05:36 Helmet Cells Not Reportable 11/13/21 05:36 Erickson-Nocona Bodies Not Reportable 11/13/21 05:36 [place] Rings Not Reportable 11/13/21 05:36 Mohan Cells Not Reportable 11/13/21 05:36 Bite Cells Not Reportable 11/13/21 05:36 Crenated Cell Not Reportable 11/13/21 05:36 Elliptocytes Not Reportable 11/13/21 05:36 Acanthocytes (Spur) Not Reportable 11/13/21 05:36 Rouleaux Not Reportable 11/13/21 05:36 Hemoglobin C Crystals Not Reportable 11/13/21 05:36 Schistocytes Not Reportable 11/13/21 05:36 Malaria parasites Not Reportable 11/13/21 05:36 Fili Bodies Not Reportable 11/13/21 05:36 Hem Pathologist Commnt No 11/13/21 05:36 PT 17.4 Sec. (12.2-14.9) H 11/20/21 14:06 INR 1.29 (0.87-1.13) H 11/20/21 14:06 APTT 59.2 Sec. (24.2-36.6) H 11/20/21 14:06 Sodium 143 mmol/L (137-145) 11/21/21 06:31 Potassium 4.3 mmol/L (3.6-5.0) 11/21/21 06:31 Chloride 112.6 mmol/L (98-107) H 11/21/21 06:31 Carbon Dioxide 18 mmol/L (22-30) L 11/21/21 06:31 Anion Gap 17 mmol/L 11/21/21 06:31 BUN 36 mg/dL (9-20) H 11/21/21 06:31 Creatinine 1.7 mg/dL (0.8-1.3) H 11/21/21 06:31 Estimated GFR 49 ml/min 11/21/21 06:31 BUN/Creatinine Ratio 21 % 11/21/21 06:31 Glucose 90 mg/dL (75-100) 11/21/21 06:31 POC Glucose 93 mg/dL (70-105) 11/13/21 07:56 Lactic Acid 4.20 mmol/L (0.7-2.0) H* 11/12/21 02:18 Calcium 8.4 mg/dL (8.4-10.2) 11/21/21 06:31 Magnesium 2.50 mg/dL (1.7-2.3) H 11/11/21 09:13 Total Bilirubin 2.30 mg/dL (0.1-1.2) H 11/13/21 05:36 AST 42 units/L (5-40) H 11/13/21 05:36 ALT 55 units/L (7-56) 11/13/21 05:36 Alkaline Phosphatase 126 units/L (35-129) 11/13/21 05:36 Ammonia 14.0 umol/L (25-60) L 11/11/21 09:13 Total Creatine Kinase 85 units/L (55-170) 11/11/21 09:13 Troponin T 0.013 ng/mL (0.00-0.029) 11/11/21 09:13 Serum Total Protein 7.4 g/dL (6.1-8.1) 11/14/21 06:34 Total Protein 7.6 g/dL (6.3-8.2) 11/13/21 05:36 Albumin 3.1 g/dL (3.8-4.8) L 11/14/21 06:34 Albumin/Globulin Ratio 0.9 % 11/13/21 05:36 Zstlx-0-Ydfnrsoxv 0.4 g/dL (0.2-0.3) H 11/14/21 06:34 Dvdhc-9-Ckzfnkowm 0.9 g/dL (0.5-0.9) 11/14/21 06:34 Beta Globulins 0.5 g/dL (0.2-0.5) 11/14/21 06:34 Gamma Globulins 2.1 g/dL (0.8-1.7) H 11/14/21 06:34 Abnorm Protein Band 1 see below 11/14/21 06:34 PEP Interpretation see below H 11/14/21 06:34 TSH 3.100 mlU/mL (0.270-4.200) 11/12/21 13:56 Urine Color Yellow (Yellow) 11/14/21 05:15 Urine Turbidity Slightly-cloudy (Clear) 11/14/21 05:15 Urine pH 5.0 (5.0-7.0) 11/14/21 05:15 Ur Specific [place] 1.017 (1.003-1.030) 11/14/21 05:15 Urine Protein 30 mg/dl mg/dL (Negative) 11/14/21 05:15 Urine Glucose (UA) Neg mg/dL (Negative) 11/14/21 05:15 Urine Ketones Tr mg/dL (Negative) 11/14/21 05:15 Urine Blood Neg (Negative) 11/14/21 05:15 Urine Nitrite Neg (Negative) 11/14/21 05:15 Urine Bilirubin Neg (Negative) 11/14/21 05:15 Urine Urobilinogen 4.0 mg/dL (<2.0) 11/14/21 05:15 Ur Leukocyte Esterase Neg (Negative) 11/14/21 05:15 Urine WBC (Auto) 1.0 /HPF (0.0-6.0) 11/14/21 05:15 Urine RBC (Auto) 1.0 /HPF (0.0-6.0) 11/14/21 05:15 U Epithel Cells (Auto) < 1.0 /HPF (0-13.0) 11/14/21 05:15 Urine Bacteria (Auto) 1+ /HPF (Negative) 11/11/21 Unknown Hyaline Casts 2 /LPF 11/11/21 Unknown Urine Mucus Few /HPF 11/14/21 05:15 Urine Creatinine < 4.2 mg/dL (0.1-20.0) 11/14/21 05:15 Urine Sodium 10 mmol/L 11/14/21 05:15 Salicylates < 0.3 mg/dL (2.8-20.0) L 11/11/21 09:13 Acetaminophen 5.0 ug/mL (10.0-30.0) L 11/11/21 09:13 Plasma/Serum Alcohol < 0.01 % (0-0.07) 11/11/21 09:13 Proteinase 3 (PR3) Ab <1.0 AI (<1.0) 11/14/21 06:34 Myeloperoxidase Ab <1.0 AI (<1.0) 11/14/21 06:34 Complement C3 111 mg/dL (82-185) 11/14/21 06:34 Complement C4 21 mg/dL (15-53) 11/14/21 06:34 Coronavirus (PCR) Positive (Negative) A 11/14/21 08:40 Ibarra/IV: Voiding Method Condom Catheter Active Medications - Current Medications Current Medications: Generic Name Dose Route Start Last Admin Trade Name Freq PRN Reason Stop Dose Admin Acetaminophen 650 mg 11/12/21 01:58 Acetaminophen 325 Mg Tab PO Q6H PRN Pain MILD(1-3)/Fever >100.5/SMYTH Apixaban 5 mg 11/20/21 22:00 11/22/21 09:47 Apixaban 5 Mg Tab PO 5 mg Q12HR JENNY Administration Protocol Aspirin 81 mg 11/20/21 14:00 11/22/21 09:47 Aspirin Ec 81 Mg Tab PO 81 mg QDAY JENNY Administration Dextrose 1,000 mls @ 100 mls/hr 11/16/21 13:00 11/21/21 03:42 D5w IV Infused DIRECT JENNY Infusion Isosorbide Dinitrate/Hydralazine 1 each 11/20/21 14:00 11/22/21 14:46 Isosorb Dinit/Hydralazine 20-37.5mg Tab PO 1 each Q8HR JENNY Administration Lorazepam 2 mg 11/13/21 20:23 11/22/21 14:54 Lorazepam 2 Mg/Ml Vial IV 2 mg Q4H PRN Administration Agitation Metoprolol Tartrate 25 mg 11/20/21 14:00 11/22/21 09:48 Metoprolol Tartrate 25 Mg Tab PO 25 mg BID JENNY Administration Morphine Sulfate 2 mg 11/12/21 01:58 Morphine 2 Mg/1 Ml Inj IV Q4H PRN Pain, Moderate (4-6) Morphine Sulfate 4 mg 11/12/21 01:58 11/22/21 09:48 Morphine 4 Mg/1 Ml Inj IV 4 mg Q4H PRN Administration Pain , Severe (7-10) Pantoprazole Sodium 40 mg 11/12/21 07:30 11/22/21 09:48 Pantoprazole 40 Mg Tab PO 40 mg QDAC JENNY Administration Sodium Chloride 10 ml 11/18/21 14:32 11/21/21 06:36 Sodium Chloride 0.9% 50 Ml Ivpb IV 10 ml PRN PRN Administration FLUSH Nutrition/Malnutrition Assess - Dietary Evaluation Nutrition/Malnutrition Findings: Nutrition Notes Start: 11/19/21 16:27 Freq: Status: Active Protocol: Document 11/19/21 16:27 JOSE A (Rec: 11/19/21 16:38 JOSE A [id number]) Nutrition Notes Current Diagnosis Acute Kidney Injury Other Pertinent Diagnosis COVID-19, Cardiomyopathy, Encephalopathy, Atrial fibrilation. Current Diet Regular Diet (since D 11/11). Labs/Tests 11/19: Na 153, Cl 118.4, CO2 17, BUN 38, Crea 1.6. Pertinent Medications 11/19: Nutritionally unremarkable. Height 6 ft 2 in Weight 86.183 kg [place] Body Weight (kg) 86.36 BMI 24.3 Weight change and time frame None reported at admission. Weight Status Appropriate Subjective/Other Information RD consult for LOS assessment. No report available on Pt's PO intake of meals at the time. Percent of energy/protein needs met: Prescribed Regular Diet provides for energy/protein needs (2,289 Kcal/89 g) during LOS. Burn Absent Trauma Absent GI Symptoms None Food Allergy No Skin Integrity/Comment Clear, warm, dry. Minimum of two criteria No Is patient on ventilator? No Is Patient Ambulatory and/or Out of Bed No REE-([place]-confined to bed) 2070.008 Calculation Used for Recommendations 70-80% of EEN Additional Notes 15-20 Kcal/Kg ABW (3223-0539 Kcal). Protein: 1.2-2 g/Kg; 83-138 g/ day. Fluids: 1 ml/Kcal, or as per MD. Nutrition Intervention Follow-Up By: 11/26/21 Additional Comments Continue monitoring food tolerance, %PO intake of meals , and BM.
--- NOTE | 2021-11-22 18:45 | Event Note ---
Date: 11/22/21 I discussed in detail with patient's daughter Migdalia [phone] updated her the patient's condition And informed her that patient will be discharged tomorrow, she verbalized understanding, possible discharge tomorrow if stable
[2021-11-22] MEDS: SODIUM CHLORIDE 0.9% 50 ML IVPB IV PRN (22:53)
[2021-11-23] MEDS: LORazepam 2 MG/ML VIAL IV PRN ×2 (00:20→06:35)
[2021-11-23] MEDS: ISOSORB DINIT/HYDRALAZINE 20-37.5MG TAB PO SCH ×3 (05:22→22:53)
[2021-11-23] MEDS: APIXABAN 5 MG TAB PO SCH ×3 (08:15→22:55)
[2021-11-23] MEDS: PANTOPRAZOLE 40 MG TAB PO SCH (08:15)
[2021-11-23] MEDS: ASPIRIN EC 81 MG TAB PO SCH ×2 (08:15→10:00)
--- NOTE | 2021-11-23 08:15 | Discharge Summary ---
Providers - Providers Date of Admission: 11/12/21 01:59 Date of discharge: 11/23/21 Attending physician: ERIK GARCIA 11/11/21 15:29 Consult to Physician [CONS] Routine Comment: Consulting Provider: SUGAR ERIC Physician Instructions: Reason For Exam: A. fib with rapid ventricular rate 11/11/21 18:44 psychiatry consult [Consult to Mental Health] [CONS] Routine Reason For Exam: Acute psychosis/agitation 11/13/21 08:35 Consult to Physician [CONS] Routine Comment: Consulting Provider: RAMON PEARL Physician Instructions: Reason For Exam: acute kidney injury 11/13/21 15:26 Consult to Physician [CONS] Routine Comment: Consulting Provider: JOBY SLOAN Physician Instructions: Reason For Exam: altered mental status 11/13/21 15:36 Consult to Case Management [CONS] Routine Services Needed at Discharge: Other Senior Site Manager Notified:: CM Comment:: homeless, discharge planning. 11/13/21 15:41 Speech Therapy Evaluation and Treat [CONS] Routine Reason For Exam: eval and tx 11/13/21 15:42 Physical Therapy Evaluation and Treat [CONS] Routine Comment: Reason For Exam: debility Primary care physician: COLOR MIXER Hospitalization Condition: Stable Disposition: 30 STILL A PATIENT Exam - Constitutional Vitals: Temp Pulse Resp BP Pulse Ox 97.5 F L 57 L 20 142/112 99 11/23/21 04:33 11/23/21 04:33 11/23/21 04:33 11/23/21 04:33 11/23/21 04:33 Plan Follow up with: PRIMARY CARE, [Primary Care Provider] - 3-5 Days
[2021-11-23] MEDS: METOPROLOL TARTRATE 25 MG TAB PO SCH ×3 (08:18→22:55)
[2021-11-23] MEDS: MORPHINE 4 MG/1 ML INJ IV PRN ×2 (08:20→15:04)
--- NOTE | 2021-11-23 10:02 | Progress Note ---
Subjective - Reason for Consult Consult date: 11/23/21 Reason for consult: agitation - Chief Complaint Chief complaint: The patient was seen today. He is in restraints. He is lying in the bed disorganized. The nurse caring for the patient states he's been agitated, restless, anxious and doesn't follow commands in regards to his safety. REVIEW OF SYSTEMS MENTAL STATUS EXAMINATION Unable to assess Assessment (1) Delirium Current Visit: Yes Status: Acute Treatment Plan Haldol 1mg po BID Mirtazepine 7.5mg po qhs Medical: Per primary Disposition: Do not recommend acute psychiatric inpatient treatment at this time. It appears that the patient's agitation was due to underlying acute medical conditions. Will follow for med management. Thanks Case staffed with Dr. Melgar Mental Status Exam - Vital signs Last Vital Signs Temp 97.5 F L 11/23/21 04:33 Pulse 57 L 11/23/21 04:33 Resp 20 11/23/21 04:33 BP 142/112 11/23/21 04:33 Pulse Ox 99 11/23/21 04:33
--- NOTE | 2021-11-23 10:47 | Progress Note ---
Assessment and Plan 1. Altered mental status 2. Persistent atrial fibrillation with a controlled ventricular response 3. Chronic combined systolic and diastolic heart failure 4. Dilated cardiomyopathy with four-chamber dilation and biventricular failure 5. Chronic renal failure unspecified 6.. COVID-19 infection Plan. Cardiac iglesias stable continue present conservative cardiac management with ventricular rate control to atrial fibrillation. Subjective Principal diagnosis: encephalopathy,AF,COVID-19 Interval history: No change in mental status Objective Vital Signs Temp Pulse Resp BP Pulse Ox 11/23/21 04:33 97.5 F L 57 L 20 142/112 99 11/22/21 22:50 79 149/106 11/22/21 22:46 97.5 F L 45 L 22 149/106 100 11/22/21 22:00 79 97 11/22/21 20:40 17 11/22/21 20:10 17 11/22/21 16:28 97.0 F L 66 18 110/85 97 11/22/21 11:46 98.0 F 60 18 119/92 99 - Physical Examination General: No Apparent Distress, Cachectic, Other (Mildly confused) HEENT: Positive: PERRL Neck: Positive: neck supple Cardiac: Positive: S1/S2, S3, S4, PMI, Dilated, Laterally Displaced Lungs: Positive: clear to auscultation, No Wheeze, Rales, Rhonchi Neuro: Positive: Grossly Intact, Other (Altered mental status in restraints) Abdomen: Positive: Soft Skin: Positive: Clear Extremities: Absent: edema - Labs and Meds Comprehensive Metabolic Panel 11/23/21 Range/Units 07:09 Creatinine 1.4 H (0.8-1.3) mg/dL
--- NOTE | 2021-11-23 13:11 | Progress Note ---
Assessment and Plan Assessment and plan: 66-year-old -[place] male patient with significant past medical history of CHFrEF 15%, COPD, hypertension recent, Positive COVID-19 who is recently discharged after being treated for COVID19 was brought to the emergency room by EMS with altered level of consciousness. Initial evaluation is consistent with A. fib with rapid ventricular rate, Lactic acidosis, leukocytosis probably secondary to recent steroid use. Chest x-ray mild increased interstitial prominence within the lung, left slightly greater than right, CT head , no acute abnormality noted. Assessment and Plan: COVID-19 test is positive 11/04/2021 and 11/14/2021 --Acute metabolic encephalopathy/acute delirium - present on admission - Intermittent confusion now worsening. Possibly metabolic in a patient with underlying dementia. - Recent COVID-19, possible psych disorder - CT head negative for acute abnormality, EEG normal study - MR brain /unable to obtain due to his agitation and always being restrained Psychiatry evaluated , did not need inpatient psych management Psych feels that patient symptom due to medical condition Neurology following --A. fib with rapid ventricular rate; currently rate controlled s/p IV Cardizem, IV metoprolol Currently on oral metoprolol 25 mg twice a day. --Chronic anticoagulation/atrial fibrillation s/p Lovenox full dose, transitioned to Eliquis --Dilated cardiomyopathy; EF 10% Guideline directed medical therapy Dilated left ventricle severe global hypokinesis ECHO:severe diastolic dysfunction LVEF 10% -- Acute hypoxic respiratory failure: likely from underlying h/o COVID pna and CHF Continue supplemental oxygen likely from underlying h/o COVID pna and CHF Patient on 2-4L n/c O2 --Leukocytosis; Probably secondary to steroids, recent COVID-19 infection Closely monitor trend lactic acid --Acute kidney injury; - Vasomotor nephropathy, trending down Nephrology following --Recent COVID-19 infection; Continue low-dose dexamethasone for total 10 days --DVT prophylaxis; Patient is on full dose anticoagulation with Lovenox --Advance care planning Disease education conducted, care plan discussed, diagnoses discussed, prognosis discussed, patient is full code, patient acknowledges understanding and agree with care plan, +30 minutes. -- Full CODE STATUS --Discharge planning: Per case management Patient continues to be agitated , dementia , and coagulopathy Requiring restraints. Discharge when medically stable Possible discharge home 1 to 2 days 1 to 2 days with the daughter I discussed in detail with the daughter the discharge planning she verbalized understanding, Hospital Course: 11/12: Placed on amiodorone and Lovenox by cardiology. Agree with cardiology that patient will likely not be amenable to anticoagulation if he is not in a supervised facility. Psychiatry recommendations noted. Once patient is off diltiazem drip can be downgraded to medical floor. 11/13: Patient remains altered on my exam. Barely opening eyes upon sternal rub however he is protecting his airway. Consulted neurology for evaluation Worsening renal function, nephrology consulted. Cardiology noted DCMP on echo, will initiated guideline directed therapy. Off of amiodorone gtt, now on po amiodorone and metoprolol however doubt his ability to swallow given mental status. Sedative d/c and ST consulted. If patient able to tolerate po, will downgrade to tele bed. 11/14: Resumed care, patient restrained, very confused, follow renal function, p on 2-4 n/c O2. 11/15: remains agitated, confused. monitor Na and Cr level. patient recorded as homeless, cont iv fluid, wean off o2. cont supportive care, psych following. MRI/EEG pending 11/16: cont to follow BMP -Na Cr remains elevated, pt confused, MRI/EEG pending. supportive care 11.17: clinically unchanged, Cr, Na still elevated, cont iv fluid, follow psych and renal recommendation. cont supportive care 11/18: remains agitated and confused requiring restraint. cont iv meds and change to oral route when clinically improves. follow BMP, MRI brain /EEG pending 11/19; patient continues to be encephalopathic and restless requiring restraints Unable to get MRI EEG done due to agitation 11/20; patient feels slightly better today, continues to be agitated requiring restraints Speech therapist cleared for regular diet, as patient is lethargic and agitated and confused need to be fed by the nurse or the tech, cardiology transition Subcu Lovenox to oral Eliquis 11/21; patient continues to require restraints, continue current management 11/22; patient is hemodynamically and clinically stable for discharge however due to dementia And encephalopathy patient needs 24/7 supervision. Restraint for safety in the hospital 11/23; patient continues to be confused and agitated requiring, medications to calm him down Noncommunicative, will hold the discharge I discussed in detail with patient's daughter Migdalia [phone] updated her the patient's condition And informed her that patient will be discharged tomorrow, she verbalized understanding, possible discharge tomorrow if stable History Interval history: I have seen and examined the patient at the bedside Patient's chart and current medications reviewed Patient is severely confused Agitated requiring restraints Vital signs noted Hospitalist Physical - Constitutional Vitals: Temp Pulse Resp BP Pulse Ox 97.5 F L 57 L 20 142/112 99 11/23/21 04:33 11/23/21 04:33 11/23/21 04:33 11/23/21 04:33 11/23/21 04:33 General appearance: Present: no acute distress, well-nourished - EENT Eyes: Present: PERRL, scleral icterus - Neck Neck: Present: supple, normal ROM - Respiratory Respiratory effort: normal Respiratory: bilateral: diminished, negative: rales, rhonchi, wheezing - Cardiovascular Rhythm: regular Heart Sounds: Present: S1 & S2 - Extremities Extremities: no ischemia, No edema - Abdominal General gastrointestinal: soft, non-tender, non-distended, normal bowel sounds - Integumentary Integumentary: Present: clear, warm - Psychiatric Psychiatric: appropriate mood/affect, cooperative - Neurologic Neurologic: moves all extremities HEART Score - HEART Score Troponin: Troponin T 0.013 ng/mL (0.00-0.029) 11/11/21 09:13 Results - Labs CBC & Chem 7: 11/22/21 07:40 11/23/21 07:09 Labs: Laboratory Last Values WBC 7.3 K/mm3 (4.5-11.0) 11/22/21 07:40 RBC 4.91 M/mm3 (3.65-5.03) 11/22/21 07:40 Hgb 12.9 gm/dl (11.8-15.2) 11/22/21 07:40 Hct 41.2 % (35.5-45.6) D 11/22/21 07:40 MCV 84 fl (84-94) 11/22/21 07:40 MCH 26 pg (28-32) L 11/22/21 07:40 MCHC 31 % (32-34) L 11/22/21 07:40 RDW 19.4 % (13.2-15.2) H 11/22/21 07:40 Plt Count 135 K/mm3 (140-440) L 11/22/21 07:40 Lymph % (Auto) 7.4 % (13.4-35.0) L 11/11/21 09:13 Clarke % (Auto) 6.1 % (0.0-7.3) 11/11/21 09:13 Eos % (Auto) 0.1 % (0.0-4.3) 11/11/21 09:13 Baso % (Auto) 0.1 % (0.0-1.8) 11/11/21 09:13 Lymph # (Auto) 0.9 K/mm3 (1.2-5.4) L 11/11/21 09:13 Clarke # (Auto) 0.8 K/mm3 (0.0-0.8) 11/11/21 09:13 Eos # (Auto) 0.0 K/mm3 (0.0-0.4) 11/11/21 09:13 Baso # (Auto) 0.0 K/mm3 (0.0-0.1) 11/11/21 09:13 Add Manual Diff Complete 11/13/21 05:36 Total Counted 100 11/13/21 05:36 Seg Neutrophils % 86.3 % (40.0-70.0) H 11/11/21 09:13 Seg Neuts % (Manual) 88.0 % (40.0-70.0) H 11/13/21 05:36 Band Neutrophils % 0 % 11/13/21 05:36 Lymphocytes % (Manual) 9.0 % (13.4-35.0) L 11/13/21 05:36 Reactive Lymphs % (Man) 0 % 11/13/21 05:36 Monocytes % (Manual) 3.0 % (0.0-7.3) 11/13/21 05:36 Eosinophils % (Manual) 0 % (0.0-4.3) 11/13/21 05:36 Basophils % (Manual) 0 % (0.0-1.8) 11/13/21 05:36 Metamyelocytes % 0 % 11/13/21 05:36 Myelocytes % 0 % 11/13/21 05:36 Promyelocytes % 0 % 11/13/21 05:36 Blast Cells % 0 % 11/13/21 05:36 Nucleated RBC % Not Reportable 11/13/21 05:36 Seg Neutrophils # 10.8 K/mm3 (1.8-7.7) H 11/11/21 09:13 Seg Neutrophils # Man 10.1 K/mm3 (1.8-7.7) H 11/13/21 05:36 Band Neutrophils # 0.0 K/mm3 11/13/21 05:36 Lymphocytes # (Manual) 1.0 K/mm3 (1.2-5.4) L 11/13/21 05:36 Abs React Lymphs (Man) 0.0 K/mm3 11/13/21 05:36 Monocytes # (Manual) 0.3 K/mm3 (0.0-0.8) 11/13/21 05:36 Eosinophils # (Manual) 0.0 K/mm3 (0.0-0.4) 11/13/21 05:36 Basophils # (Manual) 0.0 K/mm3 (0.0-0.1) 11/13/21 05:36 Metamyelocytes # 0.0 K/mm3 11/13/21 05:36 Myelocytes # 0.0 K/mm3 11/13/21 05:36 Promyelocytes # 0.0 K/mm3 11/13/21 05:36 Blast Cells # 0.0 K/mm3 11/13/21 05:36 WBC Morphology Not Reportable 11/13/21 05:36 Hypersegmented Neuts Not Reportable 11/13/21 05:36 Hyposegmented Neuts Not Reportable 11/13/21 05:36 Hypogranular Neuts Not Reportable 11/13/21 05:36 Smudge Cells Not Reportable 11/13/21 05:36 Toxic Granulation Not Reportable 11/13/21 05:36 Toxic Vacuolation Not Reportable 11/13/21 05:36 Dohle Bodies Not Reportable 11/13/21 05:36 Pelger-Huet Anomaly Not Reportable 11/13/21 05:36 Kristina Rods Not Reportable 11/13/21 05:36 Platelet Estimate Consistent w auto 11/13/21 05:36 Clumped Platelets Not Reportable 11/13/21 05:36 Plt Clumps, EDTA Not Reportable 11/13/21 05:36 Large Platelets Not Reportable 11/13/21 05:36 Giant Platelets Not Reportable 11/13/21 05:36 Platelet Satelliting Not Reportable 11/13/21 05:36 Plt Morphology Comment Not Reportable 11/13/21 05:36 RBC Morphology Not Reportable 11/13/21 05:36 Dimorphic RBCs Not Reportable 11/13/21 05:36 Polychromasia Not Reportable 11/13/21 05:36 Hypochromasia Not Reportable 11/13/21 05:36 Poikilocytosis Few 11/13/21 05:36 Anisocytosis 1+ 11/13/21 05:36 Microcytosis Not Reportable 11/13/21 05:36 Macrocytosis Few 11/13/21 05:36 Spherocytes Not Reportable 11/13/21 05:36 Pappenheimer Bodies Not Reportable 11/13/21 05:36 Sickle Cells Not Reportable 11/13/21 05:36 Target Cells Not Reportable 11/13/21 05:36 Tear Drop Cells Not Reportable 11/13/21 05:36 Ovalocytes Not Reportable 11/13/21 05:36 Helmet Cells Not Reportable 11/13/21 05:36 [place]on-[place] Bodies Not Reportable 11/13/21 05:36 [place] Rings Not Reportable 11/13/21 05:36 Mohan Cells Not Reportable 11/13/21 05:36 Bite Cells Not Reportable 11/13/21 05:36 Crenated Cell Not Reportable 11/13/21 05:36 Elliptocytes Not Reportable 11/13/21 05:36 Acanthocytes (Spur) Not Reportable 11/13/21 05:36 Rouleaux Not Reportable 11/13/21 05:36 Hemoglobin C Crystals Not Reportable 11/13/21 05:36 Schistocytes Not Reportable 11/13/21 05:36 Malaria parasites Not Reportable 11/13/21 05:36 Fili Bodies Not Reportable 11/13/21 05:36 Hem Pathologist Commnt No 11/13/21 05:36 PT 17.4 Sec. (12.2-14.9) H 11/20/21 14:06 INR 1.29 (0.87-1.13) H 11/20/21 14:06 APTT 59.2 Sec. (24.2-36.6) H 11/20/21 14:06 Sodium 143 mmol/L (137-145) 11/21/21 06:31 Potassium 4.3 mmol/L (3.6-5.0) 11/21/21 06:31 Chloride 112.6 mmol/L (98-107) H 11/21/21 06:31 Carbon Dioxide 18 mmol/L (22-30) L 11/21/21 06:31 Anion Gap 17 mmol/L 11/21/21 06:31 BUN 36 mg/dL (9-20) H 11/21/21 06:31 Creatinine 1.4 mg/dL (0.8-1.3) H 11/23/21 07:09 Estimated GFR > 60 ml/min 11/23/21 07:09 BUN/Creatinine Ratio 21 % 11/21/21 06:31 Glucose 90 mg/dL (75-100) 11/21/21 06:31 POC Glucose 93 mg/dL (70-105) 11/13/21 07:56 Lactic Acid 4.20 mmol/L (0.7-2.0) H* 11/12/21 02:18 Calcium 8.4 mg/dL (8.4-10.2) 11/21/21 06:31 Magnesium 2.50 mg/dL (1.7-2.3) H 11/11/21 09:13 Total Bilirubin 2.30 mg/dL (0.1-1.2) H 11/13/21 05:36 AST 42 units/L (5-40) H 11/13/21 05:36 ALT 55 units/L (7-56) 11/13/21 05:36 Alkaline Phosphatase 126 units/L (35-129) 11/13/21 05:36 Ammonia 14.0 umol/L (25-60) L 11/11/21 09:13 Total Creatine Kinase 85 units/L (55-170) 11/11/21 09:13 Troponin T 0.013 ng/mL (0.00-0.029) 11/11/21 09:13 Serum Total Protein 7.4 g/dL (6.1-8.1) 11/14/21 06:34 Total Protein 7.6 g/dL (6.3-8.2) 11/13/21 05:36 Albumin 3.1 g/dL (3.8-4.8) L 11/14/21 06:34 Albumin/Globulin Ratio 0.9 % 11/13/21 05:36 Niima-9-Ulgntydzq 0.4 g/dL (0.2-0.3) H 11/14/21 06:34 Nektq-7-Gmfjrcrie 0.9 g/dL (0.5-0.9) 11/14/21 06:34 Beta Globulins 0.5 g/dL (0.2-0.5) 11/14/21 06:34 Gamma Globulins 2.1 g/dL (0.8-1.7) H 11/14/21 06:34 Abnorm Protein Band 1 see below 11/14/21 06:34 PEP Interpretation see below H 11/14/21 06:34 TSH 3.100 mlU/mL (0.270-4.200) 11/12/21 13:56 Urine Color Yellow (Yellow) 11/14/21 05:15 Urine Turbidity Slightly-cloudy (Clear) 11/14/21 05:15 Urine pH 5.0 (5.0-7.0) 11/14/21 05:15 Ur Specific [place] 1.017 (1.003-1.030) 11/14/21 05:15 Urine Protein 30 mg/dl mg/dL (Negative) 11/14/21 05:15 Urine Glucose (UA) Neg mg/dL (Negative) 11/14/21 05:15 Urine Ketones Tr mg/dL (Negative) 11/14/21 05:15 Urine Blood Neg (Negative) 11/14/21 05:15 Urine Nitrite Neg (Negative) 11/14/21 05:15 Urine Bilirubin Neg (Negative) 11/14/21 05:15 Urine Urobilinogen 4.0 mg/dL (<2.0) 11/14/21 05:15 Ur Leukocyte Esterase Neg (Negative) 11/14/21 05:15 Urine WBC (Auto) 1.0 /HPF (0.0-6.0) 11/14/21 05:15 Urine RBC (Auto) 1.0 /HPF (0.0-6.0) 11/14/21 05:15 U Epithel Cells (Auto) < 1.0 /HPF (0-13.0) 11/14/21 05:15 Urine Bacteria (Auto) 1+ /HPF (Negative) 11/11/21 Unknown Hyaline Casts 2 /LPF 11/11/21 Unknown Urine Mucus Few /HPF 11/14/21 05:15 Urine Creatinine < 4.2 mg/dL (0.1-20.0) 11/14/21 05:15 Urine Sodium 10 mmol/L 11/14/21 05:15 Salicylates < 0.3 mg/dL (2.8-20.0) L 11/11/21 09:13 Acetaminophen 5.0 ug/mL (10.0-30.0) L 11/11/21 09:13 Plasma/Serum Alcohol < 0.01 % (0-0.07) 11/11/21 09:13 Proteinase 3 (PR3) Ab <1.0 AI (<1.0) 11/14/21 06:34 Myeloperoxidase Ab <1.0 AI (<1.0) 11/14/21 06:34 Complement C3 111 mg/dL (82-185) 11/14/21 06:34 Complement C4 21 mg/dL (15-53) 11/14/21 06:34 Coronavirus (PCR) Positive (Negative) A 11/14/21 08:40 Ibarra/IV: Voiding Method Urinal Active Medications - Current Medications Current Medications: Generic Name Dose Route Start Last Admin Trade Name Freq PRN Reason Stop Dose Admin Acetaminophen 650 mg 11/12/21 01:58 Acetaminophen 325 Mg Tab PO Q6H PRN Pain MILD(1-3)/Fever >100.5/SMYTH Apixaban 5 mg 11/20/21 22:00 11/23/21 08:15 Apixaban 5 Mg Tab PO 5 mg Q12HR JENNY Administration Protocol Aspirin 81 mg 11/20/21 14:00 11/23/21 08:15 Aspirin Ec 81 Mg Tab PO 81 mg QDAY JENNY Administration Haloperidol 1 mg 11/23/21 11:00 Haloperidol 1 Mg Tab PO BID JENNY Dextrose 1,000 mls @ 100 mls/hr 11/16/21 13:00 11/21/21 03:42 D5w IV Infused DIRECT JENNY Infusion Isosorbide Dinitrate/Hydralazine 1 each 11/20/21 14:00 11/23/21 05:22 Isosorb Dinit/Hydralazine 20-37.5mg Tab PO 1 each Q8HR JENNY Administration Metoprolol Tartrate 25 mg 11/20/21 14:00 11/23/21 08:18 Metoprolol Tartrate 25 Mg Tab PO 25 mg BID JENNY Administration Mirtazapine 5 mg 11/23/21 22:00 Mirtazapine 15 Mg Tab PO QHS JENNY Morphine Sulfate 2 mg 11/12/21 01:58 Morphine 2 Mg/1 Ml Inj IV Q4H PRN Pain, Moderate (4-6) Morphine Sulfate 4 mg 11/12/21 01:58 11/23/21 08:20 Morphine 4 Mg/1 Ml Inj IV 4 mg Q4H PRN Administration Pain , Severe (7-10) Pantoprazole Sodium 40 mg 11/12/21 07:30 11/23/21 08:15 Pantoprazole 40 Mg Tab PO 40 mg QDAC JENNY Administration Sodium Chloride 10 ml 11/18/21 14:32 11/22/21 22:53 Sodium Chloride 0.9% 50 Ml Ivpb IV 10 ml PRN PRN Administration FLUSH Nutrition/Malnutrition Assess - Dietary Evaluation Nutrition/Malnutrition Findings: Nutrition Notes Start: 11/19/21 16:27 Freq: Status: Active Protocol: Document 11/19/21 16:27 JOSE A (Rec: 11/19/21 16:38 JOSE A [id number]) Nutrition Notes Current Diagnosis Acute Kidney Injury Other Pertinent Diagnosis COVID-19, Cardiomyopathy, Encephalopathy, Atrial fibrilation. Current Diet Regular Diet (since D 11/11). Labs/Tests 11/19: Na 153, Cl 118.4, CO2 17, BUN 38, Crea 1.6. Pertinent Medications 11/19: Nutritionally unremarkable. Height 6 ft 2 in Weight 86.183 kg [place] Body Weight (kg) 86.36 BMI 24.3 Weight change and time frame None reported at admission. Weight Status Appropriate Subjective/Other Information RD consult for LOS assessment. No report available on Pt's PO intake of meals at the time. Percent of energy/protein needs met: Prescribed Regular Diet provides for energy/protein needs (2,289 Kcal/89 g) during LOS. Burn Absent Trauma Absent GI Symptoms None Food Allergy No Skin Integrity/Comment Clear, warm, dry. Minimum of two criteria No Is patient on ventilator? No Is Patient Ambulatory and/or Out of Bed No REE-([facility]-confined to bed) 2071.008 Calculation Used for Recommendations 70-80% of EEN Additional Notes 15-20 Kcal/Kg ABW (6789-8682 Kcal). Protein: 1.2-2 g/Kg; 83-138 g/ day. Fluids: 1 ml/Kcal, or as per MD. Nutrition Intervention Follow-Up By: 11/26/21 Additional Comments Continue monitoring food tolerance, %PO intake of meals , and BM.
[2021-11-23] MEDS: HALOPERIDOL 1 MG TAB PO SCH ×2 (15:02→22:55)
--- NOTE | 2021-11-23 16:11 | Progress Note ---
Assessment and Plan Assessment and plan: COVID-19 test is positive 11/04/2021 and 11/14/2021 --Acute metabolic encephalopathy/acute delirium - present on admission -Worsening confusion. Multifactorial, dementia, history of substance abuse - Recent COVID-19, possible psych disorder - CT head negative for acute abnormality, EEG normal study - MR brain /unable to obtain due to his agitation and always being restrained Psychiatry evaluated , did not need inpatient psych management Psych feels that patient symptom due to medical condition Neurology evaluated the patient --A. fib with rapid ventricular rate; currently rate controlled s/p IV Cardizem, IV metoprolol Currently on oral metoprolol and Eliquis --Chronic anticoagulation/atrial fibrillation s/p Lovenox full dose, transitioned to Eliquis --Dilated cardiomyopathy; EF 10% Guideline directed medical therapy Dilated left ventricle severe global hypokinesis ECHO:severe diastolic dysfunction LVEF 10% -- Acute hypoxic respiratory failure: likely from underlying h/o COVID pna and CHF Continue supplemental oxygen likely from underlying h/o COVID pna and CHF Patient on 2-4L n/c O2 --Leukocytosis; Probably secondary to steroids, recent COVID-19 infection Closely monitor trend lactic acid --Acute kidney injury; - Vasomotor nephropathy, trending down Nephrology following --Recent COVID-19 infection; Continue low-dose dexamethasone for total 10 days --DVT prophylaxis; Patient is on full dose anticoagulation with Lovenox --Advance care planning Disease education conducted, care plan discussed, diagnoses discussed, prognosis discussed, patient is full code, patient acknowledges understanding and agree with care plan, +30 minutes. -- Full CODE STATUS --Discharge planning: Per case management Patient continues to be agitated , dementia , and coagulopathy Requiring restraints. Discharge when medically stable Possible discharge home 1 to 2 days 1 to 2 days with the daughter I discussed in detail with the daughter the discharge planning she verbalized understanding, Brief history & Daily Hospital course 66-year-old -[place] male patient with significant past medical history of CHFrEF 15%, COPD, hypertension recent, Positive COVID-19 who is recently discharged after being treated for COVID19 was brought to the emergency room by EMS with altered level of consciousness. Initial evaluation is consistent with A. fib with rapid ventricular rate, Lactic acidosis, leukocytosis probably secondary to recent steroid use. Chest x-ray mild increased interstitial prominence within the lung, left slightly greater than right, CT head , no acute abnormality noted. Hospital Course: 11/12: Placed on amiodorone and Lovenox by cardiology. Agree with cardiology that patient will likely not be amenable to anticoagulation if he is not in a supervised facility. Psychiatry recommendations noted. Once patient is off diltiazem drip can be downgraded to medical floor. 11/13: Patient remains altered on my exam. Barely opening eyes upon sternal rub however he is protecting his airway. Consulted neurology for evaluation Worsening renal function, nephrology consulted. Cardiology noted DCMP on echo, will initiated guideline directed therapy. Off of amiodorone gtt, now on po amiodorone and metoprolol however doubt his ability to swallow given mental status. Sedative d/c and ST consulted. If patient able to tolerate po, will downgrade to tele bed. 11/14: Resumed care, patient restrained, very confused, follow renal function, p on 2-4 n/c O2. 11/15: remains agitated, confused. monitor Na and Cr level. patient recorded as homeless, cont iv fluid, wean off o2. cont supportive care, psych following. MRI/EEG pending 11/16: cont to follow BMP -Na Cr remains elevated, pt confused, MRI/EEG pending. supportive care 11.17: clinically unchanged, Cr, Na still elevated, cont iv fluid, follow psych and renal recommendation. cont supportive care 11/18: remains agitated and confused requiring restraint. cont iv meds and change to oral route when clinically improves. follow BMP, MRI brain /EEG pending 11/19; patient continues to be encephalopathic and restless requiring restraints Unable to get MRI EEG done due to agitation 11/20; patient feels slightly better today, continues to be agitated requiring restraints Speech therapist cleared for regular diet, as patient is lethargic and agitated and confused need to be fed by the nurse or the tech, cardiology transition Subcu Lovenox to oral Eliquis 11/21; patient continues to require restraints, continue current management 11/22; patient is hemodynamically and clinically stable for discharge however due to dementia And encephalopathy patient needs 24/7 supervision. Restraint for safety in the hospital 11/23; patient continues to be confused and agitated requiring, medications to calm him down and restraints Noncommunicative, not ready for safe discharge I discussed in detail with patient's daughter Migdalia [phone] updated her the patient's condition And informed her that patient will be discharged soon , however patient is confused restless requiring restraints . 11/24 :discharge home when patient is off restraints and stable versus SNF placement History Interval history: I have seen and examined the patient at the bedside Patient's chart and medications reviewed Patient remained confused, agitated, on restraints for safety Severely encephalopathic, unable to follow instruction Hospitalist Physical - Constitutional Vitals: Temp Pulse Resp BP Pulse Ox 98.7 F 99 H 18 148/106 95 11/23/21 11:41 11/23/21 11:41 11/23/21 11:41 11/23/21 11:41 11/23/21 11:41 General appearance: Present: mild distress, well-nourished, other (Agitation restraint for safety confused does not follow instructions) - EENT Eyes: Present: PERRL, EOM intact - Neck Neck: Present: supple, normal ROM - Respiratory Respiratory effort: normal Respiratory: bilateral: diminished, negative: rales, rhonchi, wheezing - Cardiovascular Rhythm: regular Heart Sounds: Present: S1 & S2 - Extremities Extremities: no ischemia, No edema - Abdominal General gastrointestinal: soft, non-tender, non-distended, normal bowel sounds - Integumentary Integumentary: Present: clear, warm - Psychiatric Psychiatric: agitated, other (Confused) - Neurologic Neurologic: moves all extremities HEART Score - HEART Score Troponin: Troponin T 0.013 ng/mL (0.00-0.029) 11/11/21 09:13 Results - Labs CBC & Chem 7: 11/24/21 07:53 11/23/21 07:09 Labs: Laboratory Last Values WBC 7.3 K/mm3 (4.5-11.0) 11/22/21 07:40 RBC 4.91 M/mm3 (3.65-5.03) 11/22/21 07:40 Hgb 12.9 gm/dl (11.8-15.2) 11/22/21 07:40 Hct 41.2 % (35.5-45.6) D 11/22/21 07:40 MCV 84 fl (84-94) 11/22/21 07:40 MCH 26 pg (28-32) L 11/22/21 07:40 MCHC 31 % (32-34) L 11/22/21 07:40 RDW 19.4 % (13.2-15.2) H 11/22/21 07:40 Plt Count 135 K/mm3 (140-440) L 11/22/21 07:40 Lymph % (Auto) 7.4 % (13.4-35.0) L 11/11/21 09:13 [place]y % (Auto) 6.1 % (0.0-7.3) 11/11/21 09:13 Eos % (Auto) 0.1 % (0.0-4.3) 11/11/21 09:13 Baso % (Auto) 0.1 % (0.0-1.8) 11/11/21 09:13 Lymph # (Auto) 0.9 K/mm3 (1.2-5.4) L 11/11/21 09:13 [place]y # (Auto) 0.8 K/mm3 (0.0-0.8) 11/11/21 09:13 Eos # (Auto) 0.0 K/mm3 (0.0-0.4) 11/11/21 09:13 Baso # (Auto) 0.0 K/mm3 (0.0-0.1) 11/11/21 09:13 Add Manual Diff Complete 11/13/21 05:36 Total Counted 100 11/13/21 05:36 Seg Neutrophils % 86.3 % (40.0-70.0) H 11/11/21 09:13 Seg Neuts % (Manual) 88.0 % (40.0-70.0) H 11/13/21 05:36 Band Neutrophils % 0 % 11/13/21 05:36 Lymphocytes % (Manual) 9.0 % (13.4-35.0) L 11/13/21 05:36 Reactive Lymphs % (Man) 0 % 11/13/21 05:36 Monocytes % (Manual) 3.0 % (0.0-7.3) 11/13/21 05:36 Eosinophils % (Manual) 0 % (0.0-4.3) 11/13/21 05:36 Basophils % (Manual) 0 % (0.0-1.8) 11/13/21 05:36 Metamyelocytes % 0 % 11/13/21 05:36 Myelocytes % 0 % 11/13/21 05:36 Promyelocytes % 0 % 11/13/21 05:36 Blast Cells % 0 % 11/13/21 05:36 Nucleated RBC % Not Reportable 11/13/21 05:36 Seg Neutrophils # 10.8 K/mm3 (1.8-7.7) H 11/11/21 09:13 Seg Neutrophils # Man 10.1 K/mm3 (1.8-7.7) H 11/13/21 05:36 Band Neutrophils # 0.0 K/mm3 11/13/21 05:36 Lymphocytes # (Manual) 1.0 K/mm3 (1.2-5.4) L 11/13/21 05:36 Abs React Lymphs (Man) 0.0 K/mm3 11/13/21 05:36 Monocytes # (Manual) 0.3 K/mm3 (0.0-0.8) 11/13/21 05:36 Eosinophils # (Manual) 0.0 K/mm3 (0.0-0.4) 11/13/21 05:36 Basophils # (Manual) 0.0 K/mm3 (0.0-0.1) 11/13/21 05:36 Metamyelocytes # 0.0 K/mm3 11/13/21 05:36 Myelocytes # 0.0 K/mm3 11/13/21 05:36 Promyelocytes # 0.0 K/mm3 11/13/21 05:36 Blast Cells # 0.0 K/mm3 11/13/21 05:36 WBC Morphology Not Reportable 11/13/21 05:36 Hypersegmented Neuts Not Reportable 11/13/21 05:36 Hyposegmented Neuts Not Reportable 11/13/21 05:36 Hypogranular Neuts Not Reportable 11/13/21 05:36 Smudge Cells Not Reportable 11/13/21 05:36 Toxic Granulation Not Reportable 11/13/21 05:36 Toxic Vacuolation Not Reportable 11/13/21 05:36 Dohle Bodies Not Reportable 11/13/21 05:36 Pelger-Huet Anomaly Not Reportable 11/13/21 05:36 Kristina Rods Not Reportable 11/13/21 05:36 Platelet Estimate Consistent w auto 11/13/21 05:36 Clumped Platelets Not Reportable 11/13/21 05:36 Plt Clumps, EDTA Not Reportable 11/13/21 05:36 Large Platelets Not Reportable 11/13/21 05:36 Giant Platelets Not Reportable 11/13/21 05:36 Platelet Satelliting Not Reportable 11/13/21 05:36 Plt Morphology Comment Not Reportable 11/13/21 05:36 RBC Morphology Not Reportable 11/13/21 05:36 Dimorphic RBCs Not Reportable 11/13/21 05:36 Polychromasia Not Reportable 11/13/21 05:36 Hypochromasia Not Reportable 11/13/21 05:36 Poikilocytosis Few 11/13/21 05:36 Anisocytosis 1+ 11/13/21 05:36 Microcytosis Not Reportable 11/13/21 05:36 Macrocytosis Few 11/13/21 05:36 Spherocytes Not Reportable 11/13/21 05:36 Pappenheimer Bodies Not Reportable 11/13/21 05:36 Sickle Cells Not Reportable 11/13/21 05:36 Target Cells Not Reportable 11/13/21 05:36 Tear Drop Cells Not Reportable 11/13/21 05:36 Ovalocytes Not Reportable 11/13/21 05:36 Helmet Cells Not Reportable 11/13/21 05:36 Erickson-Mancos Bodies Not Reportable 11/13/21 05:36 Abercrombie Rings Not Reportable 11/13/21 05:36 Mohan Cells Not Reportable 11/13/21 05:36 Bite Cells Not Reportable 11/13/21 05:36 Crenated Cell Not Reportable 11/13/21 05:36 Elliptocytes Not Reportable 11/13/21 05:36 Acanthocytes (Spur) Not Reportable 11/13/21 05:36 Rouleaux Not Reportable 11/13/21 05:36 Hemoglobin C Crystals Not Reportable 11/13/21 05:36 Schistocytes Not Reportable 11/13/21 05:36 Malaria parasites Not Reportable 11/13/21 05:36 Fili Bodies Not Reportable 11/13/21 05:36 Hem Pathologist Commnt No 11/13/21 05:36 PT 17.4 Sec. (12.2-14.9) H 11/20/21 14:06 INR 1.29 (0.87-1.13) H 11/20/21 14:06 APTT 59.2 Sec. (24.2-36.6) H 11/20/21 14:06 Sodium 143 mmol/L (137-145) 11/21/21 06:31 Potassium 4.3 mmol/L (3.6-5.0) 11/21/21 06:31 Chloride 112.6 mmol/L (98-107) H 11/21/21 06:31 Carbon Dioxide 18 mmol/L (22-30) L 11/21/21 06:31 Anion Gap 17 mmol/L 11/21/21 06:31 BUN 36 mg/dL (9-20) H 11/21/21 06:31 Creatinine 1.4 mg/dL (0.8-1.3) H 11/23/21 07:09 Estimated GFR > 60 ml/min 11/23/21 07:09 BUN/Creatinine Ratio 21 % 11/21/21 06:31 Glucose 90 mg/dL (75-100) 11/21/21 06:31 POC Glucose 93 mg/dL (70-105) 11/13/21 07:56 Lactic Acid 4.20 mmol/L (0.7-2.0) H* 11/12/21 02:18 Calcium 8.4 mg/dL (8.4-10.2) 11/21/21 06:31 Magnesium 2.50 mg/dL (1.7-2.3) H 11/11/21 09:13 Total Bilirubin 2.30 mg/dL (0.1-1.2) H 11/13/21 05:36 AST 42 units/L (5-40) H 11/13/21 05:36 ALT 55 units/L (7-56) 11/13/21 05:36 Alkaline Phosphatase 126 units/L (35-129) 11/13/21 05:36 Ammonia 14.0 umol/L (25-60) L 11/11/21 09:13 Total Creatine Kinase 85 units/L (55-170) 11/11/21 09:13 Troponin T 0.013 ng/mL (0.00-0.029) 11/11/21 09:13 Serum Total Protein 7.4 g/dL (6.1-8.1) 11/14/21 06:34 Total Protein 7.6 g/dL (6.3-8.2) 11/13/21 05:36 Albumin 3.1 g/dL (3.8-4.8) L 11/14/21 06:34 Albumin/Globulin Ratio 0.9 % 11/13/21 05:36 Ieqsa-5-Bklyzpdht 0.4 g/dL (0.2-0.3) H 11/14/21 06:34 Cbxph-6-Akpfmzqbh 0.9 g/dL (0.5-0.9) 11/14/21 06:34 Beta Globulins 0.5 g/dL (0.2-0.5) 11/14/21 06:34 Gamma Globulins 2.1 g/dL (0.8-1.7) H 11/14/21 06:34 Abnorm Protein Band 1 see below 11/14/21 06:34 PEP Interpretation see below H 11/14/21 06:34 TSH 3.100 mlU/mL (0.270-4.200) 11/12/21 13:56 Urine Color Yellow (Yellow) 11/14/21 05:15 Urine Turbidity Slightly-cloudy (Clear) 11/14/21 05:15 Urine pH 5.0 (5.0-7.0) 11/14/21 05:15 Ur Specific [place] 1.017 (1.003-1.030) 11/14/21 05:15 Urine Protein 30 mg/dl mg/dL (Negative) 11/14/21 05:15 Urine Glucose (UA) Neg mg/dL (Negative) 11/14/21 05:15 Urine Ketones Tr mg/dL (Negative) 11/14/21 05:15 Urine Blood Neg (Negative) 11/14/21 05:15 Urine Nitrite Neg (Negative) 11/14/21 05:15 Urine Bilirubin Neg (Negative) 11/14/21 05:15 Urine Urobilinogen 4.0 mg/dL (<2.0) 11/14/21 05:15 Ur Leukocyte Esterase Neg (Negative) 11/14/21 05:15 Urine WBC (Auto) 1.0 /HPF (0.0-6.0) 11/14/21 05:15 Urine RBC (Auto) 1.0 /HPF (0.0-6.0) 11/14/21 05:15 U Epithel Cells (Auto) < 1.0 /HPF (0-13.0) 11/14/21 05:15 Urine Bacteria (Auto) 1+ /HPF (Negative) 11/11/21 Unknown Hyaline Casts 2 /LPF 11/11/21 Unknown Urine Mucus Few /HPF 11/14/21 05:15 Urine Creatinine < 4.2 mg/dL (0.1-20.0) 11/14/21 05:15 Urine Sodium 10 mmol/L 11/14/21 05:15 Salicylates < 0.3 mg/dL (2.8-20.0) L 11/11/21 09:13 Acetaminophen 5.0 ug/mL (10.0-30.0) L 11/11/21 09:13 Plasma/Serum Alcohol < 0.01 % (0-0.07) 11/11/21 09:13 Proteinase 3 (PR3) Ab <1.0 AI (<1.0) 11/14/21 06:34 Myeloperoxidase Ab <1.0 AI (<1.0) 11/14/21 06:34 Complement C3 111 mg/dL (82-185) 11/14/21 06:34 Complement C4 21 mg/dL (15-53) 11/14/21 06:34 Coronavirus (PCR) Positive (Negative) A 11/14/21 08:40 Ibarra/IV: Voiding Method Incontinent Active Medications - Current Medications Current Medications: Generic Name Dose Route Start Last Admin Trade Name Freq PRN Reason Stop Dose Admin Acetaminophen 650 mg 11/12/21 01:58 Acetaminophen 325 Mg Tab PO Q6H PRN Pain MILD(1-3)/Fever >100.5/SMYTH Apixaban 5 mg 11/20/21 22:00 11/23/21 08:15 Apixaban 5 Mg Tab PO 5 mg Q12HR JENNY Administration Protocol Aspirin 81 mg 11/20/21 14:00 11/23/21 08:15 Aspirin Ec 81 Mg Tab PO 81 mg QDAY JENNY Administration Haloperidol 1 mg 11/23/21 11:00 11/23/21 15:02 Haloperidol 1 Mg Tab PO 1 mg BID JENNY Administration Dextrose 1,000 mls @ 100 mls/hr 11/16/21 13:00 11/21/21 03:42 D5w IV Infused DIRECT JENNY Infusion Isosorbide Dinitrate/Hydralazine 1 each 11/20/21 14:00 11/23/21 13:10 Isosorb Dinit/Hydralazine 20-37.5mg Tab PO 1 each Q8HR JENNY Administration Metoprolol Tartrate 25 mg 11/20/21 14:00 11/23/21 08:18 Metoprolol Tartrate 25 Mg Tab PO 25 mg BID JENNY Administration Mirtazapine 5 mg 11/23/21 22:00 Mirtazapine 15 Mg Tab PO QHS JENNY Morphine Sulfate 2 mg 11/12/21 01:58 Morphine 2 Mg/1 Ml Inj IV Q4H PRN Pain, Moderate (4-6) Morphine Sulfate 4 mg 11/12/21 01:58 11/23/21 15:04 Morphine 4 Mg/1 Ml Inj IV 4 mg Q4H PRN Administration Pain , Severe (7-10) Pantoprazole Sodium 40 mg 11/12/21 07:30 11/23/21 08:15 Pantoprazole 40 Mg Tab PO 40 mg QDAC JENNY Administration Sodium Chloride 10 ml 11/18/21 14:32 11/22/21 22:53 Sodium Chloride 0.9% 50 Ml Ivpb IV 10 ml PRN PRN Administration FLUSH Nutrition/Malnutrition Assess - Dietary Evaluation Nutrition/Malnutrition Findings: Nutrition Notes Start: 11/19/21 16:27 Freq: Status: Active Protocol: Document 11/19/21 16:27 JOSE A (Rec: 11/19/21 16:38 JOSE A [id number]) Nutrition Notes Current Diagnosis Acute Kidney Injury Other Pertinent Diagnosis COVID-19, Cardiomyopathy, Encephalopathy, Atrial fibrilation. Current Diet Regular Diet (since D 11/11). Labs/Tests 11/19: Na 153, Cl 118.4, CO2 17, BUN 38, Crea 1.6. Pertinent Medications 11/19: Nutritionally unremarkable. Height 6 ft 2 in Weight 86.183 kg [place] Body Weight (kg) 86.36 BMI 24.3 Weight change and time frame None reported at admission. Weight Status Appropriate Subjective/Other Information RD consult for LOS assessment. No report available on Pt's PO intake of meals at the time. Percent of energy/protein needs met: Prescribed Regular Diet provides for energy/protein needs (2,289 Kcal/89 g) during LOS. Burn Absent Trauma Absent GI Symptoms None Food Allergy No Skin Integrity/Comment Clear, warm, dry. Minimum of two criteria No Is patient on ventilator? No Is Patient Ambulatory and/or Out of Bed No REE-([facility]-confined to bed) 2070.008 Calculation Used for Recommendations 70-80% of EEN Additional Notes 15-20 Kcal/Kg ABW (3497-5705 Kcal). Protein: 1.2-2 g/Kg; 83-138 g/ day. Fluids: 1 ml/Kcal, or as per MD. Nutrition Intervention Follow-Up By: 11/26/21 Additional Comments Continue monitoring food tolerance, %PO intake of meals , and BM.
[2021-11-23] MEDS ORDERED: MIRTAZAPINE 15 MG TAB PO SCH (22:00)
[2021-11-23] MEDS: MIRTAZAPINE 15 MG TAB PO SCH (22:54)
[2021-11-24] MEDS: LORazepam 2 MG/ML VIAL IM PRN ×2 (00:49→15:26)
[2021-11-24] MEDS: ISOSORB DINIT/HYDRALAZINE 20-37.5MG TAB PO SCH ×3 (06:51→23:45)
[2021-11-24 08:58] LABS: Mean Corpuscular HGB Conc 31 % (32-34); Mean Corpuscular Volume 87 fl (84-94); Platelet Count 119 K/mm3 (140-440); Red Blood Count 5.13 M/mm3 (3.65-5.03)
[2021-11-24 09:05] LABS: Hematocrit 44.6 % (35.5-45.6); Hemoglobin 13.9 gm/dl (11.8-15.2)
[2021-11-24] MEDS: ASPIRIN EC 81 MG TAB PO SCH (10:21)
[2021-11-24] MEDS: APIXABAN 5 MG TAB PO SCH ×2 (10:21→23:46)
[2021-11-24] MEDS: HALOPERIDOL 1 MG TAB PO SCH ×2 (10:21→23:45)
[2021-11-24] MEDS: METOPROLOL TARTRATE 25 MG TAB PO SCH ×2 (10:26→23:45)
--- NOTE | 2021-11-24 10:29 | Progress Note ---
Assessment and Plan 1. Altered mental status 2. Persistent atrial fibrillation with a controlled ventricular response 3. Chronic combined systolic and diastolic heart failure 4. Dilated cardiomyopathy with four-chamber dilation and biventricular failure 5. Chronic renal failure unspecified 6.. COVID-19 infection Plan. Cardiac iglesias stable continue present conservative cardiac management with ventricular rate control to atrial fibrillation. Subjective Date of service: 11/24/21 Principal diagnosis: encephalopathy,AF,COVID-19 Interval history: No change in mental status Objective Vital Signs Temp Pulse Resp BP Pulse Ox 11/24/21 07:56 93 11/24/21 06:51 40 L 120/94 11/24/21 05:54 97.3 F L 40 L 18 120/94 97 11/23/21 22:55 41 L 11/23/21 22:53 41 L 108/89 11/23/21 22:00 93 11/23/21 21:00 98.2 F 41 L 18 109/89 93 11/23/21 11:41 98.7 F 99 H 18 148/106 95 11/23/21 11:35 97.0 F L 18 139/110 - Physical Examination General: No Apparent Distress, Cachectic, Other (Mildly confused) HEENT: Positive: PERRL Neck: Positive: neck supple Cardiac: Positive: S1/S2, S3, PMI, Laterally Displaced Lungs: Positive: clear to auscultation, No Wheeze, Rales, Rhonchi Neuro: Positive: Other (Altered mental status in restraints) Abdomen: Positive: Soft Skin: Positive: Clear Extremities: Absent: edema - Labs and Meds CBC 11/24/21 Range/Units 07:53 WBC 10.8 (4.5-11.0) K/mm3 RBC 5.13 H (3.65-5.03) M/mm3 Hgb 13.9 (11.8-15.2) gm/dl Hct 44.6 (35.5-45.6) % Plt Count 119 L (140-440) K/mm3
[2021-11-24] MEDS: PANTOPRAZOLE 40 MG TAB PO SCH (15:11)
[2021-11-24] MEDS: MIRTAZAPINE 15 MG TAB PO SCH (23:46)
[2021-11-25] MEDS: DEXTROSE 5% IN WATER 1,000 ML IV SCH ×2 (00:47→22:29)
[2021-11-25] MEDS: ISOSORB DINIT/HYDRALAZINE 20-37.5MG TAB PO SCH ×3 (06:01→22:04)
[2021-11-25] MEDS: APIXABAN 5 MG TAB PO SCH ×2 (10:00→22:28)
[2021-11-25] MEDS: ASPIRIN EC 81 MG TAB PO SCH (10:00)
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
[2021-11-25] MEDS: METOPROLOL TARTRATE 25 MG TAB PO SCH ×2 (10:30→22:05)
[2021-11-25] MEDS: HALOPERIDOL 1 MG TAB PO SCH ×2 (10:50→22:28)
[2021-11-25] MEDS: LORazepam 2 MG/ML VIAL IM PRN (12:54)
[2021-11-25] MEDS: PANTOPRAZOLE 40 MG TAB PO SCH ×2 (13:39→13:40)
--- NOTE | 2021-11-25 14:08 | Progress Note ---
Assessment and Plan - Patient Problems (1) Paroxysmal atrial fibrillation Current Visit: Yes Status: Acute Plan to address problem: Patient with COPD and recent COVID infection, presented with palpitations and new onset rapid atrial fibrillation. His atrial fibrillation has reverted to sinus rhythm on medical therapy and has been in stable sinus rhythm for the past 10 days of hospitalization. We will switch to oral metoprolol, and start Eliquis for anticoagulation. (2) Dilated cardiomyopathy Current Visit: Yes Status: Acute Plan to address problem: We found a severe four-chamber dilated cardiomyopathy, of uncertain chronicity. We will start guideline directed medical therapy with BiDil and continue metoprolol. His recent chemistry numbers show a prerenal azotemia, so I will hold off on diuretics, spironolactone, TREV or ARB at this time. Subjective Date of service: 11/25/21 Principal diagnosis: encephalopathy,AF,COVID-19 Interval history: Patient is comfortable, no acute distress. On monitor car operator, there is a sinus rhythm at 79. Objective Vital Signs Temp Pulse Resp BP BP Pulse Ox 11/25/21 11:00 97.6 F 51 L 134/103 100 11/25/21 10:30 62 134/103 11/25/21 08:47 18 94 11/25/21 05:26 98.0 F 65 19 139/113 99 11/24/21 23:31 90 11/24/21 22:10 98.5 F 29 L 18 137/109 98 11/24/21 22:00 93 11/24/21 17:33 97.6 F 50 L 20 146/100 97 - Physical Examination General: No Apparent Distress, Cachectic, Other (Mildly confused) HEENT: Positive: PERRL Neck: Positive: neck supple Cardiac: Positive: Reg Rate and Rhythm Lungs: Positive: Decreased Breath Sounds Neuro: Positive: Other (Altered mental status in restraints) Abdomen: Positive: Soft Skin: Positive: Clear Extremities: Absent: edema
[2021-11-25] MEDS ORDERED: hydrALAZINE 20 MG/1 ML INJ IV PRN (14:09)
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
[2021-11-25] MEDS: MIRTAZAPINE 15 MG TAB PO SCH (22:30)
[2021-11-26] MEDS: ISOSORB DINIT/HYDRALAZINE 20-37.5MG TAB PO SCH ×3 (07:03→23:45)
[2021-11-26] MEDS: LORazepam 2 MG/ML VIAL IM PRN (07:04)
[2021-11-26 08:00] LABS: Mean Corpuscular HGB Conc 31 % (32-34); Mean Corpuscular Volume 87 fl (84-94); Platelet Count 109 K/mm3 (140-440); Red Blood Count 4.95 M/mm3 (3.65-5.03)
[2021-11-26 08:01] LABS: Hematocrit 42.9 % (35.5-45.6); Hemoglobin 13.2 gm/dl (11.8-15.2); Red Cell Distribution Width 20.7 % (13.2-15.2)
--- NOTE | 2021-11-26 08:47 | Progress Note ---
Subjective Date of service: 11/26/21 Principal diagnosis: encephalopathy,AF,COVID-19 Interval history: mpression: * Acute kidney injury secondary to prerenal azotemia due to hypoperfusion due to afib w/ RVR, hypotension --UA w/ ketones and Quynh 10 - suggestive of volume depletion --Renal ultrasound: right 11.4cm, left 12.3cm; no hydro * Atrial fibrillation with RVR * Acute encephalopathy * Cardiomyopathy - LVEF 10% * Recent COVID 19 infection * Anemia * Metabolic acidosis Plan: * Hypernatremia, still on d5w, will follow up lbas * SCr stable at last check, will repleat labs * Continue IVF - can continue D5W as tolerated for now, encourage free water intake as able. If creatinine continues to trend up, may need to change IVF to include NS or 1/2NS * No acute need for renal replacement therapy * Rate control per cardiology * Await pending serologic work up- ANCA negative, Complements WNL * Dose medications for renal function * Avoid potential nephrotoxins Subjective Principal diagnosis: encephalopathy,AF,COVID-19 Interval history: Chart,vitals,labs reviewed Objective - Exam Narrative Exam: In effort to reduce transmission of COVID 19 in setting of pandemic, physical exam deferred. Objective - Vital Signs Vital signs: Vital Signs - 12hr 11/25/21 11/25/21 11/25/21 22:00 22:04 22:05 Temperature Pulse Rate 60 60 Pulse Rate [ 60 Apical] Respiratory 20 Rate Blood Pressure 114/87 114/87 O2 Sat by Pulse 94 Oximetry 11/25/21 11/26/21 22:59 07:03 Temperature 97.9 F Pulse Rate 50 L 61 Pulse Rate [ Apical] Respiratory 20 Rate Blood Pressure 114/87 132/101 O2 Sat by Pulse 100 Oximetry - Lab 11/26/21 07:06 11/26/21 07:06 Most recent lab results Calcium 8.4 mg/dL (8.4-10.2) 11/21/21 06:31 Magnesium 2.50 mg/dL (1.7-2.3) H 11/11/21 09:13 Urine Creatinine < 4.2 mg/dL (0.1-20.0) 11/14/21 05:15 Urine Sodium 10 mmol/L 11/14/21 05:15 Medications & Allergies - Medications Allergies/Adverse Reactions: Allergies No Known Allergies Allergy (Verified 11/03/21 18:59) Home Medications: Home Medications Medication Instructions Recorded Confirmed Last Taken Type NIFEdipine XL [Procardia Xl] 30 mg PO QDAY #30 tablet 11/07/21 11/14/21 Unknown Rx dexAMETHasone [Dexamethasone] 4 mg PO DAILY #10 tab 11/07/21 11/14/21 Unknown Rx Mirtazapine 7.5 mg PO QHS #30 11/23/21 Unknown Rx haloperidoL [Haldol] 1 mg PO BID #60 11/23/21 Unknown Rx Active Medications: Generic Name Dose Route Start Last Admin Trade Name Freq PRN Reason Stop Dose Admin Acetaminophen 650 mg 11/12/21 01:58 11/24/21 23:45 Acetaminophen 325 Mg Tab PO 650 mg Q6H PRN Administration Pain MILD(1-3)/Fever >100.5/SMYTH Apixaban 5 mg 11/20/21 22:00 11/25/21 22:28 Apixaban 5 Mg Tab PO 5 mg Q12HR JENNY Administration Protocol Aspirin 81 mg 11/20/21 14:00 11/25/21 10:00 Aspirin Ec 81 Mg Tab PO 81 mg QDAY JENNY Administration Haloperidol 1 mg 11/23/21 11:00 11/25/21 22:28 Haloperidol 1 Mg Tab PO 1 mg BID JENNY Administration Hydralazine HCl 10 mg 11/25/21 14:09 Hydralazine 20 Mg/1 Ml Inj IV Q4HR PRN Hypertension Dextrose 1,000 mls @ 100 mls/hr 11/16/21 13:00 11/25/21 22:29 D5w IV 100 mls/hr DIRECT JENNY Administration Isosorbide Dinitrate/Hydralazine 1 each 11/20/21 14:00 11/26/21 07:03 Isosorb Dinit/Hydralazine 20-37.5mg Tab PO 1 each Q8HR JENNY Administration Lorazepam 2 mg 11/24/21 00:21 11/26/21 07:04 Lorazepam 2 Mg/Ml Vial IM 2 mg Q4HR PRN Administration Agitation Metoprolol Tartrate 25 mg 11/20/21 14:00 11/25/21 22:05 Metoprolol Tartrate 25 Mg Tab PO 25 mg BID JENNY Administration Mirtazapine 7.5 mg 11/23/21 22:00 11/25/21 22:30 Mirtazapine 15 Mg Tab PO 7.5 mg QHS JENNY Administration Morphine Sulfate 2 mg 11/12/21 01:58 Morphine 2 Mg/1 Ml Inj IV Q4H PRN Pain, Moderate (4-6) Morphine Sulfate 4 mg 11/12/21 01:58 11/23/21 15:04 Morphine 4 Mg/1 Ml Inj IV 4 mg Q4H PRN Administration Pain , Severe (7-10) Pantoprazole Sodium 40 mg 11/12/21 07:30 11/25/21 13:40 Pantoprazole 40 Mg Tab PO Not Given QDAC JENNY Sodium Chloride 10 ml 11/18/21 14:32 11/22/21 22:53 Sodium Chloride 0.9% 50 Ml Ivpb IV 10 ml PRN PRN Administration FLUSH
[2021-11-26] MEDS: APIXABAN 5 MG TAB PO SCH ×2 (10:07→22:45)
[2021-11-26] MEDS: HALOPERIDOL 1 MG TAB PO SCH ×2 (10:08→22:47)
[2021-11-26] MEDS: ASPIRIN EC 81 MG TAB PO SCH (10:08)
[2021-11-26] MEDS: PANTOPRAZOLE 40 MG TAB PO SCH (10:10)
[2021-11-26] MEDS: METOPROLOL TARTRATE 25 MG TAB PO SCH ×2 (10:16→23:47)
--- NOTE | 2021-11-26 10:54 | Cat Scan Report ---
CT head/brain wo con INDICATION / CLINICAL INFORMATION: 66 years Male; ams. TECHNIQUE: Routine CT head without contrast. All CT scans at this location are performed using CT dos e reduction for ALARA by means of automated exposure control. COMPARISON: The study is compared to previous CT of 11/11/2021. FINDINGS: BRAIN / INTRACRANIAL CONTENTS: There is extensive cerebral white matter disease most consistent with microvascular angiopathy at. There is also mild cerebral atrophy. The ventricular system is correspon dingly appropriate in size and configuration. There is no clear CT evidence of acute intracranial hem orrhage or significant mass effect. ORBITS: No significant abnormality of visualized orbits. SINUSES / MASTOIDS: No significant abnormality in the visualized paranasal sinuses or mastoid air jefe ls. CRANIOCERVICAL JUNCTION: No significant abnormality. ADDITIONAL FINDINGS: None. IMPRESSION: 1. There is continued extensive microvascular angiopathy without CT evidence of acute intracranial he morrhage. Signer Name: Mitch Roman MD Signed: 11/26/2021 10:50 AM Workstation Name: [id number]
[2021-11-26 11:00] LABS: Calcium 9.7 mg/dL (8.4-10.2)
--- NOTE | 2021-11-26 11:08 | Progress Note ---
Assessment and Plan - Patient Problems (1) Paroxysmal atrial fibrillation Current Visit: Yes Status: Acute Plan to address problem: Patient with COPD and recent COVID infection, presented with palpitations and new onset rapid atrial fibrillation. Reverted to a stable sinus rhythm on medical therapy. We will continue rhythm control therapy and oral anticoagulation. (2) Dilated cardiomyopathy Current Visit: Yes Status: Acute Plan to address problem: We found a severe four-chamber dilated cardiomyopathy, of uncertain chronicity. Continue guideline directed medical therapy as tolerated. Subjective Date of service: 11/26/21 Principal diagnosis: encephalopathy,AF,COVID-19 Interval history: Patient is comfortable, no acute distress. No new cardiac events reported. Objective Vital Signs Temp Pulse Pulse Resp BP Pulse Ox 11/26/21 10:16 62 116/84 11/26/21 07:03 61 132/101 11/25/21 22:59 97.9 F 50 L 20 114/87 100 11/25/21 22:05 60 114/87 11/25/21 22:04 60 114/87 11/25/21 22:00 60 20 94 11/25/21 16:07 98.1 F 53 L 18 125/97 94 - Physical Examination General: No Apparent Distress, Cachectic, Other (Mildly confused) HEENT: Positive: PERRL Neck: Positive: neck supple Cardiac: Positive: Reg Rate and Rhythm Lungs: Positive: Decreased Breath Sounds Neuro: Positive: Other (Altered mental status in restraints) Abdomen: Positive: Soft Skin: Positive: Clear Extremities: Absent: edema - Labs and Meds CBC 11/26/21 Range/Units 07:06 WBC 7.6 (4.5-11.0) K/mm3 RBC 4.95 (3.65-5.03) M/mm3 Hgb 13.2 (11.8-15.2) gm/dl Hct 42.9 (35.5-45.6) % Plt Count 109 L (140-440) K/mm3 Comprehensive Metabolic Panel 11/26/21 11/26/21 Range/Units 07:06 09:51 Sodium 144 (137-145) mmol/L Potassium 4.5 (3.6-5.0) mmol/L Chloride 111.0 H (98-107) mmol/L Carbon Dioxide 16 L (22-30) mmol/L BUN 34 H (9-20) mg/dL Creatinine 1.6 H 1.7 H (0.8-1.3) mg/dL Glucose 90 (75-100) mg/dL Calcium 9.7 (8.4-10.2) mg/dL
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
[2021-11-26] MEDS: MIRTAZAPINE 15 MG TAB PO SCH (22:42)
[2021-11-27] MEDS: LORazepam 2 MG/ML VIAL IM PRN (04:59)
[2021-11-27] MEDS: ISOSORB DINIT/HYDRALAZINE 20-37.5MG TAB PO SCH ×2 (05:00→22:55)
[2021-11-27] MEDS: DEXTROSE 5% IN WATER 1,000 ML IV SCH (05:28)
[2021-11-27] MEDS: PANTOPRAZOLE 40 MG TAB PO SCH (08:28)
[2021-11-27 08:29] LABS: BUN/Creatinine Ratio 23; Blood Urea Nitrogen 32 mg/dL (9-20); Calcium 9.2 mg/dL (8.4-10.2); Hemolysis Index 3
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
--- NOTE | 2021-11-27 10:27 | Progress Note ---
Subjective Date of service: 11/27/21 Principal diagnosis: encephalopathy,AF,COVID-19 Interval history: mpression: * Acute kidney injury secondary to prerenal azotemia due to hypoperfusion due to afib w/ RVR, hypotension --UA w/ ketones and Quynh 10 - suggestive of volume depletion --Renal ultrasound: right 11.4cm, left 12.3cm; no hydro * Atrial fibrillation with RVR * Acute encephalopathy * Cardiomyopathy - LVEF 10% * Recent COVID 19 infection * Anemia * Metabolic acidosis Plan: * Hypernatremia, Na improved and cr better * Continue IVF - d5 10/27 ns * No acute need for renal replacement therapy * Rate control per cardiology * Await pending serologic work up- ANCA negative, Complements WNL * Dose medications for renal function * Avoid potential nephrotoxins * will see prn Subjective Principal diagnosis: encephalopathy,AF,COVID-19 Interval history: Chart,vitals,labs reviewed Objective - Exam Narrative Exam: In effort to reduce transmission of COVID 19 in setting of pandemic, physical exam deferred. Objective - Vital Signs Vital signs: Vital Signs - 12hr 11/26/21 11/26/21 11/26/21 22:59 23:45 23:47 Temperature 98.7 F Pulse Rate 104 H 61 61 Respiratory 20 Rate Blood Pressure 133/103 132/101 132/101 O2 Sat by Pulse 90 Oximetry 11/27/21 11/27/21 04:33 05:00 Temperature 97.9 F Pulse Rate 54 L 54 L Respiratory 22 Rate Blood Pressure 120/95 120/95 O2 Sat by Pulse 90 Oximetry - Lab 11/26/21 07:06 11/27/21 07:42 Most recent lab results Calcium 9.2 mg/dL (8.4-10.2) 11/27/21 07:42 Magnesium 2.50 mg/dL (1.7-2.3) H 11/11/21 09:13 Urine Creatinine < 4.2 mg/dL (0.1-20.0) 11/14/21 05:15 Urine Sodium 10 mmol/L 11/14/21 05:15 Medications & Allergies - Medications Allergies/Adverse Reactions: Allergies No Known Allergies Allergy (Verified 11/03/21 18:59) Home Medications: Home Medications Medication Instructions Recorded Confirmed Last Taken Type NIFEdipine XL [Procardia Xl] 30 mg PO QDAY #30 tablet 11/07/21 11/14/21 Unknown Rx dexAMETHasone [Dexamethasone] 4 mg PO DAILY #10 tab 11/07/21 11/14/21 Unknown Rx Mirtazapine 7.5 mg PO QHS #30 11/23/21 Unknown Rx haloperidoL [Haldol] 1 mg PO BID #60 11/23/21 Unknown Rx Active Medications: Generic Name Dose Route Start Last Admin Trade Name Freq PRN Reason Stop Dose Admin Acetaminophen 650 mg 11/12/21 01:58 11/24/21 23:45 Acetaminophen 325 Mg Tab PO 650 mg Q6H PRN Administration Pain MILD(1-3)/Fever >100.5/SMYTH Apixaban 5 mg 11/20/21 22:00 11/26/21 22:45 Apixaban 5 Mg Tab PO 5 mg Q12HR JENNY Administration Protocol Aspirin 81 mg 11/20/21 14:00 11/26/21 10:08 Aspirin Ec 81 Mg Tab PO 81 mg QDAY JENNY Administration Haloperidol 1 mg 11/23/21 11:00 11/26/21 22:47 Haloperidol 1 Mg Tab PO 1 mg BID JENNY Administration Hydralazine HCl 10 mg 11/25/21 14:09 Hydralazine 20 Mg/1 Ml Inj IV Q4HR PRN Hypertension Dextrose 1,000 mls @ 100 mls/hr 11/16/21 13:00 11/27/21 05:28 D5w IV 100 mls/hr DIRECT JENNY Administration Isosorbide Dinitrate/Hydralazine 1 each 11/20/21 14:00 11/27/21 05:00 Isosorb Dinit/Hydralazine 20-37.5mg Tab PO 1 each Q8HR JENNY Administration Lorazepam 2 mg 11/24/21 00:21 11/27/21 04:59 Lorazepam 2 Mg/Ml Vial IM 2 mg Q4HR PRN Administration Agitation Metoprolol Tartrate 25 mg 11/20/21 14:00 11/26/21 23:47 Metoprolol Tartrate 25 Mg Tab PO 25 mg BID JENNY Administration Mirtazapine 7.5 mg 11/23/21 22:00 11/26/21 22:42 Mirtazapine 15 Mg Tab PO 7.5 mg QHS JENNY Administration Morphine Sulfate 2 mg 11/12/21 01:58 Morphine 2 Mg/1 Ml Inj IV Q4H PRN Pain, Moderate (4-6) Morphine Sulfate 4 mg 11/12/21 01:58 11/23/21 15:04 Morphine 4 Mg/1 Ml Inj IV 4 mg Q4H PRN Administration Pain , Severe (7-10) Pantoprazole Sodium 40 mg 11/12/21 07:30 11/27/21 08:28 Pantoprazole 40 Mg Tab PO Not Given QDAC JENNY Sodium Chloride 10 ml 11/18/21 14:32 11/22/21 22:53 Sodium Chloride 0.9% 50 Ml Ivpb IV 10 ml PRN PRN Administration FLUSH
[2021-11-27] MEDS: APIXABAN 5 MG TAB PO SCH ×2 (10:55→22:54)
[2021-11-27] MEDS: ASPIRIN EC 81 MG TAB PO SCH (10:55)
[2021-11-27] MEDS: HALOPERIDOL 1 MG TAB PO SCH (10:55)
[2021-11-27] MEDS: METOPROLOL TARTRATE 25 MG TAB PO SCH ×2 (10:58→22:55)
[2021-11-27] MEDS ORDERED: HALOPERIDOL LACTATE 5 MG/1 ML INJ IM PRN (12:25)
[2021-11-27] MEDS ORDERED: QUEtiapine 25 MG TAB PO ONE (13:00)
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
[2021-11-27] MEDS: MIRTAZAPINE 15 MG TAB PO SCH (22:54)
[2021-11-27] MEDS: QUEtiapine 25 MG TAB PO SCH (22:54)
[2021-11-27] MEDS: D5W/0.45% NACL 1,000 ML IV SCH (23:49)
[2021-11-28] MEDS: ISOSORB DINIT/HYDRALAZINE 20-37.5MG TAB PO SCH ×2 (06:59→23:23)
[2021-11-28 07:50] LABS: BUN/Creatinine Ratio 20; Blood Urea Nitrogen 26 mg/dL (9-20); Calcium 8.9 mg/dL (8.4-10.2); Hemolysis Index 1
--- NOTE | 2021-11-28 10:33 | Progress Note ---
Assessment and Plan - Patient Problems (1) Paroxysmal atrial fibrillation Current Visit: Yes Status: Acute Plan to address problem: Patient with COPD and recent COVID infection, presented with palpitations and new onset rapid atrial fibrillation. Reverted to a stable sinus rhythm on medical therapy. We will continue rhythm control therapy and oral anticoagulation. No further cardiac interventions, we will sign off. (2) Dilated cardiomyopathy Current Visit: Yes Status: Acute Plan to address problem: We found a severe four-chamber dilated cardiomyopathy, of uncertain chronicity. Continue guideline directed medical therapy as tolerated. Patient is confused and uncooperative with further medical management, no further cardiac intervention is possible, will sign off. Subjective Date of service: 11/28/21 Principal diagnosis: encephalopathy,AF,COVID-19 Interval history: Patient is very confused, on four-point restraints, not cooperative with prescribed medical treatments. No new cardiac events reported. Efforts at appropriate placement outside the hospital in progress. Objective Vital Signs Temp Pulse Resp BP Pulse Ox 11/28/21 05:21 98.0 F 62 16 109/81 99 11/27/21 22:55 102/82 11/27/21 22:00 56 L 17 98 11/27/21 21:42 98.3 F 56 L 12 106/82 96 11/27/21 20:00 49 L 11/27/21 16:57 18 99 11/27/21 16:06 97.8 F 49 L 20 116/91 90 11/27/21 10:58 98 H 106/87 - Physical Examination General: No Apparent Distress, Cachectic, Other (Confused, on four-point restraints, uncooperative) HEENT: Positive: PERRL Neck: Positive: neck supple Cardiac: Positive: Irregularly Regular Lungs: Positive: Decreased Breath Sounds Neuro: Positive: Other (Altered mental status in restraints) Abdomen: Positive: Soft Skin: Positive: Clear Extremities: Absent: edema - Labs and Meds Comprehensive Metabolic Panel 11/28/21 Range/Units 06:50 Sodium 144 (137-145) mmol/L Potassium 3.8 (3.6-5.0) mmol/L Chloride 114.2 H (98-107) mmol/L Carbon Dioxide 17 L (22-30) mmol/L BUN 26 H (9-20) mg/dL Creatinine 1.3 (0.8-1.3) mg/dL Glucose 103 H (75-100) mg/dL Calcium 8.9 (8.4-10.2) mg/dL
[2021-11-28] MEDS: PANTOPRAZOLE 40 MG TAB PO SCH (13:33)
[2021-11-28] MEDS: ASPIRIN EC 81 MG TAB PO SCH (13:34)
[2021-11-28] MEDS: APIXABAN 5 MG TAB PO SCH ×2 (13:34→23:26)
[2021-11-28] MEDS: QUEtiapine 25 MG TAB PO SCH ×2 (13:34→23:44)
[2021-11-28] MEDS: METOPROLOL TARTRATE 25 MG TAB PO SCH ×2 (13:34→23:26)
[2021-11-28] MEDS: LORazepam 2 MG/ML VIAL IM PRN (14:41)
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
[2021-11-28] MEDS: MIRTAZAPINE 15 MG TAB PO SCH (23:21)
[2021-11-29] MEDS: ZIPRASIDONE MESYLATE 20 MG VIAL IM SCH (05:15)
[2021-11-29] MEDS: ISOSORB DINIT/HYDRALAZINE 20-37.5MG TAB PO SCH ×5 (05:41→22:23)
[2021-11-29 07:48] LABS: BUN/Creatinine Ratio 18; Blood Urea Nitrogen 23 mg/dL (9-20); Hemolysis Index 5
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
[2021-11-29] MEDS: PANTOPRAZOLE 40 MG TAB PO SCH (17:17)
[2021-11-29] MEDS: APIXABAN 5 MG TAB PO SCH ×2 (17:17→22:19)
[2021-11-29] MEDS: ASPIRIN EC 81 MG TAB PO SCH (17:18)
[2021-11-29] MEDS: QUEtiapine 25 MG TAB PO SCH ×2 (17:18→22:19)
[2021-11-29] MEDS: METOPROLOL TARTRATE 25 MG TAB PO SCH ×2 (17:18→22:18)
[2021-11-29] MEDS: MIRTAZAPINE 15 MG TAB PO SCH (22:18)
[2021-11-30] MEDS: ZIPRASIDONE MESYLATE 20 MG VIAL IM SCH (03:40)
[2021-11-30] MEDS: ISOSORB DINIT/HYDRALAZINE 20-37.5MG TAB PO SCH ×2 (05:41→22:40)
[2021-11-30 06:35] LABS: BUN/Creatinine Ratio 17; Blood Urea Nitrogen 22 mg/dL (9-20); Calcium 9.3 mg/dL (8.4-10.2); Hemolysis Index 1
--- NOTE | 2021-11-30 09:21 | Progress Note ---
Subjective - Reason for Consult Consult date: 11/30/21 Reason for consult: AMS - Chief Complaint Chief complaint: The patient was seen today. He is calm and alert but continues to be confused. REVIEW OF SYSTEMS MENTAL STATUS EXAMINATION Unable to assess Assessment (1) Delirium Current Visit: Yes Status: Acute Treatment Plan Continue Haldol 1mg po BID Continue Mirtazepine 7.5mg po qhs Medical: Per primary Disposition: Do not recommend acute psychiatric inpatient treatment at this time. Will follow for med management. Thanks Case staffed with Dr. Melgar Mental Status Exam - Vital signs Last Vital Signs Temp 97.4 F L 11/30/21 04:22 Pulse 51 L 11/29/21 21:36 Resp 20 11/30/21 04:22 BP 106/85 11/30/21 04:22 Pulse Ox 96 11/29/21 22:00
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
[2021-11-30] MEDS: METOPROLOL TARTRATE 25 MG TAB PO SCH (22:40)
[2021-11-30] MEDS: QUEtiapine 25 MG TAB PO SCH (22:43)
[2021-11-30] MEDS: MIRTAZAPINE 15 MG TAB PO SCH (22:43)
[2021-11-30] MEDS: APIXABAN 5 MG TAB PO SCH (22:44)
[2021-12-01] MEDS: ISOSORB DINIT/HYDRALAZINE 20-37.5MG TAB PO SCH ×3 (05:39→20:34)
[2021-12-01 07:10] LABS: BUN/Creatinine Ratio 18; Blood Urea Nitrogen 24 mg/dL (9-20); Hemolysis Index 6
[2021-12-01] MEDS: METOPROLOL TARTRATE 25 MG TAB PO SCH ×3 (11:44→23:50)
[2021-12-01] MEDS: QUEtiapine 25 MG TAB PO SCH ×3 (11:45→23:50)
[2021-12-01] MEDS: ASPIRIN EC 81 MG TAB PO SCH ×2 (11:46→20:33)
[2021-12-01] MEDS: APIXABAN 5 MG TAB PO SCH ×2 (11:46→20:33)
[2021-12-01] MEDS: PANTOPRAZOLE 40 MG TAB PO SCH ×2 (11:46→20:32)
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
[2021-12-01] MEDS: HALOPERIDOL 1 MG TAB PO SCH (21:02)
[2021-12-01] MEDS: D5W/0.45% NACL 1,000 ML IV SCH (22:00)
[2021-12-01] MEDS: MIRTAZAPINE 15 MG TAB PO SCH (23:50)
[2021-12-02] MEDS ORDERED: HALOPERIDOL LACTATE 5 MG/1 ML INJ IM ONE (00:15)
[2021-12-02] MEDS: APIXABAN 5 MG TAB PO SCH ×4 (00:28→21:23)
[2021-12-02] MEDS: ISOSORB DINIT/HYDRALAZINE 20-37.5MG TAB PO SCH ×4 (00:28→22:32)
[2021-12-02] MEDS ORDERED: SODIUM CHLORIDE 0.9% 500 ML 500 ML IV ONE (01:35)
[2021-12-02] MEDS ORDERED: WATER FOR INJ Sterile (PF) 10 ML ONE (04:40)
[2021-12-02] MEDS ORDERED: WATER FOR INJ Sterile (PF) 10 ML IM ONE (04:41)
[2021-12-02] MEDS: D5W/0.45% NACL 1,000 ML IV SCH (04:47)
[2021-12-02] MEDS ORDERED: ZIPRASIDONE MESYLATE 20 MG VIAL IM ONE (05:25)
[2021-12-02] MEDS: HALOPERIDOL 1 MG TAB PO SCH ×4 (06:03→21:12)
[2021-12-02] MEDS: PANTOPRAZOLE 40 MG TAB PO SCH (07:30)
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
[2021-12-02] MEDS: ASPIRIN EC 81 MG TAB PO SCH (10:00)
--- NOTE | 2021-12-02 10:13 | Progress Note ---
Assessment and Plan mpression: * Acute kidney injury secondary to prerenal azotemia due to hypoperfusion due to afib w/ RVR, hypotension --UA w/ ketones and Quynh 10 - suggestive of volume depletion --Renal ultrasound: right 11.4cm, left 12.3cm; no hydro * Atrial fibrillation with RVR * Acute encephalopathy * Cardiomyopathy - LVEF 10% * Recent COVID 19 infection * Anemia * Metabolic acidosis Plan: * Renal function seems to be getting worse. * Patient is also hyponatremic as well as acidotic * Change IV fluid to D5W with bicarbonate * No acute need for renal replacement therapy * Rate control per cardiology * Await pending serologic work up- ANCA negative, Complements WNL * Dose medications for renal function * Avoid potential nephrotoxins * Check a bladder scan as well Subjective Date of service: 12/02/21 Principal diagnosis: encephalopathy,AF,COVID-19 Interval history: Patient appears comfortable today. IV fluid D5 half-normal saline at 100 cc/h infusing. Patient has a condom catheter in place Objective - Vital Signs Vital signs: Vital Signs - 12hr 12/02/21 12/02/21 12/02/21 00:28 00:50 05:31 Temperature 97.6 F 98.0 F Pulse Rate 69 69 54 L Respiratory 18 18 Rate Blood Pressure 80/59 108/74 Blood Pressure 80/59 [Left] O2 Sat by Pulse 91 96 Oximetry 12/02/21 12/02/21 06:05 07:40 Temperature Pulse Rate 54 L Respiratory Rate Blood Pressure 108/74 Blood Pressure [Left] O2 Sat by Pulse 95 Oximetry - General Appearance General appearance: well-developed, well-nourished, appears stated age EENT: PERRL, mucous membranes moist Neck: no JVD, no thyromegaly, no carotid bruit, supple Respiratory: Present: Ronchi (Few scattered rhonchi) Cardiology: regular, normal heart rate Gastrointestinal: normal, normoactive bowel sounds Integumentary: no rash, other (No peripheral edema) - Lab 11/26/21 07:06 12/02/21 06:03 Most recent lab results Calcium 9.0 mg/dL (8.4-10.2) 12/02/21 06:03 Magnesium 2.50 mg/dL (1.7-2.3) H 11/11/21 09:13 Urine Creatinine < 4.2 mg/dL (0.1-20.0) 11/14/21 05:15 Urine Sodium 10 mmol/L 11/14/21 05:15 Medications & Allergies - Medications Allergies/Adverse Reactions: Allergies No Known Allergies Allergy (Verified 11/03/21 18:59) Home Medications: Home Medications Medication Instructions Recorded Confirmed Last Taken Type NIFEdipine XL [Procardia Xl] 30 mg PO QDAY #30 tablet 11/07/21 11/14/21 Unknown Rx dexAMETHasone [Dexamethasone] 4 mg PO DAILY #10 tab 11/07/21 11/14/21 Unknown Rx Mirtazapine 7.5 mg PO QHS #30 11/23/21 Unknown Rx haloperidoL [Haldol] 1 mg PO BID #60 11/23/21 Unknown Rx Active Medications: Generic Name Dose Route Start Last Admin Trade Name Freq PRN Reason Stop Dose Admin Acetaminophen 650 mg 11/12/21 01:58 11/24/21 23:45 Acetaminophen 325 Mg Tab PO 650 mg Q6H PRN Administration Pain MILD(1-3)/Fever >100.5/SMYTH Apixaban 5 mg 11/20/21 22:00 12/02/21 00:28 Apixaban 5 Mg Tab PO 5 mg Q12HR JENNY Administration Protocol Aspirin 81 mg 11/20/21 14:00 12/01/21 20:33 Aspirin Ec 81 Mg Tab PO Not Given QDAY JENNY Haloperidol 1 mg 12/01/21 17:00 12/02/21 06:03 Haloperidol 1 Mg Tab PO Not Given BID JENNY Hydralazine HCl 10 mg 11/25/21 14:09 Hydralazine 20 Mg/1 Ml Inj IV Q4HR PRN Hypertension Dextrose/Sodium Chloride 1,000 mls @ 100 mls/hr 11/27/21 11:00 12/02/21 04:47 D5/0.45ns IV 100 mls/hr DIRECT JENNY Administration Isosorbide Dinitrate/Hydralazine 1 each 11/20/21 14:00 12/02/21 06:05 Isosorb Dinit/Hydralazine 20-37.5mg Tab PO Not Given Q8HR JENNY Metoprolol Tartrate 25 mg 11/20/21 14:00 12/01/21 23:50 Metoprolol Tartrate 25 Mg Tab PO Not Given BID JENNY Mirtazapine 7.5 mg 11/23/21 22:00 12/01/21 23:50 Mirtazapine 15 Mg Tab PO Not Given QHS JENNY Pantoprazole Sodium 40 mg 11/12/21 07:30 12/01/21 20:32 Pantoprazole 40 Mg Tab PO Not Given QDAC JENNY Quetiapine Fumarate 50 mg 11/27/21 22:00 12/01/21 23:50 Quetiapine 25 Mg Tab PO Not Given BID JENNY Sodium Chloride 10 ml 11/18/21 14:32 11/22/21 22:53 Sodium Chloride 0.9% 50 Ml Ivpb IV 10 ml PRN PRN Administration FLUSH
[2021-12-02] MEDS: METOPROLOL TARTRATE 25 MG TAB PO SCH ×2 (12:30→22:34)
[2021-12-02] MEDS: QUEtiapine 25 MG TAB PO SCH ×3 (12:31→21:11)
[2021-12-02] MEDS: SODIUM BICARBONATE 75 MEQ in DEXTROSE 5% IN WATER 1,000 ML IV SCH (14:35)
[2021-12-02 15:21] LABS: Creatinine,Urine 295.8 mg/dL (0.1-20.0)
[2021-12-02 15:32] LABS: Bacteria,Urine 2+ /HPF (Negative); Mucus,Urine 1+ /HPF
[2021-12-02 15:38] LABS: Bilirubin,Urine SM (Negative); Blood,Urine SM (Negative); Color,Urine Amber (Yellow); Hyaline Casts,Urine 45 /LPF
[2021-12-02 15:39] LABS: Protein,Urine >500 mg/dL (Negative)
[2021-12-02 15:44] LABS: Ictotest,Urine Negative (Negative)
[2021-12-02] MEDS: MIRTAZAPINE 15 MG TAB PO SCH (21:11)
[2021-12-03] MEDS: ISOSORB DINIT/HYDRALAZINE 20-37.5MG TAB PO SCH ×3 (06:27→22:22)
[2021-12-03 07:38] LABS: Hemoglobin 13.8 gm/dl (11.8-15.2); Mean Corpuscular HGB Conc 31 % (32-34); Mean Corpuscular Volume 85 fl (84-94); Red Blood Count 5.15 M/mm3 (3.65-5.03)
[2021-12-03 08:08] LABS: Calcium 9.5 mg/dL (8.4-10.2); Red Cell Distribution Width 20.6 % (13.2-15.2)
[2021-12-03] MEDS ORDERED: SODIUM CHLORIDE 0.9% 1000 ML 1,000 ML ONE (08:39)
[2021-12-03] MEDS ORDERED: SODIUM CHLORIDE 0.9% 1000 ML 1,000 ML IV ONE (09:12)
--- NOTE | 2021-12-03 09:34 | Progress Note ---
Assessment and Plan mpression: * Acute kidney injury secondary to prerenal azotemia due to hypoperfusion due to afib w/ RVR, hypotension --UA w/ ketones and Quynh 10 - suggestive of volume depletion --Renal ultrasound: right 11.4cm, left 12.3cm; no hydro * Atrial fibrillation with RVR * Acute encephalopathy * Cardiomyopathy - LVEF 10% * Recent COVID 19 infection * Anemia * Metabolic acidosis Plan: * Renal function seems to be getting worse. * His urine shows 4+ dipstick protein and 16 RBCs per high-power field. Fractional excretion however is low consistent with prerenal state. A Ibarra catheter has been placed. No urine output. Suspect progression to ATN * Patient is currently hypotensive. Shall administer fluid bolus. Continue IV fluid with bicarbonate following that. * Shall check a chest x-ray also. * Rate control per cardiology * Await pending serologic work up- ANCA negative, Complements WNL * Dose medications for renal function * Avoid potential nephrotoxins * Consider transferring patient to ICU/IMCU * If patient renal function does not improve, he may need renal replacement therapy Subjective Date of service: 12/03/21 Principal diagnosis: encephalopathy,AF,COVID-19 Interval history: Patient's clinical condition seems to be deteriorating. He is currently on 5 L oxygen via nasal cannula. Oxygen saturation is 89%. Patient is lethargic. Objective - Vital Signs Vital signs: Vital Signs - 12hr 12/02/21 12/02/21 12/02/21 22:00 22:32 22:34 Temperature Pulse Rate 68 68 68 Respiratory Rate Blood Pressure 78/61 78/61 O2 Sat by Pulse 98 Oximetry 12/03/21 12/03/21 12/03/21 04:41 06:27 08:40 Temperature 97.9 F Pulse Rate 65 65 Respiratory 20 Rate Blood Pressure 89/69 89/69 O2 Sat by Pulse 92 88 Oximetry - General Appearance General appearance: well-developed, well-nourished, appears stated age EENT: PERRL, mucous membranes dry Neck: no JVD, no thyromegaly, no carotid bruit, supple Respiratory: Present: Ronchi (Bilateral scattered rhonchi) Cardiology: regular, normal heart rate, S1S2, no murmurs Gastrointestinal: normal, normoactive bowel sounds Integumentary: other (No edema) - Lab 12/03/21 06:59 02/08/22 06:59 Most recent lab results Calcium 9.5 mg/dL (8.4-10.2) 12/03/21 06:59 Magnesium 2.50 mg/dL (1.7-2.3) H 11/11/21 09:13 Urine Creatinine 295.8 mg/dL (0.1-20.0) H 12/02/21 13:50 Urine Sodium 49 mmol/L 12/02/21 13:50 Medications & Allergies - Medications Allergies/Adverse Reactions: Allergies No Known Allergies Allergy (Verified 11/03/21 18:59) Home Medications: Home Medications Medication Instructions Recorded Confirmed Last Taken Type NIFEdipine XL [Procardia Xl] 30 mg PO QDAY #30 tablet 11/07/21 11/14/21 Unknown Rx dexAMETHasone [Dexamethasone] 4 mg PO DAILY #10 tab 11/07/21 11/14/21 Unknown Rx Mirtazapine 7.5 mg PO QHS #30 11/23/21 Unknown Rx haloperidoL [Haldol] 1 mg PO BID #60 11/23/21 Unknown Rx Active Medications: Generic Name Dose Route Start Last Admin Trade Name Freq PRN Reason Stop Dose Admin Acetaminophen 650 mg 11/12/21 01:58 11/24/21 23:45 Acetaminophen 325 Mg Tab PO 650 mg Q6H PRN Administration Pain MILD(1-3)/Fever >100.5/SMYTH Apixaban 5 mg 11/20/21 22:00 12/02/21 21:23 Apixaban 5 Mg Tab PO 5 mg Q12HR JENNY Administration Protocol Aspirin 81 mg 11/20/21 14:00 12/02/21 10:00 Aspirin Ec 81 Mg Tab PO Not Given QDAY JENNY Haloperidol 1 mg 12/01/21 17:00 12/02/21 21:12 Haloperidol 1 Mg Tab PO 1 mg BID JENNY Administration Hydralazine HCl 10 mg 11/25/21 14:09 Hydralazine 20 Mg/1 Ml Inj IV Q4HR PRN Hypertension Sodium Bicarbonate 75 meq/ 1,075 mls @ 100 mls/hr 12/02/21 11:00 12/02/21 14:35 Dextrose IV 100 mls/hr DIRECT JENNY Administration Sodium Chloride 1,000 mls @ 999 mls/hr 12/03/21 09:12 Nacl 0.9% 1000 Ml IV 12/03/21 10:12 BOLUS ONE Isosorbide Dinitrate/Hydralazine 1 each 11/20/21 14:00 12/03/21 06:27 Isosorb Dinit/Hydralazine 20-37.5mg Tab PO Not Given Q8HR JENNY Metoprolol Tartrate 25 mg 11/20/21 14:00 12/02/21 22:34 Metoprolol Tartrate 25 Mg Tab PO Not Given BID JENNY Mirtazapine 7.5 mg 11/23/21 22:00 12/02/21 21:11 Mirtazapine 15 Mg Tab PO 7.5 mg QHS JENNY Administration Pantoprazole Sodium 40 mg 11/12/21 07:30 12/02/21 07:30 Pantoprazole 40 Mg Tab PO Not Given QDAC JENNY Quetiapine Fumarate 50 mg 11/27/21 22:00 12/02/21 21:11 Quetiapine 25 Mg Tab PO 50 mg BID JENNY Administration Sodium Chloride 10 ml 11/18/21 14:32 11/22/21 22:53 Sodium Chloride 0.9% 50 Ml Ivpb IV 10 ml PRN PRN Administration FLUSH
[2021-12-03 10:10] LABS: Platelet Count 78 K/mm3 (140-440)
--- NOTE | 2021-12-03 10:58 | XRay Report ---
CHEST 1 VIEW 12/03/2021 9:40 AM INDICATION / CLINICAL INFORMATION: Hypoxia. COMPARISON: 11/11/21. FINDINGS: SUPPORT DEVICES: None. HEART / MEDIASTINUM: Cardiomegaly is stable. LUNGS / PLEURA: Mild patchy parenchymal opacities in both mid to lower lung zones peripherally have c leared. No new pulmonary or pleural abnormality. No pneumothorax. ADDITIONAL FINDINGS: No significant additional findings. IMPRESSION: Cardiomegaly without acute pulmonary disease. Signer Name: Félix Pierre MD Signed: 12/03/2021 10:54 AM Workstation Name: [id number]
[2021-12-03] MEDS: SODIUM BICARBONATE 75 MEQ in DEXTROSE 5% IN WATER 1,000 ML IV SCH (11:30)
[2021-12-03] MEDS ORDERED: MORPHINE 2 MG/1 ML INJ IV PRN (12:54)
[2021-12-03] MEDS: PANTOPRAZOLE 40 MG TAB PO SCH (13:09)
[2021-12-03] MEDS: APIXABAN 5 MG TAB PO SCH ×2 (13:13→22:22)
[2021-12-03] MEDS: HALOPERIDOL 1 MG TAB PO SCH ×2 (13:14→22:23)
[2021-12-03] MEDS: QUEtiapine 25 MG TAB PO SCH ×2 (13:14→22:22)
[2021-12-03] MEDS: ASPIRIN EC 81 MG TAB PO SCH (13:14)
[2021-12-03] MEDS: METOPROLOL TARTRATE 25 MG TAB PO SCH ×2 (13:14→22:23)
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
--- NOTE | 2021-12-03 20:17 | Event Note ---
Date: 12/03/21 Today morning nurse reported that patient is critically ill with severe hypoxia requiring 5 L of nasal cannula oxygen[previously patient was saturating well on room air] and hypotensive, lethargic and critically ill looking On evaluation patient is critically ill in severe distress due to hypoxia, tachypnea and worsening shortness of breath, Patient was hypotensive , worsening renal function and anuria., Discussed with firearms sales associate Dr. Mcgill. Planning to transfer the patient to ICU, to start Levophed and consider intubation and ventilatory support if no improvement I called ICU charge nurse to transfer the patient to ICU, however no beds available but she would check and let me know their availability of a bed. I called patient's daughter RAYMON Samson at [phone] and informed patient's critical condition, and discussed in detail patient's hypotension , hypoxia and altered level of consciousness. And informed her that we are planning to transfer the patient to ICU, for possible intubation and ventilatory support. And that patient is critically ill with multiple medical problems with very poor prognosis. Patient's daughter did not want the patient to be transferred to ICU and did not want any life support, and inform me that she and the patient[her father] discussed in the past and he would not want to be intubated, does not want to be resuscitated with life support. She requested DNR status, patient's nurse confirmed the daughter's request Made the patient DNR status. Later patient's son came to visit and agreed with with the DNR status Patient is DNR status
[2021-12-03] MEDS: MIRTAZAPINE 15 MG TAB PO SCH (22:23)
[2021-12-04] MEDS: SODIUM BICARBONATE 75 MEQ in DEXTROSE 5% IN WATER 1,000 ML IV SCH (02:46)
[2021-12-04] MEDS: ISOSORB DINIT/HYDRALAZINE 20-37.5MG TAB PO SCH (05:10)
[2021-12-04 05:12] VITALS: BP 78/54
[2021-12-04] MEDS: APIXABAN 5 MG TAB PO SCH (09:33)
[2021-12-04] MEDS: METOPROLOL TARTRATE 25 MG TAB PO SCH (09:34)
[2021-12-04] MEDS: PANTOPRAZOLE 40 MG TAB PO SCH (09:34)
[2021-12-04] MEDS: ASPIRIN EC 81 MG TAB PO SCH (09:34)
[2021-12-04] MEDS: HALOPERIDOL 1 MG TAB PO SCH (09:34)
[2021-12-04] MEDS: QUEtiapine 25 MG TAB PO SCH (09:34)
--- NOTE | 2021-12-04 09:42 | Progress Note ---
Assessment and Plan mpression: * Acute kidney injury . Most likely secondary to ATN --UA w/ ketones and Quynh 10 - suggestive of volume depletion --Renal ultrasound: right 11.4cm, left 12.3cm; no hydro * Atrial fibrillation with RVR * Acute encephalopathy * Cardiomyopathy - LVEF 10% * Recent COVID 19 infection * Anemia * Metabolic acidosis Plan: * No improvement in renal function with fluid bolus and IV hydration. He is currently oligoanuric. Most likely has progressed to ATN. * Continue bicarbonate drip for now * Chest x-ray does not show any acute findings . * Rate control per cardiology * Await pending serologic work up- ANCA negative, Complements WNL * Dose medications for renal function * Avoid potential nephrotoxins * Discussed with patient's daughter over telephone yesterday regarding her renal condition. She does not wish any aggressive measures. Patient has been made a DNR. Also does not wish to pursue dialysis. * No indication for renal recovery at this time. His overall prognosis is poor Subjective Date of service: 12/04/21 Principal diagnosis: encephalopathy,AF,COVID-19 Interval history: Patient is currently on 50% Ventimask. Remains lethargic. Not answering any questions. Objective - Vital Signs Vital signs: Vital Signs - 12hr 12/03/21 12/03/21 12/04/21 21:41 22:00 02:15 Temperature 98.2 F Pulse Rate 39 L 39 L 57 L Respiratory 18 Rate Blood Pressure 118/95 77/59 O2 Sat by Pulse 89 86 89 Oximetry 12/04/21 12/04/21 12/04/21 02:20 05:10 06:00 Temperature 98.2 F Pulse Rate 25 L 50 L 60 Respiratory 22 Rate Blood Pressure 78/54 78/54 O2 Sat by Pulse 91 92 Oximetry 12/04/21 07:46 Temperature Pulse Rate Respiratory Rate Blood Pressure O2 Sat by Pulse 96 Oximetry - General Appearance General appearance: well-developed, well-nourished, appears stated age EENT: PERRL, mucous membranes moist Neck: no JVD, no thyromegaly, no carotid bruit, supple Respiratory: Present: Ronchi (Bilateral scattered rhonchi) Cardiology: regular, normal heart rate, S1S2, no murmurs Gastrointestinal: normal, normoactive bowel sounds Integumentary: no rash, other (No edema) - Lab 12/03/21 06:59 12/03/21 06:59 Most recent lab results Calcium 9.5 mg/dL (8.4-10.2) 12/03/21 06:59 Magnesium 2.50 mg/dL (1.7-2.3) H 11/11/21 09:13 Urine Creatinine 295.8 mg/dL (0.1-20.0) H 12/02/21 13:50 Urine Sodium 49 mmol/L 12/02/21 13:50 Medications & Allergies - Medications Allergies/Adverse Reactions: Allergies No Known Allergies Allergy (Verified 11/03/21 18:59) Home Medications: Home Medications Medication Instructions Recorded Confirmed Last Taken Type NIFEdipine XL [Procardia Xl] 30 mg PO QDAY #30 tablet 11/07/21 11/14/21 Unknown Rx dexAMETHasone [Dexamethasone] 4 mg PO DAILY #10 tab 11/07/21 11/14/21 Unknown Rx Mirtazapine 7.5 mg PO QHS #30 11/23/21 Unknown Rx haloperidoL [Haldol] 1 mg PO BID #60 11/23/21 Unknown Rx Active Medications: Generic Name Dose Route Start Last Admin Trade Name Freq PRN Reason Stop Dose Admin Acetaminophen 650 mg 11/12/21 01:58 11/24/21 23:45 Acetaminophen 325 Mg Tab PO 650 mg Q6H PRN Administration Pain MILD(1-3)/Fever >100.5/SMYTH Apixaban 5 mg 11/20/21 22:00 12/04/21 09:33 Apixaban 5 Mg Tab PO Not Given Q12HR [facility] Protocol Aspirin 81 mg 11/20/21 14:00 12/04/21 09:34 Aspirin Ec 81 Mg Tab PO Not Given QDAY [facility] Haloperidol 1 mg 12/01/21 17:00 12/04/21 09:34 Haloperidol 1 Mg Tab PO Not Given BID [facility] Hydralazine HCl 10 mg 11/25/21 14:09 Hydralazine 20 Mg/1 Ml Inj IV Q4HR PRN Hypertension Sodium Bicarbonate 75 meq/ 1,075 mls @ 125 mls/hr 12/02/21 11:00 12/04/21 02:46 Dextrose IV 100 mls/hr DIRECT JENNY Administration Isosorbide Dinitrate/Hydralazine 1 each 11/20/21 14:00 12/04/21 05:10 Isosorb Dinit/Hydralazine 20-37.5mg Tab PO Not Given Q8HR JENNY Metoprolol Tartrate 25 mg 11/20/21 14:00 12/04/21 09:34 Metoprolol Tartrate 25 Mg Tab PO Not Given BID JENNY Mirtazapine 7.5 mg 11/23/21 22:00 12/03/21 22:23 Mirtazapine 15 Mg Tab PO Not Given QHS JENNY Morphine Sulfate 1 mg 12/03/21 12:54 12/03/21 17:27 Morphine 2 Mg/1 Ml Inj IV 1 mg Q6H PRN Administration Pain, Moderate (4-6) Pantoprazole Sodium 40 mg 11/12/21 07:30 12/04/21 09:34 Pantoprazole 40 Mg Tab PO Not Given QDAC [facility] Quetiapine Fumarate 50 mg 11/27/21 22:00 12/04/21 09:34 Quetiapine 25 Mg Tab PO Not Given BID JENNY Sodium Chloride 10 ml 11/18/21 14:32 11/22/21 22:53 Sodium Chloride 0.9% 50 Ml Ivpb IV 10 ml PRN PRN Administration FLUSH
--- NOTE | 2021-12-04 11:46 | Event Note ---
Date: 12/04/21 Patient's nurse called me and informed me that patient stopped breathing, did not have cardiopulmonary activity Pulse and blood pressure could not be recorded. Patient was DNR status When I came and evaluated, patient was unresponsive, pupils dilated and fixed, no cardiopulmonary activity noted Patient pronounced at 1115 on 12/04/2021. I informed patient's daughter and his son
--- NOTE | 2021-12-04 11:46 | Death Summary ---
Summary - Providers Date of service: 12/04/21 Consults: 11/11/21 18:44 psychiatry consult [Consult to Mental Health] [CONS] Routine Reason For Exam: Acute psychosis/agitation 11/13/21 08:35 Consult to Physician [CONS] Routine Comment: Consulting Provider: RAMON PEARL Physician Instructions: Reason For Exam: acute kidney injury 11/13/21 15:26 Consult to Physician [CONS] Routine Comment: Consulting Provider: JOBY SLOAN Physician Instructions: Reason For Exam: altered mental status 11/13/21 15:36 Consult to Case Management [CONS] Routine Services Needed at Discharge: Other Devops Consultant Notified:: CM Comment:: homeless, discharge planning. 11/13/21 15:41 Speech Therapy Evaluation and Treat [CONS] Routine Reason For Exam: eval and tx 11/13/21 15:42 Physical Therapy Evaluation and Treat [CONS] Routine Comment: Reason For Exam: debility 11/28/21 16:06 Consult to Mental Health [CONS] Routine Reason For Exam: AMS/agitation Attending: ERIK GARCIA - summary Date of admission: 11/12/21 01:59 Date of : 12/04/21 (11:15) Significant findings: --Acute hypoxic respiratory failure; Severe hypoxia, requiring 5 L of nasal cannula oxygen BiPAP as needed, patient is DNR/DNI status --Hypotension; gentle hydration Closely monitor, consider vasopressors if the family agrees Did not want any life support --Acute kidney injury; worsening renal function - Vasomotor nephropathy, prerenal azotemia Management per nephrology, Considering hemodialysis Nephrology differential discussed with family They do not want aggressive measures --Worsening toxic metabolic encephalopathy acute metabolic encephalopathy Treat the underlying cause, supportive care #A. fib with rapid ventricular rate; - S/p Cardizem drip per protocol, now on po metoprolol and Eliquis Cardiology following -Echocardiogram shows LV ejection fraction of 10% #Dilated cardiomyopathy -Noted by echocardiogram obtained by cardiology Guideline directed medical therapy -LV ejection fraction is 10% # Acute hypoxic respiratory failure, likely from underlying h/o COVID pna and CHF -Patient on 2-4L n/c O2 #Leukocytosis; - Probably secondary to steroids, recent COVID-19 infection - Evaluate for sepsis #Lactic acidosis; trend lactic acid - Leukocytosis, empiric Rocephin - Cultures #Dehydration with hypernatremia; gentle hydration IV fluids #COVID-19 infection; Continued low-dose dexamethasone for total 10 days #DVT prophylaxis; Patient is on full dose anticoagulation with Lovenox Patient is a DNR status - Final diagnosis (1) Acute respiratory failure with hypoxia Note: Final diagnosis: (2) Toxic metabolic encephalopathy Note: Final diagnosis: (3) Acute renal failure Note: Final diagnosis: (4) Dilated cardiomyopathy Note: Final diagnosis: (5) History of COVID-19 Note: Final diagnosis: (6) Shock Note: Final diagnosis: (7) COVID-19 virus infection Note: Final diagnosis:
--- NOTE | 2021-12-04 11:52 | Event Note ---
Date: 12/04/21 I called patient's son Mr. Morgan at [phone] and informed That his father , the patient Mr. Ramirez Meyer at 11:15 AM today. Patient was DNR status I answered all his questions , offered my condolences and encouraged him to call back if he has any new questions or concerns. I also called patient's daughter Ms. Migdalia Samson at [phone] 12/02/1999 and informed her that her father, the patient Mr. Ramirez Meyer at 11:15 AM on 12/04/2021. Patient was DNR status. I offered my condolences and inquired if she has any questions or concerns. She did not have any questions or concerns.
== END 2021-12-04 15:57 | DRG 177 ==
LOC: ED 08:09 → CC1 11-12 01:59 → 3A 11-13 17:04
PROVIDERS: ADMIT Internal Medicine Geriatric Medicine; ATTEND Internal Medicine
DX: U07.1 COVID-19 (principal); G93.41 Metabolic encephalopathy; N17.0 Acute kidney failure with tubular necrosis; J96.01 Acute respiratory failure with hypoxia; I42.0 Dilated cardiomyopathy; E87.2 Acidosis; I50.42 Chronic combined systolic (congestive) and diastolic (congestive) heart failure; I13.0 Hypertensive heart and chronic kidney disease with heart failure and stage 1 through stage 4 chronic kidney disease, or unspecified chronic kidney disease; I48.19 Other persistent atrial fibrillation; R57.9 Shock, unspecified; E87.0 Hyperosmolality and hypernatremia; Z66 Do not resuscitate; Z87.09 Personal history of other diseases of the respiratory system; E86.0 Dehydration; F22 Delusional disorders; D64.9 Anemia, unspecified; N18.9 Chronic kidney disease, unspecified; I48.0 Paroxysmal atrial fibrillation
CPT/HCPCS: 36415; 70450; 71045; 74021; 76770; 80048; 80053; 80320; 81001; 82140; 82550; 82565; 82570; 82962; 83735; 84165; 84300; 84443; 84484; 85007; 85025; 85027; 85610; 85730; 86021; 86160; 87040; 87086; 93005; 93010; 93306; 94760; 95819; G0378; J3490; J7060; J7070; J9280; Q0162; C8929; G0480; J0282; J1630; J1650; J2060; J2270; J3486; J7030; J7040; U0003